=== PATIENT | female | born 1945 | race Caucasian/White ===

== ENCOUNTER 2017-05-03 12:40 | Emergency (ER) | payer MEDICARE ==
[2017-05-03] MEDS ORDERED: NS 0.9% 1000 ML* 1,000 ML IV ONE (13:52)
--- NOTE | 2017-05-03 14:22 | RAD ---
INDICATION: Memory loss. COMPARISON: CT brain October 11, 2007 TECHNIQUE: Noncontrast axial source images were acquired from the skull base to the vertex. FINDINGS: Ventricles/sulci: The ventricles and cisterns are normal in size and configuration for age. Brain parenchyma: There is no focal parenchymal finding, evidence of intracranial mass, or intracranial mass effect. Intracranial hemorrhage:None. Extra-axial spaces: There are no abnormal extra axial fluid collections or evidence of extra-axial mass. Calvarium: There is no calvarial fracture or other calvarial abnormality. Scalp: There is no evidence of scalp or extracalvarial soft tissue abnormality. Paranasal sinuses/mastoid: The paranasal sinuses and mastoid air cells are clear. Other: None. IMPRESSION: No acute intracranial findings
[2017-05-03 14:58] LABS: ABS Basophils 0.1 10^3/ul (0-0.2); ABS Eosinophils 0.1 10^3/ul (0-0.6); ABS Lymphocytes 1.6 10^3/ul (1.0-4.8); ABS Monocytes 0.6 10^3/ul (0-0.8); ABS Neutrophils 3.6 10^3/ul (1.5-7.7); ABS Nucleated RBC 0 10^3/ul; Eosinophil % 0.9 % (0-6); Hematocrit 35 % (35-47); Hemoglobin 11.5 g/dl (12.0-16.0); Lymphocyte % 27.5 % (25-47); Mean Corpuscular HGB Conc 33 g/dl (31-36); Mean Corpuscular Hemoglobin 32 pg (27-31); Mean Corpuscular Volume 94 fL (80-97); Mean Platelet Volume 9 um3 (7.4-10.4); Nucleated Red Blood Cells % 0; Platelet Count 264 10^3/ul (150-450); Red Blood Count 3.67 10^6/ul (4.0-5.4); Red Cell Distribution Width 13 % (10.5-15)
[2017-05-03 15:26] LABS: Urine Appearance Clear; Urine Blood Negative (Negative); Urine Color Yellow; Urine Ketones Negative (Negative); Urine Protein Negative (Negative); Urine Urobilinogen Negative (Negative)
--- NOTE | 2017-05-03 15:33 | RAD ---
HISTORY: Cough, altered mental status COMPARISONS: December 27, 2013 VIEWS: 1: frontal portable view of the chest at 3:10 PM FINDINGS: LINES AND TUBES: A left-sided pacemaker is noted. CARDIOMEDIASTINAL SILHOUETTE: The cardiomediastinal silhouette is normal for portable technique. PLEURA: The costophrenic angles are sharp. No pleural abnormalities are noted. LUNG PARENCHYMA: The lungs are clear. ABDOMEN: The upper abdomen is clear. There is no subphrenic gas. BONES AND SOFT TISSUES: The patient is status post median sternotomy. IMPRESSION: NO ACTIVE CARDIOPULMONARY DISEASE.
[2017-05-03 15:43] LABS: INR 1.01 (0.77-1.02)
--- NOTE | 2017-05-03 17:30 | ED ---
Donald Khan Angela, scribed for Wilfred Melchor MD on 05/03/17 at 1338 . Altered Mental Status - HPI Summary HPI Summary: This pt is a 72 y/o female, accompanied by her son, presenting to [facility] via EMS for memory loss for the past 3 weeks. Son reports that he noticed pt's memory loss about 1 week ago. Son took pt to [facility] for her cough on and was diagnosed with sinus infection, was given an antibiotics (10 day course BID). Her cough began 3 weeks ago. Son noticed the pt was unable to remember her PCP's name, had to look through her book, and had delayed thoughts. Son reports the pt has been dizzy, has slow speech, forgetful (trouble working the TV remote, forgetting to eat and drink, forgetting to flush). Pt has also had tripping for the last weeks while ambulating, catching her toes on floor. She denies visual changes, numbness, weakness or tingling. Son notes pt's speech has been slow intermittently. Pt additionally states she has persistent cough, diarrhea, urinary frequency. She denies ear ache, constipation, abd pain , calf pain. Pt had eye surgery to have cataracts removed in mid-March 2017. She is currently on metoprolol, lorazepam, and Keppra. Pt has not had a seizure in years. Her neurologist is Dr. Hackett. - History Of Current Complaint Chief Complaint: EDAltMentalStatus Stated Complaint: WEAKNESS/MEMORY LOSS Time Seen by Provider: 05/03/17 13:30 Hx Obtained From: Patient, Family/[employer] - Son Onset/Duration: Still Present, Gradually Timing: Lasting Weeks Severity Currently: Moderate Character: Confusion Aggravating Factor(s): Nothing Alleviating Factor(s): Nothing Associated Signs And Symptoms: Positive: Dizziness - Allergies/Home Medications Allergies/Adverse Reactions: Allergies Allergy/AdvReac Type Severity Reaction Status Date / Time Carbamazepine [From Tegretol] Allergy Unknown Unknown Verified 12/17/13 08:07 Reaction Details Methoxyflurane Allergy Unknown Unknown Verified 12/17/13 08:07 Reaction Details Sulfate Allergy Unknown Unknown Verified 12/17/13 08:07 Reaction Details Home Medications: Home Medications Atorvastatin* [Lipitor*] 10 mg PO DAILY 05/03/17 [History Confirmed 05/03/17] Lisinopril TAB* [Prinivil TAB*] 2.5 mg PO QAM 05/03/17 [History Confirmed ] Nitroglycerin TAB 0.4 MG* 0.4 mg SL Q5M PRN 05/03/17 [History Confirmed 05/03/17 ] Omeprazole CAP* [Prilosec CAP* 20 MG] 20 mg PO QAM 05/03/17 [History Confirmed 05/03/17] PMH/Surg Hx/FS Hx/Imm Hx Endocrine/Hematology History: Reports: Hx Anticoagulant Therapy - [place] Denies: Hx Diabetes, Hx Thyroid Disease Cardiovascular History: Reports: Hx Auto Implanted Cardiovert Defib, Hx Congestive Heart Failure - 2 CABG, Hx Coronary Artery Disease, Hx Hypercholesterolemia, Hx Hypertension - ON DAILY MEDS, Hx Pacemaker/ICD - 12/2011 , Hx Valvular Heart Disease, 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 Respiratory History: Reports: Hx Chronic Obstructive Pulmonary Disease (COPD), Hx Pneumonia - 2009, Other Respiratory Problems/Disorders - PNEUMONIA 2009 GI History: Reports: Hx Gastroesophageal Reflux Disease, Hx Ulcer - ON DAILY MEDS Denies: Other GI Disorders Musculoskeletal History: Denies: Hx Arthritis, Hx Osteoporosis, Other Musculoskeletal History Sensory History: Reports: Hx Cataracts - [facility], Hx Contacts or Glasses - READING GLASSES Denies: Hx Hearing Aid Opthamlomology History: Reports: Hx Cataracts - FITO, Hx Contacts or Glasses - READING GLASSES Neurological History: Reports: Hx Seizures - LAST ONE 3 YRS AGO, Other Neuro Impairments/Disorders - EPILEPSY Psychiatric History: Reports: Hx Anxiety - ON MEDS, Hx Depression - ON DAILY MEDS, Other Psychiatric Issues/Disorders - schizoaffective disorder - Cancer History Hx Chemotherapy: No Hx Radiation Therapy: No - Surgical History Surgery Procedure, Year, and Place: 1994 1999 CARDIAC BY-PASS 5 vessel bypass then 4 vessel bypass [facility] APPEN[facility]08/2012, [facility] CATARACTS, [facility]; PACEMAKER/DEFIBRILATOR Hx Anesthesia Reactions: No - Immunization History Date of Tetanus Vaccine: Unk Date of Influenza Vaccine: Unk Infectious Disease History: No Infectious Disease History: Denies: Traveled Outside the [place] in Last 30 Days - Family History Known Family History: Positive: Cardiac Disease - Mother: CHF. Mother and Father : NM, Hypertension - Mother, Diabetes - Mother and brother, Other - Sister: colon CA. - Social History Alcohol Use: None Substance Use Type: Reports: None Smoking Status (MU): Former Smoker Type: Cigarettes Amount Used/How Often: 3-4 PACKS A DAY Have You Smoked in the Last Year: No Review of Systems Negative: Fever, Chills Negative: Blurred Vision, Diplopia Negative: Ear Ache Positive: Cough Positive: Diarrhea. Negative: Abdominal Pain, Other - constipation Positive: frequency Neurological: Other - POS: memory loss, slow speech, delayed thoughts All Other Systems Reviewed And Are Negative: Yes Physical Exam - Summary Physical Exam Summary: General: well-appearing, no pain distress Skin: warm, color reflects adequate perfusion, dry Head: normal Eyes: EOMI, AGUSTÍN. Pupils are 3 mm bilaterally and minimally reactive. ENT: normal Neck: supple, nontender Respiratory: CTA, breath sounds present Cardiovascular: RRR Abdomen: soft, nontender Bowel: present Musculoskeletal: normal, strength/ROM intact Neurological: sensory/motor intact, A&O x3. Speech is slow, mildly slurred. Pt starts a thought and then drifts off. No focal neurological deficits otherwise. Psychological: affect/mood appropriate Triage Information Reviewed: Yes Vital Signs On Initial Exam: Initial Vitals Temp Pulse Resp BP Pulse Ox 97.7 F 65 16 107/56 96 05/03/17 13:03 05/03/17 13:03 05/03/17 13:03 05/03/17 13:03 05/03/17 13:03 Vital Signs Reviewed: Yes - Tyron Coma Scale Coma Scale Total: 14 Diagnostics - Vital Signs Vital Signs Temp Pulse Resp BP Pulse Ox 05/03/17 13:30 62 18 115/61 96 05/03/17 13:09 65 94 05/03/17 13:08 107/56 05/03/17 13:03 97.7 F 65 16 107/56 96 - Laboratory Lab Results: Lab Results 05/03/17 05/03/17 05/03/17 Range/Units 14:47 14:47 14:47 WBC (3.5-10.8) 10^3/ul RBC (4.0-5.4) 10^6/ul Hgb (12.0-16.0) g/dl Hct (35-47) % MCV (80-97) fL MCH (27-31) pg MCHC (31-36) g/dl RDW (10.5-15) % Plt Count (150-450) 10^3/ul MPV (7.4-10.4) um3 Neut % (Auto) (38-83) % Lymph % (Auto) (25-47) % [place] % (Auto) (1-9) % Eos % (Auto) (0-6) % Baso % (Auto) (0-2) % Absolute Neuts (auto) (1.5-7.7) 10^3/ul Absolute Lymphs (auto) (1.0-4.8) 10^3/ul Absolute Monos (auto) (0-0.8) 10^3/ul Absolute Eos (auto) (0-0.6) 10^3/ul Absolute Basos (auto) (0-0.2) 10^3/ul Absolute Nucleated RBC 10^3/ul Nucleated RBC % INR (Anticoag Therapy) 1.01 (0.77-1.02) APTT 22.8 L (26.0-36.3) seconds Sodium 135 (133-145) mmol/L Potassium 4.2 (3.5-5.0) mmol/L Chloride 103 (101-111) mmol/L Carbon Dioxide 25 (22-32) mmol/L Anion Gap 7 (2-11) mmol/L BUN 14 (6-24) mg/dL Creatinine 0.64 (0.51-0.95) mg/dL Est GFR ( Amer) 117.0 (>60) Est GFR (Non-Af Amer) 91.0 (>60) BUN/Creatinine Ratio 21.9 H (8-20) Glucose 87 (70-100) mg/dL Lactic Acid (0.5-2.0) mmol/L Calcium 8.6 (8.6-10.3) mg/dL Magnesium 2.1 (1.9-2.7) mg/dL Total Bilirubin 0.40 (0.2-1.0) mg/dL AST 16 (13-39) U/L ALT 7 (7-52) U/L Alkaline Phosphatase 95 (34-104) U/L Ammonia 43 (16-53) mol/L Total Creatine Kinase 142 (10-223) U/L CK-MB (CK-2) 2.2 (0.6-6.3) ng/mL Troponin I 0.01 (<0.04) ng/mL C-Reactive Protein 12.75 H (< 5.00) mg/L B-Natriuretic Peptide 697 H ( - 100) pg/mL Total Protein 5.9 L (6.4-8.9) g/dL Albumin 2.9 L (3.2-5.2) g/dL Globulin 3.0 (2-4) g/dL Albumin/Globulin Ratio 1.0 (1-3) TSH 0.77 (0.34-5.60) mcIU/mL Urine Color Urine Appearance Urine pH (5-9) Ur Specific [place] (1.010-1.030) Urine Protein (Negative) Urine Ketones (Negative) Urine Blood (Negative) Urine Nitrate (Negative) Urine Bilirubin (Negative) Urine Urobilinogen (Negative) Ur Leukocyte Esterase (Negative) Urine Glucose (Negative) Urine Opiates Screen (None Detect) Acetaminophen < 15 mcg/mL Ur Barbiturates Screen (None Detect) Ur Phencyclidine Scrn (None Detect) Ur Amphetamines Screen (None Detect) Phenobarbital 41.8 H (17-34) mcg/mL U Benzodiazepines Scrn (None Detect) Urine Cocaine Screen (None Detect) U Cannabinoids Screen (None Detect) Serum Alcohol < 10 (<10) mg/dL 05/03/17 05/03/17 05/03/17 Range/Units 14:47 14:47 15:15 WBC 6.0 (3.5-10.8) 10^3/ul RBC 3.67 L (4.0-5.4) 10^6/ul Hgb 11.5 L (12.0-16.0) g/dl Hct 35 (35-47) % MCV 94 (80-97) fL MCH 32 H (27-31) pg MCHC 33 (31-36) g/dl RDW 13 (10.5-15) % Plt Count 264 (150-450) 10^3/ul MPV 9 (7.4-10.4) um3 Neut % (Auto) 61.0 (38-83) % Lymph % (Auto) 27.5 (25-47) % [place] % (Auto) 9.3 H (1-9) % Eos % (Auto) 0.9 (0-6) % Baso % (Auto) 1.3 (0-2) % Absolute Neuts (auto) 3.6 (1.5-7.7) 10^3/ul Absolute Lymphs (auto) 1.6 (1.0-4.8) 10^3/ul Absolute Monos (auto) 0.6 (0-0.8) 10^3/ul Absolute Eos (auto) 0.1 (0-0.6) 10^3/ul Absolute Basos (auto) 0.1 (0-0.2) 10^3/ul Absolute Nucleated RBC 0 10^3/ul Nucleated RBC % 0 INR (Anticoag Therapy) (0.77-1.02) APTT (26.0-36.3) seconds Sodium (133-145) mmol/L Potassium (3.5-5.0) mmol/L Chloride (101-111) mmol/L Carbon Dioxide (22-32) mmol/L Anion Gap (2-11) mmol/L BUN (6-24) mg/dL Creatinine (0.51-0.95) mg/dL Est GFR ( Amer) (>60) Est GFR (Non-Af Amer) (>60) BUN/Creatinine Ratio (8-20) Glucose (70-100) mg/dL Lactic Acid 1.1 (0.5-2.0) mmol/L Calcium (8.6-10.3) mg/dL Magnesium (1.9-2.7) mg/dL Total Bilirubin (0.2-1.0) mg/dL AST (13-39) U/L ALT (7-52) U/L Alkaline Phosphatase (34-104) U/L Ammonia (16-53) mol/L Total Creatine Kinase (10-223) U/L CK-MB (CK-2) (0.6-6.3) ng/mL Troponin I (<0.04) ng/mL C-Reactive Protein (< 5.00) mg/L B-Natriuretic Peptide ( - 100) pg/mL Total Protein (6.4-8.9) g/dL Albumin (3.2-5.2) g/dL Globulin (2-4) g/dL Albumin/Globulin Ratio (1-3) TSH (0.34-5.60) mcIU/mL Urine Color Yellow Urine Appearance Clear Urine pH 5.0 (5-9) Ur Specific [place] 1.010 (1.010-1.030) Urine Protein Negative (Negative) Urine Ketones Negative (Negative) Urine Blood Negative (Negative) Urine Nitrate Negative (Negative) Urine Bilirubin Negative (Negative) Urine Urobilinogen Negative (Negative) Ur Leukocyte Esterase Negative (Negative) Urine Glucose Negative (Negative) Urine Opiates Screen (None Detect) Acetaminophen mcg/mL Ur Barbiturates Screen (None Detect) Ur Phencyclidine Scrn (None Detect) Ur Amphetamines Screen (None Detect) Phenobarbital (17-34) mcg/mL U Benzodiazepines Scrn (None Detect) Urine Cocaine Screen (None Detect) U Cannabinoids Screen (None Detect) Serum Alcohol (<10) mg/dL 05/03/17 Range/Units 15:35 WBC (3.5-10.8) 10^3/ul RBC (4.0-5.4) 10^6/ul Hgb (12.0-16.0) g/dl Hct (35-47) % MCV (80-97) fL MCH (27-31) pg MCHC (31-36) g/dl RDW (10.5-15) % Plt Count (150-450) 10^3/ul MPV (7.4-10.4) um3 Neut % (Auto) (38-83) % Lymph % (Auto) (25-47) % [place] % (Auto) (1-9) % Eos % (Auto) (0-6) % Baso % (Auto) (0-2) % Absolute Neuts (auto) (1.5-7.7) 10^3/ul Absolute Lymphs (auto) (1.0-4.8) 10^3/ul Absolute Monos (auto) (0-0.8) 10^3/ul Absolute Eos (auto) (0-0.6) 10^3/ul Absolute Basos (auto) (0-0.2) 10^3/ul Absolute Nucleated RBC 10^3/ul Nucleated RBC % INR (Anticoag Therapy) (0.77-1.02) APTT (26.0-36.3) seconds Sodium (133-145) mmol/L Potassium (3.5-5.0) mmol/L Chloride (101-111) mmol/L Carbon Dioxide (22-32) mmol/L Anion Gap (2-11) mmol/L BUN (6-24) mg/dL Creatinine (0.51-0.95) mg/dL Est GFR ( Amer) (>60) Est GFR (Non-Af Amer) (>60) BUN/Creatinine Ratio (8-20) Glucose (70-100) mg/dL Lactic Acid (0.5-2.0) mmol/L Calcium (8.6-10.3) mg/dL Magnesium (1.9-2.7) mg/dL Total Bilirubin (0.2-1.0) mg/dL AST (13-39) U/L ALT (7-52) U/L Alkaline Phosphatase (34-104) U/L Ammonia (16-53) mol/L Total Creatine Kinase (10-223) U/L CK-MB (CK-2) (0.6-6.3) ng/mL Troponin I (<0.04) ng/mL C-Reactive Protein (< 5.00) mg/L B-Natriuretic Peptide ( - 100) pg/mL Total Protein (6.4-8.9) g/dL Albumin (3.2-5.2) g/dL Globulin (2-4) g/dL Albumin/Globulin Ratio (1-3) TSH (0.34-5.60) mcIU/mL Urine Color Urine Appearance Urine pH (5-9) Ur Specific [place] (1.010-1.030) Urine Protein (Negative) Urine Ketones (Negative) Urine Blood (Negative) Urine Nitrate (Negative) Urine Bilirubin (Negative) Urine Urobilinogen (Negative) Ur Leukocyte Esterase (Negative) Urine Glucose (Negative) Urine Opiates Screen None detected (None Detect) Acetaminophen mcg/mL Ur Barbiturates Screen Presumptive positive H (None Detect) Ur Phencyclidine Scrn None detected (None Detect) Ur Amphetamines Screen None detected (None Detect) Phenobarbital (17-34) mcg/mL U Benzodiazepines Scrn None detected (None Detect) Urine Cocaine Screen None detected (None Detect) U Cannabinoids Screen None detected (None Detect) Serum Alcohol (<10) mg/dL Result Diagrams: 05/03/17 14:47 05/03/17 14:47 Lab Statement: Any lab studies that have been ordered have been reviewed, and results considered in the medical decision making process. - Radiology Chest XR Xray Interpretation: No Acute Changes - IMPRESSION: No active cardiopulmonary disease. Dr. Melchor has reviewed this radiology report. Radiology Interpretation Completed By: Radiologist - CT Brain CT CT Interpretation: No Acute Changes - IMPRESSION: No acute intracranial findings. Dr. Melchor has reviewed this radiology report. CT Interpretation Completed By: Radiologist - EKG 14:28 Cardiac Rate: NL Ectopy: PVCs EKG Interpretation: atrial paced complex rhythm at [address] elevation inferior leads. EKG Comparison: No Significant Change - no change compared to EKG done on . Altered Mental Statu Course/Dx - Course Course Of Treatment: Medications reviewed. Allergies noted. Brain CT is negative. Chest XR is negative. UA is positive for barbiturates and phenobarbital. I discussed pt's case with Dr. Cuevas, neurologist. HE RECOMMENDS DECREASING THE PHENOBARBITAL FROM 2 PILLS IN THE AM AND 3 IN THE PM TO 2 BID ( 32.4MG PILLS). F/U WITH NEUROLOGY TOMORROW. THIS WAS ALL DISCUSSED WITH THE PATIENT AND HER FAMILY. THEY FEEL SAFE TAKING THE PATIENT HOME; RETURN IF WORSE. - Diagnoses Discharge Diagnoses: Altered mental state, Phenobarbital toxicity - Provider Notifications Discussed Care Of Patient With: Vitaliy Cain Time Discussed With Above Provider: 16:28 Instructed by Provider To: Other - I discussed pt care with Dr. Cain, hospitalist. [16:46] I discussed pt's case with Dr. Cuevas, neurologist. Discharge - Discharge Plan Condition: Stable Disposition: HOME Patient Education Materials: Altered Mental Status (ED) Referrals: [facility] [Provider Group] Eli Cuevas MD [Medical Doctor] - Gallo Hackett MD [Medical Doctor] - Milton Hall MD [Primary Care Provider] - Additional Instructions: FOLLOW UP WITH YOUR PRIMARY CARE DOCTOR AND NEUROLOGY; DR HACKETT OR DR CUEVAS. YOUR PHENOBARBITAL LEVEL IS HIGH. DECREASE YOUR DOSE FROM 2 PILLS IN THE MORNING AND 3 PILLS AT NIGHT TO 2 PILLS BOTH MORNING AND NIGHT. RETURN TO THE EMERGENCY DEPARTMENT FOR ANY WORSENING OF YOUR CONDITION; INCREASED CONFUSION, DIFFICULTY BREATH, YOU FEEL ILL OR QUESTIONS OR CONCERNS. The documentation as recorded by the Donald cedillo Angela accurately reflects the service I personally performed and the decisions made by me, Wilfred Melchor MD.
[2017-05-03 17:35] VITALS: BP 110/87
== END 2017-05-03 18:00 | disposition home or self-care (01) ==
LOC: ED 12:40
DX: R41.82 Altered mental status, unspecified (principal); T42.3X5A Adverse effect of barbiturates, initial encounter; Z88.8 Allergy status to other drugs, medicaments and biological substances; Z87.891 Personal history of nicotine dependence
CPT/HCPCS: 36415; 70450; 71045; 80053; 80177; 80184; 80307; 80320; 80329; 81003; 82140; 82550; 82553; 83605; 83735; 83880; 84443; 84484; 85025; 85610; 85730; 86140; 93005; 96360; 99284; G0480

== ENCOUNTER 2018-04-09 18:09 | Observation (INO) | payer MEDICARE ==
[2018-04-09] MEDS ORDERED: NS 0.9% 1000 ML* 1,000 ML IV ONE ×2 (18:21→18:43)
--- NOTE | 2018-04-09 18:43 | ED ---
Neurological HPI - HPI Summary HPI Summary: Time seen by provider: [18:15]. The patient is a 73 y/o F presenting to [facility] with a chief complaint of confusion today. She states she has "loss her loss" and "minds her mind", and additionally states that the government infused her, as well as other phrases without meaning. She reports that something hit her face under the left orbit upon the maxila. She denies nausea, CP, and SOB. She called 911 from her [facility]; she told EMS she was diagnosed with a UTI, but results were negative. - History of Current Complaint Chief Complaint: EDAltMentalStatus Stated Complaint: CONFUSION Time Seen by Provider: 04/09/18 18:33 Hx Obtained From: Patient, EMS Onset/Duration: Sudden Onset, Started hours ago - today, Still Present Timing: Constant Onset Severity: Severe Current Severity: Severe Pain Intensity: 0 Pain Scale Used: 0-10 Numeric Character: Confusion Aggravating: Nothing Alleviating: Nothing Associated Signs and Symptoms: Negative: Nausea/Vomiting, Chest Pain, Shortness of Breath - Allergy/Home Medications Allergies/Adverse Reactions: Allergies Allergy/AdvReac Type Severity Reaction Status Date / Time carbamazepine Allergy Unknown Unknown Verified 04/09/18 21:12 Reaction Details methoxyflurane Allergy Unknown Unknown Verified 04/09/18 21:12 Reaction Details Sulfa (Sulfonamide Allergy Unknown Unknown Verified 04/10/18 10:06 Antibiotics) Reaction Details PMH/Surg Hx/FS Hx/Imm Hx Endocrine/Hematology History: Reports: Hx Anticoagulant Therapy - [place]il[place] Denies: Hx Diabetes, Hx Thyroid Disease Cardiovascular History: Reports: Hx Auto Implanted Cardiovert Defib, Hx Congestive Heart Failure - 2 CABG, Hx Coronary Artery Disease, Hx Hypercholesterolemia, Hx Hypertension - ON DAILY MEDS, Hx Pacemaker/ICD - 12/2011 , Hx Valvular Heart Disease, 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 Respiratory History: Reports: Hx Chronic Obstructive Pulmonary Disease (COPD), Hx Pneumonia - 2009, Other Respiratory Problems/Disorders - PNEUMONIA 2009 GI History: Reports: Hx Gastroesophageal Reflux Disease, Hx Ulcer - ON DAILY MEDS Denies: Other GI Disorders Musculoskeletal History: Denies: Hx Arthritis, Hx Osteoporosis, Other Musculoskeletal History Sensory History: Reports: Hx Cataracts - FITO, Hx Contacts or Glasses - READING GLASSES Denies: Hx Hearing Aid Opthamlomology History: Reports: Hx Cataracts - FITO, Hx Contacts or Glasses - READING GLASSES Neurological History: Reports: Hx Seizures - LAST ONE 3 YRS AGO, Other Neuro Impairments/Disorders - EPILEPSY Psychiatric History: Reports: Hx Anxiety - ON MEDS, Hx Depression - ON DAILY MEDS, Other Psychiatric Issues/Disorders - schizoaffective disorder - Cancer History Hx Chemotherapy: No Hx Radiation Therapy: No - Surgical History Surgery Procedure, Year, and Place: 1994 1999 CARDIAC BY-PASS 5 vessel bypass then 4 vessel bypass [facility]08/2012, [facility], [facility]; PACEMAKER/DEFIBRILATOR Hx Anesthesia Reactions: No - Immunization History Date of Tetanus Vaccine: Unk Date of Influenza Vaccine: Unk Infectious Disease History: No Infectious Disease History: Denies: Traveled Outside the [place] in Last 30 Days - Family History Known Family History: Positive: Cardiac Disease - Mother: CHF. Mother and Father : [place], Hypertension - Mother, Diabetes - Mother and brother, Other - Sister: colon CA. - Social History Alcohol Use: None Substance Use Type: Reports: None Smoking Status (MU): Former Smoker Type: Cigarettes Amount Used/How Often: 3-4 PACKS A DAY Have You Smoked in the Last Year: No Review of Systems Negative: Chest Pain Negative: Shortness Of Breath Negative: Nausea Neurological: Other - confusion All Other Systems Reviewed And Are Negative: Yes Physical Exam - Summary Physical Exam Summary: Appearance: Well-appearing, Well-nourished, lying in bed comfortably Skin: Warm, dry, no obvious rash Eyes: sclera anicteric, no conjunctival pallor ENT: mucous membranes moist, pharynx appears normal Neck: Supple, nontender Respiratory: Clear to auscultation, no signs of respiratory distress Cardiovascular: Normal S1, S2. No murmurs. Normal distal pulses in tibial and radial bilaterally. Abdomen: Soft, nontender, normal active bowel sounds present Musculoskeletal: Normal, Strength/ROM Intact, Motor function in all 4 extremities is normal and symmetric. There is no rigidity or tremor noted. Neurological: A&Ox3, awake and alert, mentation is normal, expressive aphasia, Level of consciousness nml. The patient is alert and oriented. Cranial nerves are grossly intact. Gaze is conjugate and without nystagmus. Peripheral vision is intact to confrontation. There are no gross sensory abnormalities to light touch. There is no truncal or fine motor ataxia. Gait is normal. GCS:15, NIH: 3. Psychiatric: affect is normal, does not appear anxious or depressed Triage Information Reviewed: Yes Vital Signs On Initial Exam: Initial Vitals Temp Pulse Resp BP Pulse Ox 97.3 F 64 16 100/58 97 04/09/18 18:13 04/09/18 18:13 04/09/18 18:13 04/09/18 18:13 04/09/18 18:13 Vital Signs Reviewed: Yes Diagnostics - Vital Signs Vital Signs Temp Pulse Resp BP Pulse Ox 04/09/18 18:13 97.3 F 64 16 100/58 97 - Laboratory Result Diagrams: 04/11/18 06:05 04/10/18 05:36 Lab Statement: Any lab studies that have been ordered have been reviewed, and results considered in the medical decision making process. - Radiology CXR Radiology Interpretation Completed By: Radiologist Summary of Radiographic Findings: No acute disease. ED physician has reviewed this report. - CT Brain CT CT Interpretation Completed By: Radiologist Summary of CT Findings: 1. Mild volume loss and small vessel ischemic changes. 2. No acute intracranial abnormality. No CT evidence of acute infarct. If clinically concerned further evaluation with MR is recommended. ED physician has reviewed this report. Head CTA CT Interpretation Completed By: Radiologist Summary of CT Findings: 1. Mild less than 50% stenosis of the right proximal ICA. 2. There is small caliber left vertebral artery which is visualized to the C2 level. ED physician has reviewed this report. - EKG 18:35 Cardiac Rate: NL - 63 BPM EKG Rhythm: Sinus Rhythm Summary of EKG Findings: No STEMI. NIH Scale - NIH Scale Level of Consciousness: Alert/Keenly Responsive Ask Patient the Month and His/Her Age: One Correct/Not Aphasic Ask Pt to Open/Close Eyes and Organ Pipe Finisher/Release Non-Paretic Hand: Both Correctly Best Gaze (Only Horizontal Eye Movement): Normal Visual Field Testing: No Visual Loss Facial Paresis-Pt to Smile & Close Eyes or Grimace Symmetry: Normal/Symmetrical Motor Function - Right Arm: No Drift-Holds 10 Seconds Motor Function - Left Arm: No Drift-Holds 10 Seconds Motor Function - Right Leg: No Drift-Holds 10 Seconds Motor Function - Left Leg: No Drift-Holds 10 Seconds Limb Ataxia-Must be out of Proportion to Weakness Present: Absent Sensory (Use Pinprick to Test Arms/Legs/Trunk/Face): Normal Best Language (Describe Picture, Name Items): Severe Aphasia Dysarthria (Read Several Words): Normal Extinction and Inattention: No Abnormality Total Score: 3 Course/Dx - Course Course Of Treatment: Time seen by provider: [18:15]. The patient is a 73 y/o F presenting to [facility] with a chief complaint of confusion today. She reports that something hit her face under the left orbit upon the maxila. She denies nausea, CP, and SOB. She repeats nonsense phrases. Upon physical exam, the patient was expressive aphasia, GCS: 15, NIH: 3. In the ED course, the patient was given Ns , Tylenol, Duoneb, Aspiring, Lipitor, Keppra. Prinivil, Ativan, and Toprol. Blood work shows lactic acid of 2.8. EKG is negative. CXR is negative. Brain CT reveals mild volume loss but otherwise normal. Head CTA reveals mild stenosis of right proximal ICA and small caliber left vertebral artery visualized to C2 level. Critical care time of 60 minutes. She is diagnosed with CVA. I consulted with Dr. Hinojosa at 19:15 who accepts the patient for admission. Patient agrees with this plan and understands the need for admission. - Diagnoses Provider Diagnoses: CVA (cerebral vascular accident) During the Visit The Following Alert/Code Occurred: Code Seay - called at 18:18 - Physician Notifications Discussed Care Of Patient With: Randi Hinojosa - hospitalist Time Discussed With Above Provider: 20:35 Instructed by Provider To: Other - I consulted with Dr. Hinojosa, who accepts the patient for admission. - Critical Care Time Critical Care Time: 30-74 min - 60 minutes Discharge - Sign-Out/Discharge Documenting (check all that apply): Patient Departure - Patient will be admitted to [facility] for further care. - Discharge Plan Condition: Stable Disposition: ADMITTED TO [facility] - Billing Disposition and Condition Condition: STABLE Disposition: Admitted to [facility] - Attestation Statements Document Initiated by Scribe: Yes Documenting Scribe: Yara Sanchez Provider For Whom Scribe is Documenting (Include Credential): Dr. Juan Miguel Alcala MD Scribe Attestation: Yara Khan scribed for Dr. Juan Miguel Alcala MD on 04/13/18 at 0157. Scribe Documentation Reviewed: Yes Provider Attestation: The documentation as recorded by the Yara cedillo accurately reflects the service I personally performed and the decisions made by me, Dr. Juan Miguel Alcala MD Status of Taz Document: Viewed
[2018-04-09 18:53] LABS: ABS Basophils 0.1 10^3/ul (0-0.2); ABS Eosinophils 0.1 10^3/ul (0-0.6); ABS Lymphocytes 1.4 10^3/ul (1.0-4.8); ABS Monocytes 0.6 10^3/ul (0-0.8); ABS Neutrophils 3.4 10^3/ul (1.5-7.7); ABS Nucleated RBC 0 10^3/ul; Hematocrit 38 % (35-47); Hemoglobin 12.6 g/dl (12.0-16.0); Lymphocyte % 25.2 %; Mean Corpuscular HGB Conc 33 g/dl (31-36); Mean Corpuscular Hemoglobin 32 pg (27-31); Mean Corpuscular Volume 96 fL (80-97); Mean Platelet Volume 8.2 fL (7.4-10.4); Nucleated Red Blood Cells % 0.1; Platelet Count 214 10^3/ul (150-450); Red Blood Count 3.97 10^6/ul (4.00-5.40); Red Cell Distribution Width 13 % (10.5-15); White Blood Count 5.4 10^3/ul (3.5-10.8)
[2018-04-09 19:10] LABS: Albumin 3.8 g/dL (3.2-5.2); Albumin/Globulin Ratio 1.3 (1-3); BUN/Creatinine Ratio 15.8 (8-20); Calcium 9.1 mg/dL (8.6-10.3); EGFR Non-African American 57.5 (>60); Globulin 2.9 g/dL (2-4); Total Bilirubin 0.2 mg/dL (0.2-1.0); Total Protein 6.7 g/dL (6.4-8.9)
[2018-04-09 19:40] LABS: Activated Partial Thrombo Time 26.9 seconds (26.0-36.3); INR 0.96 (0.77-1.02)
[2018-04-09 20:03] LABS: TSH (Thyroid Stimulating Horm) 3.12 mcIU/mL (0.34-5.60)
[2018-04-09] MEDS ORDERED: Albuterol/Ipratropium NEB.SOL* Albuterol 2.5 MG/Ipratropium 0.5 MG 3 ML INH PRN (20:55)
[2018-04-09] MEDS ORDERED: Acetaminophen TAB* 325 MG PO PRN (20:55)
[2018-04-09] MEDS ORDERED: Nitroglycerin TAB 0.4 MG* 0.4 MG TAB SL PRN (21:01)
[2018-04-09] MEDS ORDERED: Aspirin TAB* 325 MG PO ONE (21:39)
[2018-04-09] MEDS ORDERED: Clopidogrel TAB* 300 MG PO ONE (21:39)
[2018-04-09] MEDS ORDERED: Aspirin 81 mg CHEW TAB* 81 MG TAB.CHEW ONE (21:46)
[2018-04-09] MEDS: Aspirin 81 mg CHEW TAB* 81 MG TAB.CHEW PO ONE (21:51)
[2018-04-09] MEDS ORDERED: lamoTRIgine TAB(*) 25 MG PO ONE (21:57)
[2018-04-09] MEDS: NS 0.9% 1000 ML* 1,000 ML IV SCH (23:08)
[2018-04-09 23:10] LABS: Urine Appearance Clear; Urine Bilirubin Negative (Negative); Urine Blood Negative (Negative); Urine Color Yellow; Urine Glucose Negative (Negative); Urine Ketones Negative (Negative); Urine Nitrite Negative (Negative); Urine Protein Negative (Negative); Urine Specific Gravity > 1.060 (1.010-1.030); Urine Urobilinogen Negative (Negative)
[2018-04-10 06:07] LABS: HDL Cholesterol 62.2 mg/dL
[2018-04-10 06:15] LABS: ABS Basophils 0.1 10^3/ul (0-0.2); ABS Eosinophils 0.1 10^3/ul (0-0.6); ABS Monocytes 0.5 10^3/ul (0-0.8); ABS Neutrophils 2.5 10^3/ul (1.5-7.7); ABS Nucleated RBC 0 10^3/ul; Eosinophil % 2.6 %; Hematocrit 33 % (35-47); Hemoglobin 11.1 g/dl (12.0-16.0); Lymphocyte % 23.8 %; Mean Corpuscular HGB Conc 33 g/dl (31-36); Mean Corpuscular Hemoglobin 31 pg (27-31); Mean Corpuscular Volume 95 fL (80-97); Mean Platelet Volume 8.2 fL (7.4-10.4); Nucleated Red Blood Cells % 0.1; Platelet Count 177 10^3/ul (150-450); Red Blood Count 3.54 10^6/ul (4.00-5.40); Red Cell Distribution Width 13 % (10.5-15); White Blood Count 4.2 10^3/ul (3.5-10.8)
[2018-04-10] MEDS: NS 0.9% 1000 ML* 1,000 ML IV SCH (06:15)
[2018-04-10 06:18] LABS: Calcium 8.1 mg/dL (8.6-10.3); EGFR Non-African American 75.5 (>60); Potassium 3.6 mmol/L (3.5-5.0)
--- NOTE | 2018-04-10 06:24 | ADMNOTE ---
Subjective Date of Service: 04/09/18 Interval History: code status full this is admission h/p hpi this is a 73 yr old wf with hx of sig cad s/p aicd/ppm due to tachy-luisa syndorme chronic systolic hf with lvef 30 percent copd was brought in to er due to change of mental status/confusion/some aphasia expression as per son. she was visiting her friend at [facility] and was found to have expressive aphsia/dizziness at 330 pm ---> son was called at [address] head and cta head/neck neg with nih score of 3. er spoke with tele neuro at [facility] --- > pt got plavix 600 mg and asa 325 mg and [facility] suggested to continue this duo antiplat therapy for one week. 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 her phenobarb was titrated down to 32.4 bid while adding on lamictal 50 daily as per neuro( had phenobarb overdose). initial head ct and nect cta were neg ---> neuro consult was called and did not want pt to have heavy dose of asa/plavix until repeat head ct ---> neuro will see pt this am pt passed her bedside swallow test phx/pshx cad with total 4-5 cardiac stents 10 yrs ago followed by 3 cabg ( 5v then 4v then 3v ) last cabg was 4-5 yrs ago ischemic cardiomyopathy a fib tachy-luisa s/p ppm/ aicd hx of v tach cardio was Dr Romero last stress was within one yr chronic systolic hf with ef 30 percent on echo 05/2017 sz tonic clonic mixed with petit mal copd htn schezoaffective disorder gerd hyperlipidemia social hx no cig quit 12 yrs ago no etoh lives in a senior building fhx one paternal aunt has seizure Review of Systems - Measurements Intake and Output: Intake and Output Last 24 Hours 04/07/18 04/08/18 04/09/18 04/10/18 06:59 06:59 06:59 06:59 Intake Total 1000 Balance 1000 Weight 148 lb 9.6 oz Intake: IV Fluids 1000 - Review of Systems General Comments: pertient as per hpi Objective Active Medications: Acetaminophen (Tylenol Tab*) 650 mg PO Q4H PRN PRN Reason: FEVER/PAIN Albuterol/Ipratropium (Duoneb (Albuterol 2.5 Mg/Ipratropium 0.5 Mg)) 1 neb INH [id number] AWAKE PRN PRN Reason: sob/wheexing Aspirin (Aspirin Ec Tab*) 81 mg PO QAM [facility] Atorvastatin Calcium (Lipitor*) 10 mg PO DAILY [facility] Calcium/Vitamin D (Oscal D Tab 250/125*) 2 tab PO QAM [facility] Cholestyramine Resin (Questran*) 4 gm PO BID [facility] Sodium Chloride (Ns 0.9% 1000 Ml*) 1,000 mls @ 125 mls/hr IV PER RATE [facility] Last Admin: 04/09/18 23:08 Dose: 125 mls/hr Lamotrigine (Lamictal Xr (Nf)) 50 mg PO DAILY [facility] Levetiracetam (Keppra Tab*) 1,500 mg PO QAM [facility] Levetiracetam (Keppra Tab*) 1,500 mg PO QPM [facility] Lisinopril (Prinivil Tab*) 2.5 mg PO QAM [facility] Lorazepam (Ativan Tab(*)) 0.25 mg PO BID [facility] Metoprolol Succinate (Toprol Xl Tab*) 50 mg PO QAM [facility] Nitroglycerin (Nitroglycerin Tab 0.4 Mg*) 0.4 mg SL Q5M PRN PRN Reason: PAIN - CHEST Omeprazole (Prilosec Cap*) 40 mg PO QAM [facility] Paliperidone (Invega Er Tab*) 6 mg PO QAM [facility] Paroxetine HCl (Paxil Tab*) 20 mg PO BEDTIME [facility] Phenobarbital (Phenobarbital Tab(*)) 30 mg PO QAM [facility] Phenobarbital (Phenobarbital Tab(*)) 30 mg PO QPM [facility] Vital Signs - 8 hr 04/09/18 04/09/18 04/10/18 22:20 22:27 00:03 Temperature 97.9 F 97.2 F 97.7 F Pulse Rate 61 59 58 Respiratory 15 18 20 Rate Blood Pressure 112/67 105/59 117/61 (mmHg) O2 Sat by Pulse 97 99 98 Oximetry 04/10/18 04/10/18 00:55 03:24 Temperature 98.1 F Pulse Rate 61 Respiratory 16 Rate Blood Pressure 110/60 (mmHg) O2 Sat by Pulse 98 99 Oximetry Oxygen Devices in Use Now: None Appearance: nad Ears/Nose/Mouth/Throat: NL Teeth, Lips, Gums, Clear Oropharnyx, - - oral mucosa dry Neck: NL Appearance and Movements; NL JVP, Trachea Midline, No Thyroid Enlargement, Masses Respiratory: Symmetrical Chest Expansion and Respiratory Effort, Clear to Auscultation Cardiovascular: - - s1 s2 no murmur Abdominal: NL Sounds; No Tenderness; No Distention Extremities: No Edema, - - able to raise ue and le against gravity Skin: No Rash or Ulcers Neurological: - - awake and follows commands disoriented with decreased nasallabial fold on the left the rest of cranial n wnl, motor ue and le 5/5 sensory ue/le b/l 2/2 plantar reflex downwards Result Diagrams: 04/11/18 06:05 04/10/18 05:36 Assess/Plan/Problems-Billing Assessment: this is a 73 yr old wf with schezoaffective disorder presented with aphasia expressive worsening confusion since 330 pm while she was visiting her friend at [facility]. pt's son was called in reg this at 530 pm intial head/ neck ct/ cta neg she got hx of seizures ( grand mal and petit mal ) and has been on multiple sz meds. pt got asa/plavix despite nih score is 3. - Patient Problems (1) Altered mental status Status: Acute Code(s): R41.82 - ALTERED MENTAL STATUS, UNSPECIFIED SNOMED Code(s): 984780751 Comment: etiology unclear could be tia vs underlying sz will repeat head ct at 3 pm due to aicd hx pt will be seen by neuro this am will have tele with jake as per protocol (2) Seizure Status: Acute Code(s): R56.9 - UNSPECIFIED CONVULSIONS SNOMED Code(s): 27027037 Comment: - Discussed w/ patient and son and daughter that we will not likely be 100% sure of stroke vs seizure - Reasonable to attribute a breakthrough seizure to cephalexin and not increase phenobarb without first talking to Dr. Ling. - If any anticonvulsant to be increased, should be lamotrigine, which was 50 mg/ day until this point, scheduled to increase to 100/day in 3 days (3) Ischemic cardiomyopathy Status: Acute Priority: High Onset Date: 12/17/13 Code(s): I25.5 - ISCHEMIC CARDIOMYOPATHY SNOMED Code(s): 919239744 Comment: s/p aicd/ppm no cp c/o tele with jake as per protocol (4) Chronic systolic (congestive) heart failure Status: Acute Code(s): I50.22 - CHRONIC SYSTOLIC (CONGESTIVE) HEART FAILURE SNOMED Code(s): 881334532 Comment: stable moniter continue outpt meds (5) COPD (chronic obstructive pulmonary disease) Status: Acute Code(s): J44.9 - CHRONIC OBSTRUCTIVE PULMONARY DISEASE, UNSPECIFIED SNOMED Code(s): 58839522 Comment: stable continue outpt mgt (6) HTN (hypertension) Status: Acute Code(s): I10 - ESSENTIAL (PRIMARY) HYPERTENSION SNOMED Code(s) : 21111461 Comment: stable continue outpt meds (7) Hyperlipidemia Status: Acute Code(s): E78.5 - HYPERLIPIDEMIA, UNSPECIFIED SNOMED Code(s): 11510543 Comment: lft wnl continue outpt meds (8) Schizoaffective disorder Status: Acute Code(s): F25.9 - SCHIZOAFFECTIVE DISORDER, UNSPECIFIED SNOMED Code(s): 51873097 Comment: -stable, continue Invega
[2018-04-10] MEDS: Paliperidone ER TAB* 6 MG TAB.ER PO SCH (08:45)
[2018-04-10] MEDS: PHENobarbital TAB(*) 30 MG PO SCH (08:46)
[2018-04-10] MEDS: Metoprolol Succinate XL TAB* 50 MG PO SCH (08:46)
[2018-04-10] MEDS: Atorvastatin* 10 MG TAB PO SCH (08:47)
[2018-04-10] MEDS: levETIRAcetam TAB* 500 MG PO SCH (08:47)
[2018-04-10] MEDS: Aspirin EC TAB* 81 MG TAB.EC PO SCH (08:48)
[2018-04-10] MEDS: Calcium/Vitamin D TAB 250/125* TAB PO SCH (08:49)
[2018-04-10] MEDS: LORazepam TAB(*) 0.5 MG PO SCH ×2 (08:50→20:45)
[2018-04-10] MEDS: lamoTRIgine TAB(*) 25 MG PO SCH ×2 (08:50→20:44)
[2018-04-10] MEDS: Cholestyramine Resin* 4 GM POWDER PO SCH ×2 (08:51→21:42)
[2018-04-10] MEDS: Lisinopril TAB* 5 MG PO SCH (08:51)
[2018-04-10] MEDS ORDERED: Omeprazole CAP* 20 MG PO SCH ×2 (09:00)
[2018-04-10] MEDS ORDERED: LAMOTRIGINE 50 MG PO SCH (09:00)
[2018-04-10] MEDS ORDERED: Clopidogrel TAB* 300 MG PO SCH (09:00)
[2018-04-10] MEDS ORDERED: Aspirin EC TAB* 325 MG PO SCH (09:00)
[2018-04-10] MEDS ORDERED: PHENOBARBITAL 64.8 MG PO SCH (09:00)
--- NOTE | 2018-04-10 11:13 | CONSULT ---
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 The patient lives alone at a senior facility. Her son visits and organizes her medications. Her son was visiting yesterday around 3.30 pm when he noted her to be confused with difficulty speaking. She was brought to the ED. Teleneurology at [facility] was consulted and they recommended ASA 325 and Plavix 600 for one week. She has a history of epilepsy that was being managed by Dr. Delaney who was in the process of tapering her phenobarbital. The patient states the phenobarbital was being tapered at the request of her children who felt that the medications was producing side effects of somnolence. The last change was one month ago. The patient does not have an aura and does not know when she has a seizure. About 2 weeks ago the patient found bruising under the area of her left eye. She spoke with Dr. Delaney and it was assumed that she had a seizure. She was started on Lamictal and she is currently taking Lamictal 50 daily. The patient feels back to herself at this time. She has poor recollection of the event that occurred yesterday. Review of Systems: The patient's review of systems questionnaire was reviewed and there are no additional pertinent positives. Meds Multiple Vitamins W/ Minerals [Centrum Silver] 1 tab PO QAM 03/26/12 [History Confirmed 04/09/18] Paliperidone ER TAB* [Invega TAB*] 6 mg PO QAM 03/26/12 [History Confirmed 04/09] levETIRAcetam TAB* [Keppra*] 1,500 mg PO QAM 03/26/12 [History Confirmed ] levETIRAcetam TAB* [Keppra*] 1,500 mg PO QPM 03/26/12 [History Confirmed ] LORazepam TAB(*) [Ativan TAB(*)] 0.25 mg PO BID 08/29/12 [History Confirmed ] PARoxetine HCL TAB* [Paxil TAB*] 20 mg PO BEDTIME 08/29/12 [History Confirmed ] Aspirin EC TAB* [Ecotrin EC Low Dose 81 MG*] 81 mg PO QAM 12/27/13 [History Confirmed 04/09/18] Calcium Carbonate-Vitamin D [Caltrate 600+D] 2 tab PO QAM 12/27/13 [History Confirmed 04/09/18] Methylcellulose (Laxative) [Citrucel] 500 mg PO BID 12/27/13 [History Confirmed 04/09/18] Metoprolol Succinate XL TAB* [Toprol XL TAB*] 50 mg PO QAM 12/27/13 [History Confirmed 04/09/18] Phenobarbital 32.4 mg PO QAM 12/27/13 [History Confirmed 04/09/18] Phenobarbital 32.4 mg PO QPM 12/27/13 [History Confirmed 04/09/18] Atorvastatin* [Lipitor*] 10 mg PO DAILY 05/03/17 [History Confirmed 04/09/18] Lisinopril TAB* [Prinivil TAB*] 2.5 mg PO QAM 05/03/17 [History Confirmed ] Nitroglycerin TAB 0.4 MG* 0.4 mg SL Q5M PRN 05/03/17 [History Confirmed 04/09/18 ] Omeprazole CAP* [Prilosec CAP* 20 MG] 20 mg PO QAM 05/03/17 [History Confirmed 04/09/18] lamoTRIgine [Lamotrigine ER] 50 mg PO DAILY 04/09/18 [History Confirmed 04/09/18 ] Allergies carbamazepine Allergy (Unknown, Verified 04/09/18 21:12) Unknown Reaction Details methoxyflurane Allergy (Unknown, Verified 04/09/18 21:12) Unknown Reaction Details Sulfa (Sulfonamide Antibiotics) Allergy (Unknown, Verified 04/10/18 10:06) Unknown Reaction Details sulfates listed on previous record Vital Signs Temp 98.5 F 04/10/18 07:32 Pulse 65 04/10/18 08:12 Resp 20 04/10/18 08:50 BP 125/70 04/10/18 08:12 Pulse Ox 96 04/10/18 10:16 Intake & Output 04/09/18 04/10/18 04/10/18 18:59 06:59 18:59 Intake Total 1979 1422 Output Total 0 550 Balance 1979 872 Weight 150 lb 148 lb 9.6 oz Intake: IV Fluids 1979 950 IVPB 472 NS 472 Oral 0 Output: Urine 0 550 Exam: General: NAD, NCAT CVS/Resp: regular rate, breathing comfortably Mental Status: attentive/oriented/fluent CN: PERRLA, EOMI, V1=V2=V3, face symmetrical, hearing grossly intact, palate midline, SCM/trapezius strength intact bilaterally, tongue midline Motor: strength intact, normal tone/bulk, bilaterally in UE/LEs Sensory: grossly intact LT in arms, legs, and trunk Coord/ Gait: intact FFM/ FTN/RADHA in UE/LEs Reflexes: intact symmetrically in UE/LEs Laboratory: Laboratory Results WBC 4.2 10^3/ul (3.5-10.8) 04/10/18 05:36 RBC 3.54 10^6/ul (4.00-5.40) L 04/10/18 05:36 Hgb 11.1 g/dl (12.0-16.0) L 04/10/18 05:36 Hct 33 % (35-47) L 04/10/18 05:36 MCV 95 fL (80-97) 04/10/18 05:36 MCH 31 pg (27-31) 04/10/18 05:36 MCHC 33 g/dl (31-36) 04/10/18 05:36 RDW 13 % (10.5-15) 04/10/18 05:36 Plt Count 177 10^3/ul (150-450) 04/10/18 05:36 MPV 8.2 fL (7.4-10.4) 04/10/18 05:36 Neut % (Auto) 59.7 % 04/10/18 05:36 Lymph % (Auto) 23.8 % 04/10/18 05:36 Jerome % (Auto) 12.6 % 04/10/18 05:36 Eos % (Auto) 2.6 % 04/10/18 05:36 Baso % (Auto) 1.3 % 04/10/18 05:36 Absolute Neuts (auto) 2.5 10^3/ul (1.5-7.7) 04/10/18 05:36 Absolute Lymphs (auto) 1.0 10^3/ul (1.0-4.8) 04/10/18 05:36 Absolute Monos (auto) 0.5 10^3/ul (0-0.8) 04/10/18 05:36 Absolute Eos (auto) 0.1 10^3/ul (0-0.6) 04/10/18 05:36 Absolute Basos (auto) 0.1 10^3/ul (0-0.2) 04/10/18 05:36 Absolute Nucleated RBC 0 10^3/ul 04/10/18 05:36 Nucleated RBC % 0.1 04/10/18 05:36 INR (Anticoag Therapy) 0.96 (0.77-1.02) 04/09/18 19:25 APTT 26.9 seconds (26.0-36.3) 04/09/18 19:25 Sodium 139 mmol/L (135-145) 04/10/18 05:36 Potassium 3.6 mmol/L (3.5-5.0) 04/10/18 05:36 Chloride 107 mmol/L (101-111) 04/10/18 05:36 Carbon Dioxide 24 mmol/L (22-32) 04/10/18 05:36 Anion Gap 8 mmol/L (2-11) 04/10/18 05:36 BUN 12 mg/dL (6-24) 04/10/18 05:36 Creatinine 0.75 mg/dL (0.51-0.95) 04/10/18 05:36 Est GFR ( Amer) 91.4 (>60) 04/10/18 05:36 Est GFR (Non-Af Amer) 75.5 (>60) 04/10/18 05:36 BUN/Creatinine Ratio 16.0 (8-20) 04/10/18 05:36 Glucose 104 mg/dL (70-100) H 04/10/18 05:36 Lactic Acid 1.6 mmol/L (0.5-2.0) 04/09/18 23:18 Calcium 8.1 mg/dL (8.6-10.3) L 04/10/18 05:36 Total Bilirubin 0.20 mg/dL (0.2-1.0) 04/09/18 18:45 AST 20 U/L (13-39) 04/09/18 18:45 ALT 9 U/L (7-52) 04/09/18 18:45 Alkaline Phosphatase 104 U/L (34-104) 04/09/18 18:45 Troponin I 0.01 ng/mL (<0.04) 04/09/18 23:18 Total Protein 6.7 g/dL (6.4-8.9) 04/09/18 18:45 Albumin 3.8 g/dL (3.2-5.2) 04/09/18 18:45 Globulin 2.9 g/dL (2-4) 04/09/18 18:45 Albumin/Globulin Ratio 1.3 (1-3) 04/09/18 18:45 Triglycerides 56 mg/dL 04/10/18 05:36 Cholesterol 126 mg/dL 04/10/18 05:36 LDL Cholesterol 53 mg/dL 04/10/18 05:36 HDL Cholesterol 62.2 mg/dL 04/10/18 05:36 TSH 3.12 mcIU/mL (0.34-5.60) 04/09/18 18:45 Urine Color Yellow 04/09/18 23:00 Urine Appearance Clear 04/09/18 23:00 Urine pH 6.0 (5-9) 04/09/18 23:00 Ur Specific [place] > 1.060 (1.010-1.030) H 04/09/18 23:00 Urine Protein Negative (Negative) 04/09/18 23:00 Urine Ketones Negative (Negative) 04/09/18 23:00 Urine Blood Negative (Negative) 04/09/18 23:00 Urine Nitrate Negative (Negative) 04/09/18 23:00 Urine Bilirubin Negative (Negative) 04/09/18 23:00 Urine Urobilinogen Negative (Negative) 04/09/18 23:00 Ur Leukocyte Esterase Negative (Negative) 04/09/18 23:00 Urine Glucose Negative (Negative) 04/09/18 23:00 Phenobarbital 14.3 mcg/mL (17-34) L 04/09/18 18:45 Phenobarbital level 14.3 Imaging: All Neuroimaging reviewed personally by me as well as Neuroradiology CT head IMPRESSION: 1. Mild volume loss and small vessel ischemic changes. . 2. No acute intracranial abnormality. No CT evidence of acute infarct. If clinically concerned further evaluation with MR is recommended. CTA head IMPRESSION: No acute intracranial vascular abnormality detected. CTA neck IMPRESSION: 1. Mild less than 50% stenosis of the right proximal ICA. 2. There is small caliber left vertebral artery which is visualized to the C2 level. Assessment: This is a 73 yr old woman who presented with confusion and nonsensical speech that has resolved. Differential for the event includes partial seizures especially in lieu of phenobarbital taper and subtherapeutic phenobarbital levels as well as TIA/ Stroke. The patient cannot have an MRI due to a PPM Recommendations: Please repeat CT head this afternoon to investigate for a stroke Switch from ASA 81 daily to Plavix 75 daily Continue Keppra 1500 BID Continue Lamictal 50 daily. Patient is due for a dose increase at the end of this week. Continue Phenobarbital 32.4 BID. Provide one extra dose of phenobarbital 32.4 this evening due to low levels. Spoke with daughter Carmen over the phone who is under the impression that the patient had a stroke. Discussed in detail that the differential includes both stroke and seizure that since the patient cannot get an MRI that would confirm a stroke that we will repeat the CT this evening to investigate for a new stroke. Explained the risk of a recurrent seizure, especially since the patient lives alone and is unaware of her seizures. The patient's daughter is reluctant to increase the dose of phenobarbital. Case discussed with treatment team. As per protocol, I discussed available results of testing and plan of care with the patient or advocate, who agrees to the plan. Face time for evaluation, education, counseling was >50% of time spent on unit: for 35 minutes
[2018-04-10] MEDS ORDERED: Pantoprazole TAB (NF) 40 MG TAB PO SCH (14:34)
--- NOTE | 2018-04-10 15:12 | PN ---
Subjective Date of Service: 04/10/18 Interval History: Patient admitted yesterday w/ stroke type symptoms, aphasia. These have now resolved. More history obtained from son Cy. Patient has been slowly tapering off phenobarb and increasing Lamotrigine, and he is adamant that phenobarb not be increased. Dr. Ling in [place] is titrating anticonvulsants. Patient was on amoxicillin and then cephalexin for 5 days each starting 03/28 an 04/02 respectively. Son concerned this led to seizure if a seizure did occur. Son and daughter also feel that last night in ER, the tele-stroke neurologist and Dr. Tesfaye were 100% sure this was a stroke not a seizure, so they are having a hard time accepting that a seizure w/ Todds paralysis and aphasia was the cause of event. Family History: Unchanged from Admission Social History: Unchanged from Admission Past Medical History: Unchanged from Admission Objective Active Medications: Acetaminophen (Tylenol Tab*) 650 mg PO Q4H PRN PRN Reason: FEVER/PAIN Albuterol/Ipratropium (Duoneb (Albuterol 2.5 Mg/Ipratropium 0.5 Mg)) 1 neb INH [id number] AWAKE PRN PRN Reason: sob/wheexing Aspirin (Aspirin Ec Tab*) 81 mg PO QAM [facility] Last Admin: 04/10/18 08:48 Dose: 81 mg Atorvastatin Calcium (Lipitor*) 10 mg PO DAILY [facility] Last Admin: 04/10/18 08:47 Dose: 10 mg Calcium/Vitamin D (Oscal D Tab 250/125*) 2 tab PO QAM [facility] Last Admin: 04/10/18 08:49 Dose: 2 tab Cholestyramine Resin (Questran*) 4 gm PO BID [facility] Last Admin: 04/10/18 08:51 Dose: 4 gm Clopidogrel Bisulfate (Plavix Tab*) 75 mg PO DAILY [facility] Lamotrigine (Lamictal Tab(*)) 25 mg PO BID [facility] Last Admin: 04/10/18 08:50 Dose: 25 mg Levetiracetam (Keppra Tab*) 1,500 mg PO QAM [facility] Last Admin: 04/10/18 08:47 Dose: 1,500 mg Levetiracetam (Keppra Tab*) 1,500 mg PO QPM [facility] Lisinopril ([facility]ivil Tab*) [facility] Last Admin: 04/10/18 08:51 Dose: 2.5 mg Lorazepam (Ativan Tab(*)) 0.25 mg PO BID [facility] Last Admin: 04/10/18 08:50 Dose: 0.25 mg Metoprolol Succinate (Toprol Xl Tab*) [facility] Last Admin: 04/10/18 08:46 Dose: 50 mg Nitroglycerin (Nitroglycerin Tab 0.4 Mg*) 0.4 mg SL Q5M PRN PRN Reason: PAIN - CHEST Paliperidone (Invega Er Tab*) 6 mg PO [facility] Last Admin: 04/10/18 08:45 Dose: 6 mg Pantoprazole Sodium (Protonix Tab (Nf)) 40 mg PO QAM [facility] Paroxetine HCl (Paxil Tab*) 20 mg PO BEDTIME [facility] Phenobarbital (Phenobarbital Tab(*)) [facility] Last Admin: 04/10/18 08:46 Dose: 30 mg Phenobarbital (Phenobarbital Tab(*)) 30 mg PO QPM [facility] Vital Signs - 8 hr 04/10/18 04/10/18 04/10/18 07:32 07:37 08:12 Temperature 36.9 C Pulse Rate 61 73 65 Respiratory 16 Rate Blood Pressure 119/64 110/64 125/70 (mmHg) O2 Sat by Pulse 98 Oximetry 04/10/18 04/10/18 04/10/18 08:46 08:50 11:34 Temperature 36.9 C Pulse Rate 72 Respiratory 20 20 16 Rate Blood Pressure 104/62 (mmHg) O2 Sat by Pulse 99 Oximetry Oxygen Devices in Use Now: None Appearance: alert, no distress Eyes: No Scleral Icterus Ears/Nose/Mouth/Throat: Clear Oropharnyx Neck: Trachea Midline Respiratory: Symmetrical Chest Expansion and Respiratory Effort, Clear to Auscultation Cardiovascular: NL Sounds; No Murmurs; No JVD, RRR Abdominal: NL Sounds; No Tenderness; No Distention Neurological: Alert and Oriented x 3, NL Muscle Strength and Tone, - - no aphasia Lines/Tubes/Other Access: Clean, Dry and Intact Peripheral IV Result Diagrams: 04/10/18 05:36 04/10/18 05:36 Diagnostic Imaging: CTA head/neck: some atherosclerotic narrowing, no clear stroke CT brain: aging, no acute hemorrhage or infarct Assess/Plan/Problems-Billing Assessment: 73 yr old woman with schizoaffective disorder presented with aphasia expressive worsening confusion since 330 pm while she was visiting her friend at [facility]. - Patient Problems (1) Stroke determined by clinical assessment Current Visit: Yes Status: Acute Priority: High Code(s): I63.9 - CEREBRAL INFARCTION, UNSPECIFIED SNOMED Code(s): 097782909 Comment: -Dr. Clemens's consult appreciated -Repeat CT today may show small infarct, cannot have MRI due to pacemaker -Aspirin stopped, Plavix loaded in ER, will be continued tonight. (2) Seizure Current Visit: Yes Status: Acute Code(s): R56.9 - UNSPECIFIED CONVULSIONS SNOMED Code(s): 77049772 Comment: - Discussed w/ patient and son and daughter that we will not likely be 100% sure of stroke vs seizure - Reasonable to attribute a breakthrough seizure to cephalexin and not increase phenobarb without first talking to Dr. Ling. - If any anticonvulsant to be increased, should be lamotrigine, which was 50 mg/ day until this point, scheduled to increase to 100/day in 3 days (3) Schizoaffective disorder Current Visit: Yes Status: Acute Code(s): F25.9 - SCHIZOAFFECTIVE DISORDER, UNSPECIFIED SNOMED Code(s): 66293735 Comment: -stable, continue Invega (4) DVT prophylaxis Current Visit: Yes Status: Acute Priority: Low Code(s): [id number] - SNOMED Code(s): 028036302 Comment: -no heparin due to concern re stroke, will use SCDs
[2018-04-10] MEDS: Clopidogrel TAB* 75 MG PO SCH (16:10)
[2018-04-10] MEDS ORDERED: levETIRAcetam TAB* 500 MG PO SCH ×3 (18:00→20:00)
[2018-04-10] MEDS ORDERED: PHENOBARBITAL 97.2 MG PO SCH (18:00)
[2018-04-10] MEDS ORDERED: PHENobarbital TAB(*) 30 MG PO SCH ×2 (18:00→20:00)
--- NOTE | 2018-04-10 18:08 | PN ---
Progress Note - Progress Note Date of Service: 04/10/18 Note: Spoke with Dr. Clemens. Reviewed CT head repeated this afternoon. There is no clear evidence of stroke. I advised Dr. Clemens that son and daughter reluctant to increase phenobarb. Lamictal must wait 1 week between dose escalation due to risk of rash. We will continue to discuss diagnostic uncertainty with family.
[2018-04-10] MEDS ORDERED: PARoxetine HCL TAB* 20 MG PO SCH (21:00)
[2018-04-11 06:30] LABS: ABS Basophils 0 10^3/ul (0-0.2); ABS Eosinophils 0.1 10^3/ul (0-0.6); ABS Lymphocytes 1.2 10^3/ul (1.0-4.8); ABS Monocytes 0.6 10^3/ul (0-0.8); ABS Neutrophils 3.6 10^3/ul (1.5-7.7); ABS Nucleated RBC 0 10^3/ul; Eosinophil % 1.6 %; Hematocrit 32 % (35-47); Hemoglobin 10.8 g/dl (12.0-16.0); Lymphocyte % 21.3 %; Mean Corpuscular HGB Conc 33 g/dl (31-36); Mean Corpuscular Hemoglobin 32 pg (27-31); Mean Corpuscular Volume 96 fL (80-97); Mean Platelet Volume 8.2 fL (7.4-10.4); Nucleated Red Blood Cells % 0; Platelet Count 178 10^3/ul (150-450); Red Blood Count 3.39 10^6/ul (4.00-5.40); Red Cell Distribution Width 13 % (10.5-15); White Blood Count 5.5 10^3/ul (3.5-10.8)
[2018-04-11] MEDS: Clopidogrel TAB* 75 MG PO SCH (08:46)
[2018-04-11] MEDS: Aspirin EC TAB* 81 MG TAB.EC PO SCH (08:46)
[2018-04-11] MEDS: Atorvastatin* 10 MG TAB PO SCH (08:46)
[2018-04-11] MEDS: LORazepam TAB(*) 0.5 MG PO SCH (08:46)
[2018-04-11] MEDS: lamoTRIgine TAB(*) 25 MG PO SCH (08:47)
[2018-04-11] MEDS: Cholestyramine Resin* 4 GM POWDER PO SCH ×2 (08:47→09:42)
[2018-04-11] MEDS: PHENobarbital TAB(*) 30 MG PO SCH (08:47)
[2018-04-11] MEDS: Calcium/Vitamin D TAB 250/125* TAB PO SCH (08:47)
[2018-04-11] MEDS: levETIRAcetam TAB* 500 MG PO SCH (08:47)
[2018-04-11 08:48] VITALS: BP 121/66
[2018-04-11] MEDS: Metoprolol Succinate XL TAB* 50 MG PO SCH (08:48)
[2018-04-11] MEDS: Lisinopril TAB* 5 MG PO SCH (08:48)
[2018-04-11] MEDS: Paliperidone ER TAB* 6 MG TAB.ER PO SCH (08:57)
--- NOTE | 2018-04-11 11:50 | PN ---
Subjective Date of Service: 04/11/18 Length of Stay: 2 Days Neurology is following for the evaluation and management of transient speech disturbance Interval History: Daughter Carmen at the bedside who notes that the patient is back to herself. Speech problems have resolved. They would not like any changes made to the antiepileptic medications. They are agreeable to switching from ASA to Plavix. Review of Systems: The patient's review of systems questionnaire was reviewed and there are no additional pertinent positives. Family History: Unchanged from Admission Social History: Unchanged from Admission Past Medical History: Unchanged from Admission Objective Active Medications: Acetaminophen (Tylenol Tab*) 650 mg PO Q4H PRN PRN Reason: FEVER/PAIN Albuterol/Ipratropium (Duoneb (Albuterol 2.5 Mg/Ipratropium 0.5 Mg)) 1 neb INH [id number] AWAKE PRN PRN Reason: sob/wheexing Atorvastatin Calcium (Lipitor*) 10 mg PO DAILY [facility] Last Admin: 04/11/18 08:46 Dose: 10 mg Calcium/Vitamin D (Oscal D Tab 250/125*) 2 tab PO QAM [facility] Last Admin: 04/11/18 08:47 Dose: 2 tab Cholestyramine Resin (Questran*) 4 gm PO BID [facility] Last Admin: 04/11/18 09:42 Dose: 4 gm Clopidogrel Bisulfate (Plavix Tab*) 75 mg PO DAILY [facility] Last Admin: 04/11/18 08:46 Dose: 75 mg Lamotrigine (Lamictal Tab(*)) 25 mg PO BID [facility] Last Admin: 04/11/18 08:47 Dose: 25 mg Levetiracetam (Keppra Tab*) 1,500 mg PO QAM [facility] Last Admin: 04/11/18 08:47 Dose: 1,500 mg Levetiracetam (Keppra Tab*) 1,500 mg PO QPM@2000 [facility] Last Admin: 04/10/18 20:46 Dose: 1,500 mg Lisinopril (Prinivil Tab*) 2.5 mg PO QAM [facility] Last Admin: 04/11/18 08:48 Dose: 2.5 mg Lorazepam (Ativan Tab(*)) 0.25 mg PO BID [facility] Last Admin: 04/11/18 08:46 Dose: 0.25 mg Metoprolol Succinate (Toprol Xl Tab*) 50 mg PO [facility] Last Admin: 04/11/18 08:48 Dose: 50 mg Nitroglycerin (Nitroglycerin Tab 0.4 Mg*) 0.4 mg SL Q5M PRN PRN Reason: PAIN - CHEST Paliperidone (Invega Er Tab*) 6 mg PO [facility] Last Admin: 04/11/18 08:57 Dose: 6 mg Pantoprazole Sodium (Protonix Tab (Nf)) 40 mg PO [facility] Last Admin: 04/11/18 08:47 Dose: 40 mg Paroxetine HCl (Paxil Tab*) 20 mg PO BEDTIME [facility] Last Admin: 04/10/18 20:44 Dose: 20 mg Phenobarbital (Phenobarbital Tab(*)) 30 mg PO [facility] Last Admin: 04/11/18 08:47 Dose: 30 mg Phenobarbital (Phenobarbital Tab(*)) 30 mg PO QPM@1999 [facility] Last Admin: 04/10/18 20:44 Dose: 30 mg Vital Signs 04/10/18 04/10/18 04/10/18 12:13 15:31 19:20 Temperature 98.9 F 98.7 F Pulse Rate 73 70 Respiratory 20 20 20 Rate Blood Pressure 115/57 108/63 (mmHg) O2 Sat by Pulse 96 97 Oximetry 04/10/18 04/10/18 04/10/18 20:00 20:44 20:45 Temperature Pulse Rate Respiratory 20 20 Rate Blood Pressure (mmHg) O2 Sat by Pulse 97 Oximetry 04/10/18 04/10/18 04/11/18 23:15 23:16 00:30 Temperature 99.9 F Pulse Rate 75 Respiratory 18 18 20 Rate Blood Pressure 125/65 (mmHg) O2 Sat by Pulse 93 Oximetry 04/11/18 04/11/18 04/11/18 03:59 07:55 08:46 Temperature 98.8 F 97.9 F Pulse Rate 70 71 Respiratory 20 16 18 Rate Blood Pressure 114/50 121/66 (mmHg) O2 Sat by Pulse 95 95 Oximetry 04/11/18 08:47 Temperature Pulse Rate Respiratory 18 Rate Blood Pressure (mmHg) O2 Sat by Pulse Oximetry Intake and Output Last 24 Hours 04/09/18 04/10/18 04/11/18 04/12/18 06:59 06:59 06:59 06:59 Intake Total 1980 2822 600 Output Total 0 2100 950 Balance 1979 722 -350 Weight 148 lb 9.6 oz Intake: IV Fluids 1979 950 IVPB 472 NS 472 Oral 0 1400 600 Output: Urine 0 2100 950 Oxygen Devices in Use Now: None Neurology Exam: General: Awake, Alert, Oriented x3 HEENT: Normocephalic/atraumatic, sclera anicteric, mucous membranes moist Neck: Supple Chest: Clear to auscultation bilaterally Cardiovascular: Regular rate and rhythm without murmurs, rubs, gallops Abdomen: Soft, nontender/nondistended Extremities: No clubbing, cyanosis, or edema Neurological Findings: Awake, Alert, Oriented x3 Speech: fluent without dysrhythmia, repetition intact Cranial Nerve: PEERL, EOM intact, VFF, no nystagmus, face symmetric bilaterally , facial sensation intact, hearing intact to finger rub bilaterally, palate elevates symmetrically, tongue midline, SCM and Trapezius s/s. Motor: s/s throughout, proximal and distal extremities x4 tone/bulk normal Sensation: intact to LT/PP bilaterally upper and lower extremities Deep Tendon Reflex: 2+ symmetric in the upper/lower extremities Finger to nose, rapid alternating movements intact without tremor, no dysdiadochokinesia Result Diagrams: 04/11/18 06:05 04/10/18 05:36 Diagnostic Imaging: CT head 04/10/2018 3pm Ventricular structures are midline. No midline shift is noted. The extra-axial spaces are unremarkable. There is no evidence of intracranial mass or hemorrhage. No other high or low density lesions identified. Mastoid air cells and paranasal sinuses are unremarkable. When compared to previous exam of April 09, 2018 no significant change is noted. IMPRESSION: No intracranial mass or hemorrhage is noted. Assessment/Plan Assessment: 73 yr old woman who presented with transient speech disturbance. There is no evidence of a new or large stroke on repeat CT of the head. The patient cannot have an MRI due to PPM. Plan: The patient has been switched from ASA to Plavix for secondary stroke prevention Continue current AEDs. Patient is due for an increase in Lamictal dose at the end of this week Discussed the plan in detail with daughter Carmen including the risk of a recurrent seizure Patient to follow up with Dr. Ling
--- NOTE | 2018-04-11 14:11 | DS ---
CC: Dr. Hall; Dr. Maycol Orourke; Dr. Teena Ling in [place].* DISCHARGE SUMMARY: DATE OF ADMISSION: 04/09/18 DATE OF DISCHARGE: 04/11/18 HISTORY OF PRESENT ILLNESS/HOSPITAL COURSE: This 73-year-old woman presented with confusion and speech disturbance. She was visiting someone at [facility] about 3:30 p.m. on the day of admission. She had a spell, which very likely was a seizure. She called her son and said she did not feel well enough to take the bus home and asked if he could pick her up and drive her home to [facility]. He said if he had to come pick her up, he would bring her to the emergency room for evaluation. He did that and she was admitted. She is followed by Dr. Ling in [place] for seizure disorder. About five weeks ago, she had a more major seizure where she fell down and suffered facial trauma. Dr. Ling added Lamictal, which is under gradual escalating dosage. She takes her medicines regularly. Her son fills up pill containers every two weeks and she seems to be very vigorous about taking her medicines as prescribed. Teleneurology was consulted and recommend aspirin and Plavix for one week. Dr. Clemens has recommended we switch the patient from aspirin to Plavix, which we are doing. In the hospital, she had no further spells. Her daughter and [id number] were present. She seems to have a lot of social support and will be managed quite well at home. I note she had two CT scans here. She could not have an MRI due to her ICD. Urine culture on 04/09/18, was no growth, final report. She had a previous urinary tract infection that was treated with oral antibiotics obviously successfully. FINAL DIAGNOSES: 1. Probable seizure. 2. Cardiomyopathy with implantable cardioverter-defibrillator. 3. Schizoaffective disorder. DISCHARGE MEDICATIONS: 1. Cholestyramine 4 g b.i.d. 2. Clopidogrel 75 mg daily. 3. Multivitamin with minerals daily. 4. Paliperidone ER 6 mg daily. 5. Levetiracetam 1500 mg b.i.d. 6. Paroxetine 20 mg at bedtime. 7. Lorazepam 0.25 mg b.i.d. 8. Caltrate 600 plus D 2 tabs daily. 9. Phenobarbital 32.4 mg b.i.d. 10. Citrucel 500 mg b.i.d. 11. Metoprolol succinate 50 mg daily. 12. Nitroglycerin 0.4 mg every five minutes p.r.n. sublingual. 13. Omeprazole 20 mg daily. 14. Atorvastatin 10 mg daily. 15. Lisinopril 2.5 mg daily. 16. Lamotrigine 50 mg daily with escalating schedule per Dr. Ling. DISPOSITION ON DISCHARGE: Discharged home. CONDITION ON DISCHARGE: Stable. [id number]/[facility] #: [id number] MTDD
== END 2018-04-11 13:27 | disposition home or self-care (01) ==
LOC: ED 18:09 → MEDTELE 20:55
PROVIDERS: ADMIT Internal Medicine; ATTEND Internal Medicine
DX: I63.9 Cerebral infarction, unspecified (principal); R41.0 Disorientation, unspecified; I42.9 Cardiomyopathy, unspecified; Z95.810 Presence of automatic (implantable) cardiac defibrillator; F25.9 Schizoaffective disorder, unspecified
CPT/HCPCS: 36415; 70450; 70496; 70498; 71045; 80048; 80053; 80061; 80177; 80184; 81003; 83605; 84443; 84484; 85025; 85610; 85730; 93005; 96361; 96374; 99285; A9270-GY; G0378; Q9967

== ENCOUNTER 2018-05-25 08:48 | Emergency (ER) | payer MEDICARE ==
--- OUTSIDE RECORDS SUMMARY | 2018-05-25 09:21 | XMS REPORT | Continuity of Care Document ---
:1945 External Reference #:[id number] Author Name Selina Archuleta Care Team Providers Name Role Phone Milton Hall M.D. 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 Active Onset: 05/10/2013 Aortic valve disorder Annabelle Orourke M.D. 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 Tobacco Use Start: Unknown Former Cigarette End: Unknown Smoker Smoking Status Reviewed: 04/25/18 Former Cigarette Smoker ETOH Use Denies alcohol use Recreational Drug Use Denies Drug Use Tobacco Use Start: Unknown Patient is a former End: Unknown smoker Exercise Type/Frequency Exercises regularly 1/2 mile 3xwk Allergies, Adverse Reactions, Alerts Date Description Reaction Status Severity Comments 03/01/2013 Tegretol Active 03/01/2013 Sulfa Antibiotics Active 08/30/2013 Methoxsalen Active Medications Medication Date Status Form Strength Qnty SIG Indications Ordering Provider Lasix 05/18/ Active Tablets 20mg 36tab take 1 R06.02 Tyra Whitehead 2017 s tablet on , monday, N.P. monday and monday Atorvastatin 02/17/ Active Tablets 10mg 90tab 1 by mouth Annabelle Calcium 2013 s every day Kavon Orourke M.D. Lisinopril 01/20/ Active Tablets 2.5mg 90tab 1 by mouth Annabelle 2013 s every day Kavon Orourke M.D. Metoprolol 12/19/ Active Tablets ER 50mg 90tab 1 by mouth Annabelle Succinate ER 2013 24HR s every day Kavon Orourke M.D. Keppra 05/08/ Active Tablets 500mg 540ta 3 tabs by Teena 2012 clint Ling MD twice a day Paroxetine HCL 02/19/ Active Tablets 20mg 90tab 1 po qd Rosemary Whitehead 2011 aly Hackett M.D. Phenobarbital 02/07/ Active Tablets 32.4mg 225ta take 1 by Teena 2011 clint Ling MD every morning and 1.5 tablets by mouth at bedtime,co de c Centrum Silver / Active Tablets 1 po qd Unknown 0000 Invega / Active Tablets ER 6mg 1 po qd Unknown 0000 24HR Cholestyramine / Active Packet 4gm 90Pac 1 packet Unknown 0000 ks bid Omeprazole / Active Capsules 20mg 1 by mouth Unknown 0000 [address] every day Nitrostat / Active Tablets 0.4mg 25tab one sl Annabelle 0000 Sub s q5min up D. Brand, to 3 doses M.D. as needed Citrucel 00/00/ Active Tablets 500mg 2 tab po Unknown 0000 daily Caltrate 600+D3 0000/ Active 1 tabs Unknown Soft 0000 twice daily Lamotrigine /00/ Active Tablets 50mg take 1 Unknown 0000 Dispers tablet twice daily Clopidogrel 00/00/ Active Tablets 75mg 90tab take one Annabelle Bisulfate 0000 s tablet by Kavon Orourke, mouth M.D. every day Keppra / Hx Tablets 500mg/5ML 210ta 3 tabs qam Rosemary S. 0000 - bs and 3.5 Luiz, 05/08/ tabs qpm M.D. 2012 Lorazepam 00/ Hx Tablets 0.5mg 30tab 1/2 tablet Unknown 0000 - s bid 2017 Aspirin / Hx Chewtabs 81mg 1 po qd Unknown 0000 - 2018 Caltrate /00/ Hx Tablets 500mg 2 po qd Unknown 0000 - 2015 Gemfibrozil 00/ Hx Tablets 600mg 180ta 1 po bid Unknown 0000 - bs 2013 Lovastatin 00/ Hx Tablets 20mg 90tab 1 po qd Unknown 0000 - s 2013 Citrucel /00/ Hx Packet one packet Unknown 0000 - po daily 2015 Lansoprazole / Hx Capsules 15mg 90cap 1 po qd Unknown 0000 - DR s 2014 Metoprolol 00/ Hx Tablets 25mg 60tab 1/2 tablet Unknown Tartrate 0000 - s po bid 2013 Brilinta / Hx Tablets 90mg 180ta 1 tab by Annabelle 0000 - bs mouth Kavon Orourke, 02/12/ twice a M.D. 2014 day Proair HFA / Hx Aerosol 108(90Base Hall, 0000 - ) mcg/Act Milton, 01/16/ M.D. 2016 Medications Administered in Office Medication Date Status Form Strength Qnty SIG Indications Ordering Provider Depomedrol Administered Injection Jess 40MG Lizeth Parham M.D. Depomedrol Administered Injection Jess 40MG 017 Brittany Parham Immunizations Description No Information Available Vital Signs Date Vital Result Comment 04/25/2018 3:41pm Height 62 inches 5'2" Weight 148.00 lb with shoes Heart Rate 80 /min BP Systolic Sitting 110 mmHg lue reg cuff BP Diastolic Sitting 72 mmHg lue reg cuff BP Systolic Standing 108 mmHg lue reg cuff BP Diastolic Standing 70 mmHg lue reg cuff Respiratory Rate 12 /min BMI (Body Mass Index) 27.1 kg/m2 Ejection Fraction 20% echo.05/25/17 02/27/2018 9:18am Height 62 inches 5'2" Weight 148.00 lb Heart Rate 83 /min BP Systolic 120 mmHg BP Diastolic 76 mmHg Respiratory Rate 16 /min Body Temperature 97.6 F Pain Level 1 BMI (Body Mass Index) 27.1 kg/m2 11/10/2017 10:14am Height 62 inches 5'2" Weight 141.00 lb Heart Rate 60 /min irregular BP Systolic Sitting 100 mmHg lue reg cuff BP Diastolic Sitting 50 mmHg lue reg cuff BP Systolic Standing 100 mmHg BP Diastolic Standing 50 mmHg Respiratory Rate 16 /min BMI (Body Mass Index) 25.8 kg/m2 Ejection Fraction 25-30% 05/25/2017 echo 10/31/2017 10:11am Height 62 inches 5'2" Weight 143.00 lb Heart Rate 76 /min BP Systolic Sitting 100 mmHg BP Diastolic Sitting 72 mmHg BMI (Body Mass Index) 26.2 kg/m2 08/28/2017 3:26pm Height 62 inches 5'2" Weight 146.00 lb Heart Rate 68 /min BP Systolic 82 mmHg BP Diastolic 50 mmHg BMI (Body Mass Index) 26.7 kg/m2 06/28/2017 10:14am Height 62 inches 5'2" Weight 146.12 lb Heart Rate 74 /min BP Systolic Sitting 120 mmHg BP Diastolic Sitting 76 mmHg BMI (Body Mass Index) 26.7 kg/m2 06/05/2017 1:03pm Height 62 inches 5'2" Weight 146.19 lb Heart Rate 64 /min BP Systolic 118 mmHg BP Diastolic 82 mmHg BMI (Body Mass Index) 26.7 kg/m2 06/02/2017 12:04pm Height 62 inches 5'2" Weight 143.00 lb Heart Rate 56 /min BP Systolic Sitting 106 mmHg Lue reg cuff BP Diastolic Sitting 72 mmHg Lue reg cuff BP Systolic Standing 104 mmHg Lue BP Diastolic Standing 70 mmHg Lue Respiratory Rate 16 /min BMI (Body Mass Index) 26.2 kg/m2 Ejection Fraction <20% 05/25/17 05/18/2017 1:47pm Height 62 inches 5'2" Weight 156.50 lb No shoes Heart Rate 66 /min BP Systolic Sitting 132 mmHg Lue reg cuff BP Diastolic Sitting 80 mmHg Lue reg cuff BP Systolic Standing 136 mmHg Lue reg cuff BP Diastolic Standing 76 mmHg Lue reg cuff Respiratory Rate 36 /min O2 % BldC Oximetry 95 % Room air BMI (Body Mass Index) 28.6 kg/m2 Ejection Fraction 30-35% 02/28/2014-echo 05/16/2017 4:26pm Height 62 inches 5'2" Weight 150.38 lb Heart Rate 76 /min BP Systolic 124 mmHg BP Diastolic 82 mmHg Respiratory Rate 18 /min BMI (Body Mass Index) 27.5 kg/m2 02/17/2017 9:13am Height 62 inches 5'2" Weight 146.00 lb w/ shoes Heart Rate 60 /min reg BP Systolic Sitting 122 mmHg Rue, reg cuff BP Diastolic Sitting 80 mmHg Rue, reg cuff BP Systolic Standing 120 mmHg Rue BP Diastolic Standing 74 mmHg Rue Respiratory Rate 16 /min BMI (Body Mass Index) 26.7 kg/m2 Ejection Fraction 30-35% as of 2013 echo 01/16/2017 9:42am Height 62 inches 5'2" Weight 142.00 lb Heart Rate 86 /min BP Systolic 122 mmHg BP Diastolic 80 mmHg Body Temperature 96.0 F BMI (Body Mass Index) 26.0 kg/m2 01/02/2017 10:02am Height 62 inches 5'2" Weight 142.00 lb Heart Rate 70 /min BP Systolic 116 mmHg BP Diastolic 68 mmHg Respiratory Rate 16 /min Body Temperature 98.3 F Pain Level 3 BMI (Body Mass Index) 26.0 kg/m2 10/07/2016 3:41pm Height 62 inches 5'2" Weight 140.00 lb Heart Rate 71 /min BP Systolic Sitting 110 mmHg BP Diastolic Sitting 72 mmHg Respiratory Rate 14 /min BMI (Body Mass Index) 25.6 kg/m2 01/22/2016 1:20pm Height 62 inches 5'2" Weight 141.75 lb no shoes Heart Rate 68 /min BP Systolic Sitting 110 mmHg LA reg cuff BP Diastolic Sitting 64 mmHg LA reg cuff BP Systolic Standing 98 mmHg LA reg cuff BP Diastolic Standing 60 mmHg LA reg cuff Respiratory Rate 14 /min BMI (Body Mass Index) 25.9 kg/m2 Ejection Fraction 30-35% 02/28/2014 11/16/2015 10:00am Height 62 inches 5'2" Weight 147.00 lb Heart Rate 72 /min BP Systolic Sitting 112 mmHg BP Diastolic Sitting 70 mmHg Respiratory Rate 14 /min BMI (Body Mass Index) 26.9 kg/m2 05/05/2015 10:50am Height 62 inches 5'2" Weight 160.00 lb Heart Rate 84 /min BP Systolic Sitting 108 mmHg BP Diastolic Sitting 62 mmHg Respiratory Rate 20 /min BMI (Body Mass Index) 29.3 kg/m2 02/12/2015 11:28am Height 62 inches 5'2" Weight 160.00 lb without shoes Heart Rate 60 /min regular BP Systolic 132 mmHg left arm reg cuff BP Diastolic 68 mmHg left arm reg cuff BP Systolic Standing 130 mmHg left arm reg cuff BP Diastolic Standing 70 mmHg left arm reg cuff Respiratory Rate 18 /min BMI (Body Mass Index) 29.3 kg/m2 Ejection Fraction 30-35% 02/28/14 09/03/2014 11:47am Height 62 inches 5'2" Weight 157.00 lb Heart Rate 64 /min BP Systolic Sitting 128 mmHg BP Diastolic Sitting 76 mmHg Respiratory Rate 16 /min BMI (Body Mass Index) 28.7 kg/m2 07/02/2014 11:37am Height 62 inches 5'2" Weight 153.00 lb witout shoes Heart Rate 62 /min BP Systolic Sitting 112 mmHg L arm reg cuff BP Diastolic Sitting 74 mmHg L arm reg cuff BP Systolic Standing 108 mmHg BP Diastolic Standing 70 mmHg Respiratory Rate 20 /min BMI (Body Mass Index) 28.0 kg/m2 03/05/2014 11:24am Height 63.5 inches 5'3.50" Weight 146.00 lb with shoes Heart Rate 70 /min Ap BP Systolic Sitting 96 mmHg LA reg cuff BP Diastolic Sitting 70 mmHg LA reg cuff BP Systolic Standing 90 mmHg La reg cuff BP Diastolic Standing 70 mmHg La reg cuff Respiratory Rate 16 /min BMI (Body Mass Index) 25.5 kg/m2 01/10/2014 11:30am Height 63.5 inches 5'3.50" Weight 147.00 lb with shoes Heart Rate 76 /min BP Systolic Sitting 90 mmHg Ra reg cuff BP Diastolic Sitting 60 mmHg Ra reg cuff BP Systolic Standing 90 mmHg Ra reg cuff BP Diastolic Standing 68 mmHg Ra reg cuff Respiratory Rate 16 /min BMI (Body Mass Index) 25.6 kg/m2 12/27/2013 3:22pm Height 63.5 inches 5'3.50" Weight 150.00 lb Heart Rate 120 /min 120 BP Systolic Sitting 126 mmHg Ra reg cuff BP Diastolic Sitting 96 mmHg Ra reg cuff BP Systolic Standing 120 mmHg Ra BP Diastolic Standing 92 mmHg Ra Respiratory Rate 24 /min BMI (Body Mass Index) 26.2 kg/m2 12/04/2013 11:08am Height 63.5 inches 5'3.50" Weight 150.00 lb without shoes BP Systolic Sitting 122 mmHg LA reg cuff BP Diastolic Sitting 70 mmHg LA reg cuff BP Systolic Standing 112 mmHg LA reg cuff BP Diastolic Standing 68 mmHg LA reg cuff BMI (Body Mass Index) 26.2 kg/m2 11/13/2013 11:38am Height 62.75 inches 5'2.75" Weight 151.00 lb Heart Rate 56 /min BP Systolic Sitting 132 mmHg Ra reg cuff BP Diastolic Sitting 82 mmHg Ra reg cuff BP Systolic Standing 132 mmHg Ra BP Diastolic Standing 84 mmHg Ra Respiratory Rate 16 /min BMI (Body Mass Index) 27.0 kg/m2 08/30/2013 11:00am Height 62.75 inches 5'2.75" Weight 151.00 lb Heart Rate 56 /min BP Systolic Sitting 110 mmHg BP Diastolic Sitting 62 mmHg Respiratory Rate 16 /min BMI (Body Mass Index) 27.0 kg/m2 05/10/2013 12:31pm Height 62.75 inches 5'2.75" Weight 151.00 lb no shoes, increase 5 Lbs from 10/26/12 Heart Rate 56 /min BP Systolic Sitting 110 mmHg Lf arm, reg cuff BP Diastolic Sitting 76 mmHg Lf arm, reg cuff BP Systolic Standing 110 mmHg BP Diastolic Standing 74 mmHg Respiratory Rate 16 /min BMI (Body Mass Index) 27.0 kg/m2 03/01/2013 11:01am Heart Rate 51 /min BP Systolic Sitting 118 mmHg BP Diastolic Sitting 74 mmHg Respiratory Rate 18 /min 02/20/2012 11:04am Heart Rate 56 /min BP Systolic 118 mmHg BP Diastolic 76 mmHg Respiratory Rate 18 /min Results Test Date Facility Test Result H/L Range Note CBC Auto Diff 03/29/2018 [facility] White Blood 4.5 10^3/uL N 3.5-10.[address] [place] [address] [phone] Red Blood Count 3.71 10^6/uL Low 4.00-5.40 Hemoglobin 12.0 g/dL N 12.0-16.0 Hematocrit 36 % N 35-47 Mean Corpuscular Volume 96 fL N 80-97 Mean Corpuscular Hemoglobin 32 pg High 27-31 Mean Corpuscular HGB Conc 34 g/dL N 31-36 Red Cell Distribution Width 13 % N 10.5-15 Platelet Count 197 10^3/uL N 150-450 Mean Platelet Volume 9.0 fL N 7.4-10.4 Abs Neutrophils 2.9 10^3/uL N 1.5-7.7 Abs Lymphocytes 1.0 10^3/uL N 1.0-4.8 Abs Monocytes 0.5 10^3/uL N 0-0.8 Abs Eosinophils 0.1 10^3/uL N 0-0.6 Abs Basophils 0 10^3/uL N 0-0.2 Abs Nucleated RBC 0 10^3/uL Granulocyte % 64.3 % Lymphocyte % 21.8 % Monocyte % 11.2 % Eosinophil % 1.9 % Basophil % 0.8 % Nucleated Red Blood Cells % 0 Comp Metabolic Panel 03/29/2018 [facility] Sodium 136 mmol/L N 135-[address] [place] [address] [phone] Potassium 4.8 mmol/L N 3.5-5.0 Chloride 105 mmol/L N 101-111 Co2 Carbon Dioxide 25 mmol/L N 22-32 Anion Gap 6 mmol/L N 2-11 Glucose 105 mg/dL High 70-100 Blood Urea Nitrogen 17 mg/dL N 6-24 Creatinine 0.72 mg/dL N 0.51-0.95 BUN/Creatinine Ratio 23.6 High 8-20 Calcium 8.7 mg/dL N 8.6-10.3 Total Protein 5.9 g/dL Low 6.4-8.9 Albumin 3.5 g/dL N 3.2-5.2 Globulin 2.4 g/dL N 2-4 Albumin/Globulin Ratio 1.5 N 1-3 Total Bilirubin 0.20 mg/dL N 0.2-1.0 Alkaline Phosphatase 85 U/L N 34-104 Alt 7 U/L N 7-52 Ast 17 U/L N 13-39 Egfr Non- 79.2 >60 Egfr 95.8 >60 1 Lipid Profile 03/29/2018 [facility] Triglycerides 100 mg/dL 2 (Trig/Chol/HDL) [address] [place] [address] [phone] Cholesterol 145 mg/dL 3 HDL Cholesterol 67.6 mg/dL 4 LDL Cholesterol 57 mg/dL 5 Laboratory 03/29/2018 [facility] Hemoglobin A1c 5.7 % High 4.0 -5.6 6 test finding [address] (Glyco HGB) [place] [address] [phone] Laboratory 07/17/2017 [facility] Phenobarbital 19.7 N 17-34 7 , 8 test finding [address] g/[place] [address] [phone] Laboratory 05/25/2017 [facility] Phenobarbital 25.8 N 17-34 test finding [address] g/[place] [address] [phone] Basic 05/25/2017 [facility] Sodium 138 N 133-[address] mmol/[place] [address] [phone] Potassium 4.7 mmol/L N 3.5-5.0 Chloride 106 mmol/L N 101-111 Co2 Carbon Dioxide 25 mmol/L N 22-32 Anion Gap 7 mmol/L N 2-11 Glucose 107 mg/dL High 70-100 Blood Urea Nitrogen 16 mg/dL N 6-24 Creatinine 0.68 mg/dL N 0.51-0.95 BUN/Creatinine Ratio 23.5 High 8-20 Calcium 8.8 mg/dL N 8.6-10.3 Egfr Non- 84.8 >60 Egfr 109.1 >60 9 Laboratory 05/15/2017 [facility] Phenobarbital 30.7 N 17-34 10, 11 test finding [address] g/[place] [address] [phone] Laboratory 05/11/2017 [facility] Phenytoin < 2.5 Low 10-20 12 test finding [address] (Dilantin) g/[place] [address] [phone] Levetiracetam (Keppra) 47.3 g/mL Abnormal 13 Laboratory test 05/05/2017 [facility] Phenobarbital 36.6 g/mL High 17-34 finding [address] [place] [address] [phone] Arthritis Panel 01/02/2017 [facility] Uric Acid 5.3 mg/dL N 2.3-6.6 [address] [place] [address] [phone] Erythrocyte Sed Rate 23 mm/Hr N 0-40 Rheumatoid Factor <15 IU/mL N <15 14 Anti-Nuclear Antibody 0.1 U N 15 Cyclic Citrullinated Peptide <15.6 U N 16 Interpretation See Comment N 17 Laboratory test 12/08/2016 [facility] Phenobarbital 28.5 g/mL N 17-34 18 finding [address] [place] [address] [phone] Vitamin D Total 25(Oh) 31.6 ng/mL N 30-50 19 Levetiracetam (Keppra) 64.8 g/mL Abnormal 20 Lipid Profile 12/08/2016 [facility] Triglycerides 90 mg/dL N 21 (Trig/Chol/HDL) [address] [place] [address] [phone] Cholesterol 150 mg/dL N 22 HDL Cholesterol 73.4 mg/dL N 23 LDL Cholesterol 59 mg/dL N 24 Comp Metabolic Panel 12/08/2016 [facility] Sodium 137 mmol/L N 133-145 [address] [place] [address] [phone] Potassium 4.8 mmol/L N 3.5-5.0 Chloride 107 mmol/L N 101-111 Co2 Carbon Dioxide 24 mmol/L N 22-32 Anion Gap 6 mmol/L N 2-11 Glucose 97 mg/dL N 70-100 Blood Urea Nitrogen 14 mg/dL N 6-24 Creatinine 0.74 mg/dL N 0.51-0.95 BUN/Creatinine Ratio 18.9 N 8-20 Calcium 8.9 mg/dL N 8.6-10.3 Total Protein 6.4 g/dL N 6.4-8.9 Albumin 3.9 g/dL N 3.2-5.2 Globulin 2.5 g/dL N 2-4 Albumin/Globulin Ratio 1.6 N 1-3 Total Bilirubin 0.40 mg/dL N 0.2-1.0 Alkaline Phosphatase 91 U/L N 34-104 Alt 8 U/L N 7-52 Ast 18 U/L N 13-39 Egfr Non- 77.1 N >60 Egfr 99.2 N >60 25 CBC Auto Diff 12/08/2016 [facility] White Blood 4.2 10^3/uL N 3.5-10.[address] [place] [address] [phone] Red Blood Count 3.87 10^6/uL Low 4.0-5.4 Hemoglobin 12.1 g/dL N 12.0-16.0 Hematocrit 37 % N 35-47 Mean Corpuscular Volume 95 fL N 80-97 Mean Corpuscular Hemoglobin 31 pg N 27-31 Mean Corpuscular HGB Conc 33 g/dL N 31-36 Red Cell Distribution Width 13 % N 10.5-15 Platelet Count 188 10^3/uL N 150-450 Mean Platelet Volume 9 um3 N 7.4-10.4 Abs Neutrophils 1.9 10^3/uL N 1.5-7.7 Abs Lymphocytes 1.6 10^3/uL N 1.0-4.8 Abs Monocytes 0.4 10^3/uL N 0-0.8 Abs Eosinophils 0.1 10^3/uL N 0-0.6 Abs Basophils 0 10^3/uL N 0-0.2 Abs Nucleated RBC 0 10^3/uL N Granulocyte % 46.7 % N 38-83 Lymphocyte % 39.5 % N 25-47 Monocyte % 10.4 % High 1-9 Eosinophil % 2.3 % N 0-6 Basophil % 1.1 % N 0-2 Nucleated Red Blood Cells % 0.1 N Lipid Profile 09/04/2015 [facility] Triglycerides 209 mg/dL N 26 (Trig/Chol/HDL) [address] [place] [address] [phone] Cholesterol 154 mg/dL N 27 HDL Cholesterol 60.1 mg/dL N 28 LDL Cholesterol 52 mg/dL N 29 Laboratory test 09/04/2015 [facility] Phenobarbital 27.3 g/mL N 17-34 [address] [place] [address] [phone] Levetiracetam (Keppra) 41.8 g/mL N 31 Comp Metabolic Panel 09/04/2015 [facility] Sodium 137 mmol/L N 133-[address] [place] [address] [phone] Potassium 4.6 mmol/L N 3.5-5.0 Chloride 106 mmol/L N 101-111 Co2 Carbon Dioxide 25 mmol/L N 22-32 Anion Gap 6 mmol/L N 2-11 Glucose 93 mg/dL N 70-100 Blood Urea Nitrogen 8 mg/dL N 6-24 Creatinine 0.67 mg/dL N 0.51-0.95 BUN/Creatinine Ratio 11.9 N 8-20 Calcium 8.8 mg/dL N 8.6-10.3 Total Protein 6.3 g/dL Low 6.4-8.9 Albumin 3.7 g/dL N 3.2-5.2 Globulin 2.6 g/dL N 2-4 Albumin/Globulin Ratio 1.4 N 1-3 Total Bilirubin 0.20 mg/dL N 0.2-1.0 Alkaline Phosphatase 107 U/L High 34-104 Alt 12 U/L N 7-52 Ast 20 U/L N 13-39 Egfr Non- 86.8 N >60 Egfr 111.6 N >60 32 CBC Auto Diff 09/04/2015 [facility] White Blood 4.4 10^3/uL N 3.5-10.[address] [place] [address] [phone] Red Blood Count 3.92 10^6/uL Low 4.0-5.4 Hemoglobin 12.6 g/dL N 12.0-16.0 Hematocrit 38 % N 35-47 Mean Corpuscular Volume 97 fL N 80-97 Mean Corpuscular Hemoglobin 32 pg High 27-31 Mean Corpuscular HGB Conc 33 g/dL N 31-36 Red Cell Distribution Width 13 % N 10.5-15 Platelet Count 208 10^3/uL N 150-450 Mean Platelet Volume 9 um3 N 7.4-10.4 Abs Neutrophils 2.3 10^3/uL N 1.5-7.7 Abs Lymphocytes 1.4 10^3/uL N 1.0-4.8 Abs Monocytes 0.4 10^3/uL N 0-0.8 Abs Eosinophils 0.1 10^3/uL N 0-0.6 Abs Basophils 0 10^3/uL N 0-0.2 Abs Nucleated RBC 0.01 10^3/uL N Granulocyte % 53.8 % N 38-83 Lymphocyte % 32.9 % N 25-47 Monocyte % 10.0 % High 1-9 Eosinophil % 2.4 % N 0-6 Basophil % 0.9 % N 0-2 Nucleated Red Blood Cells % 0.1 N Laboratory 05/05/2015 [facility] TSH (Thyroid 2.06 N 0.34- 5.60 test finding [address] [place] [address] DRIVE Stim Horm) ?IU/[place] [address] [phone] Laboratory 04/30/2015 [facility] Levetiracetam 52.3 Abnormal 33 test finding [address] [place] [address] DRIVE (Keppra) g/[place] [address] [phone] Order 02/27/2014 Mental Health Practitioner In-House Interrogation <pending Defibrillator > Laboratory 12/17/2013 [facility] Inr 0.92 N 0.85-1.06 test finding [address] [place] [address] [phone] Activated Partial Thrombo Time 27.0 seconds N 24.0-36.1 Laboratory test 12/02/2013 [facility] Magnesium 1.9 mg/dL N 1.9-2.[address] [place] [address] [phone] Laboratory test 03/04/2013 [facility] Phenobarbital 20.3 15.0 -40.0 [address] [place] [address] g/[place] [address] [phone] Levetiracetam 45.2 g/mL 35 Comp Metabolic Panel 08/23/2012 [facility] Sodium 138 mmol/L 133-[address] [place] [address] [phone] Potassium 4.5 mmol/L 3.5-5.0 Chloride 105 mmol/L 101-111 Co2 Carbon Dioxide 26.0 mmol/L 22-32 Anion Gap 7.0 mmol/L 2-11 Glucose 115 mg/dL High 70-100 Blood Urea Nitrogen 6 mg/dL 6-24 Creatinine 0.70 mg/dL 0.50-1.40 BUN/Creatinine Ratio 8.6 8-20 Calcium 9.0 mg/dL 8.1-9.9 Total Protein 5.8 g/dL Low 6.2-8.1 Albumin 3.4 g/dL 3.2-5.2 Globulin 2.4 g/dL 2-4 Albumin/Globulin Ratio 1.4 1-3 Total Bilirubin 0.4 mg/dL 0.4-1.5 Alkaline Phosphatase 162 U/L High 30-110 Alt 9 U/L Low 14-54 Ast 18 U/L 12-42 Egfr Non- 83.2 >60 Egfr 107.0 >60 36 Lipid Profile 08/23/2012 [facility] Triglycerides 76 mg/dL 40 -200 (Trig/Chol/HDL) [address] [place] [address] [phone] Cholesterol 131 mg/dL Less than 200 HDL Cholesterol 65 mg/dL High 40-60 37 Cholesterol/HDL Ratio 2.0 Average 1-4.44 LDL Cholesterol 50.8 mg/dL Less Than 100 38 Laboratory 08/23/2012 [facility] Phenobarbital 19.5 15.0- 40.0 39 test finding [address] g/[place] [address] [phone] CBC No Diff 08/23/2012 [facility] White Blood 4.7 Low 4.8- 10.[address] Count 10^3/[place] [address] [phone] Red Blood Count 3.79 10^6/uL Low 4.0-5.4 Hemoglobin 11.9 g/dL Low 12.0-16.0 Hematocrit 36 % 35-47 Mean Corpuscular Volume 95 fL 80-97 Mean Corpuscular Hemoglobin 31 pg 27-31 Mean Corpuscular HGB Conc 33 g/dL 31-36 Red Cell Distribution Width 13 % 10.5-15 Platelet Count 248 10^3/uL 150-450 Mean Platelet Volume 10 um3 7.4-10.4 Laboratory test 08/23/2012 [facility] Levetiracetam 44.4 g/mL [address] [place] [address] [phone] 1 Because ethnic data is not always readily available, this report includes an eGFR for both -Americans and non- Americans. The National Kidney Disease Education Program (NKDEP) does not endorse the use of the MDRD equation for patients that are not between the ages of 18 and 70, are , have extremes of body size, muscle mass, or nutritional status, or are non- or non-. According to the National Kidney Foundation, irrespective of diagnosis, the stage of the disease is based on the level of kidney function: Stage Description GFR(mL/min/1.73 m(2)) 1 Kidney damage with normal or decreased GFR 90 2 Kidney damage with mild decrease in GFR 60-89 3 Moderate decrease in GFR 30-59 4 Severe decrease in GFR 15-29 5 Kidney failure <15 (or dialysis) 2 Desirable: <150 Borderline High: 150-199 High: 200-499 Very High: >500 3 Desirable: <200 Borderline High: 200-239 High: >239 4 Low: <40 Desirable: 40-60 High: >60 5 Desirable: <100 Near Optimal: 100-129 Borderline High: 130-159 High: 160-189 Very High: >189 6 Therapeutic target for the treatment of diabetes mellitus patients is <7% HBA1C, and in selective patients <6.0%. Please refer to [place] [employer] diabetic care guidelines for further information. 7 Copy Result to: ANNABELLE OROURKE ([id number]) 8 Copy Result to: ANNABELLE OROURKE ([id number]) 9 Because ethnic data is not always readily available, this report includes an eGFR for both -Americans and non- Americans. The National Kidney Disease Education Program (NKDEP) does not endorse the use of the MDRD equation for patients that are not between the ages of 18 and 70, are , have extremes of body size, muscle mass, or nutritional status, or are non- or non-. According to the National Kidney Foundation, irrespective of diagnosis, the stage of the disease is based on the level of kidney function: Stage Description GFR(mL/min/1.73 m(2)) 1 Kidney damage with normal or decreased GFR 90 2 Kidney damage with mild decrease in GFR 60-89 3 Moderate decrease in GFR 30-59 4 Severe decrease in GFR 15-29 5 Kidney failure <15 (or dialysis) 10 FASTING 11 FASTING 12 FASTING 13 REFERENCE VALUE 12.0 - 46.0 ADDITIONAL INFORMATION This test was developed and its performance characteristics determined by [facility] in a manner consistent with CLIA requirements. This test has not been cleared or approved by the U.S. Food and Drug Administration. Test Performed by: [facility] [employer] [facility] [address] [place] [address] 14 Test Performed by: [facility] - [facility] [address] [place] [address] 15 REFERENCE VALUE <=1.0 (Negative) 16 REFERENCE VALUE <20.0 (Negative) 17 Tests for antibodies to dsDNA and ALYSSA antigens are not performed automatically unless the SOBIA result is > or= 3.0 U. Studies performed at [facility] indicate that positive SOBIA results <3.0 U are rarely accompanied by positive second order tests. Test Performed by: [facility] - [facility] [address] [place] [address] 18 [id number] Copy Result to: ROSEMARY HACKETT ([id number]) 19 [id number] Copy Result to: ROSEMARY HACKETT ([id number]) 20 REFERENCE VALUE 12.0 - 46.0 ADDITIONAL INFORMATION This test was developed and its performance characteristics determined by [facility] in a manner consistent with CLIA requirements. This test has not been cleared or approved by the U.S. Food and Drug Administration. Test Performed by: [facility] - [address] [address] 21 Desirable <150 Borderline high 150-199 High 200-499 Very High >500 22 Desirable <200 Borderline high 200-239 High >239 23 Low <40 Desirable: 40-60 High: >60 24 Desirable: <100 mg/dL Near Optimal: 100-129 mg/dL Borderline High: 130-159 mg/dL High: 160-189 mg/dL Very High: >189 mg/dL 25 Because ethnic data is not always readily available, this report includes an eGFR for both -Americans and non- Americans. The National Kidney Disease Education Program (NKDEP) does not endorse the use of the MDRD equation for patients that are not between the ages of 18 and 70, are , have extremes of body size, muscle mass, or nutritional status, or are non- or non-. According to the National Kidney Foundation, irrespective of diagnosis, the stage of the disease is based on the level of kidney function: Stage Description GFR(mL/min/1.73 m(2)) 1 Kidney damage with normal or decreased GFR 90 2 Kidney damage with mild decrease in GFR 60-89 3 Moderate decrease in GFR 30-59 4 Severe decrease in GFR 15-29 5 Kidney failure <15 (or dialysis) 26 Desirable <150 Borderline high 150-199 High 200-499 Very High >500 27 Desirable <200 Borderline high 200-239 High >239 28 Low <40 Desirable: 40-60 High: >60 29 Desirable: <100 mg/dL Near Optimal: 100-129 mg/dL Borderline High: 130-159 mg/dL High: 160-189 mg/dL Very High: >189 mg/dL 30 [facility] [id number] FASTING Copy Result to: ROSEMARY HACKETT ([id number]) 31 REFERENCE VALUE 12.0 - 46.0 Test Performed by: [facility] - [address] [address] Chief Cloth Finishing Range Operator: Wilfred Victoria II, M.D., Ph.D. 32 Because ethnic data is not always readily available, this report includes an eGFR for both -Americans and non- Americans. The National Kidney Disease Education Program (NKDEP) does not endorse the use of the MDRD equation for patients that are not between the ages of 18 and 70, are , have extremes of body size, muscle mass, or nutritional status, or are non- or non-. According to the National Kidney Foundation, irrespective of diagnosis, the stage of the disease is based on the level of kidney function: Stage Description GFR(mL/min/1.73 m(2)) 1 Kidney damage with normal or decreased GFR 90 2 Kidney damage with mild decrease in GFR 60-89 3 Moderate decrease in GFR 30-59 4 Severe decrease in GFR 15-29 5 Kidney failure <15 (or dialysis) 33 REFERENCE VALUE 12.0 - 46.0 Test Performed by: [place] [address] Chief Cloth Finishing Range Operator: Wilfred Victoria II, M.D., Ph.D. 34 The detection limit for Phenobarbitol is 0.5 mcg/ml . Values less than 0.5 mcg/ml cannot be accurately measured. 35 -- REFERENCE VALUE -- 12.0 - 46.0 Test Performed by: [place] [address] Chief Cloth Finishing Range Operator: Case Pereira III, M.D. 36 Because ethnic data is not always readily available, this report includes an eGFR for both -Americans and non- Americans. The National Kidney Disease Education Program (NKDEP) does not endorse the use of the MDRD equation for patients that are not between the ages of 18 and 70, are , have extremes of body size, muscle mass, or nutritional status, or are non- or non-. According to the National Kidney Foundation, irrespective of diagnosis, the stage of the disease is based on the level of kidney function: Stage Description GFR(mL/min/1.73 m(2)) 1 Kidney damage with normal or decreased GFR 90 2 Kidney damage with mild decrease in GFR 60-89 3 Moderate decrease in GFR 30-59 4 Severe decrease in GFR 15-29 5 Kidney failure <15 (or dialysis) 37 HDL Interpretation: Undesirable: High Risk: Less than 40 MG/DL Desirable: Low Risk: Greater than 60 MG/DL 38 LDL Interpretation: Low Risk Optimal Level: LDL Less than 100 MG/DL Near or Above Optimal: LDL 100-129 MG/DL Borderline High Risk: LDL 130-159 MG/DL High Risk: LDL 160-189 MG/DL Very High Risk: LDL Greater than 189 MG/DL 39 The detection limit for PHENOBARBITAL is 0.5 mcg/ml . Values less than 0.5 mcg/ml cannot be accurately measured. 40 -- REFERENCE VALUE -- 12.0 - 46.0 Test Performed by: [place] [address] Chief Cloth Finishing Range Operator: Case Pereira III, M.D. Procedures Date Code Description Status 04/25/2018 74903 EKG Tracing & Interpretation Completed 03/30/2018 40599 Implantable Cardio System Loop Recorder Sys Remota Data Completed Acquistio 03/30/2018 32536 Implantable Cardio System Loop Recorder Sys Remota Data Completed Acquistio 03/30/2018 55695 Interrogation Device Eval Remote Up To 30 Days Completed Analysis,Rev,RP 03/30/2018 09720 Interrogation Device Eval Remote Up To 30 Days Completed Analysis,Rev,RP 02/27/2018 76513 Interrogation Implant Cardiovasc Monitor System Incl Completed Analysis Int 02/27/2018 03008 Interrogation Implant Cardiovasc Monitor System Incl Completed Analysis Int 02/27/2018 23047 Icd Eval With Inerative Adjustmt Dual Lead System Completed 02/27/2018 60322 Icd Eval With Inerative Adjustmt Dual Lead System Completed 08/23/2017 12559 Icd Eval With Inerative Adjustmt Dual Lead System Completed 08/23/2017 20930 Icd Eval With Inerative Adjustmt Dual Lead System Completed 08/23/2017 39442 Interrogation Implant Cardiovasc Monitor System Incl Completed Analysis Int 08/23/2017 22110 Interrogation Implant Cardiovasc Monitor System Incl Completed Analysis Int 06/22/2017 43186 EEG Monitoring Computer Completed 05/26/2017 44421 EKG Tracing & Interpretation Completed 05/25/2017 09622 ECHO Transthorasic Realtime 2D W Doppler & Color Flow Hosp Completed 05/18/2017 68150 EKG Tracing & Interpretation Completed 05/12/2017 62923 Icd Eval With Inerative Adjustmt Dual Lead System Completed 05/12/2017 21456 Icd Eval With Inerative Adjustmt Dual Lead System Completed 05/12/2017 38854 Interrogation Implant Cardiovasc Monitor System Incl Completed Analysis Int 05/12/2017 32572 Interrogation Implant Cardiovasc Monitor System Incl Completed Analysis Int 02/17/2017 28559 EKG Tracing & Interpretation Completed 01/02/2017 37722 Inject/Drain Joint/Bursa Small W/O US Completed 01/02/2017 34781 Inject Tendon Sheath Or Ligament Aponeurosis Eg Plantar Completed Fascia 12/23/2016 12083 Interrogation Implant Cardiovasc Monitor System Incl Completed Analysis Int 12/23/2016 78637 Icd Eval With Inerative Adjustmt Dual Lead System Completed 08/25/2016 16331 Interrogation Implant Cardiovasc Monitor System Incl Completed Analysis Int 08/25/2016 35975 Icd Eval With Inerative Adjustmt Dual Lead System Completed 04/29/2016 91977 Interrogation Implant Cardiovasc Monitor System Incl Completed Analysis Int 04/29/2016 19831 Icd Eval With Inerative Adjustmt Dual Lead System Completed 01/22/2016 83289 EKG Tracing & Interpretation Completed 01/06/2016 07356 Interrogation Implant Cardiovasc Monitor System Incl Completed Analysis Int 01/06/2016 25579 Icd Eval With Inerative Adjustmt Dual Lead System Completed 10/02/2015 73774 Icd Eval With Inerative Adjustmt Dual Lead System Completed 10/02/2015 81025 Interrogation Implant Cardiovasc Monitor System Incl Completed Analysis Int 07/07/2015 97540 Icd Eval With Inerative Adjustmt Dual Lead System Completed 04/09/2015 25753 Interrogation Implant Cardiovasc Monitor System Incl Completed Analysis Int 04/09/2015 93642 Icd Check Single,Dual Or Multiple In Person W/DR Incl Completed Heart Rhyth 01/08/2015 87341 Icd Check Single,Dual Or Multiple In Person W/DR Incl Completed Heart Rhyth 07/02/2014 06248 Interrogation Implant Cardiovasc Monitor System Incl Completed Analysis Int 07/02/2014 95959 Icd Eval With Inerative Adjustmt Dual Lead System Completed 02/28/2014 86796 ECHO Transthoracic, Real-Time 2D With Doppler And Color Completed Flow 02/27/2014 20652 Icd Eval With Inerative Adjustmt Dual Lead System Completed 02/27/2014 33730 Icd Check Single,Dual Or Multiple In Person W/DR Incl Completed Heart Rhyth 02/27/2014 57752 Interrogation Implant Cardiovasc Monitor System Incl Completed Analysis Int 01/10/2014 61360 EKG Tracing & Interpretation Completed 12/27/2013 22475 Icd Check Single,Dual Or Multiple In Person W/DR Incl Completed Heart Rhyth 12/27/2013 36026 EKG Tracing & Interpretation Completed 12/18/2013 76097 Icd Check Single,Dual Or Multiple In Person W/DR Incl Completed Heart Rhyth 12/17/2013 39994 Ep Eval Icd AT Implant Completed 12/17/2013 39731 Insert/Replace Icd W/Generator Completed 12/04/2013 59815 EKG Tracing & Interpretation Completed 12/03/2013 86636 Wearable Defibrillator System Completed 12/02/2013 20083 Holter Monitoring 24 HR New Completed 11/13/2013 88130 EKG Tracing & Interpretation Completed 11/02/2013 92276 EKG, Interpretation Only Completed 11/01/2013 62554 EKG, Interpretation Only Completed 10/30/2013 18634 EKG, Interpretation Only Completed 10/29/2013 59848 EKG, Interpretation Only Completed 10/28/2013 80611 Percutaneous Transluminal Coronary Angioplasty Single Completed Coronary 10/28/2013 18795 Revascularization Acute Total/Subtotal Occlusion Completed 10/28/2013 53495 EKG, Interpretation Only Completed 10/28/2013 85023 ECHO Transthorasic Realtime 2D W Doppler & Color Flow Hosp Completed 10/28/2013 95096 Cardiac Cath,LT Hrtmincl Intraprocedural Ink LT Ventricul Completed Mammary 11/07/2012 33369 ECHO Transthoracic, Real-Time 2D With Doppler And Color Completed Flow 10/26/2012 80516 EKG Tracing & Interpretation Completed 04/24/2012 72782 EEG Monitoring By Electrodes Completed 04/24/2012 74679 Polysomnography Sleep Staging 4+ Parameters Completed Encounters Type Date Location Provider Dx Diagnosis Office Visit 02/27/2018 Orthopedic Scotty Townsend, S63.262S Dislocation of MCP 9:00a Services Of Antonio LINDQUIST joint of right middle finger, sequela Office Visit 11/10/2017 [facility] Annabelle Jacobson I42.9 Cardiomyopathy, 10:30a Of Arturo Orourke M.D. unspecified Z95.810 Presence of automatic (implantable) cardiac defibrillator I25.810 Atherosclerosis of CABG w/o angina pectoris Office Visit 10/31/2017 [facility] Teena Ling, G40.209 Local-rel 10:00a Clinic MD chowdhury epi w cmplx prt seiz,not ntrct,w/o stat epi I42.9 Cardiomyopathy, unspecified Z79.899 Other fpc (current) drug therapy Office Visit 08/28/2017 [facility] Teena Ling, G40.209 Local-rel 3:30p Clinic MD chowdhury epi w cmplx prt seiz,not ntrct,w/o stat epi I42.9 Cardiomyopathy, unspecified Z79.899 Other fpc (current) drug therapy Office Visit 06/28/2017 [facility] Teena Ling, G40.209 Local-rel 10:00a Clinic MD chowdhury epi w cmplx prt seiz,not ntrct,w/o stat epi I42.9 Cardiomyopathy, unspecified Office 06/05/2017 [facility] Teena G40.209 Local-rel symptc Visit 1:00p Clinic MD Anuradha epi w cmplx prt seiz,not ntrct,w/o stat epi Office 06/02/2017 [facility] Bia Jacobson I25.810 Atherosclerosis of Visit 12:00p Arturo Orourke M.D. CABG w/o angina pectoris I42.9 Cardiomyopathy, unspecified R06.02 Shortness of breath I50.22 Chronic systolic (congestive) heart failure Office Visit 05/18/2017 2:00p [facility] Tyra Whitehead R06.02 Shortness of Of Arturo Cedillo, N.P. breath I50.22 Chronic systolic (congestive) heart failure I25.810 Atherosclerosis of CABG w/o angina pectoris Office Visit 05/16/2017 4:00p [place] [facility] Rosemary Whitehead G40.209 Local- rel Services Of Arturo Hackett M.D. symptc epi w cmplx prt seiz,not ntrct,w/o stat epi I42.9 Cardiomyopathy, unspecified T42.3x1D Poisoning by barbiturates, accidental (unintentional), subs Office Visit 02/17/2017 [place] I25.810 Atherosclerosis of 9:45a Cardiology Miranda Orourke M.D. CABG w/o angina Mental Health Practitioner pectoris I42.9 Cardiomyopathy, unspecified Z95.810 Presence of automatic (implantable) cardiac defibrillator Office Visit 01/16/2017 9:45a Orthopedic Jess Parham M65.351 Trigger Services Of M.D. finger, right C.M.A. little finger M19.041 Primary osteoarthritis, right hand Office Visit 01/02/2017 10:00a Orthopedic Jess Parham M65.351 Trigger Services Of M.D. finger, right C.M.A. little finger M19.041 Primary osteoarthritis, right hand Office 10/07/2016 [facility] Rosemary Whitehead G40.209 Local-rel symptc Visit 3:15p Hansel Hackett M.D. epi w cmplx prt seiz,not ntrct,w/o stat epi Office 01/22/2016 [facility] Annabelle Jacobson Z95.810 Presence of Visit 1:45p Arturo Orourke M.D. automatic (implantable) cardiac defibrillator I25.9 Chronic ischemic heart disease, unspecified I42.9 Cardiomyopathy, unspecified I25.810 Atherosclerosis of CABG w/o angina pectoris Office Visit 11/16/2015 [facility] Rosemary Whitehead G40.209 Local-rel 9:30a Hansel Hackett M.D. symptc epi w cmplx prt seiz,not ntrct,w/o stat epi Office Visit 05/05/2015 [facility] Rosemary Whitehead G40.209 Local-rel 10:30a Hansel Hackett M.D. symptc epi w cmplx prt seiz,not ntrct,w/o stat epi R53.83 Other fatigue Office Visit 02/12/2015 Quan Jacobson I25.810 Atherosclerosis of 11:30a Cardiology Miranda Orourke M.D. 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 Atherosclerosis [facility] Autologous Vein Bypass Graft 414.9 Ischemic Heart Disease Chronic Unspec 427.9 Cardiac Dysrhythmia Unspec 425.4 Cardiomyopathy Other Prim 427.1 Paroxysmal Ventricular Tachycardia Office Visit 01/10/2014 11:30a [facility] Annabelle Jacobson 427.9 Cardiac Of Arturo Orourke M.D. Dysrhythmia Unspec 427.1 Paroxysmal Ventricular Tachycardia 414.02 Coronary Atherosclerosis Autologous Vein Bypass Graft 425.4 Cardiomyopathy Other Prim Office Visit 12/28/2013 7:35a [facility] Vitaliy 427.9 Cardiac Assoc,sravani Cain M.D. Dysrhythmia Hospitalists Unspec 414.9 Ischemic Heart Disease Chronic Unspec 780.39 Convulsions Other Office Visit 12/28/2013 12:04p [facility] Ho Weiss 427.1 Paroxysmal Of Arturo Knight M.D., Ventricular FACC, FASNC Tachycardia Office Visit 12/27/2013 7:34a [facility] Vitaliy 427.9 Cardiac Assoc,sravani Cain M.D. Dysrhythmia Hospitalists Unspec 414.9 Ischemic Heart Disease Chronic Unspec 780.39 Convulsions Other Office Visit 12/27/2013 12:00p [facility] Ho Weiss 427.1 Paroxysmal Of Arturo Knight M.D., Ventricular FACC, FASNC Tachycardia V45.02 Cardiac Defibrillator Automatic Implantable Postsurgical Office Visit 12/27/2013 3:15p [facility] Annabelle Jacobson 427.1 Paroxysmal Of Arturo Orourke M.D. Ventricular Tachycardia 425.4 Cardiomyopathy Other Prim 414.01 Coronary Atherosclerosis [place] 414.02 Coronary Atherosclerosis Autologous Vein Bypass Graft 428.0 Congestive Heart Failure Unspecified Office Visit 12/18/2013 Rena Whitehead 425.4 Cardiomyopathy 10:05a Cardiology Brittany Ochoa Other Prim 427.1 Paroxysmal Ventricular Tachycardia 414.8 Ischemic Heart Disease Chronic Other Spec Forms V45.02 Cardiac Defibrillator Automatic Implantable Postsurgical Office Visit 12/04/2013 10:45a [facility] Annabelle Jacobson 427.1 Paroxysmal Of Arturo Orourke M.D. Ventricular Tachycardia 414.8 Ischemic Heart Disease Chronic Other Spec Forms 425.4 Cardiomyopathy Other Prim 414.01 Coronary Atherosclerosis [place] Office Visit 12/02/2013 12:00p [facility] Taya Upton, 427.1 Paroxysmal Of Arturo Soto Ventricular Tachycardia 427.89 Cardiac Dysrhythmia Other 414.01 Coronary Atherosclerosis [place] 414.8 Ischemic Heart Disease Chronic Other Spec Forms 794.31 Electrocardiogram (ECG) (EKG) Abnormal Office Visit 11/13/2013 [place] Annabelle Jacobson 414.01 Coronary 10:30a Cardiology Miranda Orourke M.D. Atherosclerosis Mental Health Practitioner [place] 414.02 Coronary Atherosclerosis Autologous Vein Bypass Graft 425.4 Cardiomyopathy Other Prim Office Visit 11/02/2013 3:06p [facility] Shreyas Coffman, 410.40 Myocardial Infarc Of Arturo Soto, FACC, Acute Other Infer FSCAI Wall Episode CR Unspec 414.8 Ischemic Heart Disease Chronic Other Spec Forms 414.9 Ischemic Heart Disease Chronic Unspec Office Visit 11/01/2013 3:05p [facility] Shreyas Coffman, 410.40 Myocardial Infarc Of Arturo Soto, FACC, Acute Other Infer FSCAI Wall Episode CR Unspec 414.8 Ischemic Heart Disease Chronic Other Spec Forms Office Visit 10/31/2013 1:19p [facility] Shreyas Coffman, 410.40 Myocardial Infarc Of Arturo Soto, FACC, Acute Other Infer FSCAI Wall Episode CR Unspec 414.9 Ischemic Heart Disease Chronic Unspec Office Visit 10/30/2013 1:15p [facility] Shreyas Coffman, 410.40 Myocardial Infarc Of Arturo Soto, FACC, Acute Other Infer FSCAI Wall Episode CR Unspec 414.9 Ischemic Heart Disease Chronic Unspec 424.1 Aortic Valve Disorder Office Visit 10/29/2013 10:30a Rena Whitehead 410.40 Myocardial Cardiology Brittany Ochoa Infarc Acute Other Infer Wall Episode CR Unspec 794.31 Electrocardiogram (ECG) (EKG) Abnormal 786.50 Pain Chest Unspec 414.01 Coronary Atherosclerosis [place] Office Visit 10/28/2013 8:44a [facility] Shreyas Stefek, 410.40 Myocardial Infarc Of Arturo Soto, FACC, Acute Other Infer FSCAI Wall Episode CR Unspec 412 Myocardial Infarction Old Office Visit 08/30/2013 Rena Whitehead 345.40 Local-Related 11:00a Layla Hackett M.D. Epilepsy W/O Mention Services Of [facility] Of Intractable Epilepsy Office Visit 05/10/2013 [place] Annabelle Jacobson 414.02 Coronary 12:30p Cardiology Miranda Orourke M.D. Atherosclerosis [facility] Autologous Vein Bypass Graft 414.9 Ischemic Heart Disease Chronic Unspec 424.1 Aortic Valve Disorder Office Visit 03/01/2013 Rena Whitehead 345.40 Local-Related 11:00a Layla Hackett M.D. Epilepsy W/O Services Of [facility] Mention Of Intractable Epilepsy Office Visit 10/26/2012 [place] 414.9 Ischemic Heart 2:30p Cardiology Of Brittany Orourke Disease Chronic [facility] Unspec 414.02 Coronary Atherosclerosis Autologous Vein Bypass Graft 401.9 Hypertension Unspec 424.1 Aortic Valve Disorder Office Visit 08/24/2012 Rena Whitehead 345.40 Local-Related 10:45a Layla Hackett M.D. 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 Hospitalists Office Visit 06/22/2009 [facility] Gerardo Bird, 780.39 Convulsions Other 1:00a sravani Veras M.D. Hospitalists Office Visit 06/21/2009 [facility] Gerardo Bird, 780.39 Convulsions Other 1:15a sravani Veras M.D. Hospitalists [facility] COPD Airway 2:30a sravani Veras M.D. Obstruction Hospitalists Chronic Not Class Elsewhere 486 Pneumonia Organism Unspec 530.81 Esophageal Reflux Office Visit 04/24/2009 2:45a [facility] 486 Pneumonia Assoc,sravani Thorne M.D. Organism Unspec Hospitalists 995.91 Sepsis 791.9 Urine Examination Other Nonspecific Findings 496 COPD Airway Obstruction Chronic Not Class Elsewhere 276.7 Hyperpotassemia Office Visit 04/23/2009 2:30a [facility] 486 Pneumonia Assoc,sravani Thorne M.D. Organism Unspec Hospitalists 799.02 Hypoxemia Office Visit 04/22/2009 2:30a [facility] 486 Pneumonia Assocsravani M.D. Organism Unspec Hospitalists 799.02 Hypoxemia Office Visit 04/21/2009 2:15a [facility] Ramu Pierre, 486 Pneumonia Assocsravani M.D. Organism Unspec Hospitalists 799.02 Hypoxemia Office Visit 04/20/2009 3:15a [facility] Gabby, 486 Pneumonia Assocsravani M.D. Organism Unspec Hospitalists 799.02 Hypoxemia 276.8 Hypopotassemia 780.39 Convulsions Other Plan of Treatment Future Appointment(s):05/31/2018 6:25 am - Pacemaker Schedule at [facility]04/30/2018 8:05 am - Pacemaker Schedule at [facility]04/25/2018 - Annabelle Orourke M.D.I42.9 Cardiomyopathy, unspecifiedFollow up:6 [id number] Presence of automatic (implantable) cardiac qfubgserfioevD92.810 Atherosclerosis of coronary artery bypass graft(s) without aR06.02 Shortness of breath
[2018-05-25] MEDS ORDERED: Metoprolol Succinate XL TAB* 50 MG PO SCH (10:00)
[2018-05-25] MEDS ORDERED: Pantoprazole TAB * 40 MG TAB PO SCH (10:00)
[2018-05-25] MEDS ORDERED: Clopidogrel TAB* 75 MG PO SCH (10:00)
[2018-05-25] MEDS ORDERED: PHENobarbital TAB(*) 30 MG PO SCH (10:00)
[2018-05-25] MEDS ORDERED: Paliperidone ER TAB* 6 MG TAB.ER PO SCH ×2 (10:00)
[2018-05-25] MEDS ORDERED: LORazepam TAB(*) 0.5 MG PO SCH (10:00)
[2018-05-25] MEDS ORDERED: Cholestyramine Resin* 4 GM POWDER PO SCH (10:00)
[2018-05-25] MEDS ORDERED: levETIRAcetam TAB* 500 MG PO SCH (10:00)
[2018-05-25] MEDS ORDERED: Atorvastatin* 10 MG TAB PO SCH (10:00)
[2018-05-25] MEDS ORDERED: lamoTRIgine TAB(*) 25 MG PO SCH (10:00)
[2018-05-25] MEDS ORDERED: Lisinopril TAB* 5 MG PO SCH (10:00)
--- NOTE | 2018-05-25 10:14 | ED ---
HPI Chest Pain - HPI Summary HPI Summary: A 73 y/o female brought in by her marketing project lead reports three episode of intermittent mid-sternal chest pain since 05/24/18. The patient reports that she had one episode of chest pain on 05/24/08 and two episodes of chest pain on 05/25/18 after getting bloodwork done. She says that she feels pain free now and rates her pain as a 0/10 in severity. Her pain does not radiate anywhere. She says that her pain lasts for a few seconds when it occurs. She reports that some people think she has SOB but she thinks that this is just due to her COPD. She denies any pain or swelling in her legs, fever, chills, erythema (eyes), sore throat, cough, abdominal pain, vomiting, nausea, dysuria, hematuria, myalgia, edema, rash and dizziness. Her marketing project lead reports that the patient seemed confused on 05/23/18 for some time. The patient reports that she has stents, bypass done by Dr. Orourke, pacemaker and a defibrillator. She is unsure when her last stress test was done. The patient denies being on Aspirin, but takes Plavix. She says that she usually takes Plavix at 08:00 but has not taken it today. - History of Current Complaint Chief Complaint: EDChestPainROMI Time Seen by Provider: 05/25/18 09:14 Hx Obtained From: Patient, Family/Knee Bolter Onset/Duration: Started Days Ago, Resolved Timing: Intermittent, Lasting Seconds Initial Severity: Moderate Current Severity: None Pain Intensity: 0 Pain Scale Used: 0-10 Numeric Chest Pain Location: Mid Sternal Chest Pain Radiates: No Character: Other: - short-lasting pain Aggravating Factor(s): Nothing Alleviating Factor(s): Nothing Associated Signs and Symptoms: Positive: Shortness of Breath. Negative: Dizziness, Swelling, Fever, Chills, Nausea, Cough, Back Pain, Abdominal Pain, Calf Pain/Swelling, Vomiting, Edema - Additional Pertinent History Primary Care Physician: [id number] - Allergy/Home Medications Allergies/Adverse Reactions: Allergies Allergy/AdvReac Type Severity Reaction Status Date / Time carbamazepine Allergy Unknown Unknown Verified 04/09/18 21:12 Reaction Details methoxyflurane Allergy Unknown Unknown Verified 04/09/18 21:12 Reaction Details Sulfa (Sulfonamide Allergy Unknown Unknown Verified 04/10/18 10:06 Antibiotics) Reaction Details Home Medications: Home Medications Mat/D3/Mag11/Zinc/Short Filler Bunch Machine Operator/Joel/Bor [Caltrate 600+D Plus] 2 tab PO QAM 05/25/18 [ History Confirmed 05/25/18] Methylcellulose [Citrucel] 500 mg PO BID 05/25/18 [History Confirmed 05/25/18] Multivitamins/Minerals TAB* [Theragran/minerals TAB*] 1 tab PO QAM 05/25/18 [ History Confirmed 05/25/18] PHENobarbital [Phenobarbital] 32.4 mg PO BID 05/25/18 [History Confirmed ] Paliperidone [Invega] 1 tab PO DAILY 05/25/18 [History Confirmed 05/25/18] PMH/Surg Hx/FS Hx/Imm Hx Endocrine/Hematology History: Reports: Hx Anticoagulant Therapy - [place] Denies: Hx Diabetes, Hx Thyroid Disease Cardiovascular History: Reports: Hx Auto Implanted Cardiovert Defib, Hx Congestive Heart Failure - 2 CABG, Hx Coronary Artery Disease, Hx Hypercholesterolemia, Hx Hypertension - ON DAILY MEDS, Hx Pacemaker/ICD - 12/2011 , Hx Valvular Heart Disease, 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 Respiratory History: Reports: Hx Chronic Obstructive Pulmonary Disease (COPD), Hx Pneumonia - 2009, Other Respiratory Problems/Disorders - PNEUMONIA 2009 GI History: Reports: Hx Gastroesophageal Reflux Disease, Hx Ulcer - ON DAILY MEDS Denies: Other GI Disorders Musculoskeletal History: Denies: Hx Arthritis, Hx Osteoporosis, Other Musculoskeletal History Sensory History: Reports: Hx Cataracts - [facility], Hx Contacts or Glasses - READING GLASSES Denies: Hx Hearing Aid Opthamlomology History: Reports: Hx Cataracts - [facility], Hx Contacts or Glasses - READING GLASSES Neurological History: Reports: Hx Seizures - LAST ONE 3 YRS AGO, Other Neuro Impairments/Disorders - EPILEPSY Psychiatric History: Reports: Hx Anxiety - ON MEDS, Hx Depression - ON DAILY MEDS, Other Psychiatric Issues/Disorders - schizoaffective disorder - Cancer History Hx Chemotherapy: No Hx Radiation Therapy: No - Surgical History Surgery Procedure, Year, and Place: 1994 1999 CARDIAC BY-PASS 5 vessel bypass then 4 vessel bypass [facility]/2012, [facility], [facility]; PACEMAKER/DEFIBRILATOR Hx Anesthesia Reactions: No - Immunization History Date of Tetanus Vaccine: Unk Date of Influenza Vaccine: Unk Infectious Disease History: No Infectious Disease History: Denies: Traveled Outside the [place] in Last 30 Days - Family History Known Family History: Positive: Cardiac Disease - Mother: CHF. Mother and Father : [place], Hypertension - Mother, Diabetes - Mother and brother, Other - Sister: colon CA. - Social History Alcohol Use: None Substance Use Type: Reports: None Smoking Status (MU): Former Smoker Type: Cigarettes Amount Used/How Often: 3-4 PACKS A DAY Have You Smoked in the Last Year: No Review of Systems Negative: Fever, Chills Negative: Erythema Negative: Sore Throat Positive: Chest Pain Positive: Shortness Of Breath. Negative: Cough Negative: Abdominal Pain, Vomiting, Nausea Negative: dysuria, hematuria Musculoskeletal: Negative - calf pain or swelling Negative: Myalgia, Edema Negative: Rash Neurological: Negative - dizziness All Other Systems Reviewed And Are Negative: Yes Physical Exam - Summary Physical Exam Summary: Constitutional: Well-developed, Well-nourished, Alert. (-) Distressed Skin: Warm, Dry HENT: Normocephalic; Atraumatic Eyes: Conjunctiva normal Neck: Musculoskeletal ROM normal neck. (-) JVD, (-) Stridor, (-) Tracheal deviation Cardio: Rhythm regular, rate normal, Heart sounds normal; Intact distal pulses; The pedal pulses are 2+ and symmetric. Radial pulses are 2+ and symmetric. (-) Murmur Pulmonary/Chest wall: Effort normal. (-) Respiratory distress, (-) Wheezes, (-) Rales Abd: Soft, (-) epigastric tenderness, (-) Distension, (-) Guarding, (-) Rebound Musculoskeletal: (-) Edema Lymph: (-) Cervical adenopathy Neuro: Alert, Oriented x3 Psych: Mood and affect Normal Triage Information Reviewed: Yes Vital Signs On Initial Exam: Initial Vitals Temp Pulse Resp BP Pulse Ox 96.6 F 65 18 135/75 98 05/25/18 08:50 05/25/18 08:50 05/25/18 08:50 05/25/18 08:50 05/25/18 08:50 Vital Signs Reviewed: Yes Diagnostics - Vital Signs Vital Signs Temp Pulse Resp BP Pulse Ox 05/25/18 08:50 96.6 F 65 18 135/75 98 - Laboratory Result Diagrams: 05/25/18 12:20 05/25/18 12:20 Lab Statement: Any lab studies that have been ordered have been reviewed, and results considered in the medical decision making process. - Radiology CXR Radiology Interpretation Completed By: Radiologist Summary of Radiographic Findings: CARDIOMEGALY WITH INTERSTITIAL EDEMA CONSISTENT WITH VASCULAR CONGESTION WITH. SMALL PLEURAL EFFUSIONS. ED physician has reviewed this imaging report. - EKG 08:55 Cardiac Rate: Other Rate - Atrial paced complexes at 72 bpm Summary of EKG Findings: Atrial paced complexes at 72 bpm, no STEMI. 12:00 Cardiac Rate: Other Rate - Paced at 58 bpm Summary of EKG Findings: Paced at 58 bpm, no STEMI. Chest Pain Course/Dx - Course Course Of Treatment: A 73 y/o female brought in by her marketing project lead reports three episode of intermittent mid-sternal chest pain since 05/24/18. The physical exam was unremarkable. EKG at 08:55 showed Atrial paced complexes at 72 bpm, no STEMI. In the ED course the patient was given 324 mg Aspirin PO, Furosemide 20mg PO, and Paliperadone PO. EKG at 12:00 showed paced at 58 bpm, no STEMI. CXR impression: CARDIOMEGALY WITH INTERSTITIAL EDEMA CONSISTENT WITH VASCULAR CONGESTION WITH. SMALL PLEURAL EFFUSIONS. Case discussed with Osiris Jalloh who saw the patient in the ED. The patient will be discharged. Return precautions were given. The patient is agreeable with this plan. - Diagnoses Provider Diagnoses: Chest pain - Provider Notifications Discussed Care Of Patient With: Osiris Jalloh Time Discussed With Above Provider: 14:20 Instructed by Provider To: Will See In ED Discharge - Sign-Out/Discharge Documenting (check all that apply): Patient Departure - DC Patient Received Moderate/Deep Sedation with Procedure: No - Discharge Plan Condition: Stable Disposition: HOME Patient Education Materials: Chest Pain (ED) Referrals: Milton Hall MD [Primary Care Provider] - (2-3 days) Additional Instructions: Return to the ED if you experience any new or worsening symptoms. - Billing Disposition and Condition Condition: STABLE Disposition: Home - Attestation Statements Document Initiated by Scribe: Yes Documenting Scribe: Shreyas Baldwin Provider For Whom Scribe is Documenting (Include Credential): Jaylon Rodriguez MD Scribe Attestation: I, Shreyas Baldwin, scribed for Jaylon Rodriguez MD on 05/28/18 at 0740. Scribe Documentation Reviewed: Yes Provider Attestation: The documentation as recorded by the scribe, Shreyas Baldwin accurately reflects the service I personally performed and the decisions made by me, Jaylon Rodriguez MD Status of Scribe Document: Viewed
[2018-05-25] MEDS ORDERED: Furosemide TAB* 20 MG PO ONE (10:37)
[2018-05-25] MEDS ORDERED: Aspirin 81 mg CHEW TAB* 81 MG TAB.CHEW PO ONE (10:38)
[2018-05-25 12:28] LABS: ABS Basophils 0 10^3/ul (0-0.2); ABS Eosinophils 0.1 10^3/ul (0-0.6); ABS Lymphocytes 1.4 10^3/ul (1.0-4.8); ABS Monocytes 0.5 10^3/ul (0-0.8); ABS Neutrophils 3.2 10^3/ul (1.5-7.7); ABS Nucleated RBC 0 10^3/ul; Hematocrit 35 % (35-47); Hemoglobin 11.6 g/dl (12.0-16.0); Lymphocyte % 26.3 %; Mean Corpuscular HGB Conc 33 g/dl (31-36); Mean Corpuscular Hemoglobin 31 pg (27-31); Mean Corpuscular Volume 94 fL (80-97); Mean Platelet Volume 8.2 fL (7.4-10.4); Nucleated Red Blood Cells % 0.1; Platelet Count 207 10^3/ul (150-450); Red Blood Count 3.73 10^6/ul (4.00-5.40); Red Cell Distribution Width 13 % (10.5-15); White Blood Count 5.2 10^3/ul (3.5-10.8)
[2018-05-25 12:48] LABS: Albumin 3.8 g/dL (3.2-5.2); Albumin/Globulin Ratio 1.4 (1-3); Calcium 8.7 mg/dL (8.6-10.3); EGFR African American 86.1 (>60); EGFR Non-African American 71.1 (>60); Globulin 2.7 g/dL (2-4); Potassium 4.9 mmol/L (3.5-5.0); Total Bilirubin 0.3 mg/dL (0.2-1.0); Total Protein 6.5 g/dL (6.4-8.9)
--- NOTE | 2018-05-25 14:41 | CONSULT ---
Subjective Date of Service: 05/25/18 Interval History: This is a 73 year old female with extensive cardiac history, including CT, CAD, severe ischemic cardiomyopathy with EF<20% and AICD, COPD, schizoaffective disorder, CHF, seizures, stroke and HTN. She is a patient of Dr. Orourke whom she saw 2 weeks ago when he placed her on furosemide 20mg MWF. Patient states she had a fleeting episode of chest pain last night and again this morning while she was having blood draw. She states the pain lasted 2-3 seconds and resolved spontaneously both times. She does not endorse any further anginal equivalents, denies associated dyspnea, no diaphoresis, no nausea, no dizziness , no syncope. Patient states she has panic attacks and thinks she was worried about her blood work. She is unsure when her last ECHO and stress test were and says she is "forgetful" sometimes. She also states she came to the ER on her own because she was alone at home and afraid. Her EKG is negative for any changes, her first troponin is negative at 0.00. She is chest pain free. I reached out to Dr. Knight to discuss; he recommends drawing second troponin, if negative, ER should discharge to home with outpatient follow up. Past Medical History: Unchanged from Admission - as above Review of Systems - Measurements Intake and Output: Intake and Output Last 24 Hours 05/23/18 05/24/18 05/25/18 05/26/18 06:59 06:59 06:59 06:59 Weight 148 lb - Review of Systems Constitutional Symptoms: Negative: Weight Gain, Weight Loss, Weakness, Fatigue, Fever, Night Sweats, Unexplained Falls, Other Dermatology: Negative: Normal, Rash, Skin Lesions, Cancer, Skin Lumps, Other HEENT: Negative: Normal, Change in Hearing, Vertigo, Dental Problems, Tinnitus, Sinus Problem, Other Eyes: Negative: Normal, Change in Vision, Double Vision, Eye Pain, Glaucoma, Cataract, Contacts or Glasses, Other Thyroid: Negative: Normal, Goiter, Thyroid Nodule, Cold Intolerance, Heat Intolerance , Sweatiness, Tremor, Frequent Defecation, Constipation, Palpitations, Primary Hypothyroidism, Primary Hyperthyroidism, Weight Loss, Weight Gain, Change in Skin/Hair, Change in Menstruation, Radiation Exposure, Other Pulmonary: Positive: COPD Negative: Normal, Cough, Sputum, Hemoptysis, Wheezing, Respiratory Distress, Shortness of Breath, Asthma, Exercise Intolerance, Home Oxygen, Other Cardiology: Positive: Chest Pain Negative: Normal, Shortness of Breath, Palpitations, Swelling of Ankles, Peripheral Vascular Dis, Edema, Faintness, Syncope, Claudication, Proximal NocturnalDyspnea, Orthopnoea, Other Gastroenterology: Negative: Normal, Abdominal Pain, Nausea, Vomiting, Anorexia, Indigestion, Difficulty Swallowing, Heartburn, Constipation, Diarrhea, Blood in Stools, Change in Bowel Habits, Haematemesis, Melena, Other Genital - Urinary: Negative: Normal, Dysuria, Hematuria, Polyuria, Nocturia, Other Genitourinay - Female: Negative: Menses Normal, Vaginal Discharge, Menopause, Dysmenorrhea, Other Musculoskeletal: Negative: Joint Pain, Joint Stiffness, Arthritis, Osteoporosis, Low Back Pain , Sciatica, Joint Deformities, Kyphoscoliosis, Other Endocrinology: Negative: Normal, Thyroid Problems, Adrenal Problems, Gonadal Problems, Family Hx Endocrine Disorders, Obesity, Diabetes Mellitus, Hyperglycemia, Hx Hypoglycemia, Diabetic Foot Ulcers, Calluses, Hirsutism, Menstral Abnormalities , Polydipsia, Polyuria, Gonadal Problems, Gynecomastia, Pituitary disease, Other Neurology: Positive: Change in Memory, Hx of Stroke\\TIA, Hx of Seizures Negative: Normal, Headache, Migraines, Change in Vision, Diplopia, Dizziness , Change in Balancing, Change in Coordination, Change in Speech, Change in Sphincter Function, Change in Walking, Numbness\\Paresthesiae, Unexplained Weakness, Other Psychiatry: Positive: Anxiety Negative: Normal, Depression, Depressed Mood, Adhedonia, Sexual Dysfunction, Weight Change, Guilt Feelings, Tearfulness, Unusual Fatigue, Unusual Anxiety, Suicidal Ideation, Hypomania, Eating Disorders, Other Allergic/Immunologic: Negative: Hx Anaphylaxis, Hx Angioedema, Hx Environmental, Hx Seasonal, Athsma, Hx HIV, Immunocompromise, Swollen Glands LymphNodes, Other Objective Active Medications: Atorvastatin Calcium (Lipitor*) 10 mg PO DAILY [facility] Last Admin: 05/25/18 11:08 Dose: 10 mg Cholestyramine Resin (Questran*) 4 gm PO BID [facility] Last Admin: 05/25/18 14:30 Dose: 4 gm Clopidogrel Bisulfate (Plavix Tab*) 75 mg PO DAILY [facility] Last Admin: 05/25/18 11:07 Dose: 75 mg Lamotrigine (Lamictal Tab(*)) 50 mg PO BID [facility] Last Admin: 05/25/18 11:07 Dose: 50 mg Levetiracetam (Keppra Tab*) 1,[address] [facility] Last Admin: 05/25/18 11:07 Dose: 1,000 mg Lisinop[facility] ([facility]inivil [facility]*) [facility] Admin: 05/25/18 11:09 Dose: 2.5 mg Lorazepam (Ativan Tab(*)) 0.25 mg PO BID [facility] Last Admin: 05/25/18 11:29 Dose: Not Given Metoprolol Succinate (Toprol Xl Tab*) [address] [facility] Last Admin: 05/25/18 11:10 Dose: 50 mg Paliperidone (Invega Er Tab*) [address] [facility] Last Admin: 05/25/18 11:09 Dose: 6 mg Pantoprazole Sodium (Protonix Tab*) [address] [facility] Last Admin: 05/25/18 11:08 Dose: 40 mg Paroxetine HCl (Paxil Tab*) 20 mg PO BEDTIME [facility] Phenobarbital (Phenobarbital Tab(*)) [address] [facility] Last Admin: 05/25/18 11:09 Dose: 30 mg Vital Signs - 8 hr 05/25/18 05/25/18 05/25/18 08:50 09:22 09:52 Temperature 96.6 F Pulse Rate 65 69 65 Respiratory 18 25 33 Rate Blood Pressure 135/75 134/94 128/86 (mmHg) O2 Sat by Pulse 98 94 96 Oximetry 05/25/18 05/25/18 05/25/18 10:00 10:22 10:52 Temperature Pulse Rate 63 64 66 Respiratory 25 21 21 Rate Blood Pressure 125/76 137/84 (mmHg) O2 Sat by Pulse 97 97 97 Oximetry 05/25/18 05/25/18 05/25/18 11:00 11:22 11:52 Temperature Pulse Rate 63 70 69 Respiratory 25 18 21 Rate Blood Pressure 131/87 128/86 (mmHg) O2 Sat by Pulse 96 98 97 Oximetry 05/25/18 05/25/18 12:00 12:22 Temperature Pulse Rate 63 61 Respiratory 29 20 Rate Blood Pressure 132/82 (mmHg) O2 Sat by Pulse 97 97 Oximetry Oxygen Devices in Use Now: None Appearance: alert, well nourished, NAD Eyes: No Scleral Icterus, PERRLA Ears/Nose/Mouth/Throat: NL Teeth, Lips, Gums, Mucous Membranes Moist Neck: NL Appearance and Movements; NL JVP, Trachea Midline, No Thyroid Enlargement, Masses Respiratory: Symmetrical Chest Expansion and Respiratory Effort, Clear to Auscultation Cardiovascular: NL Sounds; No Murmurs; No JVD, RRR - paced, No Edema Abdominal: NL Sounds; No Tenderness; No Distention Extremities: No Edema, No Clubbing, Cyanosis Skin: No Rash or Ulcers Neurological: Alert and Oriented x 3, NL Gait Nutrition: Taking PO's Result Diagrams: 05/25/18 12:20 05/25/18 12:20 Diagnostic Imaging: Patient Name: TERESITA NICHOLE Medical Record#: [id number] Ordering Physician: Jaylon Rodriguez MD Acct.#: [id number] : 1945 Age: 73 Sex: F Location: EMERGENCY DEPARTMENT Exam Date: 05/25/18 115 ADM Status: REG ER Order Information: CHEST AP PORTABLE Accession Number: [id number] CPT: 82406 Indication: Chest pain. Single frontal view of the chest performed at 1230 hours was reviewed. Comparison is made with previous exam dated April 09, 2018. Cardiomegaly is noted. Interstitial edema consistent with vascular congestion is noted. Pacemaker leads are in place. Patient is status post tracer thoracotomy. There may be some blunting of the costophrenic angle bilaterally. IMPRESSION: CARDIOMEGALY WITH INTERSTITIAL EDEMA CONSISTENT WITH VASCULAR CONGESTION WITH SMALL PLEURAL EFFUSIONS. <Electronically signed by Piper Giordano MD in [place]> 05/25/18 1240 Dictated By: Piper Giordano MD Dictated Date/Time: 05/25/18 1240 Transcribed Date/Time: 05/25/18 1239 Copy to: Assessment/Plan - Billing Assessment: 1. Atypical Chest Pain, with Hx of CAD, Ischemic CM, EF<20%, COPD, HTN, Chronic HF, AICD/PM - No EKG changes, no SOB, does not appear to be in acute on chronic failure, weight stable - Reviewed cardiac cath report from 2013 - two stents deployed with recommendation for maximizing medical therapy - Troponins negative at 0.00 x2 - Patient follows closely with Dr. Orourke and is on appropriate medical therapy with recent initiation of lasix - Symptoms resolved - D/W cardiology, discharge to home 2. Seizure Disorder - Stable, no seizures noted, continue home meds 3. COPD - Not in exacerbation 4. Schizoaffective DO - Mood stable, continue home meds and ativan for anxiety VTE PPX: - NA Diet: - Heart healthy low sodium Code Status: - Full code Admission Status and Rationale: - Recommend discharge to home and follow up with Dr. Orourke and the PCP. Coordinated with Dr. Coppola and Dr. Rodriguez.
[2018-05-25 15:48] VITALS: BP 129/75
[2018-05-25] MEDS ORDERED: PARoxetine HCL TAB* 20 MG PO SCH (21:00)
== END 2018-05-25 15:48 | disposition home or self-care (01) ==
LOC: ED 08:48
DX: R07.2 Precordial pain (principal); R06.02 Shortness of breath; I25.10 Atherosclerotic heart disease of native coronary artery without angina pectoris; I11.0 Hypertensive heart disease with heart failure; Z79.01 Long term (current) use of anticoagulants; Z95.1 Presence of aortocoronary bypass graft; Z95.810 Presence of automatic (implantable) cardiac defibrillator; J44.9 Chronic obstructive pulmonary disease, unspecified; G40.909 Epilepsy, unspecified, not intractable, without status epilepticus; F20.9 Schizophrenia, unspecified; F41.9 Anxiety disorder, unspecified; F32.9 Major depressive disorder, single episode, unspecified; Z88.2 Allergy status to sulfonamides; Z88.8 Allergy status to other drugs, medicaments and biological substances; Z87.891 Personal history of nicotine dependence
CPT/HCPCS: 36415; 71045; 80053; 83605; 84484; 85025; 93005; 99284; A9270-GY

== ENCOUNTER 2018-10-29 15:26 | Inpatient (IN) | payer MEDICARE ==
--- NOTE | 2018-10-29 15:46 | ED ---
HPI Chest Pain - HPI Summary HPI Summary: This pt is a 73 y/o female presenting to [facility] referred by her curing oven attendant's office for chest pain with elevated troponin today. Pt reports she has been having intermittent left sided chest pain for the past few days. Today she had blood work as an outpatient and resulted in troponin of 0.07. Her curing oven attendant, Dr. Orourke, is on vacation and his DIRECTOR OF SUSTAINABILITY PROGRAMS called the pt to come to the ED. Today she notes she had left sided chest pain that lasted "for a second" but then resolved on its own. Additionally she reports she is SOB, although she states " I get this when I get nervous." Pt notes she had dizziness "the other day" while walking in the heat, denies any dizziness today. Denies headache, nausea, vomiting, diarrhea. PMHx includes cardiac bypass x2, afib, pacemaker, high cholesterol, COPD. - History of Current Complaint Hx Obtained From: Patient Onset/Duration: Still Present Timing: Lasting Seconds Initial Severity: Moderate Current Severity: None Pain Intensity: 0 Pain Scale Used: 0-10 Numeric Chest Pain Location: Left Anterior Chest Pain Radiates: No Character: Tightness Aggravating Factor(s): Nothing Alleviating Factor(s): Nothing Associated Signs and Symptoms: Positive: Chest Pain, Shortness of Breath. Negative: Headaches, Fever, Chills, Nausea, Vomiting - Additional Pertinent History Primary Care Physician: [id number] - Allergy/Home Medications Allergies/Adverse Reactions: Allergies Allergy/AdvReac Type Severity Reaction Status Date / Time carbamazepine Allergy Unknown Unknown Verified 10/29/18 17:29 Reaction Details methoxyflurane Allergy Unknown Unknown Verified 10/29/18 17:29 Reaction Details Sulfa (Sulfonamide Allergy Unknown Unknown Verified 10/29/18 17:29 Antibiotics) Reaction Details Home Medications: Home Medications Atorvastatin* [Lipitor*] 10 mg PO BEDTIME 10/29/18 [History Confirmed 10/29/18] Cholestyramine Resin* [Questran*] 4 gm PO BID 10/29/18 [History Confirmed ] Methylcellulose [Citrucel] 500 mg PO BID 10/29/18 [History Confirmed 10/29/18] PARoxetine HCL TAB* [Paxil TAB*] 20 mg PO BEDTIME 10/29/18 [History Confirmed ] raNITIdine HCl [Ranitidine HCl] 150 mg PO BID 10/29/18 [History Confirmed ] PMH/Surg Hx/FS Hx/Imm Hx Endocrine/Hematology History: Reports: Hx Anticoagulant Therapy - Brilanta Denies: Hx Diabetes, Hx Thyroid Disease Cardiovascular History: Reports: Hx Auto Implanted Cardiovert Defib, Hx Congestive Heart Failure - 2 CABG, Hx Coronary Artery Disease, Hx Hypercholesterolemia, Hx Hypertension - ON DAILY MEDS, Hx Pacemaker/ICD - 12/2011 , Hx Valvular Heart Disease, 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 Denies: Hx Peripheral Vascular Disease Respiratory History: Reports: Hx Chronic Obstructive Pulmonary Disease (COPD), Hx Pneumonia - 2009, Other Respiratory Problems/Disorders - PNEUMONIA 2009 GI History: Reports: Hx Gastroesophageal Reflux Disease, Hx Ulcer - ON DAILY MEDS Denies: Other GI Disorders Musculoskeletal History: Denies: Hx Arthritis, Hx Osteoporosis, Other Musculoskeletal History Sensory History: Reports: Hx Cataracts - FITO, Hx Contacts or Glasses - READING GLASSES Denies: Hx Glaucoma, Hx Hearing Aid Opthamlomology History: Reports: Hx Cataracts - FITO, Hx Contacts or Glasses - READING GLASSES Denies: Hx Glaucoma Neurological History: Reports: Hx Seizures - LAST ONE 3 YRS AGO, Hx Transient Ischemic Attacks (TIA), Other Neuro Impairments/Disorders - EPILEPSY Denies: Hx Headaches Psychiatric History: Reports: Hx Anxiety - ON MEDS, Hx Depression - ON DAILY MEDS, Other Psychiatric Issues/Disorders - schizoaffective disorder - Cancer History Hx Chemotherapy: No Hx Radiation Therapy: No - Surgical History Surgery Procedure, Year, and Place: 1994 1999 CARDIAC BY-PASS 5 vessel [facility] then [facility]; PACEMAKER/DEFIBRILATOR Hx Anesthesia Reactions: No - Immunization History Date of Tetanus Vaccine: Unk Date of Influenza Vaccine: Unk - Family History Known Family History: Positive: Cardiac Disease - Mother: CHF. Mother and Father : [place], Hypertension - Mother, Diabetes - Mother and brother, Other - Sister: colon [place]. - Social History Alcohol Use: None Substance Use Type: Reports: None Smoking Status (MU): Former Smoker Type: Cigarettes Amount Used/How Often: 3-4 PACKS A DAY Have You Smoked in the Last Year: No Review of Systems Negative: Fever Positive: Chest Pain Positive: Shortness Of Breath Negative: Vomiting, Diarrhea, Nausea Neurological: Other - NEGATIVE: dizziness Negative: Headache All Other Systems Reviewed And Are Negative: Yes Physical Exam - Summary Physical Exam Summary: VITAL SIGNS: Reviewed. GENERAL: Patient is a well-developed and nourished female who is lying comfortable in the stretcher. Patient is not in any acute respiratory distress. HEAD AND FACE: No signs of trauma. No ecchymosis, hematomas or skull depressions. No sinus tenderness. EYES: PERRLA, EOMI x 2, No injected conjunctiva, no nystagmus. EARS: Hearing grossly intact. Ear canals and tympanic membranes are within normal limits. MOUTH: Oropharynx within normal limits. NECK: Supple, trachea is midline, no adenopathy, no JVD, no carotid bruit, no c- spine tenderness, neck with full ROM. CHEST: Symmetric, no tenderness at palpation LUNGS: Clear to auscultation bilaterally. No wheezing or crackles. CVS: Regular rate and rhythm, S1 and S2 present, no murmurs or gallops appreciated. ABDOMEN: Soft, non-tender. No signs of distention. No rebound, no guarding, and no masses palpated. Bowel sounds are normal. EXTREMITIES: FROM in all major joints, no edema, no cyanosis or clubbing. NEURO: Alert and oriented x 3. No acute neurological deficits. Speech is normal and follows commands. SKIN: Dry and warm Triage Information Reviewed: Yes Vital Signs On Initial Exam: Initial Vitals Temp Pulse Resp BP Pulse Ox 98.1 F 64 18 114/68 97 10/29/18 15:30 10/29/18 15:30 10/29/18 15:30 10/29/18 15:30 10/29/18 15:30 Vital Signs Reviewed: Yes Diagnostics - Laboratory Result Diagrams: 10/29/18 15:53 10/29/18 15:53 Lab Statement: Any lab studies that have been ordered have been reviewed, and results considered in the medical decision making process. - Radiology Chest XR Radiology Interpretation Completed By: Radiologist Summary of Radiographic Findings: IMPRESSION: #. Pulmonary vascular congestion and mild interstitial edema with associated small pleural effusions. #. COPD. Dr. Langston has reviewed this report. - EKG 15:32 Cardiac Rate: NL - at 70 bpm Summary of EKG Findings: Atrial-paced rhythm at [address] elevations. ST depression in lead V5. Inverted T wave in lead V6. Chest Pain Course/Dx - Course Assessment/Plan: This pt is a 73 y/o female [facility] referred by her curing oven attendant's office for chest pain with elevated troponin today. Pt reports she has been having intermittent left sided chest pain for the past few days. Today she had blood work as an outpatient and resulted in troponin of 0.07. Her curing oven attendant, Dr. Orourke, is on vacation and his DIRECTOR OF SUSTAINABILITY PROGRAMS called the pt to come to the ED. Today she notes she had left sided chest pain that lasted "for a second" but then resolved on its own. Additionally she reports she is SOB, although she states "I get this when I get nervous." Pt notes she had dizziness "the other day" while walking in the heat, denies any dizziness today. Denies headache, nausea, vomiting, diarrhea. PMHx includes cardiac bypass x2, afib, pacemaker, high cholesterol, COPD. Blood work without any significant abnormality except for creatinine 0.6, glucose is 109, troponin 0.08, CRP is 11.70. The chest x- ray impression: Bipolar vascular congestion and mild interstitial edema acid with a small pleural effusion. COPD. EKG shows a normal sinus rhythm without any ST elevations. The patient reports that she took an aspirin this morning. The patient reports no chest pain at present. I discussed my physical exam and findings with Dr. Gonzalez from the hospital services who accepted the patient for admission. Patient is hemodynamically stable alert oriented 3. - Diagnoses Provider Diagnoses: Chest pain, Elevated troponin - Provider Notifications Discussed Care Of Patient With: Christiana Duncan - hospitalist Time Discussed With Above Provider: 17:58 Instructed by Provider To: Admit As Inpatient Discharge - Sign-Out/Discharge Documenting (check all that apply): Patient Departure - Admit to [facility] Patient Received Moderate/Deep Sedation with Procedure: No - Discharge Plan Condition: Stable Disposition: ADMITTED TO [facility] - Billing Disposition and Condition Condition: STABLE Disposition: Admitted to [facility] - Attestation Statements Document Initiated by Scribe: Yes Documenting Scribe: Deyanira Montoya Provider For Whom Scribe is Documenting (Include Credential): Christo Langston MD Scribe Attestation: I, Deyanira Bennett and Alireza Montoya, scribed for Christo Langston MD on 10/29/18 at 2036. Scribe Documentation Reviewed: Yes Provider Attestation: The documentation as recorded by the scribe, Deyanira Bennett and Alireza Montoya accurately reflects the service I personally performed and the decisions made by me, Christo Langston MD Status of Scribe Document: Viewed
[2018-10-29 15:59] LABS: ABS Basophils 0.1 10^3/ul (0-0.2); ABS Eosinophils 0.1 10^3/ul (0-0.6); ABS Lymphocytes 1.1 10^3/ul (1.0-4.8); ABS Monocytes 0.7 10^3/ul (0-0.8); ABS Neutrophils 5.1 10^3/ul (1.5-7.7); Eosinophil % 1.2 %; Hematocrit 39 % (35-47); Hemoglobin 12.7 g/dL (12.0-16.0); Lymphocyte % 15.1 %; Mean Corpuscular HGB Conc 33 g/dL (31-36); Mean Corpuscular Hemoglobin 30 pg (27-31); Mean Corpuscular Volume 93 fL (80-97); Mean Platelet Volume 7.8 fL (7.4-10.4); Platelet Count 221 10^3/uL (150-450); Red Blood Count 4.19 10^6 /uL (3.70-4.87); Red Cell Distribution Width 13 % (10-15)
[2018-10-29 16:18] LABS: ALT 9 U/L (7-52); AST 17 U/L (13-39); Albumin 3.9 g/dL (3.2-5.2); Albumin/Globulin Ratio 1.3 (1-3); Alkaline Phosphatase 83 U/L (34-104); Anion Gap 8 mmol/L (2-11); BUN/Creatinine Ratio 14.6 (8-20); Blood Urea Nitrogen 14 mg/dL (6-24); CO2 Carbon Dioxide 25 mmol/L (22-32); Calcium 8.9 mg/dL (8.6-10.3); Chloride 104 mmol/L (101-111); Creatine Kinase 53 U/L (10-223); EGFR African American 68.7 (>60); EGFR Non-African American 56.8 (>60); Globulin 2.9 g/dL (2-4); Glucose 109 mg/dL (70-100); Potassium 4.1 mmol/L (3.5-5.0); Sodium 137 mmol/L (135-145); Total Protein 6.8 g/dL (6.4-8.9)
[2018-10-29 16:23] LABS: CKMB ng/mL 1.5 ng/mL (0.6-6.3)
[2018-10-29 16:29] LABS: Troponin I 0.08 ng/mL (<0.04)
[2018-10-29 16:57] LABS: Activated Partial Thrombo Time 30.3 seconds (26.0-38.0); INR 0.99 (0.82-1.09)
[2018-10-29] MEDS ORDERED: Nitroglycerin TAB 0.4 MG* 0.4 MG TAB SL PRN (18:18)
--- NOTE | 2018-10-29 21:19 | HP ---
CC: Dr. Milton Hall; Dr. Orourke; Dr. Ochoa * HISTORY AND PHYSICAL: DATE OF ADMISSION: 10/29/18 PRIMARY CARE PROVIDER: Dr. Milton Hall. PRIMARY CUSTOMS ENTRY WRITER: Dr. Orourke and Dr. Ochoa CHIEF COMPLAINT: Sent from Dr. Orourke's office because of elevated cardiac enzyme. HISTORY OF PRESENT ILLNESS: This is a 73-year-old female with a history of coronary artery disease with PR with stents, with multiple CABG, cardiomyopathy with ejection fraction of 20%, AICD, who presented to the emergency room after being sent from Dr. Orourke's office. The patient was sent from Dr. Orourke's office after having routine blood work, which showed elevated troponin of 0.07. The patient reports that she did not have any chest pain all throughout the day, however, reports that when she was in the emergency room, she felt substernal pressure that lasted for few seconds when she arrived to the emergency room. This was not associated with any shortness of breath, no palpitations, no diaphoresis, no nausea, no vomiting. The patient reports that for the past several days, she has been having bad dreams. She reports that 3 days ago, she was walking uphill when she noted that she was lightheaded and dizzy. At that time, she did not have any chest pain. About a week ago, she had a bad dream after which she had sharp substernal pain, which lasted the entire night, she held the pillow to her chest tube relieved the pain. There was no associated shortness of breath, no nausea, and no vomiting. In the emergency room, the patient was seen and evaluated. EKG was done. Troponin was found to be 0.08. EKG shows a paced rhythm. PAST MEDICAL HISTORY: Includes: 1. Coronary artery disease with PR, stents. 2. Cardiomyopathy with ejection fraction 20%. 3. AICD. 4. COPD. 5. Schizoaffective disorder. 6. CHF. 7. Seizure disorder. 8. Stroke. 9. Hypertension. PAST SURGICAL HISTORY: Includes CABG, appendix. HOME MEDICATIONS: Include: 1. Caltrate 600 plus D 2 tabs in the morning. 2. Ranitidine 150 mg b.i.d. 3. Methylcellulose 500 mg b.i.d. 4. Plavix 75 mg daily. 5. Lipitor 10 mg daily. 6. Paroxetine 20 mg at bedtime. 7. Nitroglycerin 0.4 mg sublingual every 5 hours as needed. 8. Multivitamins. 9. Metoprolol succinate 50 mg in the morning. 10. Lisinopril 2.5 mg in the morning. 11. Invega 1 tablet daily. 12. Phenobarbital 32.4 mg b.i.d. 13. Keppra 1500 mg b.i.d. 14. Lamotrigine 100 mg b.i.d. ALLERGIES: Include CARBAMAZEPINE, METHOXYFLURANE, and SULFA. FAMILY HISTORY: Her parents had heart issues. SOCIAL HISTORY: She lives independently in a [place] [facility] [place], former smoker, no alcohol use. Healthcare proxy is her son, Cy Potter. She is a full-code. REVIEW OF SYSTEMS: There is no fever, no chills, no changes in her vision or hearing, no sore throat. She does have occasional chest pain, no palpations. There is no shortness of breath, however, she does have COPD, not on home oxygen. There is no nausea, no vomiting, no abdominal pain, no urinary symptoms. She does have bad dreams. There is no depression, however, she does have schizoaffective disorder. PHYSICAL EXAMINATION GENERAL: This is an elderly female, lying in bed, in no acute distress. VITAL SIGNS: Blood pressure of 125/67, heart rate of 76, oxygenation of 97% on room air, respiratory status breathing at rate of 16, temperature of 98.1 Fahrenheit. HEENT: Pupils are equal, round, and reactive to light. Atraumatic, normocephalic. LUNGS: There is no tachypnea, no use of accessory muscles. There are minimal basilar crackles on the left lung. HEART: There is no chest wall tenderness. There is regular rate and rhythm, 2/ 6 systolic murmur best heard at the apex, sternal scar noted. ABDOMEN: Bowel sounds are normoactive in all 4 quadrants, abdomen is soft, nontender, nondistended. EXTREMITIES: No lower extremity edema, no calf tenderness, scars from her prior CABG noted at the extremities where she had vein stripping. NEUROLOGIC: Alert and oriented x3 with no focal neurological deficits. DIAGNOSTIC STUDIES/LAB DATA: EKG: Atrial paced rhythm. Chest x-ray was done, which shows pulmonary vascular congestion and mild interstitial edema with associated small pleural effusion and chronic obstructive pulmonary disease. Significant labs: Troponin is 0.08, CK-MB is 1.5, hemoglobin of 12.7, hematocrit of 39, INR of 0.99. Sodium of 137, potassium of 4.1, chloride of 104 , bicarb is 25, BUN of 14, creatinine of 0.96. IMPRESSION AND PLAN: 1. Chest pain: Elevated troponin with 1 episode of chest pain: Currently, the patient is chest pain free. The patient is a high risk for cardiac disease given the fact that she has multiple coronary artery bypass graft in the past along with myocardial infarction and the ejection fraction of 20%. This case was discussed with Dr. Ochoa, soaking tank worker. At this point, we will continue the patient's home medications, continue Plavix. Our idea was to start aspirin; however, the patient is refusing aspirin as her soaking tank worker told her not to take aspirin again. Continue aspirin, Lipitor, check nuclear stress test as well as an echocardiogram. 2. Chronic obstructive pulmonary disease: Stable, continue home regimen. 3. History of cardiomyopathy. Ejection fraction with automatic implantable cardioverter-defibrillator. 4. History of seizure disorder, continue home seizure medication. 5. History of stroke: Continue Plavix as well as statin. 6. The patient's healthcare proxy is her son, Dami Potter, the patient is a full code. 7. For DVT prophylaxis, sequential compression device. 8. We will check a third troponin as well as additional management and plan as per the hospitalist course. 9 The patient will be placed n.p.o. after midnight for the stress test. [id number]/[facility] #: [id number] ROLF
[2018-10-29] MEDS: PARoxetine HCL TAB* 20 MG PO SCH (21:26)
[2018-10-29] MEDS: PHENobarbital TAB(*) 30 MG PO SCH (21:26)
[2018-10-29] MEDS: levETIRAcetam TAB* 500 MG PO SCH (21:26)
[2018-10-29] MEDS: Famotidine TAB* 20 MG PO SCH (21:26)
[2018-10-29 21:39] LABS: Troponin I 0.08 ng/mL (<0.04)
[2018-10-29] MEDS: LAMOTRIGINE 50 MG PO SCH (22:01)
[2018-10-30 06:32] LABS: BUN/Creatinine Ratio 17.6 (8-20); Calcium 8.6 mg/dL (8.6-10.3); EGFR African American 73.1 (>60); EGFR Non-African American 60.4 (>60); Potassium 4.3 mmol/L (3.5-5.0)
[2018-10-30] MEDS ORDERED: Lisinopril TAB* 5 MG PO SCH (09:00)
[2018-10-30] MEDS ORDERED: Furosemide IV* 10 MG/ML VIAL (40 MG) IV ONE (10:31)
[2018-10-30 10:40] LABS: Troponin I 0.07 ng/mL (<0.04)
[2018-10-30] MEDS: PHENobarbital TAB(*) 30 MG PO SCH ×2 (11:30→21:19)
[2018-10-30] MEDS: Clopidogrel TAB* 75 MG PO SCH (11:31)
[2018-10-30] MEDS: levETIRAcetam TAB* 500 MG PO SCH ×2 (11:31→21:19)
[2018-10-30] MEDS: Atorvastatin* 10 MG TAB PO SCH (11:31)
[2018-10-30] MEDS: Metoprolol Succinate XL TAB* 50 MG PO SCH (11:31)
[2018-10-30] MEDS: Famotidine TAB* 20 MG PO SCH ×2 (11:31→21:20)
[2018-10-30] MEDS: Paliperidone ER TAB* 6 MG TAB.ER PO SCH (11:48)
[2018-10-30] MEDS: LAMOTRIGINE 50 MG PO SCH ×2 (11:48→21:19)
[2018-10-30] MEDS ORDERED: Lorazepam PYXIS KEY ONE (11:59)
[2018-10-30] MEDS ORDERED: LORazepam INJ* 2 MG/ML 1 ML VIAL ONE (11:59)
[2018-10-30] MEDS ORDERED: Regadenoson* 0.4 MG/5 ML SYRINGE ONE (12:02)
--- NOTE | 2018-10-30 12:43 | ECHO ---
*[facility]* [place] [address] Fax #: [phone] Transthoracic Echocardiogram Patient: Temitope Potter : 1945 Study Date: 10/30/2018 Age: 73 Gender: F HR: 85 bpm Height: 63 in /160 cm BSA: 1.68 m^2 Weight: 143.7 lb /65.3 kg BMI: 25.5 kg/m^2 *Hl7 Interface Developer: * Jodi Moctezuma [facility] *Referring Physician: * Christiana Duncan *Reading Physician: * Taya Upton MD Indications: Chest Pain, unspecified. History: Coronary artery disease. Congestive heart failure. Cerebrovascular accident. Chronic obstructive pulmonary disease. PMH: Myocardial infarction. Cardiomyopathy. Risk factors: Hypertension. Labs, prior tests, procedures, and surgery: Catheterization. There was a stenosis which was treated with a stent. ICD system implantation. Conclusions Summary: 1. Left ventricle: The cavity size is moderately dilated. Wall thickness is normal. Systolic function is severely reduced by visual assessment. The estimated ejection fraction is 15-20%. Lateral wall contracts best. Doppler parameters are consistent with restrictive physiology, indicative of decreased left ventricular diastolic compliance and/or increased left atrial pressure. 2. Right ventricle: Systolic function is moderately to severely reduced. 3. Mitral valve: There is moderate regurgitation, directed posteriorly and toward the free wall. The regurgitant PISA radius is 0.5 cm. The effective regurgitant orifice (PISA) is 0.13 cm^2. 4. Aortic valve: The valve is functionally bicuspid, raphe between right coronary cusp and LCC calcified and fused and akinetic, LCC shows good excursion. The findings are consistent with moderate stenosis based on 2D visual estimate and calculations. There is mild regurgitation. The peak systolic velocity is 2.3 m/sec. The mean systolic gradient is 10.0 mm Hg. The valve area by the velocity-time integral method is 1.09 cm^2. The valve area by the peak velocity method is 0.87 cm^2. 5. Tricuspid valve: There is moderate-severe regurgitation directed toward the septum. 6. Pulmonary arteries: Systolic pressure is severely increased. The peak pressure during systole by Doppler is 68.0 mm Hg. 7. Compared with prior echocardiogram of 05/25/17, ejection fraction previously 20%, right ventricle function is further reduced, bicuspid appearance of the aortic valve newly described, not significantly changed based on mean gradient, peak velocity. Mitral regurgitation is stable, tricuspid regurgitation previously moderate, pulmonary artery pressure has increased from 43 mmHg. Study data: Transthoracic echocardiogram. Procedure: Transthoracic echocardiography was performed. Image quality was fair. Complete 2D, spectral Doppler, and color flow Doppler. Location: Bedside. Patient status: Inpatient. Patient room number: 441-2. Rhythm: Paced rhythm. Findings Left ventricle: The cavity size is moderately dilated. Wall thickness is normal. Systolic function is severely reduced by visual assessment. The estimated ejection fraction is 15-20%. Regional wall motion abnormalities: Akinesis of the basal-midinferior myocardium. Akinesis of the apicalanterior and inferior myocardium. Hypokinesis of the basalanteroseptal, anterior, anterolateral, inferolateral, and inferoseptal myocardium. Hypokinesis of the midanteroseptal, anterolateral, and inferolateral myocardium. Hypokinesis of the apicallateral myocardium. Doppler parameters are consistent with restrictive physiology, indicative of decreased left ventricular diastolic compliance and/or increased left atrial pressure. Right ventricle: The cavity size is normal. Pacer wire noted in the right ventricle. Systolic function is moderately to severely reduced. Systolic pressure is severely increased. Ventricular septum: There is abnormal interventricular septal wall motion consistent with an RV pacemaker. Left atrium: The atrium is severely dilated. Right atrium: The atrium is mildly dilated. Pacer wire noted in right atrium. Mitral valve: The annulus is mildly calcified. The leaflets are mildly thickened. There is no evidence of stenosis. There is moderate regurgitation, directed posteriorly and toward the free wall. Aortic valve: The valve is functionally bicuspid, raphe between right coronary cusp and LCC calcified and fused and akinetic, LCC shows good excursion. The leaflets are moderately calcified. The findings are consistent with moderate stenosis. There is mild regurgitation. Tricuspid valve: The leaflets are normal thickness. There is no evidence of stenosis. There is moderate-severe regurgitation directed toward the septum. Pulmonic valve: The leaflets are normal thickness. There is no evidence of stenosis. There is trace to mild regurgitation. Aorta: Ascending aorta: The ascending aorta is upper normal in size. Aortic arch: The aortic arch is appears normal. The aortic root is not dilated. Pericardium: There is no significant pericardial effusion. There is a left pleural effusion. Pulmonary arteries: The main pulmonary artery is normal-sized. Systolic pressure is severely increased. Systemic veins: Inferior vena cava: The vessel is dilated. The respirophasic diameter changes are blunted (< 50%). Measurements Left ventricle Value Ref Aortic valve continued Value Ref ISABELL, LAX (H) 6.1 cm 3.8 - 5.2 Peak v, S 2.3 m/sec ----- ESD, LAX (H) 5.7 cm 2.2 - 3.5 VTI, S 40.3 cm ----- FS, LAX (L) 7 % Mean grad, S 10.0 mm Hg ----- PW, ED, LAX 0.8 cm 0.6 - 0.9 Peak grad, S 21.2 mm Hg ----- FS (L) 7 % LVOT/AV, VTI ratio 0.35 ----- PW, ED 0.8 cm 0.6 - 0.9 LEIDA, VTI 1.09 cm^2 ----- E', lat harinder, TDI (L) 5.8 cm/sec >=10.0 LEIDA, Vmax 0.87 cm^2 - ---- E/e', lat harinder, 20 TDI Mitral valve Value Ref E', med harinder, TDI (L) 3.9 cm/sec >=7.0 Peak E 1.17 m/sec - ---- E/e', med harinder, 30 Peak A 0 m/sec ---- - TDI Decel time 53 ms ----- E', avg, TDI 4.9 cm/sec Peak grad, D 5.5 mm Hg ---- - E/e', avg, TDI (H) 24 <=14 MR alias velocity 0.37 m/sec - ---- MR PISA radius 0.5 cm ----- LVOT Value Ref Max MR v 4.5 m/sec ----- Diam, S 2.00 cm Regurg VTI 162.0 cm ----- Area 3.1 cm^2 ERO, PISA 0.13 cm^2 ----- Peak acosta, S 0.64 m/sec MR vol, PISA 21 ml ----- VTI, S 14.0 cm MR fraction, PISA 32 % ----- Mean grad, S 1 mm Hg SV 44 ml Pulmonic valve Value Ref SV/bsa 26 ml/m^2 Peak v, S 0.78 m/sec ----- Peak grad, S 2.0 mm Hg ----- Ventricular septum Value Ref IVS, ED 0.7 cm 0.6 - 0.9 Tricuspid valve Value Ref TR peak v (H) 3.7 m/sec <=2.8 Right ventricle Value Ref Peak RV-RA grad, S 55 mm Hg ----- ISABELL, LAX 3.3 cm ISABELL minor ax, A4C 3.4 cm 1.9 - 3.5 Aortic root Value Ref mid Root diam 3.1 cm <3.9 Pressure, S 70 mm Hg Ascending aorta Value Ref Left atrium Value Ref AAo AP diam, S 3.7 cm ----- AP dim, ES 3.70 cm 2.70 - 3.80 Aortic arch Value Ref ML dim, A4C 4.3 cm Arch diam 2.6 cm ----- SI dim, A4C 5.8 cm Vol/bsa, ES, 1-p 36 ml/m^2 11 - 40 Decending aorta Value Ref A4C Miguel peak acosta 0.4 m/sec ----- Vol/bsa, ES, A/L (H) 55 ml/m^2 16 - 34 Pulmonary artery Value Ref Right atrium Value Ref Pressure, S 68.0 mm Hg ----- SI dim, ES (H) 5.4 cm 3.4 - 5.3 ML dim, ES, A4C 3.9 cm 2.6 - 4.4 Inferior vena cava Value Ref SI dim, ES, A4C (H) 5.4 cm 3.4 - 5.3 Diam 2.3 cm ----- Estimated RAP 15 mm Hg Aortic valve Value Ref Harinder diam, ED 1.9 cm Harinder diam/bsa, ED 1.1 cm/m^2 Legend: (L) and (H) camryn values outside specified reference range. Prepared and electronically signed by Taya Upton MD 10/30/2018 12:42
[2018-10-30] MEDS: Cholestyramine Resin* 4 GM POWDER PO SCH ×2 (13:51→21:20)
--- NOTE | 2018-10-30 14:50 | CONSULT ---
Subjective Date of Service: 10/30/18 - CC: SOB Interval History: 3=4 months SOB, no increase in weight, no change in diet or meds. Denies CP, dizziness. Was scheduled to see PET FEEDER and labs prior to OV showed mild increase in troponins and she was therefore advised to come to [facility] ED. Past Medical History: Unchanged from Admission - included CABG, severe ischemic CM, ICD, , cholesterol and schezophrenia. Medications Active Medications: Atorvastatin Calcium (Lipitor*) 10 mg PO DAILY [facility] Last Admin: 10/30/18 11:31 Dose: 10 mg Cholestyramine Resin (Questran*) 4 gm PO Q12H [facility] Last Admin: 10/30/18 13:51 Dose: 4 gm Clopidogrel Bisulfate (Plavix Tab*) 75 mg PO DAILY [facility] Last Admin: 10/30/18 11:31 Dose: 75 mg Famotidine (Pepcid Tab*) 20 mg PO BID [facility] Last Admin: 10/30/18 11:31 Dose: 20 mg Lamotrigine (Lamictal Xr (Nf)) 100 mg PO BID [facility] Last Admin: 10/30/18 11:48 Dose: 100 mg Levetiracetam (Keppra Tab*) 1,500 mg PO BID [facility] Last Admin: 10/30/18 11:31 Dose: 1,500 mg Lisinopril (Prinivil Tab*) 2.5 mg PO DAILY [facility] Metoprolol Succinate (Toprol Xl Tab*) 50 mg PO QAM [facility] Last Admin: 10/30/18 11:31 Dose: 50 mg Paliperidone (Invega Er Tab*) 6 mg PO DAILY [facility] Last Admin: 10/30/18 11:48 Dose: 6 mg Paroxetine HCl (Paxil Tab*) 20 mg PO BEDTIME [facility] Last Admin: 10/29/18 21:26 Dose: 20 mg Phenobarbital (Phenobarbital Tab(*)) 30 mg PO BID [facility] Last Admin: 10/30/18 11:30 Dose: Not Given Home Medications: levETIRAcetam TAB* [Keppra TAB*] 1,500 mg PO BID 03/26/12 [History Confirmed ] Metoprolol Succinate XL TAB* [Toprol XL TAB*] 50 mg PO QAM 12/27/13 [History Confirmed 10/29/18] Lisinopril TAB* [Prinivil TAB 5 MG*] 25 mg PO QAM 05/03/17 [History Confirmed ] Nitroglycerin TAB 0.4 MG* 0.4 mg SL Q5M PRN 05/03/17 [History Confirmed 10/29/18 ] lamoTRIgine [Lamotrigine ER] 100 mg PO BID 04/09/18 [History Confirmed 10/29/18] Clopidogrel TAB* [Plavix TAB*] 75 mg PO DAILY #30 tab 04/11/18 [Rx Confirmed ] Mat/D3/Mag11/Zinc/[employer] Bi Developer/Joel/Bor [Caltrate 600+D Plus] 2 tab PO QAM 05/25/18 [ History Confirmed 10/29/18] Methylcellulose [Citrucel] 500 mg PO BID 05/25/18 [History Confirmed 10/29/18] Multivitamins/Minerals TAB* [Theragran/minerals TAB*] 1 tab PO QAM 05/25/18 [ History Confirmed 10/29/18] PHENobarbital [Phenobarbital] 16.2 mg PO BEDTIME 05/25/18 [History Confirmed ] Paliperidone [Invega] 1 tab PO DAILY 05/25/18 [History Confirmed 10/29/18] Atorvastatin* [Lipitor*] 10 mg PO BEDTIME 10/29/18 [History Confirmed 10/29/18] Cholestyramine Resin* [Questran*] 4 gm PO BID 10/29/18 [History Confirmed ] Methylcellulose [Citrucel] 500 mg PO BID 10/29/18 [History Confirmed 10/29/18] PARoxetine HCL TAB* [Paxil TAB*] 20 mg PO BEDTIME 10/29/18 [History Confirmed ] raNITIdine HCl [Ranitidine HCl] 150 mg PO BID 10/29/18 [History Confirmed ] Review of Systems - Measurements Intake and Output: Intake and Output Last 24 Hours 10/28/18 10/29/18 10/30/18 10/31/18 04:59 04:59 04:59 04:59 Intake Total 50 Balance 50 Weight 146 lb 14.4 oz Intake: Oral 50 - Review of Systems General Comments: No recent fevers/chills/coughing, no increase in chronic orthopnea, eats meal on wheels, no changes in diet, no OTC meds, no NSAIDs no recent joint injections. No chest pain. Review of Systems Statement: All other review of systems negative, unless stated above. Objective Vital Signs: Temp Pulse Resp BP Pulse Ox 98.2 F 85 20 127/77 96 10/30/18 07:15 10/30/18 07:15 10/30/18 07:15 10/30/18 07:15 10/30/18 07:15 Oxygen Devices in Use Now: None Appearance: SHort, overweight elderly female lying in bed 50 degrees, daughter present. Eyes: PERRLA Ears/Nose/Mouth/Throat: Mucous Membranes Moist Neck: Trachea Midline, No Thyroid Enlargement, Masses - increased JVP and distended. Respiratory: - - diminished BS bases. Cardiovascular: RRR - ICD pocket unremarkable, well healed. Abdominal: NL Sounds; No Tenderness; No Distention - Obese Extremities: - - thick, no significant swelling. Skin: - - no cyanosis. Sternotomy scar well healed. Laboratory Results: 10/29/18 15:53 10/30/18 05:50 INR (Anticoag Therapy) 0.99 (0.82-1.09) 10/29/18 16:41 APTT 30.3 seconds (26.0-38.0) 10/29/18 16:41 Total Bilirubin 0.30 mg/dL (0.2-1.0) 10/29/18 15:53 AST 17 U/L (13-39) 10/29/18 15:53 ALT 9 U/L (7-52) 10/29/18 15:53 Alkaline Phosphatase 83 U/L (34-104) 10/29/18 15:53 CK-MB (CK-2) 1.5 ng/mL (0.6-6.3) 10/29/18 15:53 Total Protein 6.8 g/dL (6.4-8.9) 10/29/18 15:53 Albumin 3.9 g/dL (3.2-5.2) 10/29/18 15:53 Globulin 2.9 g/dL (2-4) 10/29/18 15:53 Albumin/Globulin Ratio 1.3 (1-3) 10/29/18 15:53 10/29/18 10/29/18 10/30/18 15:53 21:08 05:50 Troponin I 0.08 H* 0.08 H* 0.07 H* EKG Data: Monitor: Long run MM VT ICD interogation 10/29/18: A paces approx 70%, V paces < 1%, rare PAF, VT. Assessment/Plan 73 yo with severe ischemic CM, EF 20%, months of SOB in CHF on exam and ECHO shows severe elevation in PA pressure. Moderate , significant MR and TR. CHF: Add diuretics, lasix 20 mg MWF and aldactone 25 mg T,, Sat Sun May need low salt diet from [employer]. If able increase ACEI, but can wait and see response to diuretics. 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 CAD: Will review old films with current stress results and comment. Troponin bump is very mild, could represent Type 2/demand ischemia from decompensated CHF. VT: Has ICD No evidence that high burden of V pacing or dysrhythmias has contributed to decompensated CHF. Continue metoprolol. If lots of PVC's, VT, could consider a stronger antiarrhythmic agent. Full dication/consult will be completed by SCOTT Crabtree.
--- NOTE | 2018-10-30 14:58 | CONS ---
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 Maycol Orourke. ATTENDING PROVIDER: Taya Upton MD * (DICTATED BY JUANA SALAZAR NP) REASON FOR CONSULT: Chest pain, troponinemia, shortness of breath, near syncope. HISTORY OF PRESENT ILLNESS: This is a pleasant 73-year-old female patient who follows Dr. Maycol Orourke of our practice due to a notable history of coronary artery disease with prior bypass and subsequent stenting to oneida circumflex and obtuse marginal with PTCA to saphenous vein graft to right coronary artery in 2013, VT with prior VT ablation in 2013 with pacemaker defibrillator in situ , ischemic cardiomyopathy with severe LV dysfunction, LVEF approximately 20% to 25% in 2018 with possible low flow, low gradient aortic stenosis. The patient states that she has been noticing progressive dyspnea on exertion since July of 2018, now occurring with activities that she formerly used to tolerate such as walking up a hill to the bus stop that she typically does twice a week. She states she has also started to notice shortness of breath lying in a supine position, positional lightheadedness with near-syncope occurring on Monday after walking up a hill to the bus stop. She denies syncope. She denies palpitations or sensation of heart racing. She denies device output. She states that she has also been noticing substernal chest pain described as a tightness, but is diffuse, nonradiating associated with shortness of breath. She is compliant with medications. Denies medication changes since she was last seen in June of [address] Maycol Orourke in our practice. The patient states historically speaking when she had prior MIs, she would develop substernal chest pressure and shortness of breath. She states that current symptoms are slightly different and states her main complaint is progressive shortness of breath now occurring with activities that she used to be able to tolerate. I had reviewed weights. It appears that in June of 2018 when she was admitted here with similar symptomatology her weight was 148 pounds. She denies weight gain. Reports bilateral lower extremity edema, although it is not appreciated on exam. Last echocardiogram, according to our medical records, was 05/25/17. At that time, LVEF was less than 20% global hypokinesis of the left ventricle with minor regional variant. The posterolateral basal segments were less hypokinetic relative to the other segments. Severe left atrial dilatation, moderate right atrial dilatation, moderate mitral insufficiency, moderate tricuspid regurgitation, trace to mild pulmonic regurgitation, moderate aortic stenosis, dimensionless index is 0.37. Last ischemic evaluation was via left heart catheterization on 10/29/13. At that time, the patient underwent successful drug-eluting stent placement to oneida circumflex and obtuse marginal with PTCA to saphenous vein to right coronary artery, and a WILHELM graft demonstrated both vessels were still attached to the chest wall. The radial graft to the PDA was patent. The saphenous vein graft to obtuse marginal branch was patent. Saphenous vein graft to the diag of the LAD was patent. Saphenous vein graft to relatively small LAD was patent. PAST MEDICAL HISTORY: 1. Coronary artery disease. 2. Ischemic cardiomyopathy. 3. Ventricular tachycardia. 4. Moderate aortic stenosis. 5. Moderate mitral regurgitation. 6. Moderate tricuspid regurgitation. 7. Pulmonary hypertension. 8. Seizure disorder. 9. Hypertension. 10. COPD. 11. Hyperlipidemia. 12. Schizophrenia. PAST SURGICAL HISTORY: Includes: 1. CABG. 2. Pacemaker defibrillator in 2013. 3. VT ablation. 4. Prior stent placement to oneida circumflex and obtuse marginal. HOME MEDICATIONS: Per admission med rec. ALLERGIES: Listed includes: 1. TEGRETOL. 2. SULFA. 3. METHOXYFLURANE. FAMILY HISTORY: Noncontributory. SOCIAL HISTORY: The patient is a . Lives at home alone, although her son dispenses her medication. She ambulates independently. Former tobacco user. Quit 14 years ago. Denies alcohol or drug abuse. Denies frequent falls at home. REVIEW OF SYSTEMS: All systems have been reviewed and are otherwise negative, except as mentioned above in the HPI. PHYSICAL EXAMINATION: The patient is lying in bed upon entering the room. Offers no complaints. Appears in no apparent distress. The daughter at bedside. HEENT: Head is atraumatic, normocephalic. Oral mucosa is moist. Tongue is midline. Neck: Supple. Trachea midline. Positive JVD. No carotid bruits. Cardiac: Normal S1 and S2. Regular rate and rhythm. Grade 3/6 early systolic aortic murmur auscultated at the right sternal border. There is a grade 3/5 diastolic mitral murmur auscultated near the left axilla. No gallop or rub. Lungs: Auscultated posteriorly, slight decreased breath sounds in left lower base. Otherwise, no other adventitious breath sounds auscultated. Respirations nonlabored. /GI: Abdomen is soft, nontender, nondistended. Normoactive bowel sounds x4. No hepatomegaly to palpation. Extremities: The patient has 1+ bilateral dorsalis pedis pulse palpated bilaterally and symmetrically. Strong bilateral radial pulse and ulnar pulse palpated bilaterally symmetrically. Skin: Intact. No evidence of jaundice. Ecchymosis is noted on bilateral upper extremities. No skin lesions or rashes. DIAGNOSTIC STUDIES/LAB DATA: Blood work obtained on 10/30/18: White count 7, hemoglobin 12.7, hematocrit 39, platelets 221. INR 0.99. Sodium 137, potassium 4.3, chloride 104, carbon dioxide 26, BUN 16, creatinine 0.91, glucose 107. Troponin peaked at 0.08, 10/29/18. BN peptide 10/29/18 was greater than 1300. ECG from 10/29/18 reviewed. Sinus rhythm, appears to be A-paced, rate 70 with nonspecific lateral T-wave inversion. No ST elevation or depression appreciated. Echocardiogram obtained today 10/30/18 per preliminary report by Dr. Upton, who I personally spoke with: LVEF severely reduced, less than 20%; moderate aortic stenosis with positive bicuspid aortic valve; moderate tricuspid regurgitation; mild aortic insufficiency. Please await final dictated report. Telemetry reviewed. The patient had a 20-beat count monomorphic sustained VT at 190 beats per minute at midnight last night. She states that she was awake. Denies symptoms. I personally spoke to our device clinic. She had a device check yesterday in our practice on 10/29/18. AFib therapy threshold is set at 24-beat count at a rate of greater than 171 beats per minute. Her AT/AF was re- enabled. AF burden less than 0.1%. ASSESSMENT AND PLAN: 1. Complaints of progressive dyspnea on exertion with now orthopnea and diffuse complaints of chest pain with episode of near-syncope on Monday. Her thoracic impedance level started to increase on her recent device check in our office on 10/29/18. She has positive JVD on exam. Small left-sided pleural effusion with elevated BN peptide. Thus, at this current time, recommend gentle IV diuresis. I spoke to Dr. Upton, who gave me a preliminary report on the patient's echocardiogram. The patient has a bicuspid aortic valve with moderate aortic stenosis. At this current time, we are not concerned with low flow, low gradient aortic stenosis. Thus, we will proceed with Lexiscan nuclear stress test given patient's extensive cardiac history including prior bypasses, subsequent percutaneous coronary intervention. There are no ischemic ECG changes appreciated. Troponin peaked to 0.08. We will risk stratify with Lexiscan nuclear stress test. Continue gentle IV diuresis and reevaluate. Please continue clopidogrel and beta- clarke therapy. We will follow closely. Recommend strict intake/output and daily weights with daily BNPs while being diuresed. 2. Moderate aortic stenosis with bicuspid aortic valve. We will initiate gentle diuresis. The patient will need close outpatient followup care to ensure aortic valve does not progress, appears stable based on prior echo in 2018. 3. Ischemic cardiomyopathy with severe left ventricular dysfunction. LVEF less than 20%. The patient appears decompensated on physical examination. We will initiate gentle diuresis. Continue Toprol 50 mg a day. She has pacemaker defibrillator in situ. She did have 20-beat count of monomorphic ventricular tachycardia at 190 beats per minute last night while awake. She is asymptomatic. Recommend keeping K greater than 4, mag greater than 2. Ventricular tachycardia is likely secondary to severe left ventricular dysfunction. We will follow closely. 4. History of hypertension. Blood pressure is currently normotensive on current therapy. 5. Disposition, pending course. The patient is full code. I personally spoke to Dr. Taya Upton, who agrees with the above assessment and plan. Thank you for this kind consultation. If any future questions or concerns, please do not hesitate to contact our practice. Thank you for this kind consultation. Any future questions or concerns, please do not hesitate to contact our practice. JUANA SALAZAR NP [id number]/[facility] #: [id number] ROLF
--- NOTE | 2018-10-30 15:41 | PN ---
Subjective Date of Service: 10/30/18 Interval History: Seen post el scan today. complains of shortness of breath. Result reviewed and discussed with cardiology. no chest pain at this time but she had shortness of breath during her nuclear stress test. S/p Lasix 40 mg IV today by cardiology Past Medical History: Unchanged from Admission Objective Active Medications: Atorvastatin Calcium (Lipitor*) 10 mg PO DAILY [facility] Last Admin: 10/30/18 11:31 Dose: 10 mg Cholestyramine Resin (Questran*) 4 gm PO Q12H [facility] Last Admin: 10/30/18 13:51 Dose: 4 gm Clopidogrel Bisulfate (Plavix Tab*) 75 mg PO DAILY [facility] Last Admin: 10/30/18 11:31 Dose: 75 mg Famotidine (Pepcid Tab*) 20 mg PO BID [facility] Last Admin: 10/30/18 11:31 Dose: 20 mg Lamotrigine (Lamictal Xr (Nf)) 100 mg PO BID [facility] Last Admin: 10/30/18 11:48 Dose: 100 mg Levetiracetam (Keppra Tab*) 1,500 mg PO BID [facility] Last Admin: 10/30/18 11:31 Dose: 1,500 mg Lisinopril (Prinivil Tab*) 2.5 mg PO DAILY [facility] Metoprolol Succinate (Toprol Xl Tab*) 50 mg PO QAM [facility] Last Admin: 10/30/18 11:31 Dose: 50 mg Paliperidone (Invega Er Tab*) 6 mg PO DAILY [facility] Last Admin: 10/30/18 11:48 Dose: 6 mg Paroxetine HCl (Paxil Tab*) 20 mg PO BEDTIME [facility] Last Admin: 10/29/18 21:26 Dose: 20 mg Phenobarbital (Phenobarbital Tab(*)) 30 mg PO BID [facility] Last Admin: 10/30/18 11:30 Dose: Not Given Vital Signs - 8 hr 10/30/18 15:15 Temperature 97.6 F Pulse Rate 65 Respiratory 18 Rate Blood Pressure 123/63 (mmHg) O2 Sat by Pulse 98 Oximetry Oxygen Devices in Use Now: None Appearance: awake, no acute distress Eyes: No Scleral Icterus Ears/Nose/Mouth/Throat: Mucous Membranes Moist Neck: Trachea Midline, - - +JVD Respiratory: Symmetrical Chest Expansion and Respiratory Effort, - - rale, +JVD Abdominal: NL Sounds; No Tenderness; No Distention Neurological: Alert and Oriented x 3 Result Diagrams: 10/29/18 15:53 10/30/18 05:50 Assess/Plan/Problems-Billing Assessment: - Patient Problems (1) Ischemic cardiomyopathy Current Visit: No Status: Acute Priority: High Onset Date: 12/17/13 Code (s): I25.5 - ISCHEMIC CARDIOMYOPATHY SNOMED Code(s): 300599772 Comment: - s/p aicd/ppm - Appreciate cardio input. - now on KENJI and lopressor. - Close monitor of BP, weight and output. Will probable need to add intermittently aldactone, and titrate KENJI or switch to entresto (2) HTN (hypertension) Current Visit: No Status: Acute Code(s): I10 - ESSENTIAL (PRIMARY) HYPERTENSION SNOMED Code(s): 44066702 Comment: - Lisinopril 2.5 mg daily, lopressor 50 daily - Appreciate cardiology input. now will monitor BP, weight, output and titrate further her medications to maximize heart failure medicine (3) Hyperlipidemia Current Visit: No Status: Acute Code(s): E78.5 - HYPERLIPIDEMIA, UNSPECIFIED SNOMED Code(s): 61791804 (4) Seizure Current Visit: No Status: Acute Code(s): R56.9 - UNSPECIFIED CONVULSIONS SNOMED Code(s): 52560006 Comment: - Continue phenobarb, keppra and lamictal (5) DVT prophylaxis Current Visit: No Status: Acute Priority: Low Code(s): WFI5698 - SNOMED Code(s): 439404393 Comment: - will use heparin SQ tid
[2018-10-30] MEDS: PARoxetine HCL TAB* 20 MG PO SCH (21:19)
[2018-10-30] MEDS: Heparin VIAL(*) 5000 UNITS/ML VIAL (FIVE THOUSAND) SUBCUT SCH (21:20)
[2018-10-31] MEDS: Heparin VIAL(*) 5000 UNITS/ML VIAL (FIVE THOUSAND) SUBCUT SCH ×3 (05:30→20:14)
[2018-10-31 06:55] LABS: ABS Eosinophils 0.1 10^3/ul (0-0.6); ABS Lymphocytes 1.2 10^3/ul (1.0-4.8); ABS Monocytes 0.7 10^3/ul (0-0.8); ABS Neutrophils 3.8 10^3/ul (1.5-7.7); Hematocrit 36 % (35-47); Hemoglobin 12.4 g/dL (12.0-16.0); Lymphocyte % 20.2 %; Mean Corpuscular HGB Conc 35 g/dL (31-36); Mean Corpuscular Hemoglobin 32 pg (27-31); Mean Corpuscular Volume 92 fL (80-97); Mean Platelet Volume 8.2 fL (7.4-10.4); Platelet Count 209 10^3/uL (150-450); Red Blood Count 3.93 10^6 /uL (3.70-4.87); Red Cell Distribution Width 13 % (10-15); White Blood Count 5.8 10^3/uL (3.5-10.8)
[2018-10-31 07:22] LABS: BUN/Creatinine Ratio 21.8 (8-20); Calcium 8.6 mg/dL (8.6-10.3); EGFR Non-African American 63.6 (>60); Magnesium 1.9 mg/dL (1.9-2.7); Phosphorus 3.6 mg/dL (2.5-5.0); Potassium 4.1 mmol/L (3.5-5.0)
[2018-10-31] MEDS: LAMOTRIGINE 50 MG PO SCH ×2 (09:33→20:12)
[2018-10-31] MEDS: Clopidogrel TAB* 75 MG PO SCH (09:34)
[2018-10-31] MEDS: Atorvastatin* 10 MG TAB PO SCH (09:34)
[2018-10-31] MEDS: levETIRAcetam TAB* 500 MG PO SCH ×2 (09:34→20:12)
[2018-10-31] MEDS: Famotidine TAB* 20 MG PO SCH ×2 (09:34→20:14)
[2018-10-31] MEDS: Lisinopril TAB* 5 MG PO SCH (09:34)
[2018-10-31] MEDS: Metoprolol Succinate XL TAB* 50 MG PO SCH (09:34)
[2018-10-31] MEDS: PHENobarbital TAB(*) 30 MG PO SCH (09:35)
[2018-10-31] MEDS: Paliperidone ER TAB* 6 MG TAB.ER PO SCH (10:00)
--- NOTE | 2018-10-31 10:58 | PN ---
Subjective Date of Service: 10/31/18 - sob, abnormal stress test, troponin elevation Interval History: Pt was diuresed yesterday with Lasix bolus and responded well. Pt reports feeling much better as of last evening and reports less SOB. She had an uneventful night with no recurrent CP. Plan for today is to have pt ambulate in halls throughout the day and assess response. She was instructed to inform accompanying nurse if becomes SOB or lightheaded. Medications Active Medications: Atorvastatin Calcium (Lipitor*) 10 mg PO DAILY [facility] Last Admin: 10/31/18 09:34 Dose: 10 mg Cholestyramine Resin (Questran*) 4 gm PO Q12H [facility] Last Admin: 10/30/18 21:20 Dose: 4 gm Clopidogrel Bisulfate (Plavix Tab*) 75 mg PO DAILY [facility] Last Admin: 10/31/18 09:34 Dose: 75 mg Famotidine (Pepcid Tab*) 20 mg PO BID [facility] Last Admin: 10/31/18 09:34 Dose: 20 mg Heparin Sodium (Porcine) (Heparin Vial(*)) 5,000 units SUBCUT Q8HR [facility] Last Admin: 10/31/18 05:30 Dose: 5,000 units Lamotrigine (Lamictal Xr (Nf)) 100 mg PO BID [facility] Last Admin: 10/31/18 09:33 Dose: 100 mg Levetiracetam (Keppra Tab*) 1,500 mg PO BID [facility] Last Admin: 10/31/18 09:34 Dose: 1,500 mg Lisinopril (Prinivil Tab*) 2.5 mg PO DAILY [facility] Last Admin: 10/31/18 09:34 Dose: 2.5 mg Metoprolol Succinate (Toprol Xl Tab*) 50 mg PO QAM [facility] Last Admin: 10/31/18 09:34 Dose: 50 mg Paliperidone (Invega Er Tab*) 6 mg PO DAILY [facility] Last Admin: 10/31/18 10:00 Dose: 6 mg Paroxetine HCl (Paxil Tab*) 20 mg PO BEDTIME [facility] Last Admin: 10/30/18 21:19 Dose: 20 mg Phenobarbital (Phenobarbital Tab(*)) 30 mg PO BID [facility] Last Admin: 10/31/18 09:35 Dose: Not Given Objective Vital Signs: Temp Pulse Resp BP Pulse Ox 97.4 F 63 14 101/65 94 10/31/18 03:37 10/31/18 03:37 10/31/18 03:37 10/31/18 03:37 10/31/18 03:37 Oxygen Devices in Use Now: None Appearance: SHort, overweight elderly female lying in bed 50 degrees, daughter present. Eyes: PERRLA Ears/Nose/Mouth/Throat: Mucous Membranes Moist Neck: Trachea Midline, No Thyroid Enlargement, Masses - increased JVP and distended. Respiratory: - - course crackles at bilateral bases Cardiovascular: RRR - ICD pocket unremarkable, well healed. III/ Systolic murmur heard best at right sternal border. III/ diastolic murmur heard best in left axilla. Abdominal: NL Sounds; No Tenderness; No Distention - Obese Extremities: - - thick, no significant swelling. Skin: - - no cyanosis. Sternotomy scar well healed. Lines/Tubes/Other Access: Clean, Dry and Intact Peripheral IV Laboratory Results: 10/31/18 05:45 10/31/18 05:45 INR (Anticoag Therapy) 0.99 (0.82-1.09) 10/29/18 16:41 APTT 30.3 seconds (26.0-38.0) 10/29/18 16:41 Total Bilirubin 0.30 mg/dL (0.2-1.0) 10/29/18 15:53 AST 17 U/L (13-39) 10/29/18 15:53 ALT 9 U/L (7-52) 10/29/18 15:53 Alkaline Phosphatase 83 U/L (34-104) 10/29/18 15:53 CK-MB (CK-2) 1.5 ng/mL (0.6-6.3) 10/29/18 15:53 Total Protein 6.8 g/dL (6.4-8.9) 10/29/18 15:53 Albumin 3.9 g/dL (3.2-5.2) 10/29/18 15:53 Globulin 2.9 g/dL (2-4) 10/29/18 15:53 Albumin/Globulin Ratio 1.3 (1-3) 10/29/18 15:53 10/29/18 10/29/18 10/30/18 15:53 21:08 05:50 Troponin I 0.08 H* 0.08 H* 0.07 H* Laboratory Results - last 24 hr 10/31/18 10/31/18 05:45 05:45 WBC 5.8 RBC 3.93 Hgb 12.4 Hct 36 MCV 92 MCH 32 H MCHC 35 RDW 13 Plt Count 209 MPV 8.2 Neut % (Auto) 65.5 Lymph % (Auto) 20.2 Sauk % (Auto) 11.6 Eos % (Auto) 2.0 Baso % (Auto) 0.7 Absolute Neuts (auto) 3.8 Absolute Lymphs (auto) 1.2 Absolute Monos (auto) 0.7 Absolute Eos (auto) 0.1 Absolute Basos (auto) 0.0 Absolute Nucleated RBC 0.0 Nucleated RBC % 0.0 Sodium 136 Potassium 4.1 Chloride 102 Carbon Dioxide 25 Anion Gap 9 BUN 19 Creatinine 0.87 Est GFR ( Amer) 77.0 Est GFR (Non-Af Amer) 63.6 BUN/Creatinine Ratio 21.8 H Glucose 103 H Calcium 8.6 Phosphorus 3.6 Magnesium 1.9 Diagnostic Imaging: Patient Name: TERESITA NICHOLE Medical Record#: [id number] Ordering Physician: Christiana Duncan MD Acct.#: [id number] : 1945 Age: 73 Sex: F Location: [address] [place] [address] MEDICAL/TELEMETRY Exam Date: 10/30/181826 ADM Status: ADM Hernán Order Information: NUCLEAR CARDIAC STRESS TEST Accession Number: [id number] CPT: 76724 Indication: Elevated troponin. Myocardial perfusion scan was performed during 1 day protocol. Rest myocardial perfusion was performed after intravenous injection of 10.5 mCi of technetium 99 and tetrofosmin. Pharmacological stress was applied and 25.3 mCi of technetium 99 and tetrofosmin was injected. Breathing motion limits evaluation. There is ventriculomegaly noted. Fixed defect is noted in the lateral wall. Fixed defect is noted in the septal wall. There may be some photopenia which partially reverses on the rest images and the anterior wall. Ejection fraction at stress is 13%. Evaluation of wall motion demonstrates global hypokinesis. IMPRESSION: Large areas of fixed defect involving the septum and inferolateral wall. There may be a small area of reversible change involving the anterior wall. Ventriculomegaly is noted. Decreased ejection fraction of 13%. Global hypokinesis is noted. The study is limited due to motion artifact. ASSESSMENT: High risk Based on imaging criteria from ACC/AHA 2002 Guideline Update for the Management of Patients With Chronic Stable Angina Table 23. Noninvasive Risk Stratification. Reference. HIGH-RISK (GREATER THAN 3% ANNUAL MORTALITY RATE) - Severe resting left ventricular dysfunction (LVEF < 35%) - Severe exercise left ventricular dysfunction (exercise LVEF < 35%) - Stress-induced large perfusion defect (particularly if anterior) - Stress-induced multiple perfusion defects of moderate size - Large, fixed perfusion defect with LV dilation or increased lung uptake ( thallium-201) - Stress-induced moderate perfusion defect with LV dilation or increased lung uptake (thallium-201) INTERMEDIATE-RISK (1%-3% ANNUAL MORTALITY RATE) - Mild/moderate resting left ventricular dysfunction (LVEF = 35% to 49%) - Stress-induced moderate perfusion defect without LV dilation or increased lung intake (thallium-201) LOW-RISK (LESS THAN 1% ANNUAL MORTALITY RATE) - Normal or small myocardial perfusion defect at rest or with stress This report is only to be considered final once signed by the Provider(s) as displayed in the "<Electronically Signed by >" field (s). Absence of a signature indicates the report is in a draft status and still needs to be finalized. In the event this document was created by someone other than the signing Provider, the individual initiating the document will be listed in the "Entered by:" or "Dictated by:" canchola. 1 of 2 *[facility]* [place] [address] Fax #: [phone] Transthoracic Echocardiogram Patient: Teresita Nichole : 1945 Study Date: 10/30/2018 Age: 73 Gender: F HR: 85 bpm Height: 63 in /160 cm BSA: 1.68 m^2 Weight: 143.7 lb /65.3 kg BMI: 25.5 kg/m^2 *[employer]r: * Jodi Moctezuma [facility] *Referring Physician: * Christiana Duncan *Reading Physician: Taya Tinoco MD Indications: Chest Pain, unspecified. History: Coronary artery disease. Congestive heart failure. Cerebrovascular accident. Chronic obstructive pulmonary disease. PMH: Myocardial infarction. Cardiomyopathy. Risk factors: Hypertension. Labs, prior tests, procedures, and surgery: Catheterization. There was a stenosis which was treated with a stent. ICD system implantation. Conclusions Summary: 1. Left ventricle: The cavity size is moderately dilated. Wall thickness is normal. Systolic function is severely reduced by visual assessment. The estimated ejection fraction is 15-20%. Lateral wall contracts best. Doppler parameters are consistent with restrictive physiology, indicative of decreased left ventricular diastolic compliance and/or increased left atrial This report is only to be considered final once signed by the Provider(s) as displayed in the "<Electronically Signed by >" field (s). Absence of a signature indicates the report is in a draft status and still needs to be finalized. In the event this document was created by someone other than the signing Provider, the individual initiating the document will be listed in the "Entered by:" or "Dictated by:" canchola. EKG Data: Monitor: Long run MM VT ICD interogation 10/29/18: A paces approx 70%, V paces < 1%, rare PAF, VT. Assessment/Plan 1. Complaints of CP, SOB, Troponin elevation. Risk stratified EF 13%, fixed large territory defect involving septum and inferio-lateral wall with ?small reversibility involving anterior wall. Recommend continuing medical therapy. Continue Lipitor 10mg qd, Plavix 75mg qd, and Toprolol 50mg qd. LDL goal <70. Symptomatology nearly resolved after completing diuersis. Consistent w decompensated ischemic cardiomyopathy. Pt will need close OP f/u with Dr. Orourke. 2. Hx of ischemic cardiomyopathy with severe LV dysfunction: LVEF via Echo 2018 15-20%. Pt has ICD in situ. On Toprolol 50mg qd. On Lisinopril 2.5mg qd. On Lasix 20mg 3x per week (M,W,F). Pt will be kept on home Lasix dosage and will be started on Aldactone 12.5mg 4x per week (T,R,S,S) on the alternating days. Recommend observing another day, if pt hemodynamically tolerates aldactone , likely will send home tomorrow AM. Recommend keeping salt intake less than 2, 000mg daily and fluid intake less than 1500mL per day. Will arrange close f/u care with Dr. Orourke 3. Moderate with bicuspid aortic value: Not concerned about low flow, low gradient . DI consistent with moderate . F/u OP. 4. Hx CAD with prior bypass and PCI: On cath in 2013, saphenous graft to relatively small LAD patent. Symptomatology consistent with decompensated HF given symptom resolution with IV Lasix. Will advance CHF medication regimen continue Plavix, Lipitor, and Toprolol therapy. Troponin peaked at 0.08 on . Can f/u OP. 5. Disposition. Course pending. Full code. Will follow and see how pt hemodynamically responds to medication changes. Likely discharge tomorrow. Discussed plan with Dr. Upton. Attending: Taya Upton
[2018-10-31] MEDS: Cholestyramine Resin* 4 GM POWDER PO SCH ×2 (11:29→20:12)
[2018-10-31] MEDS ORDERED: Furosemide TAB* 20 MG PO SCH (11:30)
--- NOTE | 2018-10-31 13:48 | PN ---
Subjective Date of Service: 10/31/18 Interval History: Patient seen few times today earlier this morning and this afternoon after ambulations. She got shortness of breath and dizziness followed by numbness and tingling sensation over her head and feet. She was assessed by me at bedside. she was reassured that her feeling is from her dyspnea and hyperventilation and parasthesia from hyperventilations. She was asked to rest, will place her on neuro check. I don't think it was seizure. Past Medical History: Unchanged from Admission Objective Active Medications: Atorvastatin Calcium (Lipitor*) 10 mg PO DAILY [facility] Last Admin: 10/31/18 09:34 Dose: 10 mg Cholestyramine Resin (Questran*) 4 gm PO Q12H [facility] Last Admin: 10/31/18 11:29 Dose: 4 gm Clopidogrel Bisulfate (Plavix Tab*) 75 mg PO DAILY [facility] Last Admin: 10/31/18 09:34 Dose: 75 mg Famotidine (Pepcid Tab*) 20 mg PO BID [facility] Last Admin: 10/31/18 09:34 Dose: 20 mg Furosemide (Lasix Tab*) 20 mg PO MoWeFr@0900 [facility] Last Admin: 10/31/18 11:29 Dose: 20 mg Heparin Sodium (Porcine) (Heparin Vial(*)) 5,000 units SUBCUT Q8HR [facility] Last Admin: 10/31/18 05:30 Dose: 5,000 units Lamotrigine (Lamictal Xr (Nf)) 100 mg PO BID [facility] Last Admin: 10/31/18 09:33 Dose: 100 mg Levetiracetam (Keppra Tab*) 1,500 mg PO BID [facility] Last Admin: 10/31/18 09:34 Dose: 1,500 mg Lisinopril (Prinivil Tab*) 2.5 mg PO DAILY [facility] Last Admin: 10/31/18 09:34 Dose: 2.5 mg Metoprolol Succinate (Toprol Xl Tab*) 50 mg PO QAM [facility] Last Admin: 10/31/18 09:34 Dose: 50 mg Paliperidone (Invega Er Tab*) 6 mg PO DAILY [facility] Last Admin: 10/31/18 10:00 Dose: 6 mg Paroxetine HCl (Paxil Tab*) 20 mg PO BEDTIME [facility] Last Admin: 10/30/18 21:19 Dose: 20 mg Phenobarbital (Phenobarbital Tab(*)) 15 mg PO BEDTIME [facility] Spironolactone (Aldactone Tab*) 12.5 mg PO SuTuThSa@0900 [facility] Vital Signs - 8 hr 10/31/18 10/31/18 07:33 12:22 Temperature 98.1 F Pulse Rate 64 61 Respiratory 16 Rate Blood Pressure 114/74 103/56 (mmHg) O2 Sat by Pulse 97 96 Oximetry Oxygen Devices in Use Now: None Appearance: awake, alert. no distress Eyes: - Ears/Nose/Mouth/Throat: NL Teeth, Lips, Gums Neck: NL Appearance and Movements; NL JVP, Trachea Midline Respiratory: Symmetrical Chest Expansion and Respiratory Effort, Clear to Auscultation Cardiovascular: RRR, No Edema Abdominal: NL Sounds; No Tenderness; No Distention Neurological: Alert and Oriented x 3, NL Sensation, NL Gait Result Diagrams: 10/31/18 05:45 10/31/18 05:45 Assess/Plan/Problems-Billing Assessment: - Patient Problems (1) Ischemic cardiomyopathy Current Visit: No Status: Acute Priority: High Onset Date: 12/17/13 Code (s): I25.5 - ISCHEMIC CARDIOMYOPATHY SNOMED Code(s): 021439148 Comment: - s/p aicd/ppm - Appreciate cardio input. - now on KENJI lisinopril 2.5 mg daily; and lopressor 50 mg daily - Close monitor of BP, weight and output. - Cardiology resumed her home lasix 20 mg // and aldactone 12.5 mg //Mon/ Mon. will follow up with cardiology closely (2) HTN (hypertension) Current Visit: No Status: Acute Code(s): I10 - ESSENTIAL (PRIMARY) HYPERTENSION SNOMED Code(s): 29001393 Comment: - Lisinopril 2.5 mg daily, lopressor XL 50 daily - Appreciate cardiology input. Now will monitor BP, (3) Hyperlipidemia Current Visit: No Status: Acute Code(s): E78.5 - HYPERLIPIDEMIA, UNSPECIFIED SNOMED Code(s): 69230005 (4) Seizure Current Visit: No Status: Acute Code(s): R56.9 - UNSPECIFIED CONVULSIONS SNOMED Code(s): 68423554 Comment: - Continue phenobarb, keppra and lamictal - dose of phenobarb decreased to 1/2 tab (32.4 mg half tab) daily as per her neurology recommendaitons. (In house formulary is 30 mg half tab) (5) DVT prophylaxis Current Visit: No Status: Acute Priority: Low Code(s): KBS5535 - SNOMED Code(s): 970433683 Comment: - will use heparin SQ tid
[2018-10-31] MEDS: PARoxetine HCL TAB* 20 MG PO SCH (20:12)
[2018-10-31] MEDS ORDERED: PHENobarbital TAB(*) 30 MG PO SCH (21:00)
[2018-11-01] MEDS: Heparin VIAL(*) 5000 UNITS/ML VIAL (FIVE THOUSAND) SUBCUT SCH ×2 (05:21→16:04)
[2018-11-01 07:03] LABS: Calcium 8.6 mg/dL (8.6-10.3); EGFR Non-African American 74.4 (>60)
[2018-11-01] MEDS ORDERED: Spironolactone TAB* 25 MG PO SCH (09:00)
--- NOTE | 2018-11-01 09:45 | PN ---
<RadhaCuca - Last Filed: 11/01/18 10:19> Subjective Date of Service: 11/01/18 - CP, abnormal stress test Interval History: Pt was continued on home Lasix dosage yesterday and instructed to ambulate halls. She had return of SOB and dizziness with first walk in the morning but tolerated subsequent walks without return of symptoms. Nurse reports she had an uneventful night. Pt denies CP, SOB, lightheadedness overnight. Medications Active Medications: Atorvastatin Calcium (Lipitor*) 10 mg PO DAILY [facility] Last Admin: 10/31/18 09:34 Dose: 10 mg Cholestyramine Resin (Questran*) 4 gm PO Q12H [facility] Last Admin: 10/31/18 20:12 Dose: 4 gm Clopidogrel Bisulfate (Plavix Tab*) 75 mg PO DAILY [facility] Last Admin: 10/31/18 09:34 Dose: 75 mg Famotidine (Pepcid Tab*) 20 mg PO BID [facility] Last Admin: 10/31/18 20:14 Dose: 20 mg Furosemide (Lasix Tab*) 20 mg PO MoWeFr@0900 [facility] Last Admin: 10/31/18 11:29 Dose: 20 mg Heparin Sodium (Porcine) (Heparin Vial(*)) 5,000 units SUBCUT Q8HR [facility] Last Admin: 11/01/18 05:21 Dose: 5,000 units Lamotrigine (Lamictal Xr (Nf)) 100 mg PO BID [facility] Last Admin: 10/31/18 20:12 Dose: 100 mg Levetiracetam (Keppra Tab*) 1,500 mg PO BID [facility] Last Admin: 10/31/18 20:12 Dose: 1,500 mg Lisinopril (Prinivil Tab*) 2.5 mg PO DAILY [facility] Last Admin: 10/31/18 09:34 Dose: 2.5 mg Metoprolol Succinate (Toprol Xl Tab*) 50 mg PO QAM [facility] Last Admin: 10/31/18 09:34 Dose: 50 mg Paliperidone (Invega Er Tab*) 6 mg PO DAILY [facility] Last Admin: 10/31/18 10:00 Dose: 6 mg Paroxetine HCl (Paxil Tab*) 20 mg PO BEDTIME [facility] Last Admin: 10/31/18 20:12 Dose: 20 mg Phenobarbital (Phenobarbital Tab(*)) 15 mg PO BEDTIME [facility] Last Admin: 10/31/18 20:13 Dose: 15 mg Spironolactone (Aldactone Tab*) 12.5 mg PO SuTuThSa@0900 [facility] Objective Vital Signs: Temp Pulse Resp BP Pulse Ox 97.3 F 62 16 116/66 93 11/01/18 07:22 11/01/18 07:22 11/01/18 07:53 11/01/18 07:22 11/01/18 07:22 Oxygen Devices in Use Now: None Appearance: SHort, overweight elderly female lying in bed 50 degrees, daughter present. Eyes: PERRLA Ears/Nose/Mouth/Throat: Mucous Membranes Moist Neck: Trachea Midline, No Thyroid Enlargement, Masses - increased JVP and distended. Respiratory: - - Bilateral canchola clear to auscultation. Diminshed breath sounds at bases Cardiovascular: RRR - ICD pocket unremarkable, well healed. III/ Systolic murmur heard best at right sternal border. III/ diastolic murmur heard best in left axilla. Abdominal: NL Sounds; No Tenderness; No Distention - Obese Extremities: - - thick, no significant swelling or pitting edema. Skin: - - no cyanosis. Sternotomy scar well healed. Neurological: Alert and Oriented x 3 Lines/Tubes/Other Access: Clean, Dry and Intact Peripheral IV Laboratory Results: 10/31/18 05:45 11/01/18 05:43 INR (Anticoag Therapy) 0.99 (0.82-1.09) 10/29/18 16:41 APTT 30.3 seconds (26.0-38.0) 10/29/18 16:41 Total Bilirubin 0.30 mg/dL (0.2-1.0) 10/29/18 15:53 AST 17 U/L (13-39) 10/29/18 15:53 ALT 9 U/L (7-52) 10/29/18 15:53 Alkaline Phosphatase 83 U/L (34-104) 10/29/18 15:53 CK-MB (CK-2) 1.5 ng/mL (0.6-6.3) 10/29/18 15:53 Total Protein 6.8 g/dL (6.4-8.9) 10/29/18 15:53 Albumin 3.9 g/dL (3.2-5.2) 10/29/18 15:53 Globulin 2.9 g/dL (2-4) 10/29/18 15:53 Albumin/Globulin Ratio 1.3 (1-3) 10/29/18 15:53 10/29/18 10/29/18 10/30/18 15:53 21:08 05:50 Troponin I 0.08 H* 0.08 H* 0.07 H* Laboratory Results - last 24 hr 11/01/18 05:43 Sodium 138 Potassium 4.0 Chloride 107 Carbon Dioxide 23 Anion Gap 8 BUN 19 Creatinine 0.76 Est GFR ( Amer) 90.0 Est GFR (Non-Af Amer) 74.4 BUN/Creatinine Ratio 25.0 H Glucose 102 H Calcium 8.6 Magnesium 2.0 Diagnostic Imaging: Patient Name: TERESITA NICHOLE Medical Record#: [id number] Ordering Physician: Christiana Duncan MD Acct.#: [id number] : 1945 Age: 73 Sex: F Location: [address] [place] [address]/TELEMETRY Exam Date: 10/30/181826 ADM Status: ADM Hernán Order Information: NUCLEAR CARDIAC STRESS TEST Accession Number: [id number] CPT: 29915 Indication: Elevated troponin. Myocardial perfusion scan was performed during 1 day protocol. Rest myocardial perfusion was performed after intravenous injection of 10.5 mCi of technetium 99 and tetrofosmin. Pharmacological stress was applied and 25.3 mCi of technetium 99 and tetrofosmin was injected. Breathing motion limits evaluation. There is ventriculomegaly noted. Fixed defect is noted in the lateral wall. Fixed defect is noted in the septal wall. There may be some photopenia which partially reverses on the rest images and the anterior wall. Ejection fraction at stress is 13%. Evaluation of wall motion demonstrates global hypokinesis. IMPRESSION: Large areas of fixed defect involving the septum and inferolateral wall. There may be a small area of reversible change involving the anterior wall. Ventriculomegaly is noted. Decreased ejection fraction of 13%. Global hypokinesis is noted. The study is limited due to motion artifact. ASSESSMENT: High risk Based on imaging criteria from ACC/AHA 2002 Guideline Update for the Management of Patients With Chronic Stable Angina Table 23. Noninvasive Risk Stratification. Reference. HIGH-RISK (GREATER THAN 3% ANNUAL MORTALITY RATE) - Severe resting left ventricular dysfunction (LVEF < 35%) - Severe exercise left ventricular dysfunction (exercise LVEF < 35%) - Stress-induced large perfusion defect (particularly if anterior) - Stress-induced multiple perfusion defects of moderate size - Large, fixed perfusion defect with LV dilation or increased lung uptake ( thallium-201) - Stress-induced moderate perfusion defect with LV dilation or increased lung uptake (thallium-201) INTERMEDIATE-RISK (1%-3% ANNUAL MORTALITY RATE) - Mild/moderate resting left ventricular dysfunction (LVEF = 35% to 49%) - Stress-induced moderate perfusion defect without LV dilation or increased lung intake (thallium-201) LOW-RISK (LESS THAN 1% ANNUAL MORTALITY RATE) - Normal or small myocardial perfusion defect at rest or with stress This report is only to be considered final once signed by the Provider(s) as displayed in the "<Electronically Signed by >" field (s). Absence of a signature indicates the report is in a draft status and still needs to be finalized. In the event this document was created by someone other than the signing Provider, the individual initiating the document will be listed in the "Entered by:" or "Dictated by:" canchola. 1 of 2 *[facility]* [place] [address] Fax #: [phone] Transthoracic Echocardiogram Patient: Teresita Nichole : 1945 Study Date: 10/30/2018 Age: 73 Gender: F HR: 85 bpm Height: 63 in /160 cm BSA: 1.68 m^2 Weight: 143.7 lb /65.3 kg BMI: 25.5 kg/m^2 *Gunner'S Mate M: * Jodi Moctezuma [facility] *Referring Physician: * Christiana Duncan *Reading Physician: * Taya Upton MD Indications: Chest Pain, unspecified. History: Coronary artery disease. Congestive heart failure. Cerebrovascular accident. Chronic obstructive pulmonary disease. PMH: Myocardial infarction. Cardiomyopathy. Risk factors: Hypertension. Labs, prior tests, procedures, and surgery: Catheterization. There was a stenosis which was treated with a stent. ICD system implantation. Conclusions Summary: 1. Left ventricle: The cavity size is moderately dilated. Wall thickness is normal. Systolic function is severely reduced by visual assessment. The estimated ejection fraction is 15-20%. Lateral wall contracts best. Doppler parameters are consistent with restrictive physiology, indicative of decreased left ventricular diastolic compliance and/or increased left atrial This report is only to be considered final once signed by the Provider(s) as displayed in the "<Electronically Signed by >" field (s). Absence of a signature indicates the report is in a draft status and still needs to be finalized. In the event this document was created by someone other than the signing Provider, the individual initiating the document will be listed in the "Entered by:" or "Dictated by:" canchola. EKG Data: Monitor: Long run MM VT on 10/30/2018 non since. She has had VPCs with couplets and triplets. ICD interogation 10/29/18: A paces approx 70%, V paces < 1%, rare PAF, VT. Assessment/Plan 1. Complaints of CP, SOB, Troponin elevation. Risk stratified EF 13%, fixed large territory defect involving septum and inferio-lateral wall with ?small reversibility involving anterior wall. Recommend continuing medical therapy. Continue Lipitor 10mg qd, Plavix 75mg qd, and Toprol 50mg qd. LDL goal <70. Pt reports near resolution of fluid overload symptoms. Consistent w decompensated ischemic cardiomyopathy. Pt has OP appt with Dr. Orourke for next week. 2. Hx of ischemic cardiomyopathy with severe LV dysfunction: LVEF via Echo 2018 15-20%. Pt has ICD in situ. On Odfiez20ls qd. On Lisinopril 2.5mg qd. On Lasix 20mg 3x per week (M,W,F). Pt will be kept on home Lasix dosage and will be started on Aldactone 12.5mg 4x per week (T,R,S,S) on the alternating days. First Aldactone dosage given this AM and manual BP will be taken 1 hour post administration. Pt instructed to ambulate halls throughout day to assess response. Recommend keeping salt intake less than 1500mg daily and fluid intake less than 1500mL per day. Recommended pt consider using single point cane to ambulate in community for balance assistance. Will have close f/u care with Dr. Orourke 3. Moderate with bicuspid aortic value: Not concerned about low flow, low gradient . DI consistent with moderate . F/u OP. 4. Hx CAD with prior bypass and PCI: On cath in 2013, saphenous graft to relatively small LAD patent. Symptomatology consistent with decompensated HF given symptom resolution with IV Lasix. Will advance CHF medication regimen continue Plavix, Lipitor, and Toprolol therapy. Troponin peaked at 0.08 on . Can f/u OP. 5. Disposition. Course pending. Full code. Will follow and see how pt hemodynamically responds to medication changes. Likely discharge todayif she tolerates the addition of aldactone. will d/w Dr. Ochoa Attending: Anh Ochoa <Anh Ochoa - Last Filed: 11/01/18 14:10> Subjective Interval History: 2:08 pm: pt seen and examined. clinical condition and medical care plan d/w ADULT SCHOOL COUNSELOR Cuca Garcia and I agree with the outlined paln. Consideration might be given to consider AVR ? in this high risk pt TAVR approach..this can be discussed as o.p. Medications Active Medications: Atorvastatin Calcium (Lipitor*) 10 mg PO DAILY [facility] Last Admin: 11/01/18 09:47 Dose: 10 mg Cholestyramine Resin (Questran*) 4 gm PO Q12H [facility] Last Admin: 11/01/18 11:11 Dose: 4 gm Clopidogrel Bisulfate (Plavix Tab*) 75 mg PO DAILY [facility] Last Admin: 11/01/18 09:47 Dose: 75 mg Famotidine (Pepcid Tab*) 20 mg PO BID [facility] Last Admin: 11/01/18 09:47 Dose: 20 mg Furosemide (Lasix Tab*) 20 mg PO MoWeFr@0900 [facility] Last Admin: 10/31/18 11:29 Dose: 20 mg Heparin Sodium (Porcine) (Heparin Vial(*)) 5,000 units SUBCUT Q8HR [facility] Last Admin: 11/01/18 05:21 Dose: 5,000 units Lamotrigine (Lamictal Xr (Nf)) 100 mg PO BID [facility] Last Admin: 11/01/18 09:47 Dose: 100 mg Levetiracetam (Keppra Tab*) 1,500 mg PO BID [facility] Last Admin: 11/01/18 09:46 Dose: 1,500 mg Lisinopril (Prinivil Tab*) 2.5 mg PO DAILY [facility] Last Admin: 11/01/18 09:47 Dose: 2.5 mg Metoprolol Succinate (Toprol Xl Tab*) 50 mg PO QAM [facility] Last Admin: 11/01/18 09:46 Dose: 50 mg Paliperidone (Invega Er Tab*) 6 mg PO DAILY [facility] Last Admin: 11/01/18 09:47 Dose: 6 mg Paroxetine HCl (Paxil Tab*) 20 mg PO BEDTIME [facility] Last Admin: 10/31/18 20:12 Dose: 20 mg Phenobarbital (Phenobarbital Tab(*)) 15 mg PO BEDTIME [facility] Last Admin: 10/31/18 20:13 Dose: 15 mg Spironolactone (Aldactone Tab*) 12.5 mg PO CammieuThSa@0900 [facility] Last Admin: 11/01/18 09:46 Dose: 12.5 mg Objective Vital Signs: Temp Pulse Resp BP Pulse Ox 97.3 F 62 18 112/65 98 11/01/18 11:20 11/01/18 13:55 11/01/18 11:20 11/01/18 13:55 11/01/18 11:20 Laboratory Results: 10/31/18 05:45 11/01/18 05:43 INR (Anticoag Therapy) 0.99 (0.82-1.09) 10/29/18 16:41 APTT 30.3 seconds (26.0-38.0) 10/29/18 16:41 Total Bilirubin 0.30 mg/dL (0.2-1.0) 10/29/18 15:53 AST 17 U/L (13-39) 10/29/18 15:53 ALT 9 U/L (7-52) 10/29/18 15:53 Alkaline Phosphatase 83 U/L (34-104) 10/29/18 15:53 CK-MB (CK-2) 1.5 ng/mL (0.6-6.3) 10/29/18 15:53 Total Protein 6.8 g/dL (6.4-8.9) 10/29/18 15:53 Albumin 3.9 g/dL (3.2-5.2) 10/29/18 15:53 Globulin 2.9 g/dL (2-4) 10/29/18 15:53 Albumin/Globulin Ratio 1.3 (1-3) 10/29/18 15:53 10/29/18 10/29/18 10/30/18 15:53 21:08 05:50 Troponin I 0.08 H* 0.08 H* 0.07 H*
[2018-11-01] MEDS: Metoprolol Succinate XL TAB* 50 MG PO SCH (09:46)
[2018-11-01] MEDS: levETIRAcetam TAB* 500 MG PO SCH (09:46)
[2018-11-01] MEDS: Clopidogrel TAB* 75 MG PO SCH (09:47)
[2018-11-01] MEDS: Atorvastatin* 10 MG TAB PO SCH (09:47)
[2018-11-01] MEDS: Paliperidone ER TAB* 6 MG TAB.ER PO SCH (09:47)
[2018-11-01] MEDS: Famotidine TAB* 20 MG PO SCH (09:47)
[2018-11-01] MEDS: LAMOTRIGINE 50 MG PO SCH (09:47)
[2018-11-01] MEDS: Lisinopril TAB* 5 MG PO SCH (09:47)
[2018-11-01] MEDS: Cholestyramine Resin* 4 GM POWDER PO SCH (11:11)
[2018-11-01 13:56] VITALS: BP 112/65
--- NOTE | 2018-11-01 21:12 | DS ---
CC: Dr. Milton Hall; Dr. Maycol Orourke.* DISCHARGE SUMMARY: DATE OF ADMISSION: 10/29/18 DATE OF DISCHARGE: 11/01/18 PRIMARY CARE DOCTOR: Dr. Milton Hall. CARDIOLOGY: Dr. Maycol Orourke. HOSPITAL COURSE: The patient presented to [facility] on 10/29/18 after she was sent from Dr. Orourke's office for abnormal blood work included elevated cardiac enzyme. She has a known of history of coronary artery disease , status post PTCA and CABG, cardiomyopathy which is ischemic and ejection fraction is 20%. AICD. She was referred to the ED for elevated troponin of 0.07 done as an outpatient by her airborne operations superintendent. Initially, she had no chest pain on arrival; however, while in the emergency room, she started having some chest pressure substernal but no palpitation, diaphoresis. Therefore, she was admitted to the medical service and Cardiology consultation was obtained and she was seen by Dr. Upton covering for Dr. Orourke. She was placed on telemetry. An echocardiogram was obtained. Nuclear stress test was obtained. Her lab work included troponin x3, which revealed troponin of 0.08, and then 0.08, followed by 0.007. She went for nuclear perfusion Lexiscan on 10/30/18. She had a large area of fixed defect involving the septum and inferolateral wall , very small area of reversible change in VA involving anterior wall with estimated ejection fraction of 15% and global hypokinesis classified as high risk. An echocardiogram reveals a documented EF of 15%-20%, severely reduced right ventricle pressure, moderate mitral regurg, and the aortic valve is bicuspid with moderate stenosis with the valve area of 1.09 cm square with a peak velocity of 0.87 cm square. Case discussed and reviewed with the cardiology service and at the present time, they elected to pursue optimization of medical therapy. Therefore, she was maintained on her home dose of Lasix 20 mg Monday, Monday, Monday after IV Lasix 40 on day #1, and she was supplemented with spironolactone, a newly added regimen, at 12.5 mg Monday, , Monday, Monday. She did have interrogation of her pacemaker during the hospital stay and her result was discussed verbally with Cuca from Cardiology, who verbalized that she did have episode of about 20 beat count of monomorphic sustained V-tach at 190 beats per minute and that was done as an outpatient in the office on 10/29/18, not during this admission, which was below the threshold of 24 beats set on her device. Therefore, she continued her metoprolol at 50 mg daily; continued lisinopril 2.5 daily; added Aldactone 12.5 Monday, , Monday, Monday; and resumed her home medication Lasix 20 mg Monday, Monday, Monday; and she tolerated those regimen well. She remained without any significant arrhythmia on tele and therefore, she was deemed stable for discharge from cardiac point of view with outpatient followup with Dr. Maycol Orourke next week. PHYSICAL EXAM ON DISCHARGE: Vital Sign: Temperature 97.3, pulse 62, respiratory rate 18, satting 98%, blood pressure 112/65. General: Awake, alert , oriented, pleasant, in no distress. Head and Neck: Normocephalic, atraumatic. Mild pallor, anicteric sclerae, moist mucous membrane. Lungs: Fine bibasilar crackles. Cardiovascular: S1, S2, positive systolic murmur. Abdomen : Positive bowel sounds, soft, nontender, nondistended. Extremities: +1 edema. INPATIENT DIAGNOSTIC STUDIES: She had a nuclear stress test which revealed large fixed area defect involving the septum and inferolateral wall with very small reversible changes in the anterior wall. Ejection fraction calculated at 13% with global hypokinesis. Chest x-ray: Pulmonary vascular congestion with mild interstitial edema. 2-D echo: Ejection fraction 20%, left atrial dilation, right ventricular systolic function decreased. LABORATORY DATA: CBC: Fairly unremarkable. Chemistry: Pertinent for troponin 0.08, 0.08, and 0.07. EKG, multiple, reveals a paced rhythm, rate of 70. DISCHARGE MEDICATIONS: She was released home on the followin. Lipitor 10 mg daily. 2. Vitamin D with calcium. 3. Cholestyramine 4 g b.i.d. 4. Lamotrigine 100 b.i.d. 5. Keppra 1500 mg b.i.d. 6. Citrucel 500 b.i.d. 7. Toprol-XL 50 daily. 8. Multivitamin daily. 9. Nitroglycerin p.r.n. 10. Invega 6 mg daily. 11. Paxil 20 mg daily. 12. Phenobarbital 16.2 daily. 13. Ranitidine 150 b.i.d. 14. Plavix 75 mg daily. 15. Lasix 20 mg Monday, Monday, Monday. 16. Lisinopril 2.5 daily. 17. Spironolactone 12.5 Monday, , Monday, Monday. DISCHARGE CONDITION: Stable. DISCHARGE DISPOSITION: Home. [id number]/[facility] #: [id number] [facility]
== END 2018-11-01 15:55 | disposition home or self-care (01) | DRG 303 ==
LOC: ED 15:26 → MEDTELE 19:58 → OBSVTOIN 10-31 11:00
PROVIDERS: ADMIT Internal Medicine; ATTEND Internal Medicine
DX: I25.5 Ischemic cardiomyopathy (principal); I47.2 Ventricular tachycardia; I11.0 Hypertensive heart disease with heart failure; I50.9 Heart failure, unspecified; E78.5 Hyperlipidemia, unspecified; G40.909 Epilepsy, unspecified, not intractable, without status epilepticus; I08.3 Combined rheumatic disorders of mitral, aortic and tricuspid valves; I25.10 Atherosclerotic heart disease of native coronary artery without angina pectoris; I27.20 Pulmonary hypertension, unspecified; J44.9 Chronic obstructive pulmonary disease, unspecified; F20.9 Schizophrenia, unspecified; Z95.1 Presence of aortocoronary bypass graft; Z95.5 Presence of coronary angioplasty implant and graft; Z95.810 Presence of automatic (implantable) cardiac defibrillator; Z88.2 Allergy status to sulfonamides; Z88.8 Allergy status to other drugs, medicaments and biological substances; Z87.891 Personal history of nicotine dependence; Z86.73 Personal history of transient ischemic attack (TIA), and cerebral infarction without residual deficits; Z79.02 Long term (current) use of antithrombotics/antiplatelets; Z79.899 Other long term (current) drug therapy; Z82.49 Family history of ischemic heart disease and other diseases of the circulatory system
CPT/HCPCS: 36415; 71045; 78452; 80048; 80053; 82550; 82553; 83605; 83735; 84100; 84484; 85025; 85610; 85730; 86140; 93005; 93017; 93306; 99284; A9270-GY; A9502; G0378; J1644; J1940; J2060; J2785

== ENCOUNTER 2019-02-16 12:26 | Emergency (ER) | payer MEDICARE ==
--- NOTE | 2019-02-16 12:50 | ED ---
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 Patient has a PMHx of seizures, but she reports they usually happen in her sleep. Patient was walking uphill from [facility] to the bus stop. She felt winded, which was unusual. Patient then lost consciousness. She might have had a seizure, but she is unsure. Patient was found on the ground by a bystander. The next thing the patient remembers is being helped by EMS. Patient urinated herself while she was being helped into the ambulance by EMS. In the ED room, patient feels much better. She does not feel winded anymore. Patient has a PMHx of a heart murmur. Three weeks ago, patients Keppra dosage was reduced by 33%. Patient denies recent coughing, diarrhea, or other illness. The patient rates the pain 0/10 in severity. Symptoms aggravated by nothing. Symptoms alleviated by nothing. 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, Resolved Timing: Sudden Onset Onset Severity: Mild Current Severity: Mild Pain Intensity: 0 Pain Scale Used: 0-10 Numeric Character: Other: - Winded Syncope Context: Unwitnessed Aggravating: Nothing Alleviating: Nothing Associated Signs and Symptoms: Positive: Memory Loss, Loss of Consciousness, Incontinent Bladder/Bowel Related Hx: Seizure - Additional Pertinent History Primary Care Physician: [id number] - Allergy/Home Medications Allergies/Adverse Reactions: Allergies Allergy/AdvReac Type Severity Reaction Status Date / Time carbamazepine Allergy Unknown Unknown Verified 10/29/18 17:29 Reaction Details methoxyflurane Allergy Unknown Unknown Verified 10/29/18 17:29 Reaction Details Sulfa (Sulfonamide Allergy Unknown Unknown Verified 10/29/18 17:29 Antibiotics) Reaction Details PMH/Surg Hx/FS Hx/Imm Hx Endocrine/Hematology History: Reports: Hx Anticoagulant Therapy - Brilanta Denies: Hx Diabetes, Hx Thyroid Disease Cardiovascular History: Reports: Hx Angina - tightness, Hx Auto Implanted Cardiovert Defib, Hx Congestive Heart Failure - 2 CABG, Hx Coronary Artery Disease, Hx Hypercholesterolemia, Hx Hypertension - ON DAILY MEDS, Hx Myocardial Infarction, Hx Pacemaker/ICD - 12/2011, Hx Valvular Heart Disease, 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 Denies: Hx Peripheral Vascular Disease Respiratory History: Reports: Hx Chronic Obstructive Pulmonary Disease (COPD), Hx Pneumonia - 2009, Other Respiratory Problems/Disorders - PNEUMONIA 2009 GI History: Reports: Hx Gastroesophageal Reflux Disease, Hx Ulcer - ON DAILY MEDS Denies: Other GI Disorders Musculoskeletal History: Denies: Hx Arthritis, Hx Osteoporosis, Other Musculoskeletal History Sensory History: Reports: Hx Cataracts - FITO, Hx Contacts or Glasses - READING GLASSES Denies: Hx Glaucoma, Hx Hearing Aid Opthamlomology History: Reports: Hx Cataracts - FITO, Hx Contacts or Glasses - READING GLASSES Denies: Hx Glaucoma Neurological History: Reports: Hx Seizures - LAST ONE 3 YRS AGO, Hx Transient Ischemic Attacks (TIA), Other Neuro Impairments/Disorders - EPILEPSY Denies: Hx Headaches Psychiatric History: Reports: Hx Anxiety - ON MEDS, Hx Depression - ON DAILY MEDS, Other Psychiatric Issues/Disorders - schizoaffective disorder - Cancer History Hx Chemotherapy: No Hx Radiation Therapy: No - Surgical History Surgery Procedure, Year, and Place: 1994 1999 CARDIAC BY-PASS 5 vessel bypass then 4 vessel bypass [facility] APPENDE[facility]OMY08/2012, [facility]ACT[facility], [facility]; PACEMAKER/DEFIBRILATOR Hx Anesthesia Reactions: No - Immunization History Date of Tetanus Vaccine: Unk Date of Influenza Vaccine: Unk Infectious Disease History: No Infectious Disease History: Denies: Traveled Outside the [place] in Last 30 Days - Family History Known Family History: Positive: Cardiac Disease - Mother: CHF. Mother and Father : [place], Hypertension - Mother, Diabetes - Mother and brother, Other - Sister: colon CA. - Social History Alcohol Use: None Hx Substance Use: No Substance Use Type: Reports: None Hx Tobacco Use: Yes Smoking Status (MU): Former Smoker Type: Cigarettes Amount Used/How Often: 3-4 PACKS A DAY Have You Smoked in the Last Year: No Review of Systems Respiratory: Other - Winded Negative: Cough Negative: Diarrhea Neurological: Other - LOC All Other Systems Reviewed And Are Negative: Yes Physical Exam - Summary Physical Exam Summary: Appearance: The patient is well-nourished in no acute distress and in no acute pain. Skin: The skin is warm and dry, and skin color reflects adequate perfusion. HEENT: The head is normocephalic and atraumatic. The pupils are equal and reactive. The conjunctivae are clear and without drainage. Nares are patent and without drainage. Mouth reveals moist mucous membranes, and the throat is without erythema and exudate. The external ears are intact. The ear canals are patent and without drainage. The tympanic membranes are intact. Neck: The neck is supple with full range of motion and non-tender. There are no carotid bruits. There is no neck vein distension. Respiratory: Chest is non-tender. Lungs are clear to auscultation and breath sounds are symmetrical and equal. Cardiovascular: Systolic ejection murmur. Abdomen: The abdomen is soft and non-tender. There are normal bowel sounds heard in all four quadrants and there is no organomegaly palpated. Musculoskeletal: There is no back tenderness noted. Extremities are non-tender with full range of motion. There is good capillary refill. There is no peripheral edema or calf tenderness elicited. Neurological: Patient is alert and oriented to person, place and time. The patient has symmetrical motor strength in all four extremities. Cranial nerves are grossly intact. Deep tendon reflexes are symmetrical and equal in all four extremities. Psychiatric: The patient has an appropriate affect and does not exhibit any anxiety or depression. Triage Information Reviewed: Yes Vital Signs On Initial Exam: Initial Vitals Temp Pulse Resp BP Pulse Ox 97.0 F 62 18 121/74 94 02/16/19 12:41 02/16/19 12:41 02/16/19 12:41 02/16/19 12:41 02/16/19 12:41 Vital Signs Reviewed: Yes Procedures - Sedation Patient Received Moderate/Deep Sedation with Procedure: No Diagnostics - Vital Signs Vital Signs Temp Pulse Resp BP Pulse Ox 02/16/19 12:41 97.0 F 62 18 121/74 94 - Laboratory Result Diagrams: 02/16/19 13:18 02/16/19 13:18 Lab Statement: Any lab studies that have been ordered have been reviewed, and results considered in the medical decision making process. - EKG 1303 Cardiac Rate: NL - 60 BPM EKG Comparison: No Significant Change - Unchanged from previous EKG taken Summary of EKG Findings: Atrial paced rhythm at 60 BPM, unchanged from previous EKG taken 10/29/18. Dr. Govea has reviewed and interpreted this EKG. Re-Evaluation - Re-Evaluation First Eval Re-Evaluation Time: 05:15 Comment: Discussed results and Dr. Martell's recommendations with patient. Patient will go back to her original dosage of Keppra (3x in the morning and 3x at night) until 02/18/19, when she will call for an appointment with Dr. Ling. Course/Dx - Course Course Of Treatment: Ms. Potter presented concerned that she had had another seizure at the bus stop based on the way she felt. She was nontoxic in appearance with stable vitals and not postictal. She related that she does normally respond very quickly after the seizures. She was kept on a monitor and labs were obtained which revealed a slight elevation of her lactic acid consistent with having had a seizure. I spoke with Dr. Martell who is on-call for her neurologist Dr. Ling. The patient's Keppra had just been decreased from 1500 twice a day to 1000 in the a.m. and 1500 at night a couple weeks ago. Dr. Martell recommended going back to 1500 twice a day until she can contact Dr. Ling on Monday. - Diagnoses Provider Diagnoses: Breakthrough seizure - Physician Notifications Discussed Care Of Patient With: Maria Guadalupe Martell Time Discussed With Above Provider: 17:12 Instructed by Provider To: Other - Discussed patient case with Dr. Martell, neurologist on-call for Dr. Ling, the patient's neurologist, who recommended that the patient go back to the original dosage of Keppra (3x in the morning and 3x in the night) for tomorrow and the day after. The patient will call for a neurology appoint on 01/18/19. Discharge ED - Sign-Out/Discharge Documenting (check all that apply): Patient Departure - Discharge - Discharge Plan Condition: Stable Disposition: HOME Patient Education Materials: Recurrent Seizures in Adults (ED) Referrals: Milton Hall MD [Primary Care Provider] - 3 Days Teena Ling MD [Medical Doctor] - 2 Days Additional Instructions: Please follow-up with your primary care physician in 2-3 days. RETURN TO THE ER FOR WORSENING OR CHANGING SYMPTOMS. - Billing Disposition and Condition Condition: STABLE Disposition: Home - Attestation Statements Document Initiated by Scribe: Yes Documenting Scribe: Eric Lilly Provider For Whom Scribe is Documenting (Include Credential): Juan Miguel Govea MD Scribe Attestation: I, Eric Lilly, scribed for Juan Miguel Govea MD on 02/16/19 at 1841. Scribe Documentation Reviewed: Yes Provider Attestation: The documentation as recorded by the scribe, Eric Lilly accurately reflects the service I personally performed and the decisions made by me, Juan Miguel Govea MD Status of Scribe Document: Viewed
[2019-02-16 13:31] LABS: ABS Eosinophils 0.1 10^3/ul (0-0.6); ABS Lymphocytes 0.5 10^3/ul (1.0-4.8); ABS Monocytes 0.4 10^3/ul (0-0.8); ABS Neutrophils 3.7 10^3/ul (1.5-7.7); Eosinophil % 1.1 %; Hematocrit 34 % (35-47); Hemoglobin 11.5 g/dL (12.0-16.0); Lymphocyte % 11.2 %; Mean Corpuscular HGB Conc 34 g/dL (31-36); Mean Corpuscular Hemoglobin 32 pg (27-31); Mean Corpuscular Volume 95 fL (80-97); Mean Platelet Volume 7.5 fL (7.4-10.4); Platelet Count 195 10^3/uL (150-450); Red Blood Count 3.61 10^6 /uL (3.70-4.87); Red Cell Distribution Width 13 % (10-15); White Blood Count 4.7 10^3/uL (3.5-10.8)
[2019-02-16 13:35] LABS: INR 1.05 (0.82-1.09)
[2019-02-16 13:44] LABS: ALT 9 U/L (7-52); AST 23 U/L (13-39); Albumin 3.7 g/dL (3.2-5.2); Albumin/Globulin Ratio 1.5 (1-3); Alkaline Phosphatase 68 U/L (34-104); Anion Gap 7 mmol/L (2-11); BUN/Creatinine Ratio 17.3 (8-20); Blood Urea Nitrogen 14 mg/dL (6-24); CO2 Carbon Dioxide 26 mmol/L (22-32); Calcium 8.8 mg/dL (8.6-10.3); Chloride 96 mmol/L (101-111); EGFR African American 83.4 (>60); EGFR Non-African American 68.9 (>60); Globulin 2.4 g/dL (2-4); Glucose 122 mg/dL (70-100); Magnesium 1.8 mg/dL (1.9-2.7); Potassium 4.7 mmol/L (3.5-5.0); Sodium 129 mmol/L (135-145); Total Protein 6.1 g/dL (6.4-8.9)
[2019-02-16 13:46] LABS: Troponin I 0.02 ng/mL (<0.04)
[2019-02-16 13:56] LABS: Alcohol < 10 mg/dL (<10)
[2019-02-16 14:11] LABS: TSH (Thyroid Stimulating Horm) 2.18 mcIU/mL (0.34-5.60)
[2019-02-16 15:57] LABS: Urine Appearance Clear; Urine Bilirubin Negative (Negative); Urine Blood Negative (Negative); Urine Color Straw; Urine Glucose Negative (Negative); Urine Ketones Negative (Negative); Urine Nitrite Negative (Negative); Urine Protein Negative (Negative); Urine Specific Gravity 1.005 (1.010-1.030); Urine Urobilinogen Negative (Negative)
[2019-02-16 17:50] VITALS: BP 147/70
== END 2019-02-16 17:50 | disposition home or self-care (01) ==
LOC: ED 12:26
DX: G40.909 Epilepsy, unspecified, not intractable, without status epilepticus (principal); I44.7 Left bundle-branch block, unspecified; I10 Essential (primary) hypertension; J44.9 Chronic obstructive pulmonary disease, unspecified; K21.9 Gastro-esophageal reflux disease without esophagitis; F41.9 Anxiety disorder, unspecified; F32.9 Major depressive disorder, single episode, unspecified; Z95.810 Presence of automatic (implantable) cardiac defibrillator; Z79.01 Long term (current) use of anticoagulants; Z95.1 Presence of aortocoronary bypass graft; Z88.2 Allergy status to sulfonamides; Z88.8 Allergy status to other drugs, medicaments and biological substances; Z87.891 Personal history of nicotine dependence
CPT/HCPCS: 36415; 80053; 80320; 81003; 83605; 83735; 84443; 84484; 85025; 85610; 93005; 99283; G0480

== ENCOUNTER 2019-02-18 11:03 | Inpatient (IN) | payer MEDICARE ==
--- NOTE | 2019-02-18 11:21 | ED ---
Syncope/Near Syncope - HPI Summary HPI Summary: Patient is a 74 y/o F w/ Hx of seizures who presents to [facility] via EMS for a near -syncopal episode. Patient states that she had been ambulating outdoors when she suddenly felt near syncopal. She states that she had fallen, twisting her left ankle, striking her nose against the ground and sustaining an abrasion. Patient does not believe that she had actually experienced a syncopal episode or LOC. She also denies seizure and claims that "I had caught myself from going into a seizure". Patient had been evaluated 02/16/19 for reported LOC and possible seizure. The patient's neurologist, Dr. Martell, had been contacted at the time. It was noted that the patient's Keppra had been decreased from 1500 mg BID to 1000 in AM and 1500 in PM a couple of weeks ago. Patient's Keppra was therefore reverted to 1500 mg BID and she was discharged to home. Home medications and allergies are reviewed. - History Of Current Complaint Chief Complaint: EDSeizure Time Seen by Provider: 02/18/19 11:11 Hx Obtained From: Patient Onset/Duration: Still Present - left ankle pain, Resolved - feeling faint Timing: Intermittent Episode Lasting Activity At Onset: Exertion Associated Head Trauma: Yes Associated Signs And Symptoms: Other - near-syncopal, fall, left ankle pain, abrasion to nose - Allergies/Home Medications Allergies/Adverse Reactions: Allergies Allergy/AdvReac Type Severity Reaction Status Date / Time carbamazepine Allergy Unknown Unknown Verified 02/18/19 11:12 Reaction Details methoxyflurane Allergy Unknown Unknown Verified 02/18/19 11:12 Reaction Details Sulfa (Sulfonamide Allergy Unknown Unknown Verified 02/18/19 11:12 Antibiotics) Reaction Details Home Medications: Home Medications Albuterol HFA INHALER* [Ventolin HFA Inhaler*] 2 puff INH Q4H PRN 02/18/19 [ History Confirmed 02/18/19] Furosemide TAB* [Lasix TAB*] 20 mg PO MOWEFR 02/18/19 [History Confirmed ] Spironolactone TAB* [Aldactone TAB 25 MG*] 12.5 mg PO SUTUTHSA 02/18/19 [ History Confirmed 02/18/19] PMH/Surg Hx/FS Hx/Imm Hx Endocrine/Hematology History: Reports: Hx Anticoagulant Therapy - Brilanta Denies: Hx Diabetes, Hx Thyroid Disease Cardiovascular History: Reports: Hx Angina - tightness, Hx Auto Implanted Cardiovert Defib, Hx Congestive Heart Failure - 2 CABG, Hx Coronary Artery Disease, Hx Hypercholesterolemia, Hx Hypertension - ON DAILY MEDS, Hx Myocardial Infarction, Hx Pacemaker/ICD - 12/2011, Hx Valvular Heart Disease, 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 Denies: Hx Peripheral Vascular Disease Respiratory History: Reports: Hx Chronic Obstructive Pulmonary Disease (COPD), Hx Pneumonia - 2009, Other Respiratory Problems/Disorders - PNEUMONIA 2009 GI History: Reports: Hx Gastroesophageal Reflux Disease, Hx Ulcer - ON DAILY MEDS Denies: Other GI Disorders Musculoskeletal History: Denies: Hx Arthritis, Hx Osteoporosis, Other Musculoskeletal History Sensory History: Reports: Hx Cataracts - FITO, Hx Contacts or Glasses - READING GLASSES Denies: Hx Glaucoma, Hx Hearing Aid Opthamlomology History: Reports: Hx Cataracts - FITO, Hx Contacts or Glasses - READING GLASSES Denies: Hx Glaucoma Neurological History: Reports: Hx Seizures - LAST ONE 3 YRS AGO, Hx Transient Ischemic Attacks (TIA), Other Neuro Impairments/Disorders - EPILEPSY Denies: Hx Headaches Psychiatric History: Reports: Hx Anxiety - ON MEDS, Hx Depression - ON DAILY MEDS, Other Psychiatric Issues/Disorders - schizoaffective disorder - Cancer History Hx Chemotherapy: No Hx Radiation Therapy: No - Surgical History Surgery Procedure, Year, and Place: 1994 1999 CARDIAC BY-PASS 5 vessel bypass then 4 vessel bypass [facility] APP[facility]08/2012, [facility], [facility]; PACEMAKER/DEFIBRILATOR Hx Anesthesia Reactions: No - Immunization History Date of Tetanus Vaccine: Unk Date of Influenza Vaccine: Unk Infectious Disease History: No Infectious Disease History: Denies: Traveled Outside the [place] in Last 30 Days - Family History Known Family History: Positive: Cardiac Disease - Mother: CHF. Mother and Father : [place], Hypertension - Mother, Diabetes - Mother and brother, Other - Sister: colon CA. - Social History Alcohol Use: None Hx Substance Use: No Substance Use Type: Reports: None Hx Tobacco Use: Yes Smoking Status (MU): Former Smoker Type: Cigarettes Amount Used/How Often: 3-4 PACKS A DAY Have You Smoked in the Last Year: No Review of Systems Musculoskeletal: Other - left ankle pain, fall Skin: Other - abrasion to nose Positive: Syncope - NEAR All Other Systems Reviewed And Are Negative: Yes Physical Exam - Summary Physical Exam Summary: Appearance: The patient is well-nourished in no acute distress and in no acute pain. Skin: The skin is warm and dry, and skin color reflects adequate perfusion. HEENT: The head is normocephalic. There is a superficial abrasion to the nose but otherwise patient's head is atraumatic. The pupils are equal and reactive. The conjunctivae are clear and without drainage. Nares are patent and without drainage. Mouth reveals moist mucous membranes, and the throat is without erythema and exudate. The external ears are intact. The ear canals are patent and without drainage. The tympanic membranes are intact. Neck: The neck is supple with full range of motion and non-tender. There are no carotid bruits. There is no neck vein distension. Respiratory: Chest is non-tender. Lungs are clear to auscultation and breath sounds are symmetrical and equal. Cardiovascular: Heart is regular rate and rhythm. There is no murmur or rub auscultated. There is no peripheral edema and pulses are symmetrical and equal. Abdomen: The abdomen is soft and non-tender. There are normal bowel sounds heard in all four quadrants and there is no organomegaly palpated. Musculoskeletal: There is no back tenderness noted. There is mild tenderness to the left ankle but otherwise no tenderness of extremities is noted. Extremities with full range of motion. There is good capillary refill. There is no peripheral edema or calf tenderness elicited. Neurological: Patient is alert and oriented to person, place and time. The patient has symmetrical motor strength in all four extremities. Cranial nerves are grossly intact. Deep tendon reflexes are symmetrical and equal in all four extremities. Psychiatric: The patient has an appropriate affect and does not exhibit any anxiety or depression. Triage Information Reviewed: Yes Vital Signs On Initial Exam: Initial Vitals Temp Pulse Resp BP Pulse Ox 97.1 F 87 18 121/83 98 02/18/19 11:05 02/18/19 11:05 02/18/19 11:05 02/18/19 11:05 02/18/19 11:05 Vital Signs Reviewed: Yes Procedures - Sedation Patient Received Moderate/Deep Sedation with Procedure: No Diagnostics - Vital Signs Vital Signs Temp Pulse Resp BP Pulse Ox 02/18/19 11:05 97.1 F 87 18 121/83 98 - Laboratory Result Diagrams: 02/18/19 12:32 02/18/19 12:32 Lab Statement: Any lab studies that have been ordered have been reviewed, and results considered in the medical decision making process. - EKG 1141 Cardiac Rate: Other Rate - atrial-paced rhythm with rate of 60 BPM EKG Comparison: No Significant Change - unchanged from 02/16/19 EKG Summary of EKG Findings: EKG showed atrial-paced rhythm with rate of 60 BPM, no significant change compared to 02/16/19 EKG. This EKG was reviewed and interpreted by Dr. Govea. Course/Dx Course Of Treatment: Ms. Potter had what sounds again near syncopal episode today. She did fall to the ground hurting her left ankle and scratching her nose. She was seen here for presumed seizure on Monday and now it's concerning that she may have actually had a syncopal episode on Monday also. I spoke with the hospitalist Dr. Thorne about admission and monitoring. - Diagnoses Provider Diagnoses: Syncope - Physician Notifications Discussed Care of Patient With: Saira Thorne Time Discussed With Above Provider: 13:40 Instructed by Provider To: Other - 1340 - Patient's case was discussed with Dr. Thorne, Dr. Thorne requests neurology consult. 1411 - Patient's case was discussed with Dr. Cuevas, neurology to evaluate. 1454 - HEAD OF STOCK Valentin Hayes has evaluated the patient, patient will be admitted to [facility] [place]. - Critical Care Time Critical Care Time: 30-74 min Discharge ED - Sign-Out/Discharge Documenting (check all that apply): Patient Departure - admit - Discharge Plan Condition: Stable Disposition: ADMITTED TO [facility] Referrals: Milton Hall MD [Primary Care Provider] - - Billing Disposition and Condition Condition: STABLE Disposition: Admitted to [facility] - Attestation Statements Document Initiated by Scribe: Yes Documenting Scribe: CYRUS MTZ Provider For Whom Taz is Documenting (Include Credential): ИВАН GOVEA MD Scribe Attestation: CYRUS Khan, scribed for ИВАН GOVEA MD on 02/18/19 at 1950. Scribe Documentation Reviewed: Yes Provider Attestation: The documentation as recorded by the edisonibCYRUS steve accurately reflects the service I personally performed and the decisions made by me, ИВАН GOVEA MD Status of Scribe Document: Viewed
[2019-02-18 12:48] LABS: ABS Basophils 0.1 10^3/ul (0-0.2); ABS Eosinophils 0.1 10^3/ul (0-0.6); ABS Monocytes 0.6 10^3/ul (0-0.8); ABS Neutrophils 4.5 10^3/ul (1.5-7.7); Eosinophil % 1.5 %; Hematocrit 36 % (35-47); Hemoglobin 12.2 g/dL (12.0-16.0); Lymphocyte % 15.8 %; Mean Corpuscular HGB Conc 34 g/dL (31-36); Mean Corpuscular Hemoglobin 32 pg (27-31); Mean Corpuscular Volume 95 fL (80-97); Mean Platelet Volume 7.6 fL (7.4-10.4); Nucleated Red Blood Cells % 0.1; Platelet Count 227 10^3/uL (150-450); Red Cell Distribution Width 13 % (10-15); White Blood Count 6.3 10^3/uL (3.5-10.8)
[2019-02-18 13:02] LABS: Troponin I 0.03 ng/mL (<0.04)
[2019-02-18 13:27] LABS: Albumin/Globulin Ratio 1.5 (1-3); BUN/Creatinine Ratio 21.5 (8-20); Calcium 9.4 mg/dL (8.6-10.3); EGFR African American 71.1 (>60); EGFR Non-African American 58.8 (>60); Globulin 2.6 g/dL (2-4); Magnesium 1.9 mg/dL (1.9-2.7); Total Bilirubin 0.4 mg/dL (0.2-1.0); Total Protein 6.6 g/dL (6.4-8.9)
[2019-02-18 13:29] LABS: Potassium 5.2 mmol/L (3.5-5.0)
[2019-02-18 13:34] LABS: TSH (Thyroid Stimulating Horm) 1.64 mcIU/mL (0.34-5.60)
[2019-02-18 14:01] LABS: Urine Appearance Clear; Urine Bilirubin Negative (Negative); Urine Blood Negative (Negative); Urine Color Straw; Urine Glucose Negative (Negative); Urine Ketones Negative (Negative); Urine Nitrite Negative (Negative); Urine Protein Negative (Negative); Urine Specific Gravity 1.008 (1.010-1.030); Urine Urobilinogen Negative (Negative)
[2019-02-18] MEDS ORDERED: Ondansetron INJ* 2 MG/ML VIAL IV PRN (15:25)
[2019-02-18] MEDS ORDERED: Nitroglycerin TAB 0.4 MG* 0.4 MG TAB SL PRN (15:26)
[2019-02-18] MEDS ORDERED: Albuterol HFA INHALER* 8 gm MDI INH PRN (15:26)
[2019-02-18] MEDS ORDERED: Furosemide TAB* 20 MG PO SCH (16:00)
[2019-02-18] MEDS: Enoxaparin(*) 40 MG/0.4 ML SYR SUBCUT SCH (18:07)
--- NOTE | 2019-02-18 19:04 | CONS ---
CC: Dr. Hall; Dr. Orourke; Dr. Ling * CONSULTATION REPORT: DATE OF CONSULT: 02/18/19 PRIMARY CARE PROVIDER: Dr. Hall. PRIMARY ROOF CEMENT AND PAINT MAKER: Dr. Orourke. PRIMARY NEUROLOGIST: Dr. Ling. REQUESTING PHYSICIANS: Dr. Landon and Dr. Govea. ATTENDING PHYSICIAN WHILE IN THE HOSPITAL: Dr. Akhil Cuevas (report dictated by Celso Hayes NP) REASON FOR MEDICAL CONSULTATION: Possible seizure, loss of consciousness. HISTORY OF PRESENT ILLNESS: Ms. Potter is a 74-year-old female patient who presented to the ER on 02/16/19 and today 02/18/19. She carries a significant history of coronary artery disease; DC; cardiomyopathy, EF 20%; COPD; history of V- tach; history of seizures; history of CHF; and hypertension. She came initially to the ER on Monday. She was at [facility] visiting her sister. She was walking up from the [place]. She sat down on a bench because she became short of breath. She went to stand up again and then she knew unfortunately she blacked out she says. When she came to, the ambulance crew was there, she seemed dazed. Of note, recently her phenobarbital was weaned off approximately a month ago. In addition to this, according to the patient, her Keppra level was high and her Keppra was cut down from 1500 mg twice a day to 1000 mg and 1500 mg. She has done that for about a week. She says that she had not missed any medications and she recently was being treated for a UTI as well. She says that she did not bite her tongue. She says she came to. She wet herself after the event, but she clearly says that during the event when she came to she did not have incontinence. There was concern that she possibly had a seizure on 02/16/19. Her Keppra was increased and she was instructed to call Dr. Ling. It was noted her lactic acid level was 2.3. She was discharged home and was instructed to follow up with Dr. Ling. She had no more events over the weekend, and she is really unsure when her last seizure was. She says that she has had a seizure disorder since she was 22 years of age. She came in again today on 02/18/19. She was [facility], was going to the [facility], she became lightheaded and she felt a head youssef. She did not feel like the room was spinning. Her hairdresser saw her that she had fallen down and was concerned and came into her aid and called 911 because of the fact she felt lightheaded and she had fallen, but the patient says that she did not faint. After the episode on Monday, she did say that she felt dazed afterwards as well. Because of the repeat episodes, we were asked to evaluate in consult. She denied any tongue biting with today's episode and again did not have loss of consciousness. Again, she does report that her seizures are generally grand mal in nature. PAST MEDICAL HISTORY: Significant for: 1. CAD. 2. DC. 3. Cardiomyopathy, last known EF of 20%. 4. COPD. 5. Schizoaffective disorder. 6. History of V-tach. 7. CHF. 8. Seizures. 9. Hypertension. PAST SURGICAL HISTORY: She has had: 1. CABG. 2. Appendectomy. 3. Cardiac catheterization. 4. AICD/pacemaker placement. HOME MEDICATIONS: Include: 1. Spironolactone 12.5 mg p.o. Monday, Monday, , Monday. 2. Caltrate 1 tablet p.o. b.i.d. 3. Paxil 20 mg daily. 4. Toprol-XL 50 mg daily. 5. Plavix 75 mg daily. 6. Lamotrigine 100 mg p.o. b.i.d. 7. Lasix 20 mg Monday, Monday, Monday. 8. Lipitor 10 mg daily. 9. Lisinopril 2.5 mg daily. 10. Keppra 1500 mg p.o. b.i.d., again recently increased. 11. Multivitamin 1 tablet daily. 12. Invega 1 tablet daily. 13. Nitroglycerin 0.4 mg sublingual q.5 minutes x3 p.r.n. chest pain. 14. Questran 4 g p.o. b.i.d. 15. Ranitidine 150 mg p.o. twice a day. 16. Albuterol 2 puffs inhaled every 4 hours as needed. ALLERGIES TO MEDICATIONS: Include TEGRETOL, SULFA ANTIBIOTICS, METHOXYFLURANE. FAMILY HISTORY: She says both her parents had heart disease. SOCIAL HISTORY: She is a former smoker. She does not drink alcohol. She lives alone. Surrogate decision maker is her son. REVIEW OF SYSTEMS: There is no documented fever. She denied any significant weight change. There was no double vision. There is no ear discharge. She denied having any rhinorrhea. There is no sore throat. No thyroid enlargement. She denied having any chest pain. There was no orthopnea. There was no nocturnal dyspnea. There was no abdominal pain. There was no nausea, no vomiting. No dysuria, no frequency. There was a questionable loss of consciousness, possible seizure on 02/18/19. Review of 14 systems was completed , all others negative. PHYSICAL EXAM: Vital Signs: Blood pressure 117/75, pulse 60, respirations were 18, O2 saturation 95%, temperature 97.1. General: At this time, Ms. Potter is a 74-year-old female patient. She is sitting in the ED stretcher. She does not appear to be in any acute distress. HEENT: Head: Atraumatic, normocephalic. Eyes: EOMs intact. Sclerae anicteric and not pale. Throat: Oral mucosa appears to be moist. No oropharyngeal erythema. Neck was supple. Heart sounds S1, S2. Regular rate and rhythm. Lungs: Clear to auscultation bilaterally. No wheezes, rales, or rhonchi. Abdomen: Soft, flat, nontender. Bowel sounds were present. Extremities: Pulses were 2+ throughout. She is moving all 4 extremities with 5/5 strength. Neurologically, she is awake, she is alert, she is oriented x3. Her speech was clear. No paraphasic error was noted. No dysarthria. Cranial Nerves: Cranial nerve I not tested. Cranial nerves II and III, she had PERRLA. Visual canchola intact by confrontation. Cranial nerves III, IV, , EOMs are intact. No ptosis. Cranial nerve V, sensation intact. Cranial nerve VII, face symmetric without weakness. Cranial nerve VIII, hearing grossly intact. Cranial nerve IX and X, voice normal. Palate elevates symmetrically. Cranial nerve XI, 5/5 strength to the trapezius noted. Cranial nerve XII, tongue is midline. No atrophy. No fasciculations. Motor: Again, she has 5/5 strength distally and proximally. There was no rigidity. Tone was good. Coordination: Rapid alternating movements are intact. [id number] intact bilaterally. No tremors were noted. Reflexes 1 + in the patella, 1+ at the brachioradialis, 1+ at the biceps. Babinski's was absent. Sensation was intact to light touch in all 4 extremities. No focal deficits were noted. Her skin was intact. DIAGNOSTIC STUDIES/LAB DATA: WBC 6.3, RBC of 3.80, hemoglobin 12.2, hematocrit 36, platelet count 327. INR of 1.05. Sodium 134, potassium 5.2, chloride of 100, bicarb 27, BUN 20, creatinine of 0.93, glucose 101, lactic 0.8, calcium 9.4 , mag 1.9. Total bili 0.4, AST 21, ALT 9, alk phos 71. Troponin 0.03. TSH normal. Urine was obtained and was negative. Toxicology negative for alcohol. Old medical records were reviewed. ASSESSMENT AND PLAN: Ms. Potter is a 74-year-old female patient coming into the ED today after an episode on Monday where she had complete loss of consciousness, was dazed afterwards, was brought to the ER, felt to possibly be a seizure, Keppra was increased, again today comes in with an episode of feeling lightheaded where she almost passed out. Because of these findings, we were asked to evaluate in consult. My recommendations at this point are: 1. Loss of consciousness. Etiology is unclear. It certainly could have represented a seizure on Monday, but I agree with increasing the Keppra, checking levels. I have a call out to the patient's neurologist Dr. Ling to discuss the case with her. My plan would be to check levels fasting in the morning, if she has any more episodes that have a low threshold for an EEG. Certainly the episode on Monday could have been cardiac, also could have been again seizure related. I would continue her current medications as prescribed. Again, if another episode happens, we will certainly get an EEG, but the etiology of this episode could have been cardiac related. She has a history of ventricular tachycardia. She was on an antibiotic recently for a urinary tract infection, she does not know what this was. It would be important to know as certain antibiotics can certainly change the QT interval. I would interrogate her pacemaker, possibly consult Cardiology and recommend telemetry monitoring for now and we will continue to follow. 2. Coronary artery disease. I will defer the management to the primary team and Cardiology. 3. Cardiomyopathy with a history of EF of 20%. Again, defer management to Cardiology. 4. Chronic obstructive pulmonary disease. This appeared to be stable. I will defer the management to primary team. 5. Hypertension. Continue meds as prescribed. Thank you for allowing me to participate in the care of this patient. TIME SPENT: Time spent on the consult was 60 minutes, greater than half the time was spent [id number] with the patient obtaining my history and physical, other half time was spent implementing the plan. I discussed the case with Dr. Cuevas. CELSO HAYES, SENIOR PRODUCER [id number]/CPS #: [id number] ROLF
--- NOTE | 2019-02-18 20:51 | HP ---
CC: Dr. Milton Hall; Dr. Maycol Orourke * ADMISSION HISTORY AND PHYSICAL: DATE OF ADMISSION: 02/18/19 PRIMARY CARE PROVIDER: Dr. Milton Hall. OUTPATIENT HAT FORMER AND CONSULTING HAT FORMER: Dr. Maycol Orourke. MY ATTENDING WHILE IN THE HOSPITAL: Dr. Saira Landon.* (DICTATED BY NAKUL RACHEL) CHIEF COMPLAINT: Syncope x2. HISTORY OF PRESENT ILLNESS: Ms. Potter is a 74-year-old female with past medical history significant for heart failure with reduced ejection fraction, EF 20% due to coronary artery disease; COPD; schizoaffective disorder; remote history of seizures, who presents to the emergency department for the second time in 3 days, she has had syncope or presyncope with exertion. The patient has been feeling generally in her normal state of health. She has not noted any weight loss or weight gain. No recent illnesses. No recent changes in her medications except for a recent urinary tract infection for which she was treated with antibiotic, which was Macrobid, and ended approximately 1 month ago. The patient had noticed no swelling in her legs, no increased weight. The patient before her first episode had her Keppra decreased from her chronic dose of 500mg at night. Last Monday, which was 02/16/19, she was visiting a friend at [facility] and walked briskly up a steep hill to get to the bus stop. At the bus stop, she felt severely short of breath, but this was more than she normally exerts herself and she does not normally get this short of breath with exertion. She did feel lightheaded. She sat down for a second, but then the bus came and she had to stand up before she felt recovered. As she stood up and started walking to the bus, she passed out and woke up when the ambulance got there. She felt somewhat dazed and sleepy afterwards, but this lasted a short period of time, though she states that her postictal periods happen for only a short period of time. The patient came into the emergency department and had an elevated lactic acid. She was diagnosed with a seizure. Her Keppra was increased back to its previous level and she was discharged home. The patient again today was visiting her friend at [facility] and walked up the same hill, had a similar episode, but this time she just felt faint and was able to lower herself to the ground, but did twist her ankle while she was being lowered to the ground. With neither of these episodes, did she have palpitations or chest pain. The patient has not had episodes like this before. The patient denies fevers, chills, dysuria, urinary frequency, nausea, vomiting, abdominal pain. No diaphoresis with these episodes. The patient was brought into the emergency department and was found to have a negative troponin and nonischemic EKG. Her heart rhythm was regular. She had slightly elevated potassium, but no other significant laboratory abnormalities and benign urine. Due to concern for syncope in a patient with a history of seizure disorder and severe cardiomyopathy, we were asked to evaluate the patient for admission to the hospital. PAST MEDICAL HISTORY: Coronary artery disease, status post multiple MIs; heart failure with reduced ejection fraction, EF most recently 20%; COPD; schizoaffective disorder; seizure disorder; hypertension; stroke. PAST SURGICAL HISTORY: ICD implantation, cardiac stents, CABG, appendectomy. MEDICATIONS: 1. Keppra 1500 mg p.o. b.i.d. 2. Metoprolol succinate 50 mg p.o. daily. 3. Nitroglycerin 0.4 mg sublingually q.5 minutes as needed for chest pain. 4. Lamotrigine 100 mg p.o. b.i.d. 5. Clopidogrel 75 mg p.o. daily. 6. Invega 1 tab p.o. daily. 7. Theragran 1 tab p.o. q.a.m. 8. Caltrate D 1 tab p.o. b.i.d. 9. Ranitidine 150 mg p.o. b.i.d. 10. Cholestyramine 4 g p.o. b.i.d. 11. Paroxetine 20 mg p.o. daily. 12. Atorvastatin 10 mg p.o. daily. 13. Lisinopril 2.5 mg p.o. daily. 14. Ventolin 2 puffs inhalation q.4 hours as needed. 15. Furosemide 20 mg p.o. Monday, Monday, Monday. 16. Spironolactone 12.5 mg Monday, Monday, , Monday. ALLERGIES: CARBAMAZEPINE, METHOXYFLURANE, and SULFA. SOCIAL HISTORY: The patient is a long-time smoker. She is unable to quantify her pack years, but most of her adult life she smoked 3 to 4 packs a day. The patient denies alcohol or illicit drug use. 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 The patient lives in senior housing in [place]. The patient has 3 children. The patient's surrogate decision maker will be primarily her son, Cy Potter. His number is [phone]. REVIEW OF SYSTEMS: A 10-point review of systems was reviewed and is negative except as above in the HPI. PHYSICAL EXAMINATION GENERAL: The patient is a 74-year-old female, who appears stated age and is sitting in the bed, in no acute distress. VITAL SIGNS: At the time of evaluation, temperature 97.1, pulse rate 60, respiratory rate 15, oxygen saturation 95% on room air, blood pressure 117/75. HEENT: Head: Normocephalic, atraumatic. Sclerae anicteric. No conjunctival injection. Nasal mucosa moist. Oral mucosa moist. No pharyngeal erythema, discharge, or exudate. NECK: Supple, nontender. No lymphadenopathy. No carotid bruits auscultated. JVD to the corner of the jaw. RESPIRATORY: Clear to auscultation bilaterally. No wheezes, rales, or rhonchi. Good air exchange bilaterally. CARDIAC: Regular rate and rhythm. Grade 3/6 systolic ejection murmur heard best at the right upper sternal border. S1 and S2 are present. No bilateral lower extremity edema noted. No bilateral calf tenderness. ABDOMEN: Soft, nontender, nondistended. Bowel sounds present and normoactive in all 4 quadrants. No hepatosplenomegaly. No abdominal bruits auscultated. No hepatojugular reflux. GENITOURINARY: No suprapubic or CVA tenderness. NEURO: Cranial nerves II through XII intact. No focal deficits. Alert and oriented x3. PSYCHIATRIC: Somewhat odd, otherwise pleasant and cooperative. SKIN: Clean, dry, and intact. No rash. DIAGNOSTIC STUDIES/LAB DATA: White blood cell count 6.3, hemoglobin 12.2. Sodium 134, potassium 5.2, chloride 100, carbon dioxide 27, anion gap 7, BUN 20 , creatinine 0.93, glucose 102, lactic acid 0.8, calcium 9.4, magnesium 1.9. Bilirubin 0.4, AST 21, ALT 9, alkaline phosphatase 71. Creatine kinase 85. Troponin I 0.03. Protein 6.6, albumin 4.0, globulin 2.6. TSH 1.64. Urine unremarkable. Studies: EKG shows paced rhythm, rate of 60, QTc of 449, [address] depression in aVL, borderline ST depression in I, left ventricular hypertrophy, normal axis, right bundle branch block, intraventricular conduction delay. Compared to previous exam, there are no significant changes except for slight worsening of ST depression in aVL. ASSESSMENT AND PLAN: Impression: Ms. Potter is a 74-year-old female with past medical history significant for severe cardiomyopathy with an ejection fraction of 20% with heart failure with reduced ejection fraction, coronary artery disease, chronic obstructive pulmonary disease, and history of seizures, who presents to the emergency department after 2 episodes of loss of consciousness in the past 3 days. The patient will be admitted to the hospital for further evaluation of these episodes including cardiac evaluation and evaluation for seizure. 1. Loss of consciousness, likely syncope. The patient's episodes occurred while she was exerting herself in the setting of severe cardiomyopathy, moderate aortic stenosis, and there was no tongue biting, loss of bowel or bladder control, no other involuntary movements noted. The patient did have an elevated lactic acid and a possible postictal period with her previous episode 2 days ago, though they are not pathognomonic for seizure. Based on the clinical presentation, these are more likely related to the patient's cardiac history; however, the patient has been seen in consultation by Dr. Akhil Cuevas and Valentin Hayes NP, of Neurology, who recommended checking levels on her antiepileptics, both random and trough levels will be checked and to obtain an EEG for recurrent episodes. The patient had a stress test 3 months ago. This was read as high risk with small area of reversible ischemia. The patient will be seen in consultation by Dr. Maycol Orourke for medication optimization and consideration of further testing or advanced therapy. It has been discussed with the patient previously to go on Entresto outpatient; however, the patient has not. The patient is currently hyperkalemic. The patient is on Invega and it is possible that this could represent episodes of torsades, though this is not likely. The patient's potassium is also only 5.2, likely not predisposing her too strongly to cardiac arrhythmias, although the patient' s spironolactone and lisinopril at this time will be held to help decrease this level. The patient is not anemic. The patient does not appear dehydrated. The patient is not orthostatic. The patient's troponin is normal, though this will be trended. The patient will not have a repeat echocardiogram or stress test. The patient will be monitored on telemetry and her ICD will be interrogated. A chest x- ray will be obtained to assess for her fluid status, though she does not appear fluid overloaded, she appears euvolemic at this time. 2. Coronary artery disease. Continue the patient's aspirin, Plavix, and statin as well as her Questran. The patient's troponin is negative at this time and she has no chest pain and had no chest pains with these episodes. 3. History of nonsustained ventricular tachycardia. This was noted on her last hospitalization. If this was the cause of the patient's episode, then further setting adjustments may be needed for her ICD/pacemaker as well as consideration for revascularization, EP study, or further advanced therapy for her ventricular tachycardia should be considered. 4. Seizure disorder. Check levels as above. Continue on Lamictal and Keppra at current doses. 5. History of stroke. Continue above antiplatelet therapy as well as statin. 6. Hypertension. The patient is currently normotensive. Hold spironolactone and lisinopril as above. Continue metoprolol, Lasix. 7. Chronic obstructive pulmonary disease. Continue the patient's inhalers as needed. The patient is not currently in exacerbation. 8. Schizoaffective disorder. Continue the patient's Invega and Lamictal. 9. FEN: The patient will have a heart-healthy diet without caffeine. No fluids are indicated at this time. 10. Disposition: The patient is admitted to observation to the hospital. TIME SPENT: Approximately 60 minutes was spent on the admission of this patient , 30 of which was spent [id number] with the patient obtaining history and physical and discussing treatment plan. This plan was discussed with my attending, Dr. Saira Landon; she is in agreement. NAKUL RACHEL [id number]/[facility] #: [id number] ORLF
[2019-02-18] MEDS ORDERED: levETIRAcetam TAB* 500 MG PO SCH (21:00)
[2019-02-18] MEDS ORDERED: LAMOTRIGINE 50 MG PO SCH (21:00)
[2019-02-18] MEDS: levETIRAcetam TAB* 500 MG PO SCH (21:36)
[2019-02-18] MEDS: Cholestyramine Resin* 4 GM POWDER PO SCH (21:37)
[2019-02-18] MEDS: Famotidine TAB* 20 MG PO SCH (21:37)
[2019-02-18] MEDS: LAMOTRIGINE 50 MG PO SCH (21:41)
[2019-02-18] MEDS: Acetaminophen TAB* 325 MG PO PRN (23:10)
[2019-02-19 05:37] LABS: ABS Eosinophils 0.2 10^3/ul (0-0.6); ABS Lymphocytes 1.1 10^3/ul (1.0-4.8); ABS Monocytes 0.7 10^3/ul (0-0.8); ABS Neutrophils 3.1 10^3/ul (1.5-7.7); Eosinophil % 3.4 %; Hematocrit 34 % (35-47); Hemoglobin 11.5 g/dL (12.0-16.0); Lymphocyte % 21.2 %; Mean Corpuscular HGB Conc 34 g/dL (31-36); Mean Corpuscular Hemoglobin 32 pg (27-31); Mean Corpuscular Volume 94 fL (80-97); Mean Platelet Volume 7.7 fL (7.4-10.4); Nucleated Red Blood Cells % 0.1; Platelet Count 198 10^3/uL (150-450); Red Blood Count 3.56 10^6 /uL (3.70-4.87); Red Cell Distribution Width 13 % (10-15)
[2019-02-19 05:54] LABS: BUN/Creatinine Ratio 20.8 (8-20); Calcium 8.7 mg/dL (8.6-10.3); EGFR African American 68.6 (>60); EGFR Non-African American 56.7 (>60); Magnesium 1.8 mg/dL (1.9-2.7); Potassium 4.4 mmol/L (3.5-5.0)
--- NOTE | 2019-02-19 07:51 | PN ---
Subjective Date of Service: 02/19/19 Length of Stay: 1 Days Interval History: No issues overnight. She did fracture her left ankle and it is wrapped. No current pain in the left ankle. She denies any seizure like activity or lightheadedness. She feels ok but is concerned how she is going to get around with her ankle issue. Denies any chest pain, shortness of breath. No episodes of incontinence or tongue biting overnight. Telemetry: Paced. No tele events. Ankle x-ray: Fracture of the left distal fibula Chest x-ray: Pulmonary vascular congestion Objective Active Medications: Acetaminophen (Tylenol Tab*) 650 mg PO Q6H PRN PRN Reason: MILD PAIN or TEMP > 100.4 Last Admin: 02/18/19 23:10 Dose: 650 mg Albuterol (Ventolin Hfa Inhaler*) 2 puff INH Q4H PRN PRN Reason: SOB/WHEEZING Atorvastatin Calcium (Lipitor*) 10 mg PO DAILY [facility] Cholestyramine Resin (Questran*) 4 gm PO BID [facility] Last Admin: 02/18/19 21:37 Dose: 4 gm Clopidogrel Bisulfate (Plavix Tab*) 75 mg PO DAILY [facility] Enoxaparin Sodium (Lovenox(*)) 40 mg SUBCUT Q24H [facility] Last Admin: 02/18/19 18:07 Dose: 40 mg Famotidine (Pepcid Tab*) 20 mg PO BID [facility] Last Admin: 02/18/19 21:37 Dose: 20 mg Furosemide (Lasix Tab*) 20 mg PO MOWEFR [facility] Last Admin: 02/18/19 18:06 Dose: Not Given Lamotrigine (Lamictal Xr (Nf)) 100 mg PO DAILY [facility] Lamotrigine (Lamictal Xr (Nf)) 150 mg PO BEDTIME [facility] Last Admin: 02/18/19 21:41 Dose: 150 mg Levetiracetam (Keppra Tab*) 1,000 mg PO DAILY [facility] Levetiracetam (Keppra Tab*) 1,500 mg PO BEDTIME [facility] Last Admin: 02/18/19 21:36 Dose: 1,500 mg Metoprolol Succinate (Toprol Xl Tab*) 50 mg PO QAM [facility] Multivitamins/Minerals (Theragran/Minerals Tab*) 1 tab PO QAM [facility] Nitroglycerin (Nitroglycerin Tab 0.4 Mg*) 0.4 mg SL Q5M PRN PRN Reason: PAIN - CHEST Ondansetron HCl (Zofran Inj*) 4 mg IV Q6H PRN PRN Reason: NAUSEA Paliperidone (Invega Er Tab*) 6 mg PO DAILY [facility] Paroxetine HCl (Paxil Tab*) 20 mg PO DAILY [facility] Vital Signs 02/18/19 02/18/19 02/18/19 11:05 11:13 11:14 Temperature 97.1 F Pulse Rate 87 66 64 Respiratory 18 Rate Blood Pressure 121/83 123/78 (mmHg) O2 Sat by Pulse 98 95 96 Oximetry 02/18/19 02/18/19 02/18/19 11:43 11:55 11:56 Temperature Pulse Rate 60 58 60 Respiratory 21 21 17 Rate Blood Pressure 118/72 113/69 120/64 (mmHg) O2 Sat by Pulse 96 96 96 Oximetry 02/18/19 02/18/19 02/18/19 11:57 11:59 12:00 Temperature Pulse Rate 60 60 66 Respiratory 22 21 Rate Blood Pressure 111/68 111/68 (mmHg) O2 Sat by Pulse 97 97 Oximetry 02/18/19 02/18/19 02/18/19 12:43 13:00 13:13 Temperature Pulse Rate 60 60 Respiratory 23 21 15 Rate Blood Pressure 132/74 131/85 (mmHg) O2 Sat by Pulse 98 98 Oximetry 02/18/19 02/18/19 02/18/19 13:43 14:00 14:13 Temperature Pulse Rate 61 60 59 Respiratory 28 19 15 Rate Blood Pressure 122/81 121/72 (mmHg) O2 Sat by Pulse 97 95 95 Oximetry 02/18/19 02/18/19 02/18/19 14:43 15:00 15:13 Temperature Pulse Rate Respiratory 28 22 17 Rate Blood Pressure 117/75 128/75 (mmHg) O2 Sat by Pulse Oximetry 02/18/19 02/18/19 02/18/19 15:43 16:00 16:13 Temperature Pulse Rate 60 60 61 Respiratory 26 20 20 Rate Blood Pressure 114/70 126/73 (mmHg) O2 Sat by Pulse 95 95 97 Oximetry 02/18/19 02/18/19 02/18/19 16:44 17:00 17:14 Temperature Pulse Rate 60 60 Respiratory 21 13 Rate Blood Pressure 93/57 115/63 (mmHg) O2 Sat by Pulse 96 96 Oximetry 02/18/19 02/18/19 02/18/19 17:20 17:42 19:00 Temperature 97.3 F 97.3 F Pulse Rate 60 59 Respiratory 14 20 18 Rate Blood Pressure 113/74 96/42 (mmHg) O2 Sat by Pulse 98 96 Oximetry 02/18/19 02/18/19 02/18/19 19:15 20:00 23:15 Temperature 97.4 F 97.9 F Pulse Rate 63 59 Respiratory 18 20 20 Rate Blood Pressure 98/47 101/49 (mmHg) O2 Sat by Pulse 97 96 Oximetry 02/19/19 02/19/19 02/19/19 03:15 04:00 04:01 Temperature 97.4 F 98.0 F Pulse Rate 59 62 59 Respiratory 21 21 Rate Blood Pressure 98/50 108/54 107/58 (mmHg) O2 Sat by Pulse 94 96 96 Oximetry 02/19/19 04:03 Temperature Pulse Rate 61 Respiratory Rate Blood Pressure 107/55 (mmHg) O2 Sat by Pulse 96 Oximetry Intake and Output Last 24 Hours 02/17/19 02/18/19 02/19/19 02/20/19 06:59 06:59 06:59 06:59 Intake Total 650 Output Total 0 Balance 650 Weight 143 lb 9.6 oz Intake: Oral 650 Output: Urine 0 Other: Estimated Void Medium # Voids 1 Oxygen Devices in Use Now: None Neurology Exam: General: Well nourished, well developed, and in no acute distress HEENT: Normocephalic/atraumatic, sclera anicteric, mucous membranes moist Neck: Supple Chest: Clear to auscultation bilaterally Cardiovascular: Regular rate and rhythm without murmurs, rubs, gallops Abdomen: Soft, non-tender/non-distended Extremities: No clubbing, cyanosis, or edema. Left ankle is wrapped to the knee Neurological Findings: Awake, alert, and oriented to person, place, and time. Speech: fluent without dysarthria, repetition intact Cranial Nerve: PERRL, EOM intact, VFF, 2-3 beats of lateral gaze nystagmus bilaterally, face symmetric bilaterally, facial sensation intact, hearing intact to finger rub bilaterally, palate elevates symmetrically Motor: Well preserved strength, 5/5 throughout without drift. Unable to test distal left leg due to ankle fracture Sensation: Intact to LT/PP/Vibration in the feet and hands Deep Tendon Reflex: 1+ and symmetric at the BC, BR, TC. 1+ at the patella. absent right ankle. Downgoing right babinski Finger to nose, rapid alternating movements intact without tremor. No resting tremor Gait: On bedrest Result Diagrams: 02/19/19 05:12 02/19/19 05:12 Assessment/Plan 74 year old with a history of seizure, followed by Dr. Ling at the [facility], with recent loss of consciousness after an adjustment in her Keppra from 1500mg po bid to 1500mg in pm and 1000mg in am by Dr. Ling due to a high Keppra level. At that time, she came to the ER and her Keppra was increased back to 1500mg po bid. Yesterday, she had an episode with no loss of consciousness but did have lightheadedness, fell, unclear if this was a seizure but the semiology is unusual. She fractured her ankle after a fall yesterday. She has a long cardiac history of cardiomyopathy, EF 20%, AICD. She reports that generally, her seizures have been well controlled. Plan: 1. Valentin Hayes spoke with Dr. Ling yesterday who recommended that we decrease her Keppra back down to 1500mg/1000mg. She recommended increasing her Lamictal XR from 100mg po bid to 100mg in am and 150mg in pm for 1 week and then increasing to 150mg po bid. Levels are pending but she will need another level in several weeks after her Lamictal Adjustment. Dr. Ling reports that her last Lamictal level was in the 4 range (low normal.) No seizure activity overnight and my suspicion that her event yesterday was a seizure is low. Her event several days prior is less clear as she did lose bladder control at one point. 2. Cardiology has been consulted. Interrogation of her Defib. Continue Tele. Management per cardiology 3. Ankle Fracture: Ortho to see Will continue to follow.
[2019-02-19] MEDS: Cholestyramine Resin* 4 GM POWDER PO SCH ×2 (08:59→20:26)
[2019-02-19] MEDS: Famotidine TAB* 20 MG PO SCH ×2 (09:00→20:26)
[2019-02-19] MEDS ORDERED: LAMOTRIGINE 200 MG PO SCH (09:00)
[2019-02-19] MEDS: Metoprolol Succinate XL TAB* 50 MG PO SCH (09:00)
[2019-02-19] MEDS: Atorvastatin* 10 MG TAB PO SCH (09:00)
[2019-02-19] MEDS: LAMOTRIGINE 50 MG PO SCH ×2 (09:01→20:27)
[2019-02-19] MEDS: levETIRAcetam TAB* 500 MG PO SCH ×2 (09:01→20:26)
[2019-02-19] MEDS: Clopidogrel TAB* 75 MG PO SCH (09:01)
[2019-02-19] MEDS: Paliperidone ER TAB* 6 MG TAB.ER PO SCH (09:01)
[2019-02-19] MEDS: PARoxetine HCL TAB* 20 MG PO SCH (09:01)
[2019-02-19] MEDS: Multivitamins/Minerals TAB PO SCH (09:01)
--- NOTE | 2019-02-19 15:14 | PN ---
Subjective Date of Service: 02/19/19 Interval History: Ms. Potter presented with syncope x2. She reports prodrome each time. She has had no syncopal events, no dizziness, lightheadedness since admission. She also has not ambulated, as she has instructions for NW[facility] status to [facility] due to fracture, casting. She c/o L ankle pain rated at 4/10. She has no other complaints today. Objective Active Medications: Acetaminophen (Tylenol Tab*) 650 mg PO Q6H PRN PRN Reason: MILD PAIN or TEMP > 100.4 Last Admin: 02/18/19 23:10 Dose: 650 mg Albuterol (Ventolin Hfa Inhaler*) 2 puff INH Q4H PRN PRN Reason: SOB/WHEEZING Atorvastatin Calcium (Lipitor*) 10 mg PO DAILY [facility] Last Admin: 02/19/19 09:00 Dose: 10 mg Cholestyramine Resin (Questran*) 4 gm PO BID [facility] Last Admin: 02/19/19 08:59 Dose: Not Given Clopidogrel Bisulfate (Plavix Tab*) 75 mg PO DAILY [facility] Last Admin: 02/19/19 09:01 Dose: 75 mg Enoxaparin Sodium (Lovenox(*)) 40 mg SUBCUT Q24H [facility] Last Admin: 02/18/19 18:07 Dose: 40 mg Famotidine (Pepcid Tab*) 20 mg PO BID [facility] Last Admin: 02/19/19 09:00 Dose: 20 mg Furosemide (Lasix Tab*) 20 mg PO MOWEFR [facility] Last Admin: 02/18/19 18:06 Dose: Not Given Lamotrigine (Lamictal Xr (Nf)) 100 mg PO DAILY [facility] Last Admin: 02/19/19 09:01 Dose: 100 mg Lamotrigine (Lamictal Xr (Nf)) 150 mg PO BEDTIME [facility] Last Admin: 02/18/19 21:41 Dose: 150 mg Levetiracetam (Keppra Tab*) 1,000 mg PO DAILY [facility] Last Admin: 02/19/19 09:01 Dose: 1,000 mg Levetiracetam (Keppra Tab*) 1,500 mg PO BEDTIME [facility] Last Admin: 02/18/19 21:36 Dose: 1,500 mg Metoprolol Succinate (Toprol Xl Tab*) 50 mg PO QAM [facility] Last Admin: 02/19/19 09:00 Dose: 50 mg Multivitamins/Minerals (Theragran/Minerals Tab*) 1 tab PO QAM [facility] Last Admin: 02/19/19 09:01 Dose: 1 tab Nitroglycerin (Nitroglycerin Tab 0.4 Mg*) 0.4 mg SL Q5M PRN PRN Reason: PAIN - CHEST Ondansetron HCl (Zofran Inj*) 4 mg IV Q6H PRN PRN Reason: NAUSEA Paliperidone (Invega Er Tab*) 6 mg PO DAILY [facility] Last Admin: 02/19/19 09:01 Dose: 6 mg Paroxetine HCl (Paxil Tab*) 20 mg PO DAILY [facility] Last Admin: 02/19/19 09:01 Dose: 20 mg Vital Signs: Temp Pulse Resp BP Pulse Ox 98.0 F 65 16 105/66 96 02/19/19 15:40 02/19/19 15:40 02/19/19 15:40 02/19/19 15:40 02/19/19 15:40 Oxygen Devices in Use Now: None Appearance: Ms. Potter is an older white female who is sitting up in bed. She appears to be in no acute distress. Eyes: No Scleral Icterus, PERRLA Ears/Nose/Mouth/Throat: NL Teeth, Lips, Gums, Clear Oropharnyx, Mucous Membranes Moist, - - Mildly HOOPA Neck: NL Appearance and Movements; NL JVP, Trachea Midline Respiratory: Symmetrical Chest Expansion and Respiratory Effort, - - L basilar rales; otherwise clear to auscultation Cardiovascular: RRR, No Edema, - - Systolic murmur Abdominal: NL Sounds; No Tenderness; No Distention, No Hepatosplenomegaly Extremities: No Edema, No Clubbing, Cyanosis, - - L ankle with cast in place Neurological: Alert and Oriented x 3 Result Diagrams: 02/19/19 05:12 02/19/19 05:12 Assess/Plan/Problems-Billing Assessment: Ms. Potter is a 74 yof with PMHx CAD s/p CABG, stentin, HFrEF 20%, COPD, HTN, seizure d/o, stroke who presents to the ER with c/o syncope x2, L ankle pain. - Patient Problems (1) Syncope Comment: -syncope x2 -neuro consulted; unsure if this was seizure activity; changes made to margarita lamictal as described below -no orthopedic hypotension -cardiology consulted, pending -ICD interrogation shows no arrhythmia correlating with time of incident -pt has , although this is moderate on echo from 12/2018 -continue seizure precautions (2) Left fibular fracture Comment: -L distal fibular fx -ortho consulted; thank you for recommendations -short cast in place to LLE ankle -NWB LLE -will defer PT/OT for now until stable -will likely need LATANYA placement, as she lives alone (3) HTN (hypertension) Comment: -low-normal; no hypotension -continue home furosemide, metoprolol -holding lisinopril, spironolactone in setting of hyperkalemia (4) Nonsustained paroxysmal supraventricular tachycardia Comment: -h/o nonsustaned VT with PPM/AICD in place -interrogation shows 3 episodes of NS VT between 2-7 seconds each -these do not correlate with most recent episode of syncope -continue tele, monitor (5) Seizure disorder Comment: -neurology following; thank you for recommendations -no need for EEG at this time, per neuro -keppra to 1500 a.m., 1000 p.m. -lamictal to 100 a.m., 150 p.m. x1 week, then to 150 bid -repeat levels in 3-4 weeks -continue lamictal, keppra (6) Hyperkalemia Comment: -resolved (7) COPD (chronic obstructive pulmonary disease) Comment: -not in exacerbation -continue home inhalers (8) CAD (coronary artery disease) Comment: -continue statin, asa, plavix (9) H/O: CVA (cerebrovascular accident) Comment: -continue clopidogrel, asa (10) Schizoaffective disorder Comment: -stable, continue Invega (11) DVT prophylaxis Comment: -lovenox (12) Full code status Status and Disposition: Inpatient. Discharge when stable.
--- NOTE | 2019-02-19 15:49 | CONS ---
CONSULTATION REPORT: DATE OF CONSULT: 02/19/19 ATTENDING ORTHOPEDIC PROVIDER: Dr. Reed Reid. CHIEF COMPLAINT: Left ankle fracture. HISTORY OF PRESENT ILLNESS: The patient is a 74-year-old female with past medical history significant for heart failure, coronary artery disease, COPD, schizoaffective disorder, who presented to the emergency room with left ankle pain after syncope versus presyncopal episode. The patient notes that she was walking when she experienced a presyncopal episode, lost her balance and caught herself before hitting the ground. She had immediate left ankle pain. She does not think that she fully lost consciousness or hit her head. She denies any chest pain, shortness of breath, or dizziness at this time. Pain is localized to the lateral ankle, it is sharp and severe with any motion. She has a splint in place and she is comfortable at rest, aggravated by movement. She has no decreased sensation of the left lower extremity. PAST MEDICAL HISTORY: Coronary artery disease, status post multiple MIs; heart failure with reduced ejection fraction; COPD; schizoaffective disorder; seizure disorder; hypertension; and stroke. PAST SURGICAL HISTORY: ICD implantation, cardiac stents, CABG, and appendectomy. HOME MEDICATIONS: 1. Keppra 1500 mg p.o. b.i.d. 2. Metoprolol succinate 50 mg p.o. daily. 3. Nitroglycerin 0.4 mg sublingually q.5 minutes as needed for chest pain. 4. Lamotrigine 100 mg p.o. b.i.d. 5. Clopidogrel 75 mg p.o. daily. 6. Invega 1 tab p.o. daily. 7. Theragran 1 tab p.o. q.a.m. 8. Caltrate D 1 tab p.o. b.i.d. 9. Ranitidine 150 mg p.o. b.i.d. 10. Cholestyramine 4 g p.o. b.i.d. 11. Paroxetine 20 mg p.o. daily. 12. Atorvastatin 10 mg p.o. daily. 13. Lisinopril 2.5 mg p.o. daily. 14. Ventolin 2 puffs inhaled q.4 hours as needed. 15. Furosemide 20 mg p.o. Monday, Monday, Monday. 16. Spironolactone 12.5 mg Monday, Monday, , Monday. ALLERGIES: CARBAMAZEPINE, METHOXYFLURANE and SULFA. SOCIAL HISTORY: The patient lives in senior housing in [place]. The patient is a current everyday smoker. She denies alcohol or illicit drug use. REVIEW OF SYSTEMS: General: Denies fever or chills. HEENT: Denies any headache or head trauma. Cardiac: Denies chest pain. Has had episodes of shortness of breath. Does not feel short of breath currently. Abdomen: No abdominal pain, nausea, vomiting, or diarrhea. Musculoskeletal: Positive for left ankle pain. No other extremity pain. Neuro: Denies any decreased sensation in extremities. PHYSICAL EXAM: General: Well-appearing, in no acute distress. HEENT: Normocephalic, atraumatic. Respiratory: Normal rate and effort of breathing. Abdomen: Nondistended. Musculoskeletal: Moving bilateral upper extremities and right lower extremity well without any obvious bony deformity. Left lower extremity is in a short leg splint. Splint was removed. Skin envelope is intact. She is tender to palpation over the lateral malleolus. She is otherwise nontender throughout the extremity. Skin envelope is intact. Sensation is intact to light touch throughout the extremities. Able to wiggle MTPs. Capillary refill less than 2 seconds distally and DP pulses 2+. No tenderness of the knee or of the hip. Able to flex and extend the knee and the hip without pain. DIAGNOSTIC STUDIES: Left ankle x-ray, fracture of the distal fibula. ASSESSMENT: Left ankle fracture. PLAN: Short leg cast was placed, this was tolerated well by the patient. She was neurovascularly intact distally after cast placement and confirms comfort. She will be nonweightbearing on the left lower extremity and keep cast clean, dry and intact until follow up. She will follow up in our office with Dr. Reid in 2 weeks. NAKUL WARE [id number]/[facility] #: [id number] MTDAkua
[2019-02-19] MEDS: Enoxaparin(*) 40 MG/0.4 ML SYR SUBCUT SCH (16:06)
[2019-02-19] MEDS: Acetaminophen TAB* 325 MG PO PRN ×2 (16:13→22:28)
--- NOTE | 2019-02-19 19:16 | CONS ---
CC: Dr. Hall; Dr. Cuevas * CARDIOLOGY CONSULTATION: DATE OF CONSULT: 02/19/19 INDICATION FOR CONSULTATION: Syncope and history of coronary artery disease. HISTORY OF PRESENT ILLNESS: The patient is a 74-year-old woman with an extensive cardiac history, history of severe ischemic cardiomyopathy, ejection fraction of 20% and moderate aortic stenosis, history of ICD and paroxysmal atrial fibrillation; history of seizure disorder; schizoaffective disorder; COPD , who came to the emergency room because of syncope. The patient states that she had been doing well. She says last Monday, she went to visit a friend at [facility] and walked a steep hill to get the bus. She says she was very short of breath. She did feel lightheaded. The patient states that she got up to get into the bus and passed out and remembers nothing until the arrival of the ambulance. The patient's ICD was interrogated today. It demonstrated no arrhythmias either atrial or ventricular in the last month. The patient states that she had a repeat episode of syncope when she walked up a hill after visiting her friend at [facility]. Both of these episodes occurred with exertion. PAST MEDICAL HISTORY: Significant for: 1. Coronary artery disease. 2. Coronary artery bypass surgery. 3. Ischemic cardiomyopathy. 4. Ejection fraction of 20%. 5. Moderate aortic stenosis. 6. Schizoaffective disorder. 7. Seizure disorder. 8. Hypertension. 9. Stroke. PAST SURGICAL HISTORY: 1. ICD implantation. 2. Coronary bypass surgery. 3. Appendectomy. OUTPATIENT MEDICATIONS: 1. Keppra 1500 mg b.i.d. 2. Metoprolol succinate 50 mg a day. 3. Lamictal 100 mg b.i.d. 4. Plavix 75 mg a day. 5. Invega 1 mg a day. 6. Ranitidine 150 mg b.i.d. 7. Paroxetine 20 mg a day. 8. Cholestyramine 4 g b.i.d. 9. Atorvastatin 10 mg a day. 10. Lisinopril 2.5 mg a day. 11. Ventolin inhaler. 12. Lasix 20 mg Monday, Monday, Monday. 13. Spironolactone 12.5 mg 4 days a week. ALLERGIES: To CARBAMAZEPINE, SULFA medications. SOCIAL HISTORY: She is a previous smoker, but quit many years ago. She denies tobacco. She is retired. She lives in [place] in a long term. REVIEW OF SYSTEMS: Negative for fevers and chills. Negative for changes in bowel or bladder habits. Negative for change in weight. PHYSICAL EXAM: Vital Signs: Height is 5 feet 2 inches, weight 143 pounds, temperature 98, blood pressure 105/66, respiratory rate is 16, heart rate is 65 , oxygen saturation 96% on room air. Sclerae anicteric. Oropharynx is pink without erythema. Carotids are 2+ without bruits. JVD is normal. Thyroid is normal. Cardiac Exam: S1, S2 with a 2/6 systolic ejection murmur, heard best at the right upper sternal border. PMI is normal. Lungs have diminished breath sounds. There is no rhonchi or rales. Abdomen is soft, nontender, nondistended with normoactive bowel sounds. Extremities show 1+ edema. She has 2+ pulses throughout. The patient is awake, alert and oriented. She moves all 4 extremities equally. DIAGNOSTIC STUDIES/LAB DATA: CBC within normal limits. Chemistries within normal limits. BUN 20, creatinine 0.93, AST and ALT are negative. Troponins are negative x3. TSH 1.6. IMPRESSION: This is a 74-year-old female with a history of ischemic cardiomyopathy, ICD, seizure disorder who had 2 syncopal episodes, both of which has occurred with exertion. The patient does have a history of moderate aortic stenosis, but with her low ejection fraction, her degree of aortic stenosis could be underestimated. Interrogation of her [employer] ICD today demonstrates no significant arrhythmias. There is normal function of her ICD. At this point, I am not exactly sure what is the cause of syncope. It could have been seizures brought on by exertion; however, it could have been low blood pressure brought on by exertion and aortic stenosis. At this point, I do not think any changes in her medications are necessary. I do not think any other testing is necessary. The patient did sustain a leg fracture with her recent fall, thus walking her on the treadmill and following her blood pressures and her heart rhythm is not possible. I am not convinced that the patient needs to youssef off to aortic valve replacement. I will see the patient in follow up as an outpatient and make further recommendations at that time. [id number]/[facility] #: [id number] [facility]
[2019-02-20 06:25] LABS: ABS Eosinophils 0.2 10^3/ul (0-0.6); ABS Lymphocytes 0.7 10^3/ul (1.0-4.8); ABS Monocytes 0.7 10^3/ul (0-0.8); ABS Neutrophils 3.6 10^3/ul (1.5-7.7); Eosinophil % 2.9 %; Hematocrit 41 % (35-47); Hemoglobin 13.5 g/dL (12.0-16.0); Mean Corpuscular HGB Conc 33 g/dL (31-36); Mean Corpuscular Hemoglobin 31 pg (27-31); Mean Corpuscular Volume 96 fL (80-97); Nucleated Red Blood Cells % 0.2; Red Blood Count 4.31 10^6 /uL (3.70-4.87); Red Cell Distribution Width 14 % (10-15); White Blood Count 5.2 10^3/uL (3.5-10.8)
[2019-02-20 06:35] LABS: CO2 Carbon Dioxide 22 mmol/L (22-32); Calcium 8.7 mg/dL (8.6-10.3); Chloride 103 mmol/L (101-111); Magnesium 1.9 mg/dL (1.9-2.7); Sodium 133 mmol/L (135-145)
[2019-02-20 06:41] LABS: BUN/Creatinine Ratio 22.5 (8-20); Blood Urea Nitrogen 18 mg/dL (6-24); EGFR African American 84.6 (>60); EGFR Non-African American 69.9 (>60); Glucose 109 mg/dL (70-100)
[2019-02-20 06:42] LABS: Anion Gap 8 mmol/L (2-11)
[2019-02-20 07:15] LABS: Platelet Count 237 10^3/uL (150-450)
[2019-02-20] MEDS: Acetaminophen TAB* 325 MG PO PRN ×2 (07:22→17:24)
[2019-02-20] MEDS: PARoxetine HCL TAB* 20 MG PO SCH (08:12)
[2019-02-20] MEDS: Atorvastatin* 10 MG TAB PO SCH (08:12)
[2019-02-20] MEDS: levETIRAcetam TAB* 500 MG PO SCH ×2 (08:12→20:39)
[2019-02-20] MEDS: LAMOTRIGINE 50 MG PO SCH ×2 (08:12→20:39)
[2019-02-20] MEDS: Clopidogrel TAB* 75 MG PO SCH (08:12)
[2019-02-20] MEDS: Famotidine TAB* 20 MG PO SCH ×2 (08:12→20:37)
[2019-02-20] MEDS: Multivitamins/Minerals TAB PO SCH (08:12)
[2019-02-20] MEDS: Paliperidone ER TAB* 6 MG TAB.ER PO SCH (08:13)
[2019-02-20] MEDS: Cholestyramine Resin* 4 GM POWDER PO SCH ×2 (08:18→20:40)
[2019-02-20] MEDS: Metoprolol Succinate XL TAB* 50 MG PO SCH (08:18)
--- NOTE | 2019-02-20 09:51 | PN ---
<Cuca Garcia - Last Filed: 02/20/19 10:02> Subjective Date of Service: 02/20/19 - bicuspid AV with , syncope Interval History: No events last night. Patient denies dizziness, palpitations, sensation of heart racing, chest pain. Shes sitting in chair and offers no complaints at this time. Medications Active Medications: Acetaminophen (Tylenol Tab*) 650 mg PO Q6H PRN PRN Reason: MILD PAIN or TEMP > 100.4 Last Admin: 02/20/19 07:22 Dose: 650 mg Albuterol (Ventolin Hfa Inhaler*) 2 puff INH Q4H PRN PRN Reason: SOB/WHEEZING Atorvastatin Calcium (Lipitor*) 10 mg PO DAILY [facility] Last Admin: 02/20/19 08:12 Dose: 10 mg Cholestyramine Resin (Questran*) 4 gm PO BID [facility] Last Admin: 02/20/19 08:18 Dose: Not Given Clopidogrel Bisulfate (Plavix Tab*) 75 mg PO DAILY [facility] Last Admin: 02/20/19 08:12 Dose: 75 mg Enoxaparin Sodium (Lovenox(*)) 40 mg SUBCUT Q24H [facility] Last Admin: 02/19/19 16:06 Dose: 40 mg Famotidine (Pepcid Tab*) 20 mg PO BID [facility] Last Admin: 02/20/19 08:12 Dose: 20 mg Lamotrigine (Lamictal Xr (Nf)) 100 mg PO DAILY [facility] Last Admin: 02/20/19 08:12 Dose: 100 mg Lamotrigine (Lamictal Xr (Nf)) 150 mg PO BEDTIME [facility] Last Admin: 02/19/19 20:27 Dose: 150 mg Levetiracetam (Keppra Tab*) 1,000 mg PO DAILY [facility] Last Admin: 02/20/19 08:12 Dose: 1,000 mg Levetiracetam (Keppra Tab*) 1,500 mg PO BEDTIME [facility] Last Admin: 02/19/19 20:26 Dose: 1,500 mg Metoprolol Succinate (Toprol Xl Tab*) 50 mg PO QAM [facility] Last Admin: 02/20/19 08:18 Dose: Not Given Multivitamins/Minerals (Theragran/Minerals Tab*) 1 tab PO QAM [facility] Last Admin: 02/20/19 08:12 Dose: 1 tab Nitroglycerin (Nitroglycerin Tab 0.4 Mg*) 0.4 mg SL Q5M PRN PRN Reason: PAIN - CHEST Ondansetron HCl (Zofran Inj*) 4 mg IV Q6H PRN PRN Reason: NAUSEA Paliperidone (Invega Er Tab*) 6 mg PO DAILY [facility] Last Admin: 02/20/19 08:13 Dose: 6 mg Paroxetine HCl (Paxil Tab*) 20 mg PO DAILY [facility] Last Admin: 02/20/19 08:12 Dose: 20 mg Objective Vital Signs: Temp Pulse Resp BP Pulse Ox 98.5 F 63 22 104/53 98 02/20/19 07:15 02/20/19 07:15 02/20/19 07:15 02/20/19 07:15 02/20/19 07:15 Oxygen Devices in Use Now: None Appearance: sitting in chair, no apparent distress. A+Ox3. cooperative with exam. Eyes: No Scleral Icterus, PERRLA Ears/Nose/Mouth/Throat: NL Teeth, Lips, Gums, Mucous Membranes Moist Neck: NL Appearance and Movements; NL JVP, Trachea Midline Respiratory: - - inspiratory crackles noted in left lower base. otherwise clear throughout. non labored respirations. Cardiovascular: - - Normal S1, S2, RRR, 3/6 early systolic AV murmur. no gallop or rub. Extremities: No Edema Neurological: Alert and Oriented x 3 Lines/Tubes/Other Access: Clean, Dry and Intact Peripheral IV Laboratory Results: 02/20/19 05:32 02/20/19 07:40 Total Bilirubin 0.40 mg/dL (0.2-1.0) 02/18/19 12:32 AST 21 U/L (13-39) 02/18/19 12:32 ALT 9 U/L (7-52) 02/18/19 12:32 Alkaline Phosphatase 71 U/L (34-104) 02/18/19 12:32 Total Protein 6.6 g/dL (6.4-8.9) 02/18/19 12:32 Albumin 4.0 g/dL (3.2-5.2) 02/18/19 12:32 Globulin 2.6 g/dL (2-4) 02/18/19 12:32 Albumin/Globulin Ratio 1.5 (1-3) 02/18/19 12:32 TSH 1.64 mcIU/mL (0.34-5.60) 02/18/19 12:32 02/18/19 02/18/19 02/18/19 12:32 16:02 18:33 Troponin I 0.03 0.03 0.03 02/18/19 21:32 Troponin I 0.02 Laboratory Results - last 24 hr 02/20/19 02/20/19 02/20/19 05:32 05:32 07:40 WBC 5.2 RBC 4.31 Hgb 13.5 Hct 41 MCV 96 MCH 31 MCHC 33 RDW 14 Plt Count 237 MPV Not Reportable Neut % (Auto) 69.8 Lymph % (Auto) 13.0 Wilson % (Auto) 13.8 Eos % (Auto) 2.9 Baso % (Auto) 0.5 Absolute Neuts (auto) 3.6 Absolute Lymphs (auto) 0.7 L Absolute Monos (auto) 0.7 Absolute Eos (auto) 0.2 Absolute Basos (auto) 0.0 Absolute Nucleated RBC 0.0 Nucleated RBC % 0.2 Sodium 133 L Potassium TNP 4.5 Chloride 103 Carbon Dioxide 22 Anion Gap 8 BUN 18 Creatinine 0.80 Est GFR ( Amer) 84.6 Est GFR (Non-Af Amer) 69.9 BUN/Creatinine Ratio 22.5 H Glucose 109 H Calcium 8.7 Magnesium 1.9 Laboratory Results - last 24 hr 02/20/19 02/20/19 02/20/19 05:32 05:32 07:40 WBC 5.2 RBC 4.31 Hgb 13.5 Hct 41 MCV 96 MCH 31 MCHC 33 RDW 14 Plt Count 237 MPV Not Reportable Neut % (Auto) 69.8 Lymph % (Auto) 13.0 Wilson % (Auto) 13.8 Eos % (Auto) 2.9 Baso % (Auto) 0.5 Absolute Neuts (auto) 3.6 Absolute Lymphs (auto) 0.7 L Absolute Monos (auto) 0.7 Absolute Eos (auto) 0.2 Absolute Basos (auto) 0.0 Absolute Nucleated RBC 0.0 Nucleated RBC % 0.2 Sodium 133 L Potassium TNP 4.5 Chloride 103 Carbon Dioxide 22 Anion Gap 8 BUN 18 Creatinine 0.80 Est GFR ( Amer) 84.6 Est GFR (Non-Af Amer) 69.9 BUN/Creatinine Ratio 22.5 H Glucose 109 H Calcium 8.7 Magnesium 1.9 EKG Data: 02/19/2019; AP rate 60. minimal lateral ST depression comparable to prior ECG. Telemetry; AP rate 60-70 Device check from 02/19/2019; AP 84.9%, REVERSING MILL ROLLER .8%. no AF. no VT since 12/31/2018 device check. ? optivol elevation from 01/12/2019-01/15/2019. Assessment/Plan #1 Syncope; Patient report episode occurred with more than typical activity while walking briskly up a hill. this occurred in October under similar circumstances. At that time echo was updated she has known bicuspid AV peak gradient was 21, mean 10, I did not see DI mentioned in report. She had an updated lexiscan ST at that time per MPI report large fixed defect involving septum and inferolateral wall, possible small area of reversible change in anterior region. EF 13%. She reports not consuming enough fluids prior to event and she has been hypotensive. At this time given hypotension and possible low flow low gardient will discontinue lasix and bblocker. She will need close follow up with Dr. Orourke for re assessment of PA pressure and . Neuro consult appreciated it was felt that event was not related to seizure activity. Not clear of ? volume contraction provoked . Device interrogated. no VT . #2 h/o CAD. Denies chest pain. On ASA and statin therapy. bblocker on hold due to hypotension. troponin negative x3 #3 h/o with bicuspid AV; last echo 10/2018. will need to have close follow up with Dr. Orourke to re assess severity and gradients. Avoid volume contraction and afterload reduction agents. Nitrate therapy should be avoided as well. will d/c lasix, and prn NTG given concern for low flow low gradient . #4 s/p left ankle fracture. differ to primary team #5 disposition pending course. will follow closely. If BP improves would recommend restarting bblocker given h/o NSVT in the past. Riley speak with Dr. Upton. <Taya Upton - Last Filed: 02/20/19 15:35> Medications Active Medications: Acetaminophen (Tylenol Tab*) 650 mg PO Q6H PRN PRN Reason: MILD PAIN or TEMP > 100.4 Last Admin: 02/20/19 07:22 Dose: 650 mg Albuterol (Ventolin Hfa Inhaler*) 2 puff INH Q4H PRN PRN Reason: SOB/WHEEZING Atorvastatin Calcium (Lipitor*) 10 mg PO DAILY [facility] Last Admin: 02/20/19 08:12 Dose: 10 mg Cholestyramine Resin (Questran*) 4 gm PO BID [facility] Last Admin: 02/20/19 08:18 Dose: Not Given Clopidogrel Bisulfate (Plavix Tab*) 75 mg PO DAILY [facility] Last Admin: 02/20/19 08:12 Dose: 75 mg Enoxaparin Sodium (Lovenox(*)) 40 mg SUBCUT Q24H [facility] Last Admin: 02/19/19 16:06 Dose: 40 mg Famotidine (Pepcid Tab*) 20 mg PO BID [facility] Last Admin: 02/20/19 08:12 Dose: 20 mg Lamotrigine (Lamictal Xr (Nf)) 100 mg PO DAILY [facility] Last Admin: 02/20/19 08:12 Dose: 100 mg Lamotrigine (Lamictal Xr (Nf)) 150 mg PO BEDTIME [facility] Last Admin: 02/19/19 20:27 Dose: 150 mg Levetiracetam (Keppra Tab*) 1,000 mg PO DAILY [facility] Last Admin: 02/20/19 08:12 Dose: 1,000 mg Levetiracetam (Keppra Tab*) 1,500 mg PO BEDTIME [facility] Last Admin: 02/19/19 20:26 Dose: 1,500 mg Multivitamins/Minerals (Theragran/Minerals Tab*) 1 tab PO QAM [facility] Last Admin: 02/20/19 08:12 Dose: 1 tab Ondansetron HCl (Zofran Inj*) 4 mg IV Q6H PRN PRN Reason: NAUSEA Paliperidone (Invega Er Tab*) 6 mg PO DAILY [facility] Last Admin: 02/20/19 08:13 Dose: 6 mg Paroxetine HCl (Paxil Tab*) 20 mg PO DAILY [facility] Last Admin: 02/20/19 08:12 Dose: 20 mg Objective Vital Signs: Temp Pulse Resp BP Pulse Ox 98.8 F 67 22 95/51 99 02/20/19 11:15 02/20/19 11:15 02/20/19 11:15 02/20/19 11:15 02/20/19 11:15 Laboratory Results: 02/20/19 05:32 02/20/19 07:40 Total Bilirubin 0.40 mg/dL (0.2-1.0) 02/18/19 12:32 AST 21 U/L (13-39) 02/18/19 12:32 ALT 9 U/L (7-52) 02/18/19 12:32 Alkaline Phosphatase 71 U/L (34-104) 02/18/19 12:32 Total Protein 6.6 g/dL (6.4-8.9) 02/18/19 12:32 Albumin 4.0 g/dL (3.2-5.2) 02/18/19 12:32 Globulin 2.6 g/dL (2-4) 02/18/19 12:32 Albumin/Globulin Ratio 1.5 (1-3) 02/18/19 12:32 TSH 1.64 mcIU/mL (0.34-5.60) 02/18/19 12:32 02/18/19 02/18/19 02/18/19 12:32 16:02 18:33 Troponin I 0.03 0.03 0.03 02/18/19 21:32 Troponin I 0.02 Assessment/Plan I saw and examined the patient personally. The patient has some dizziness turning head and OS. The patient admits she was doing more than usual prior to the event (walked up hill quickly to bus, rested, then stood up to get to bus stop and LOC). Exam: Clear lungs 2/6 late peaking murmur with easily audible S2- not c/w critical A/p As above, recurrent LOC. Neuro does not think related to seizures and VT/VT ruled out. and low CO likely culprits. Non urgent DSE for and TANI are options, discussed with Dr Orourke, he will coordinate outpatient scheduling. Recommend increasing activity on 4S to the level she will do at home to observe on monitor/see how she does.
[2019-02-20 12:21] LABS: Lamotrigine 6.2 mcg/mL (2.5 - 15.0)
[2019-02-20] MEDS: Enoxaparin(*) 40 MG/0.4 ML SYR SUBCUT SCH (16:10)
[2019-02-20 16:33] LABS: Lamotrigine 5.2 mcg/mL (2.5 - 15.0)
[2019-02-20 16:41] LABS: Levetiracetam 81.7 mcg/mL
--- NOTE | 2019-02-20 16:59 | PN ---
Subjective Date of Service: 02/20/19 Interval History: Ms. Potter states she has some dizziness with reading, but at no other times, including sitting, [id number], or ambulation, although she notes that she has not ambulated recently. She denies SOB, PND, but does c/o SWENSON at times, which has been ongoing. She has no other complaints today. Objective Active Medications: Acetaminophen (Tylenol Tab*) 650 mg PO Q6H PRN PRN Reason: MILD PAIN or TEMP > 100.4 Last Admin: 02/20/19 07:22 Dose: 650 mg Albuterol (Ventolin Hfa Inhaler*) 2 puff INH Q4H PRN PRN Reason: SOB/WHEEZING Atorvastatin Calcium (Lipitor*) 10 mg PO DAILY [facility] Last Admin: 02/20/19 08:12 Dose: 10 mg Cholestyramine Resin (Questran*) 4 gm PO BID [facility] Last Admin: 02/20/19 08:18 Dose: Not Given Clopidogrel Bisulfate (Plavix Tab*) 75 mg PO DAILY [facility] Last Admin: 02/20/19 08:12 Dose: 75 mg Enoxaparin Sodium (Lovenox(*)) 40 mg SUBCUT Q24H [facility] Last Admin: 02/20/19 16:10 Dose: 40 mg Famotidine (Pepcid Tab*) 20 mg PO BID [facility] Last Admin: 02/20/19 08:12 Dose: 20 mg Lamotrigine (Lamictal Xr (Nf)) 100 mg PO DAILY [facility] Last Admin: 02/20/19 08:12 Dose: 100 mg Lamotrigine (Lamictal Xr (Nf)) 150 mg PO BEDTIME [facility] Last Admin: 02/19/19 20:27 Dose: 150 mg Levetiracetam (Keppra Tab*) 1,000 mg PO DAILY [facility] Last Admin: 02/20/19 08:12 Dose: 1,000 mg Levetiracetam (Keppra Tab*) 1,500 mg PO BEDTIME [facility] Last Admin: 02/19/19 20:26 Dose: 1,500 mg Multivitamins/Minerals (Theragran/Minerals Tab*) 1 tab PO QAM [facility] Last Admin: 02/20/19 08:12 Dose: 1 tab Ondansetron HCl (Zofran Inj*) 4 mg IV Q6H PRN PRN Reason: NAUSEA Paliperidone (Invega Er Tab*) 6 mg PO DAILY [facility] Last Admin: 02/20/19 08:13 Dose: 6 mg Paroxetine HCl (Paxil Tab*) 20 mg PO DAILY [facility] Last Admin: 02/20/19 08:12 Dose: 20 mg Vital Signs: Temp Pulse Resp BP Pulse Ox 97.2 F 70 18 119/65 100 02/20/19 15:15 02/20/19 15:15 02/20/19 15:15 02/20/19 15:15 02/20/19 15:15 Oxygen Devices in Use Now: None Appearance: Ms. Potter is an older white female who is sitting up in bed. She appears to be in no acute distress. She is pleasant, cooperative, occasionally forgetful. Eyes: No Scleral Icterus, PERRLA Ears/Nose/Mouth/Throat: NL Teeth, Lips, Gums, Clear Oropharnyx, Mucous Membranes Moist, - - mild TANANA Neck: NL Appearance and Movements; NL JVP, Trachea Midline Respiratory: Symmetrical Chest Expansion and Respiratory Effort, - - bibasilar rales Cardiovascular: NL Sounds; No Murmurs; No JVD, No Edema, - - systolic murmur Abdominal: NL Sounds; No Tenderness; No Distention, No Hepatosplenomegaly Extremities: No Edema, No Clubbing, Cyanosis Neurological: Alert and Oriented x 3 Result Diagrams: 02/20/19 05:32 02/20/19 07:40 Assess/Plan/Problems-Billing Assessment: Ms. Potter is a 74 yof with PMHx CAD s/p CABG, stentin, HFrEF 20%, COPD, HTN, seizure d/o, stroke who presents to the ER with c/o syncope x2, L ankle pain. - Patient Problems (1) Syncope Comment: -syncope x2 -neuro consulted; unsure if this was seizure activity, but low suspicion; changes made to keppra, lamictal as described below -no orthostatic hypotension -cardiology consulted; suspect and low CO -ICD interrogation shows no arrhythmia correlating with time of incident -pt has , although this is moderate on echo from 12/2018 -card recommends outpatient DSE for , TANI -continue seizure precautions (2) Left fibular fracture Comment: -L distal fibular fx -ortho consulted; thank you for recommendations -short cast in place to LLE ankle -NWB LLE -PT/OT ordered -will likely need LATANYA placement, as she lives alone and will be NWB (3) HTN (hypertension) Comment: -low-normal; no hypotension -continue home furosemide -metoprolol held today; will restart at half dose in a.m. with continued hold parameters -holding lisinopril, spironolactone in setting up hypotension (4) Nonsustained paroxysmal supraventricular tachycardia Comment: -h/o nonsustaned VT with PPM/AICD in place -interrogation shows 3 episodes of NS VT between 2-7 seconds each -these do not correlate with most recent episode of syncope -continue tele, monitor (5) Seizure disorder Comment: -neurology following; thank you for recommendations -no need for EEG at this time, per neuro -keppra to 1500 a.m., 1000 p.m. -lamictal to 100 a.m., 150 p.m. x1 week, then to 150 bid -repeat levels in 3-4 weeks -continue alessio tomlinppra (6) COPD (chronic obstructive pulmonary disease) Comment: -not in exacerbation -continue home inhalers (7) CAD (coronary artery disease) Comment: -continue statin, asa, plavix (8) H/O: CVA (cerebrovascular accident) Comment: -continue clopidogrel, asa (9) Schizoaffective disorder Comment: -stable, continue Invega (10) DVT prophylaxis Comment: -gee (11) Full code status Status and Disposition: Inpatient. Discharge when stable.
[2019-02-21] MEDS: Acetaminophen TAB* 325 MG PO PRN ×2 (04:36→10:58)
[2019-02-21] MEDS: levETIRAcetam TAB* 500 MG PO SCH (08:37)
[2019-02-21] MEDS: Cholestyramine Resin* 4 GM POWDER PO SCH (08:37)
[2019-02-21] MEDS: Famotidine TAB* 20 MG PO SCH (08:38)
[2019-02-21] MEDS: PARoxetine HCL TAB* 20 MG PO SCH (08:38)
[2019-02-21] MEDS: Multivitamins/Minerals TAB PO SCH (08:39)
[2019-02-21] MEDS: Clopidogrel TAB* 75 MG PO SCH (08:39)
[2019-02-21] MEDS: Atorvastatin* 10 MG TAB PO SCH (08:39)
[2019-02-21] MEDS: Paliperidone ER TAB* 6 MG TAB.ER PO SCH (08:40)
[2019-02-21] MEDS: LAMOTRIGINE 50 MG PO SCH (08:41)
[2019-02-21] MEDS ORDERED: Metoprolol Succinate XL TAB* 25 MG PO SCH (09:00)
--- NOTE | 2019-02-21 10:21 | PN ---
<MoisésmichelleCuca - Last Filed: 02/21/19 10:16> Subjective Date of Service: 02/21/19 - moderate , PHTN, syncope, SHF Interval History: No events last night. Patient denies dizziness, palpitations, sensation of heart racing, chest pain. Shes sitting in chair and offers no complaints at this time. Medications Active Medications: Acetaminophen (Tylenol Tab*) 650 mg PO Q6H PRN PRN Reason: MILD PAIN or TEMP > 100.4 Last Admin: 02/21/19 04:36 Dose: 650 mg Albuterol (Ventolin Hfa Inhaler*) 2 puff INH Q4H PRN PRN Reason: SOB/WHEEZING Atorvastatin Calcium (Lipitor*) 10 mg PO DAILY [facility] Last Admin: 02/21/19 08:39 Dose: 10 mg Cholestyramine Resin (Questran*) 4 gm PO BID [facility] Last Admin: 02/21/19 08:37 Dose: Not Given Clopidogrel Bisulfate (Plavix Tab*) 75 mg PO DAILY [facility] Last Admin: 02/21/19 08:39 Dose: 75 mg Enoxaparin Sodium (Lovenox(*)) 40 mg SUBCUT Q24H [facility] Last Admin: 02/20/19 16:10 Dose: 40 mg Famotidine (Pepcid Tab*) 20 mg PO BID [facility] Last Admin: 02/21/19 08:38 Dose: 20 mg Lamotrigine (Lamictal Xr (Nf)) 100 mg PO DAILY [facility] Last Admin: 02/21/19 08:41 Dose: 100 mg Lamotrigine (Lamictal Xr (Nf)) 150 mg PO BEDTIME [facility] Last Admin: 02/20/19 20:39 Dose: 150 mg Levetiracetam (Keppra Tab*) 1,000 mg PO DAILY [facility] Last Admin: 02/21/19 08:37 Dose: 1,000 mg Levetiracetam (Keppra Tab*) 1,500 mg PO BEDTIME [facility] Last Admin: 02/20/19 20:39 Dose: 1,500 mg Metoprolol Succinate (Toprol Xl Tab*) 25 mg PO DAILY [facility] Last Admin: 02/21/19 08:39 Dose: 25 mg Multivitamins/Minerals (Theragran/Minerals Tab*) 1 tab PO QAM [facility] Last Admin: 02/21/19 08:39 Dose: 1 tab Ondansetron HCl (Zofran Inj*) 4 mg IV Q6H PRN PRN Reason: NAUSEA Paliperidone (Invega Er Tab*) 6 mg PO DAILY [facility] Last Admin: 02/21/19 08:40 Dose: 6 mg Paroxetine HCl (Paxil Tab*) 20 mg PO DAILY [facility] Last Admin: 02/21/19 08:38 Dose: 20 mg Objective Vital Signs: Temp Pulse Resp BP Pulse Ox 97.5 F 72 18 112/69 95 02/21/19 07:13 02/21/19 07:13 02/21/19 07:13 02/21/19 07:13 02/21/19 07:13 Oxygen Devices in Use Now: None Appearance: sitting in chair, no apparent distress. A+Ox3. cooperative with exam. Eyes: No Scleral Icterus, PERRLA Ears/Nose/Mouth/Throat: NL Teeth, Lips, Gums, Mucous Membranes Moist Neck: NL Appearance and Movements; NL JVP, Trachea Midline Respiratory: - - inspiratory crackles noted in left lower base. otherwise clear throughout. non labored respirations. Cardiovascular: - - Normal S1, S2, RRR, 3/6 early systolic AV murmur. no gallop or rub. Extremities: No Edema Neurological: Alert and Oriented x 3 Lines/Tubes/Other Access: Clean, Dry and Intact Peripheral IV Laboratory Results: 02/20/19 05:32 02/20/19 07:40 Total Bilirubin 0.40 mg/dL (0.2-1.0) 02/18/19 12:32 AST 21 U/L (13-39) 02/18/19 12:32 ALT 9 U/L (7-52) 02/18/19 12:32 Alkaline Phosphatase 71 U/L (34-104) 02/18/19 12:32 Total Protein 6.6 g/dL (6.4-8.9) 02/18/19 12:32 Albumin 4.0 g/dL (3.2-5.2) 02/18/19 12:32 Globulin 2.6 g/dL (2-4) 02/18/19 12:32 Albumin/Globulin Ratio 1.5 (1-3) 02/18/19 12:32 TSH 1.64 mcIU/mL (0.34-5.60) 02/18/19 12:32 02/18/19 02/18/19 02/18/19 12:32 16:02 18:33 Troponin I 0.03 0.03 0.03 02/18/19 21:32 Troponin I 0.02 Laboratory Results - last 24 hr 02/18/19 02/19/19 12:32 05:12 Lamotrigine 6.2 5.2 Levetiracetam 100.0 H 81.7 H EKG Data: 02/19/2019; AP rate 60. minimal lateral ST depression comparable to prior ECG. Telemetry; AP rate 60-70 Device check from 02/19/2019; AP 84.9%, ANIMAL HANDLER .8%. no AF. no VT since 12/31/2018 device check. ? optivol elevation from 01/12/2019-01/15/2019. Assessment/Plan #1 Recurrent Syncope in the setting of more than typical activity (walked up hill quickly to bus, rested, then stood up to get to bus stop and LOC). h/o bicuspid AV with moderate . ( ? low flow, low gradient). She was hypotensive and compensated thus loop diuretic was stopped. She is tolerating lower dose bblocker and SBP has improved to now 110-105. Continue lower dose bblocker. Close outpatient cardiac follow up arranged. to be addressed outpatient. Denies chest pain. Trop negative. No VT noted on device check #2 SHF; LVEF 15-20%; has device insitu. tolerating lower dose of bblocker. Loop diuretic stopped due to hypotension. Can re address re initiating loop diuretic outpatient. She is compensated on exam. Not on ACEI/ARB due to avoidance of afterload reduction due to above #1. #3 s/p left ankle fracture; differ to ortho and primary team #4 Disposition pending course. will speak with Dr. Gama about signing off case. Attending: Roberto Gama <Roberto Gama - Last Filed: 02/21/19 15:40> Objective Vital Signs: Temp Pulse Resp BP Pulse Ox 98.2 F 74 17 100/52 95 02/21/19 11:42 02/21/19 11:42 02/21/19 11:42 02/21/19 12:08 02/21/19 11:42 Laboratory Results: 02/20/19 05:32 02/20/19 07:40 Total Bilirubin 0.40 mg/dL (0.2-1.0) 02/18/19 12:32 AST 21 U/L (13-39) 02/18/19 12:32 ALT 9 U/L (7-52) 02/18/19 12:32 Alkaline Phosphatase 71 U/L (34-104) 02/18/19 12:32 Total Protein 6.6 g/dL (6.4-8.9) 02/18/19 12:32 Albumin 4.0 g/dL (3.2-5.2) 02/18/19 12:32 Globulin 2.6 g/dL (2-4) 02/18/19 12:32 Albumin/Globulin Ratio 1.5 (1-3) 02/18/19 12:32 TSH 1.64 mcIU/mL (0.34-5.60) 02/18/19 12:32 02/18/19 02/18/19 02/18/19 12:32 16:02 18:33 Troponin I 0.03 0.03 0.03 02/18/19 21:32 Troponin I 0.02 Assessment/Plan Points of Discussion: Reviewed with Ms. Garcia. Agree with plan. reconsult as needed.
[2019-02-21 12:24] VITALS: BP 100/52
--- NOTE | 2019-02-21 13:00 | DS ---
DATE OF ADMISSION: 02/18/2019. DATE OF DISCHARGE: 02/21/2019. ATTENDING PHYSICIAN WHILE IN THE HOSPITAL: Dr. Saira Landon * (dictated by NAKUL Sparrow). HISTORY OF PRESENT ILLNESS/HOSPITAL COURSE: Temitope Potter is a 74-year-old white female with a past medical history significant for heart failure with reduced ejection fraction, coronary artery disease, COPD, schizoaffective disorder who presented to the hospital on 02/18/2019 due to syncope. Please see the admission history and physical written by NAKUL Madden for further details. Ultimately, the patient's syncope was likely due to a combination of hypovolemia, aortic stenosis, and severe heart failure. She was seen in consultation by the neurology service who did not believe that this was a seizure; however, her medications were adjusted per her outpatient neurologist and these changes are reflected in her discharge medications. Her ICD was interrogated and did not demonstrate any arrhythmia as cause of her syncope. Her home medications of diuretics and her Lisinopril were discontinued to prevent further hypovolemia, as well as decrease of her Metoprolol. Additionally, the patient was found to have a left ankle fracture which she likely sustained during her fall. She was seen by the orthopedic team and a left lower extremity cast was placed and she tolerated this well. She was evaluated by physical therapy who recommended subacute rehab at discharge. On the day of discharge, the patient is feeling well. She denies leg pain, lightheadedness or dizziness, chest pain, neck pain, jaw pain, and difficulty breathing. PHYSICAL EXAMINATION ON THE DAY OF DISCHARGE: General: Thin, elderly, white female sitting in the hospital chair, appearing comfortable, in no acute distress. Eyes: PERRLA. Sclerae anicteric. ENT: Mucous membranes moist. Lungs: Clear to auscultation throughout. Cardio: Regular rate and rhythm with grade 2 systolic murmur. Abdomen: Soft, nontender, nondistended. Extremities: Left lower extremity cast from knee down. Sensation to light touch is intact in bilateral toes. Able to flex and extend all toes. No clubbing, cyanosis, or edema to visible extremities. Neuro: Patient is alert and oriented times three. No focal deficits. Able to move all extremities. DISCHARGE PLAN: The patient will be going to [facility] to participate in daily physical therapy. The patient needs to follow-up with her technical support associate, Dr. Orourke, and she already has an appointment scheduled for 03/08/2019 at 10:00 a.m. Additionally, she needs to follow-up with Dr. Reid in two weeks. In the meantime, she needs to keep her cast dry, clean, and intact. She needs to be nonweightbearing of her left lower extremity. She should return to the nearest emergency room if she experiences any loss of consciousness, chest pain, difficulty breathing, severe leg pain or cyanosis or change in sensation to the left leg. Additionally, she is encouraged to maintain p.o. intake to avoid future syncopal episodes. ACTIVITY: Nonweightbearing to the left leg. DIET: Heart healthy diet. DISCHARGE MEDICATIONS: Continued home medications: 1. Albuterol two puffs inhaled q.4 hours prn shortness of breath or wheezing. 2. Lipitor 10 mg p.o. daily. 3. Plavix 75 mg p.o. daily. 4. Multivitamin one tab p.o. daily. 5. Invega 6 mg p.o. daily. 6. Paxil 20 mg p.o. daily. 7. Ranitidine 150 mg p.o. b.i.d. 8. Calcium plus vitamin D tablet one tab p.o. b.i.d. 9. Nitroglycerin 0.4 mg sublingual q.5 minutes prn angina. New discharge medications: 1. Metoprolol Succinate 25 mg p.o. daily. 2. Lamotrigine 100 mg p.o. q.a.m., 150 mg p.o. q.p.m. (to be increased to 150 mg p.o. b.i.d. starting on 02/26/2019). 3. Levetiracetam 1,000 mg p.o. q.a.m., 1,500 mg p.o. q.p.m. Discontinued home medications: 1. Lisinopril 2.5 mg p.o. daily. 2. Metoprolol Succinate 50 mg p.o. daily. 3. Lasix 20 mg p.o. Monday, Monday, Monday. 4. Spironolactone 12.5 mg p.o. Monday, Monday, , Monday. CONDITION ON DISCHARGE: Stable. DISPOSITION: [facility] for subacute rehab. TIME SPENT: Approximately 40 minutes were spent on this discharge, approximately half this time was spent at the bedside evaluating the patient and discussing the plan of care. NAKUL SPARROW [id number]/CPS #: [id number] ROLF
== END 2019-02-21 14:00 | DRG 641 ==
LOC: ED 11:03 → MEDTELE 15:25 → OBSVTOIN 02-19 12:00
PROVIDERS: ADMIT Internal Medicine; ATTEND Internal Medicine
PROC: 2W3MX1Z Immobilization of Left Lower Extremity using Splint (ICD-10-PCS; principal; 2019-02-19)
PROC: 4B02XTZ Measurement of Cardiac Defibrillator, External Approach (ICD-10-PCS; 2019-02-19)
DX: E86.1 Hypovolemia (principal); I50.22 Chronic systolic (congestive) heart failure; I11.0 Hypertensive heart disease with heart failure; I35.0 Nonrheumatic aortic (valve) stenosis; I25.5 Ischemic cardiomyopathy; S00.31XA Abrasion of nose, initial encounter; I25.10 Atherosclerotic heart disease of native coronary artery without angina pectoris; E78.00 Pure hypercholesterolemia, unspecified; J44.9 Chronic obstructive pulmonary disease, unspecified; K21.9 Gastro-esophageal reflux disease without esophagitis; K27.9 Peptic ulcer, site unspecified, unspecified as acute or chronic, without hemorrhage or perforation; G40.909 Epilepsy, unspecified, not intractable, without status epilepticus; F32.9 Major depressive disorder, single episode, unspecified; F25.9 Schizoaffective disorder, unspecified; S82.492A Other fracture of shaft of left fibula, initial encounter for closed fracture; E87.5 Hyperkalemia; F41.9 Anxiety disorder, unspecified; W19.XXXA Unspecified fall, initial encounter; I48.0 Paroxysmal atrial fibrillation; I95.9 Hypotension, unspecified; I27.20 Pulmonary hypertension, unspecified; Z86.73 Personal history of transient ischemic attack (TIA), and cerebral infarction without residual deficits; I25.2 Old myocardial infarction; Y92.009 Unspecified place in unspecified non-institutional (private) residence as the place of occurrence of the external cause; Z88.8 Allergy status to other drugs, medicaments and biological substances; Z88.2 Allergy status to sulfonamides; Z95.810 Presence of automatic (implantable) cardiac defibrillator; Z87.891 Personal history of nicotine dependence; Z95.1 Presence of aortocoronary bypass graft; Z95.5 Presence of coronary angioplasty implant and graft; Z79.02 Long term (current) use of antithrombotics/antiplatelets; Z79.899 Other long term (current) drug therapy
CPT/HCPCS: 36415; 71045; 80048; 80053; 80175; 80177; 81003; 82550; 83605; 83735; 84443; 84484; 85025; 93005; 96372; 99284; A9270-GY; G0378; G8978-GP-CK; G8979-GP-CI; J1650

== ENCOUNTER 2019-04-03 19:45 | Emergency (ER) | payer MEDICARE ==
--- OUTSIDE RECORDS SUMMARY | 2019-04-03 19:55 | XMS REPORT | Continuity of Care Document ---
:1945 External Reference #:[id number] Author Name Maycol Orourke M.D. (transmitted by agent of provider Erica Jackson) Address [address] [place] [id number] Care Team Providers Name Role Phone Milton Hall M.D. - Family Medicine Care Team Information Card Placer [phone] Maycol Orourke MD - Cardiovascular Care Team Information Card Placer [phone] Disease Problems Active Problems Provider Date Arteriosclerosis of autologous vein coronary Maycol Orourke M.D. Onset: artery bypass graft Chronic ischemic heart disease Maycol Orourke M.D. Onset: 05/10/2013 Aortic valve disorder Maycol Orourke M.D. Onset: 05/10/2013 Complex partial epileptic seizure Chioma Diamond NP Onset: 09/09/2014 Arteriosclerosis of coronary artery bypass Maycol Orourke M.D. Onset: graft Cardiomyopathy, unspecified Teena Ling MD Onset: 06/28/2017 Taking medication Teena Ling MD Onset: 08/28/2017 Late effect of dislocation Scotty Townsend MD Onset: 02/27/2018 Social History Type Date Description Comments Sex Unknown Tobacco Use Start: Unknown End: Former Cigarette Smoker Unknown Smoking Status Reviewed: 04/02/19 Former Cigarette Smoker ETOH Use Denies alcohol use Recreational Drug Use Denies Drug Use Tobacco Use Start: Unknown End: Patient is a former Unknown smoker Exercise Type/Frequency Does not exercise outside of PT Allergies, Adverse Reactions, Alerts Active Allergies Reaction Severity Comments Date Tegretol 03/01/2013 Sulfa Antibiotics 03/01/2013 Methoxsalen 08/30/2013 Medications Active Medications SIG Qnty Indications Ordering Date Provider Levetiracetam 1 by mouth twice a Unknown 04/01/2019 1000mg day Tablets HM Famotidine one by mouth daily Unknown 04/01/2019 20mg Tablets Lasix One tablet by 36tabs R06.02 Tyra Cedillo, 05/18/2017 20mg Tablets mouth daily N.P. Atorvastatin Calcium 1 by mouth every 90tabs Maycol Jacobson 02/17/2014 day Brittany Orourke 10mg Tablets Paroxetine HCL 1 po qd 90tabs Gallo Whitehead 02/20/2012 20mg Brittany Dee Tablets Nitrostat one sl q5min up to 25tabs Maycol Jacobson 0.4mg Tablets 3 doses as needed Brittany Orourke Sub Caltrate 600+D3 Soft 1 tab once daily Unknown Clopidogrel Bisulfate take one tablet by 90tabs Maycol Jacobson mouth every day Brittany Orourke 75mg Tablets Acetaminophen Extra 2 tabs by mouth Unknown Strength every 6 hours as 500mg Tablets needed for pain or fever Albuterol Sulfate HFA 2 puffs every 4 Unknown hrs as needed 108(90Base) mcg/Act Aerosol Lamotrigine take 1 by mouth Unknown 150mg evening Tablets Levetiracetam 1 tablet by mouth Unknown 500mg at bedtime Tablets Metoprolol Succinate 1 by mouth every Unknown ER day morning ( Med 25mg Tablets ER 24HR change 50 mg to 25 mg discharged [facility] 02/21/19) Daily Multivitamin 1 po daily Unknown Paliperidone ER 1 tablet po Unknown 6mg morning Tablets ER 24HR History Medications Spironolactone 1/2 tablet by 48tabs Maycol Jacobson 11/08/2018 - 25mg Tablets mouth monday, Brittany Orourke 04/01/2019, monday, monday ( Not given [facility] as of 03/01/19) Medications Administered in Office Medication SIG Qnty Indications Ordering Provider Date Depomedrol 40MG Jess Parham M.D. 01/02/2017 Injection Depomedrol 40MG Jess Parham M.D. 01/02/2017 Injection Immunizations Description No Information Available Vital Signs Date Vital Result Comment 04/02/2019 1:26pm Height 62 inches 5'2" Heart Rate 72 /min R. radial, irregular BP Systolic Sitting 120 mmHg Ra, reg cuff BP Diastolic Sitting 90 mmHg Ra, reg cuff 04/01/2019 1:46pm Height 62 inches 5'2" Weight 145.00 lb Heart Rate 74 /min BP Systolic 110 mmHg BP Diastolic 72 mmHg Respiratory Rate 12 /min Pain Level 2 BMI (Body Mass Index) 26.5 kg/m2 Results Test Acquired Date Facility Test Result H/L Range Note Laboratory test 02/18/2019 [facility] Troponin-I 0.03 ng/mL < 0.04 [address] (TnI) [place] [address] [phone] Basic Metabolic 10/29/2018 [facility] Sodium 139 mmol/L Normal 135-[address] [place] [address] [phone] Potassium 4.2 mmol/L Normal 3.5-5.0 Chloride 103 mmol/L Normal 101-111 Co2 Carbon Dioxide 28 mmol/L Normal 22-32 Anion Gap 8 mmol/L Normal 2-11 Glucose 101 mg/dL High 70-100 Blood Urea Nitrogen 11 mg/dL Normal 6-24 Creatinine 0.96 mg/dL High 0.51-0.95 BUN/Creatinine Ratio 11.5 Normal 8-20 Calcium 9.1 mg/dL Normal 8.6-10.3 Egfr Non- 56.8 >60 Egfr 68.7 >60 2 Laboratory test 10/29/2018 [facility] B-Type > 1300 High <= [address] Natriuretic pg/[place] [address] Peptide BNP [phone] Troponin-I (TnI) 0.07 ng/mL Critical high <0.04 3 1 Troponin-I testing on Plasma Separator Tubes (PST) has a known false positive rate of 0.20-0.40%. All positive troponins reflex immediately to secondary confirmatory testing. Using the SapientI 800 Access Immunoassay systems, the 99th percentile upper reference limit was demonstrated to be < 0.03 ng/mL. 2 Because ethnic data is not always readily [...] 15-29 5 Kidney failure <15 (or dialysis) 3 Result TnIDx:0.07 Called to GERALD AGARWAL at: 15:03:24 by:[id number] Read back by:GERALD AGARWAL Troponin-I testing on Plasma Separator Tubes (PST) has a known false positive rate of 0.20-0.40%. All positive troponins reflex immediately to secondary confirmatory testing. Using the [employer] DxI 800 Access Immunoassay systems, the 99th percentile upper reference limit was demonstrated to be < 0.03 ng/mL. Procedures Date Code Description Status 03/04/2019 37793 Short Leg Cast Completed 03/01/2019 58337 Interrogation Implant Cardiovasc Monitor System Incl Completed Analysis Int 03/01/2019 12598 Interrogation Implant Cardiovasc Monitor System Incl Completed Analysis Int 03/01/2019 72538 Icd Eval With Inerative Adjustmt Dual Lead System Completed 03/01/2019 12069 Icd Eval With Inerative Adjustmt Dual Lead System Completed 02/19/2019 04497 Short Leg Cast Completed 02/04/2019 23090 Destruction Of Benign Lesions Any Method 1-14 lesions Completed 01/21/2019 99714 Icd Check Remote Up To 90 Days Single,Dual,Multiple Lead Completed 01/21/2019 58488 Icd Check Remote Up To 90 Days Single,Dual,Multiple Lead Completed 01/21/2019 38766 Icd Eval Sing,Dual,Multi Lead Remote Recpt Transm Tech Rev Completed Tech S 01/21/2019 50063 Icd Eval Sing,Dual,Multi Lead Remote Recpt Transm Tech Rev Completed Tech S 01/21/2019 21802 Interrogation Device Eval Remote Up To 30 Days Completed Analysis,Rev,RP 01/21/2019 26730 Interrogation Device Eval Remote Up To 30 Days Completed Analysis,Rev,RP 11/09/2018 99740 EKG Tracing & Interpretation Completed 10/30/2018 11143 ECHO Transthorasic Realtime 2D W Doppler & Color Flow Hosp Completed 10/30/2018 36359 Treadmill Interp/Report Only Completed 10/30/2018 60012 Stress Test Supervsn W/Out I/R Completed 10/29/2018 11028 Interrogation Implant Cardiovasc Monitor System Incl Completed Analysis Int 10/29/2018 07741 Interrogation Implant Cardiovasc Monitor System Incl Completed Analysis Int 10/29/2018 71550 Icd Eval With Inerative Adjustmt Dual Lead System Completed 10/29/2018 39800 Icd Eval With Inerative Adjustmt Dual Lead System Completed Medical Devices Description No Information Available Encounters Type Date Location Provider Dx Diagnosis Office Visit 04/02/2019 [facility] Maycol Jacobson I47.2 Ventricular 1:15p Of [employer] AT [facility] Orourke M.D. tachycardia I50.22 Chronic systolic (congestive) heart failure Z95.810 Presence of automatic (implantable) cardiac defibrillator I25.5 Ischemic cardiomyopathy Office Visit 03/21/2019 9:00a [facility] Rosangela Murray, R41.82 Altered mental GARNETT MECHANIC status, unspecified I50.22 Chronic systolic (congestive) heart failure Office Visit 03/20/2019 9:00a [facility] Arminda Haro, R41.82 Altered mental D.O. status, unspecified I50.22 Chronic systolic (congestive) heart failure S82.65xD Nondisp fx of lateral malleolus of l fibula, 7thD I47.2 Ventricular tachycardia I25.10 Athscl heart disease of [place] coronary artery w/o ang pctrs Office Visit 03/15/2019 10:00a [facility] Rosangela Murray, I50.9 Heart failure, GARNETT MECHANIC unspecified R60.0 Localized edema Office Visit 03/04/2019 [facility] Galarza S82.65xD Nondisp fx of 1:45p [facility]oped[facility] at [facility] Jeanette lateral malleviolus [facility] of l fibula, 7thD Office Visit 03/01/2019 [facility] Maycol Jaocbson Z95.810 Presence of 12:15p Of Arturo Orourke M.D. automatic (implantable) cardiac defibrillator I47.2 Ventricular tachycardia I25.10 Athscl heart disease of [place] coronary artery w/o ang pctrs I25.5 Ischemic cardiomyopathy I50.9 Heart failure, unspecified Office Visit 02/22/2019 9:00a [facility] Arminda Tahir, S82.492A Oth fracture of D.O. shaft of left fibula, init for clos fx R55 Syncope and collapse I25.10 Athscl heart disease of [place] coronary artery w/o ang pctrs I50.20 Unspecified systolic (congestive) heart failure I11.0 Hypertensive heart disease with heart failure G40.909 Epilepsy, unsp, not intractable, without status epilepticus I80.9 Phlebitis and thrombophlebitis of unspecified site Office Visit 02/21/2019 11:55a [facility] Angelica R55 Syncope and Assoc,NAKUL Aragon-C collapse Hospitalists S82.892A Oth fracture of left lower leg, init for clos fx I50.9 Heart failure, unspecified Office Visit 02/20/2019 9:52a [facility] Taya Upton, R55 Syncope and Of Arturo Soto collapse I35.0 Nonrheumatic aortic (valve) stenosis Office Visit 02/20/2019 [facility] Maxine S82.492A Oth fracture 11:54a Assoc,NAKUL Zamora of shaft of Hospitalists left fibula, init for clos fx I25.10 Athscl heart disease of [place] coronary artery w/o ang pctrs I10 Essential (primary) hypertension I47.9 Paroxysmal tachycardia, unspecified G40.909 Epilepsy, unsp, not intractable, without status epilepticus Office Visit 02/19/2019 1:32p [facility] Maycol Jacobson R55 Syncope and Of Arturo Orourke M.D. collapse I35.0 Nonrheumatic aortic (valve) stenosis I25.5 Ischemic cardiomyopathy Z95.810 Presence of automatic (implantable) cardiac defibrillator Office Visit 02/19/2019 12:57p [facility] Chelsi S82.892A Oth fracture at NAKUL Mehta of left lower leg, init for clos fx Office Visit 02/19/2019 11:54a [facility] Maxine S82.492A Oth fracture Assoc,sravani Anand, of shaft of Hospitalists [place] left fibula, init for clos fx I47.9 Paroxysmal tachycardia, unspecified I10 Essential (primary) hypertension G40.909 Epilepsy, unsp, not intractable, without status epilepticus Office Visit 02/18/2019 11:54a [facility] Wilfred R55 Syncope and Assoc,sravani Jha [place] collapse Hospitalists Office Visit 02/04/2019 3:20p [facility] Dermatology Wong Yentzer, L21.8 Other seborrheic MD dermatitis L20.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 cardiomyopathy [facility] I35.0 Nonrheumatic aortic (valve) stenosis I25.10 Athscl heart disease of [place] coronary artery w/o ang pctrs I50.9 Heart failure, unspecified Office Visit 11/01/2018 4:24p [facility] Cuca I25.5 Ischemic Cardiology SCOTT Garcia cardiomyopathy I35.0 Nonrheumatic aortic (valve) stenosis I25.10 Athscl heart disease of [place] coronary artery w/o ang pctrs Office Visit 11/01/2018 [facility] Genaro I25.5 Ischemic 1:55p sravani Veras M.D. cardiomyopathy Hospitalists Office Visit 10/31/2018 [facility] Cucayaya Garcia, I25.5 Ischemic 4:22p Of [facility] GARNETT MECHANIC cardiomyopathy R94.39 Abnormal result of other cardiovascular function study I35.0 Nonrheumatic aortic (valve) stenosis I25.10 Athscl heart disease of [place] coronary artery w/o ang pctrs Z95.5 Presence of coronary angioplasty implant and graft Office Visit 10/31/2018 [facility] I25.5 Ischemic 1:54p Assoc,pc Moussallem, M.D. cardiomyopathy Hospitalists I10 Essential (primary) hypertension E78.5 Hyperlipidemia, unspecified R56.9 Unspecified convulsions Office Visit 10/30/2018 4:17p [facility] Taya Upton, R07.9 Chest pain, Of [employer] M.D. unspecified R55 Syncope and collapse I35.0 Nonrheumatic aortic (valve) stenosis I25.5 Ischemic cardiomyopathy I50.9 Heart failure, unspecified Z95.810 Presence of automatic (implantable) cardiac defibrillator Office Visit 10/29/2018 1:54p [facility] R79.89 Other specified Assoc,pc MD Perla abnormal Hospitalists findings of blood chemistry R07.9 Chest pain, unspecified Assessments Date Code Description Provider 04/02/2019 I47.2 Ventricular tachycardia Maycol Orourke M.D. 04/02/2019 I50.22 Chronic systolic (congestive) heart Maycol Orourke M.D. failure 04/02/2019 Z95.810 Presence of automatic (implantable) Maycol Orourke M.D. cardiac defibrillator 04/02/2019 I25.5 Ischemic cardiomyopathy Maycol Orourke M.D. 04/01/2019 S82.65xD Nondisplaced fracture of lateral Reed Reid MD malleolus of left fibula, subsequent encounter for closed fracture with routine healing 03/27/2019 R41.82 Altered mental status, unspecified Arminda Tahir, D.O. 03/27/2019 I50.22 Chronic systolic (congestive) heart Arminda Tahir D.O. failure 03/27/2019 S82.65xD Nondisplaced fracture of lateral Arminda Tahir, D.O. malleolus of left fibula, subsequent encounter for closed fracture with routine healing 03/27/2019 I47.2 Ventricular tachycardia Arminda Tahir, D.O. 03/27/2019 I25.10 Atherosclerotic heart disease of Arminda Haro D.O. [place] coronary artery without angina pectoris 03/27/2019 G40.909 Epilepsy, unspecified, not Arminda Tahir, D.O. intractable, without status epilepticus 03/21/2019 R41.82 Altered mental status, unspecified Rosangela Murray, SCOTT 03/21/2019 I50.22 Chronic systolic (congestive) heart Rosangela Murray, GARNETT MECHANIC failure 03/20/2019 R41.82 Altered mental status, unspecified Arminda Tahir, D.O. 03/20/2019 I50.22 Chronic systolic (congestive) heart Arminda Tahir, D.O. failure 03/20/2019 S82.65xD Nondisplaced fracture of lateral Arminda Tahir, D.O. malleolus of left fibula, subsequent encounter for closed fracture with routine healing 03/20/2019 I47.2 Ventricular tachycardia Arminda Tahir, D.O. 03/20/2019 I25.10 Atherosclerotic heart disease of Arminda Thomasr, D.O. [place] coronary artery without angina pectoris 03/15/2019 I50.9 Heart failure, unspecified Rosangela Murray, GARNETT MECHANIC 03/15/2019 R60.0 Localized edema Rosangela Murray, GARNETT MECHANIC 03/04/2019 S82.65xD Nondisplaced fracture of lateral Reed Reid MD malleolus of left fibula, subsequent encounter for closed fracture with routine healing 03/01/2019 Z95.810 Presence of automatic (implantable) Maycol Orourke M.D. cardiac defibrillator 03/01/2019 Z95.810 Presence of automatic (implantable) Maycol Orourke M.D. cardiac defibrillator 03/01/2019 Z95.810 Presence of automatic (implantable) Ica Pacer Schedule cardiac defibrillator 03/01/2019 I50.9 Heart failure, unspecified Maycol Orourke M.D. 03/01/2019 I47.2 Ventricular tachycardia Maycol Orourke M.D. 03/01/2019 I47.2 Ventricular tachycardia Ica Pacer Schedule 03/01/2019 I50.9 Heart failure, unspecified Ica Pacer Schedule 03/01/2019 I25.10 Atherosclerotic heart disease of Maycol Orourke M.D. [place] coronary artery without angina pectoris 03/01/2019 I25.5 Ischemic cardiomyopathy Maycol Orourke M.D. 03/01/2019 I50.9 Heart failure, unspecified Maycol Orourke M.D. 02/26/2019 I80.9 Phlebitis and thrombophlebitis of Arminda Haro, D.O. unspecified site 02/22/2019 S82.492A Other fracture of shaft of left Arminda Thomasr, D.O. fibula, initial encounter for closed fracture 02/22/2019 R55 Syncope and collapse Arminda Haro, D.O. 02/22/2019 I25.10 Atherosclerotic heart disease of Arminda Haro, D.O. [place] coronary artery without angina pectoris 02/22/2019 I50.20 Unspecified systolic (congestive) Arminda Tahir, D.O. heart failure 02/22/2019 I11.0 Hypertensive heart disease with heart Arminda Thomasr, D.O. failure 02/22/2019 G40.909 Epilepsy, unspecified, not Arminda Tahir, D.O. intractable, without status epilepticus 02/22/2019 I80.9 Phlebitis and thrombophlebitis of Arminda Haro, D.O. unspecified site 02/21/2019 R55 Syncope and collapse Angelica Rain PA-C 02/21/2019 S82.892A Other fracture of left lower leg, Angelica Rain PA-C initial encounter for closed fracture 02/21/2019 I50.9 Heart failure, unspecified Angelica Rain PA-C 02/20/2019 R55 Syncope and collapse Taya Upton M.D. 02/20/2019 I35.0 Nonrheumatic aortic (valve) stenosis Taya Upton M.D. 02/20/2019 S82.492A Other fracture of shaft of left NAKUL Toribio fibula, initial encounter for closed fracture 02/20/2019 I25.10 Atherosclerotic heart disease of NAKUL Toribio [place] coronary artery without angina pectoris 02/20/2019 I10 Essential (primary) hypertension NAKUL Toribio 02/20/2019 I47.9 Paroxysmal tachycardia, unspecified NAKUL Toribio 02/20/2019 G40.909 Epilepsy, unspecified, not NAKUL Toribio intractable, without status epilepticus 02/19/2019 R55 Syncope and collapse Akhil Cuevas M.D. 02/19/2019 R55 Syncope and collapse Maycol Orourke M.D. 02/19/2019 G40.909 Epilepsy, unspecified, not Akhil Cuevas M.D. intractable, without status epilepticus 02/19/2019 I35.0 Nonrheumatic aortic (valve) stenosis Maycol Orourke M.D. 02/19/2019 I25.5 Ischemic cardiomyopathy Maycol Orourke M.D. 02/19/2019 Z95.810 Presence of automatic (implantable) Maycol Orourke M.D. cardiac defibrillator 02/19/2019 S82.892A Other fracture of left lower leg, NAKUL Espitia initial encounter for closed fracture 02/19/2019 S82.492A Other fracture of shaft of left NAKUL Toribio fibula, initial encounter for closed fracture 02/19/2019 I47.9 Paroxysmal tachycardia, unspecified NAKUL Toribio 02/19/2019 I10 Essential (primary) hypertension NAKUL Toribio 02/19/2019 G40.909 Epilepsy, unspecified, not NAKUL Toribio intractable, without status epilepticus 02/18/2019 R55 Syncope and collapse Jose Hayes, N.P. 02/18/2019 G40.909 Epilepsy, unspecified, not Josekatelin Hayes, N.P. intractable, without status epilepticus 02/18/2019 R55 Syncope and collapse NAKUL Madden 02/04/2019 L21.8 Other seborrheic dermatitis Wong Hoffmann MD 02/04/2019 L20.84 Intrinsic (allergic) eczema Wong Hoffmann MD 02/04/2019 D22.5 Melanocytic nevi of trunk Wong Hoffmann MD 02/04/2019 D69.2 Other nonthrombocytopenic purpura Wong Hoffmann MD 02/04/2019 L82.1 Other seborrheic keratosis Wong Hoffmann MD 02/04/2019 L82.0 Inflamed seborrheic keratosis Wong Hoffmann MD 02/04/2019 Z78.9 Other specified health status Wong Hoffmann MD 01/21/2019 I25.5 Ischemic cardiomyopathy Maycol Orourke M.D. 01/21/2019 I25.5 Ischemic cardiomyopathy Remote Device Checks 01/21/2019 I50.9 Heart failure, unspecified Maycol Orourke M.D. 01/21/2019 I50.9 Heart failure, unspecified Remote Device Checks 01/21/2019 Z95.810 Presence of automatic (implantable) Maycol Orourke M.D. cardiac defibrillator 01/21/2019 Z95.810 Presence of automatic (implantable) Remote Device Checks cardiac defibrillator 01/21/2019 I47.2 Ventricular tachycardia Maycol Orourke M.D. 01/21/2019 I47.2 Ventricular tachycardia Remote Device Checks 11/09/2018 I25.5 Ischemic cardiomyopathy Maycol Orourke M.D. 11/09/2018 I35.0 Nonrheumatic aortic (valve) stenosis Maycol Orourke M.D. 11/09/2018 I25.10 Atherosclerotic heart disease of Maycol Orourke M.D. [place] coronary artery with 11/09/2018 I50.9 Heart failure, unspecified Maycol Orourke M.D. 11/01/2018 I25.5 Ischemic cardiomyopathy Cuca Garcia NP 11/01/2018 I35.0 Nonrheumatic aortic (valve) stenosis Cuca Garcia NP 11/01/2018 I25.10 Atherosclerotic heart disease of Cuca Garcia NP [place] coronary artery with 11/01/2018 I25.5 Ischemic cardiomyopathy Genaro Barrett M.D. 10/31/2018 I25.5 Ischemic cardiomyopathy Cuca Garcia NP 10/31/2018 R94.39 Abnormal result of other Cuca Garcia NP cardiovascular function study 10/31/2018 I35.0 Nonrheumatic aortic (valve) stenosis Cuca Garcia NP 10/31/2018 I25.10 Atherosclerotic heart disease of Cuca Garcia NP [place] coronary artery with 10/31/2018 Z95.5 Presence of coronary angioplasty Cuca Garcia NP implant and graft 10/31/2018 I25.5 Ischemic cardiomyopathy Genaro Barrett M.D. 10/31/2018 I10 Essential (primary) hypertension Genaro Barrett M.D. 10/31/2018 E78.5 Hyperlipidemia, unspecified Genaro Barrett M.D. 10/31/2018 R56.9 Unspecified convulsions Genaro Barrett M.D. 10/30/2018 R07.9 Chest pain, unspecified Shreyas Coffman M.D., [facility], [facility] 10/30/2018 R07.9 Chest pain, unspecified Taya Upton M.D. 10/30/2018 R55 Syncope and collapse Taya Upton M.D. 10/30/2018 I35.0 Nonrheumatic aortic (valve) stenosis Taya Upton M.D. 10/30/2018 I25.5 Ischemic cardiomyopathy Taya Upton M.D. 10/30/2018 I50.9 Heart failure, unspecified Taya Upton M.D. 10/30/2018 Z95.810 Presence of automatic (implantable) Taya Upton M.D. cardiac defibrillator 10/30/2018 I25.5 Ischemic cardiomyopathy Genaro Barrett M.D. 10/30/2018 I10 Essential (primary) hypertension Genaro Barrett M.D. 10/30/2018 R56.9 Unspecified convulsions Genaro Barrett M.D. 10/29/2018 I42.9 Cardiomyopathy, unspecified Maycol Orourke M.D. 10/29/2018 R79.89 Other specified abnormal findings of Christiana Duncan MD blood chemistry 10/29/2018 R07.9 Chest pain, unspecified Christiana Duncan MD 10/29/2018 Z95.810 Presence of automatic (implantable) Maycol Orourke M.D. cardiac defibrillator 10/29/2018 I42.9 Cardiomyopathy, unspecified Ica Pacer Schedule 10/29/2018 I47.2 Ventricular tachycardia Ica Pacer Schedule 10/29/2018 Z95.810 Presence of automatic (implantable) Ica Pacer Schedule cardiac defibrillator Plan of Treatment Future Appointment(s):06/05/2019 2:30 pm - Maycol Orourke M.D. at [facility]04/29/2019 1:45 pm - Reed Reid MD at [id number]/15/2019 3:00 pm - Wong Hoffmann MD at [facility] - Maycol Orourke M.D.I47.2 Ventricular tachycardiaNew Labs:BMP Basic Metabolic Panel (8), Scheduled: 04/16/19Follow up:2 monthsRecommendations: Increase Furosemide to 40 mg a dayI50.22 Chronic systolic (congestive) heart ygjcyahP62.810 Presence of automatic (implantable) cardiac gzfnhdtedeisfO29.5 Ischemic cardiomyopathy Functional Status Description No Information Available Mental Status Description No Information Available Referrals Description No Information Available
--- OUTSIDE RECORDS SUMMARY | 2019-04-03 19:55 | XMS REPORT | Continuity of Care Document ---
:1945 External Reference #:[id number] Author Name Reed Reid MD (transmitted by agent of provider Jaswinder Alberts) Address [address] [place] [id number] Care Team Providers Name Role Phone Milton Hall M.D. - Family Medicine Care Team Information Nuclear Technologist [phone] Maycol Orourke MD - Cardiovascular Care Team Information Nuclear Technologist Disease Problems Active Problems Provider Date Arteriosclerosis of autologous vein coronary Maycol Orourke M.D. Onset: artery bypass graft Chronic ischemic heart disease Macyol Orourke M.D. Onset: 05/10/2013 Aortic valve disorder [...] Former Cigarette Smoker Unknown Smoking Status Reviewed: 04/01/19 Former Cigarette Smoker ETOH Use Denies alcohol use Recreational Drug Use Denies Drug Use Tobacco Use Start: Unknown End: Patient is a former Unknown smoker Exercise Type/Frequency Exercises regularly 1/2 mile 3xwk Allergies, Adverse Reactions, Alerts Active Allergies Reaction Severity Comments Date Tegretol 03/01/2013 Sulfa Antibiotics 03/01/2013 Methoxsalen 08/30/2013 Medications Active Medications SIG Qnty Indications Ordering Date Provider Spironolactone 1/2 tablet by 48tabs Maycol Jcaobson 11/08/2018 25mg mouth monday, Brittany Orourke Tablets , monday, monday ( Not given [facility] as of 03/01/19) Lasix take 1 tablet on 36tabs R06.02 Tyra Cedillo, 05/18/2017 20mg Tablets monday, monday N.P. and monday ( Not Given at [facility] as of 03/01/19 ) Atorvastatin Calcium 1 by mouth every 90tabs Maycol Jacobson 02/17/2014 10mg day Brittany Orourke Tablets Lisinopril 1 by mouth every 90tabs Maycol Jacobson 01/20/2014 2.5mg Tablets day ( Not given Brittany Orourke at [facility] as of 03/01/19) Paroxetine HCL 1 po qd 90tabs Gallo Whitehead 02/20/2012 20mg Brittany Dee Tablets Phenobarbital take 1 by mouth 225tabs Teena Ling MD 02/08/2012 32.4mg every morning and Tablets 1.5 tablets by mouth at bedtime,code c Paliperidone ER 1 tablet po Unknown 6mg morning Tablets ER 24HR Daily Multivitamin 1 po daily Unknown Metoprolol Succinate 1 by mouth every Unknown ER day morning ( Med 25mg Tablets ER 24HR change 50 mg to 25 mg discharged [facility] [place]19[place] Levetiracetam 2 by mouth at Unknown 750mg bedtime Tablets Levetiracetam 1 by mouth Unknown 1000mg morning Tablets Lamotrigine take 1 by mouth Unknown 150mg Tablets evening Albuterol Sulfate HFA as needed Unknown 108(90Base) mcg/Act Aerosol Acetaminophen Extra 2 tabs by mouth Unknown Strength every 6 hours as 500mg Tablets needed for pain or fever Nitrofurantoin 1 by mouth twice Unknown Macrocrystal a day 100mg Capsules Ranitidine 150 Maximum 1 tablet po twice Unknown Strength daily 150mg Tablets Clopidogrel Bisulfate take one tablet 90tabs Maycol D. by mouth every Brand, M.D. 75mg Tablets day Lamotrigine take 1 tablet po Unknown 100mg Tablets morning Caltrate 600+D3 Soft 1 tabs twice Unknown daily Nitrostat one sl q5min up 25tabs Maycol D. 0.4mg Tablets to 3 doses as Brand, M.D. Sub needed Cholestyramine 1 packet bid 90Packs Unknown 4gm Packet Centrum Silver 1 po qd Unknown Tablets Medications Administered in Office Medication SIG Qnty Indications Ordering Provider Date Depomedrol 40MG Jess Parham M.D. 01/02/2017 Injection Depomedrol 40MG Jess Parham M.D. 01/02/2017 Injection Immunizations Description No Information Available Vital Signs Date Vital Result Comment 04/01/2019 1:46pm Height 62 inches 5'2" Weight 145.00 lb Heart Rate 74 /min BP Systolic 110 mmHg BP Diastolic 72 mmHg Respiratory Rate 12 /min Pain Level 2 BMI (Body Mass Index) 26.5 kg/m2 03/04/2019 1:49pm Height 62 inches 5'2" Weight 145.00 lb stated Heart Rate 72 /min BP Systolic 110 mmHg BP Diastolic 68 mmHg Respiratory Rate 13 /min Pain Level 0 BMI (Body Mass Index) 26.5 kg/m2 Results Test Acquired Date Facility Test Result H/L Range Note Laboratory test 02/18/2019 [facility] Troponin-I 0.03 ng/mL < 0.[address] (TnI) [place] [address] [phone] Basic Metabolic 10/29/2018 [facility] Sodium 139 mmol/L Normal 135-[address] [place] [address] [phone] Potassium 4.2 mmol/L Normal 3.5-5.0 Chloride 103 mmol/L Normal 101-111 Co2 Carbon Dioxide 28 mmol/L Normal 22-32 Anion Gap 8 mmol/L Normal 2-11 Glucose 101 mg/dL High 70-100 Blood Urea Nitrogen 11 mg/dL Normal 6-24 Creatinine 0.96 mg/dL High 0.51-0.95 BUN/Creatinine Ratio 11.5 Normal 8-20 Calcium 9.1 mg/dL Normal 8.6-10.3 Egfr Non- 56.8 >60 Egfr 68.7 >60 2 Laboratory test 10/29/2018 [facility] B-Type > 1300 High <= [address] Natriuretic pg/[place] [address] Peptide BNP [phone] Troponin-I (TnI) 0.07 ng/mL Critical high <0.04 3 1 Troponin-I testing on Plasma Separator Tubes (PST) has a known false positive rate of 0.20-0.40%. All positive troponins reflex immediately to secondary confirmatory testing. Using the [employer] DxI 800 Access Immunoassay systems, the 99th [...] TnIDx:0.07 Called to GERALD AGARWAL at: 15:03:24 by:[id number] Read back by:GERALD AGARWAL Troponin-I testing on Plasma Separator Tubes (PST) has a known false positive rate of 0.20-0.40%. All positive troponins reflex immediately to secondary confirmatory testing. Using the [employer] DxI 800 Access Immunoassay systems, the 99th percentile upper reference limit was demonstrated to be < 0.03 ng/mL. Procedures Date Code Description Status 03/04/2019 20773 Short Leg Cast Completed 03/01/2019 56233 Interrogation Implant Cardiovasc Monitor System Incl Completed Analysis Int 03/01/2019 56839 Interrogation Implant Cardiovasc Monitor System Incl Completed Analysis Int 03/01/2019 37787 Icd Eval With Inerative Adjustmt Dual Lead System Completed 03/01/2019 54733 Icd Eval With Inerative Adjustmt Dual Lead System Completed 02/19/2019 90072 Short Leg Cast Completed 02/04/2019 98675 Destruction Of Benign Lesions Any Method 1-14 lesions Completed 01/21/2019 78291 Icd Check Remote Up To 90 Days Single,Dual,Multiple Lead Completed 01/21/2019 32000 Icd Check Remote Up To 90 Days Single,Dual,Multiple Lead Completed 01/21/2019 07445 Icd Eval Sing,Dual,Multi Lead Remote Recpt Transm Tech Rev Completed Tech S 01/21/2019 92481 Icd Eval Sing,Dual,Multi Lead Remote Recpt Transm Tech Rev Completed Tech S 01/21/2019 98086 Interrogation Device Eval Remote Up To 30 Days Completed Analysis,Rev,RP 01/21/2019 97774 Interrogation Device Eval Remote Up To 30 Days Completed Analysis,Rev,RP 11/09/2018 27990 EKG Tracing & Interpretation Completed 10/30/2018 53696 ECHO Transthorasic Realtime 2D W Doppler & Color Flow Hosp Completed 10/30/2018 00186 Treadmill Interp/Report Only Completed 10/30/2018 49248 Stress Test Supervsn W/Out I/R Completed 10/29/2018 08067 Interrogation Implant Cardiovasc Monitor System Incl Completed Analysis Int 10/29/2018 51004 Interrogation Implant Cardiovasc Monitor System Incl Completed Analysis Int 10/29/2018 74434 Icd Eval With Inerative Adjustmt Dual Lead System Completed 10/29/2018 94147 Icd Eval With Inerative Adjustmt Dual Lead System Completed Medical Devices Description No Information Available Encounters Type Date Location Provider Dx Diagnosis Office Visit 03/21/2019 [facility] Rosangela Murray, SCOTT R41.82 Altered mental 9:00a status, unspecified I50.22 Chronic systolic (congestive) heart failure Office Visit 03/20/2019 9:00a [facility] Arminda Haro, R41.82 Altered mental D.O. status, unspecified I50.22 Chronic systolic (congestive) heart failure S82.65xD Nondisp fx of lateral malleolus of l fibula, 7thD I47.2 Ventricular tachycardia I25.10 Athscl heart disease of [place] coronary artery w/o ang pctrs Office Visit 03/15/2019 10:00a [facility] Rosangela AvalosPalma, I50.9 Heart failure, CONCRETE ANALYST unspecified R60.0 Localized edema Office Visit 03/04/2019 [facility] Reed Galarza S82.65xD Nondisp fx of 1:45p Orthopedics at [facility] lateral malleolus Rudolph of l fibula, 7thD Office Visit 03/01/2019 [facility] Maycol Jacobson Z95.810 Presence of 12:15p Of Arturo Orourke M.D. automatic (implantable) cardiac defibrillator I47.2 Ventricular tachycardia I25.10 Athscl heart disease of [place] coronary artery w/o ang pctrs I25.5 Ischemic cardiomyopathy I50.9 Heart failure, unspecified Office Visit 02/22/2019 9:00a [facility] Arminda Haro, S82.492A Oth fracture of D.O. shaft of left fibula, init for clos fx R55 Syncope and collapse I25.10 Athscl heart disease of [place] coronary artery w/o ang pctrs I50.20 Unspecified systolic (congestive) heart failure I11.0 Hypertensive heart disease with heart failure G40.909 Epilepsy, unsp, not intractable, without status epilepticus I80.9 Phlebitis and thrombophlebitis of unspecified site Office Visit 02/21/2019 11:55a [facility] Angelica R55 Syncope and Assoc,sravani Rain PA-C collapse Hospitalists S82.892A Oth fracture of left lower leg, init for clos fx I50.9 Heart failure, unspecified Office Visit 02/20/2019 9:52a [facility] Taya Upton, R55 Syncope and Of Arturo Soto collapse I35.0 Nonrheumatic aortic (valve) stenosis Office Visit 02/20/2019 [facility] Maxine S82.492A Oth fracture 11:54a Assoc,NAKUL Zamora of shaft of Hospitalists left fibula, init for clos fx I25.10 Athscl heart disease of [place] coronary artery w/o ang pctrs I10 Essential (primary) hypertension I47.9 Paroxysmal tachycardia, unspecified G40.909 Epilepsy, unsp, not intractable, without status epilepticus Office Visit 02/19/2019 1:32p [facility] Maycol Jacobson R55 Syncope and Of Arturo Orourke M.D. collapse I35.0 Nonrheumatic aortic (valve) stenosis I25.5 Ischemic cardiomyopathy Z95.810 Presence of automatic (implantable) cardiac defibrillator Office Visit 02/19/2019 12:57p [facility] Chelsi S82.892A Oth fracture at NAKUL Mehta of left lower leg, init for clos fx Office Visit 02/19/2019 11:54a [facility] Maxine S82.492A Oth fracture Assoc,sravani Anand, of shaft of Hospitalists PA left fibula, init for clos fx I47.9 Paroxysmal tachycardia, unspecified I10 Essential (primary) hypertension G40.909 Epilepsy, unsp, not intractable, without status epilepticus Office Visit 02/18/2019 11:54a [facility] Wilfred R55 Syncope and Assoc,NAKUL Martínez collapse Hospitalists Office Visit 02/04/2019 3:20p [facility] Wong Yentzer, L21.8 Other seborrheic MD dermatitis L20.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 cardiomyopathy Gun Tester I35.0 Nonrheumatic aortic (valve) stenosis I25.10 Athscl heart disease of [place] coronary artery w/o ang pctrs I50.9 Heart failure, unspecified Office Visit 11/01/2018 4:24p [facility] Cuca I25.5 Ischemic Cardiology SCOTT Garcia cardiomyopathy I35.0 Nonrheumatic aortic (valve) stenosis I25.10 Athscl heart disease of [place] coronary artery w/o ang pctrs Office Visit 11/01/2018 [facility] Genaro I25.5 Ischemic 1:55p Assoc,sravani Barrett M.D. cardiomyopathy Hospitalists Office Visit 10/31/2018 [facility] Cuca Radha, I25.5 Ischemic 4:22p Of [facility] CONCRETE ANALYST cardiomyopathy R94.39 Abnormal result of other cardiovascular function study I35.0 Nonrheumatic aortic (valve) stenosis I25.10 Athscl heart disease of [place] coronary artery w/o ang pctrs Z95.5 Presence of coronary angioplasty implant and graft Office Visit 10/31/2018 [facility] Genaro I25.5 Ischemic 1:54p Assoc,sravani Barrett M.D. cardiomyopathy Hospitalists I10 Essential (primary) hypertension E78.5 Hyperlipidemia, unspecified R56.9 Unspecified convulsions Office Visit 10/30/2018 4:17p [facility] Taya Trenton, R07.9 Chest pain, Of Arturo Soto unspecified R55 Syncope and collapse I35.0 Nonrheumatic aortic (valve) stenosis I25.5 Ischemic cardiomyopathy I50.9 Heart failure, unspecified Z95.810 Presence of automatic (implantable) cardiac defibrillator Office Visit 10/29/2018 1:54p [facility] Christiana R79.89 Other specified Assoc,sravani Duncan MD abnormal Hospitalists findings of blood chemistry R07.9 Chest pain, unspecified Assessments Date Code Description Provider 04/01/2019 S82.65xD Nondisplaced fracture of lateral Reed Reid MD malleolus of left fibula, subsequent encounter for closed fracture with routine healing 03/27/2019 R41.82 Altered mental status, unspecified Arminda Haro D.O. 03/27/2019 I50.22 Chronic systolic (congestive) heart Arminda Haro D.O. failure 03/27/2019 S82.65xD Nondisplaced fracture of lateral Arminda Haro D.O. malleolus of left fibula, subsequent encounter for closed fracture with routine healing 03/27/2019 I47.2 Ventricular tachycardia Arminda Haro D.O. 03/27/2019 I25.10 Atherosclerotic heart disease of Arminda Haro D.O. [place] coronary artery without angina pectoris 03/27/2019 G40.909 Epilepsy, unspecified, not Armindatiffanie Haro D.O. intractable, without status epilepticus 03/21/2019 R41.82 Altered mental status, unspecified Rosangela Murray, CONCRETE ANALYST 03/21/2019 I50.22 Chronic systolic (congestive) heart Rosangela Murray, CONCRETE ANALYST failure 03/20/2019 R41.82 Altered mental status, unspecified Raminda Tahir, D.O. 03/20/2019 I50.22 Chronic systolic (congestive) heart Arminda Tahir, D.O. failure 03/20/2019 S82.65xD Nondisplaced fracture of lateral Arminda Thomasr, D.O. malleolus of left fibula, subsequent encounter for closed fracture with routine healing 03/20/2019 I47.2 Ventricular tachycardia Arminda Thomasr, D.O. 03/20/2019 I25.10 Atherosclerotic heart disease of Arminda Haro, D.O. [place] coronary artery without angina pectoris 03/15/2019 I50.9 Heart failure, unspecified Rosangela Murray, CONCRETE ANALYST 03/15/2019 R60.0 Localized edema Rosangela Murray, CONCRETE ANALYST 03/04/2019 S82.65xD Nondisplaced fracture of lateral Reed [...] Atherosclerotic heart disease of Maycol Orourke M.D. [place] coronary artery without angina pectoris 03/01/2019 I25.5 Ischemic cardiomyopathy Maycol Orourke M.D. 03/01/2019 I50.9 Heart failure, unspecified Maycol Orourke M.D. 02/26/2019 I80.9 Phlebitis and thrombophlebitis of Arminda Tahir, D.O. unspecified site 02/22/2019 S82.492A Other fracture of shaft of left Arminda Tahir, D.O. fibula, initial encounter for closed fracture 02/22/2019 R55 Syncope and collapse Arminda Tahir, D.O. 02/22/2019 I25.10 Atherosclerotic heart disease of Arminda Tahir, D.O. [place] coronary artery without angina pectoris 02/22/2019 I50.20 Unspecified systolic (congestive) Arminda Tahir, D.O. heart failure 02/22/2019 I11.0 Hypertensive heart disease with heart Arminda Tahir, D.O. failure 02/22/2019 G40.909 Epilepsy, unspecified, not Arminda Tahir, D.O. intractable, without status epilepticus 02/22/2019 I80.9 Phlebitis and thrombophlebitis of Arminda Tahir, D.O. unspecified site 02/21/2019 R55 Syncope and [...] I25.10 Atherosclerotic heart disease of NAKUL Toribio [place] coronary artery without angina pectoris 02/20/2019 I10 Essential (primary) hypertension NAKUL Toribio 02/20/2019 I47.9 Paroxysmal tachycardia, unspecified NAKUL Toribio 02/20/2019 G40.909 Epilepsy, unspecified, not NAKUL Toribio intractable, without status epilepticus 02/19/2019 R55 Syncope and collapse Maycol Orourke M.D. 02/19/2019 I35.0 Nonrheumatic aortic (valve) stenosis Maycol [...] Hoffmann MD 02/04/2019 L20.84 Intrinsic (allergic) eczema oWng Hoffmann MD 02/04/2019 D22.5 Melanocytic nevi of [...] Atherosclerotic heart disease of Maycol Orourke M.D. [place] coronary artery with 11/09/2018 I50.9 Heart failure, unspecified Maycol Orourke M.D. 11/01/2018 I25.5 Ischemic cardiomyopathy [facility] Garcia NP 11/01/2018 I35.0 Nonrheumatic aortic (valve) stenosis [facility]uca CurielSCOTT martinez 11/01/2018 I25.10 Atherosclerotic heart disease of Cuca GarciaSCOTT [place] coronary artery with 11/01/2018 I25.5 Ischemic cardiomyopathy Genaro Barrett M.D. 10/31/2018 I25.5 Ischemic cardiomyopathy [facility] RadhaSCOTT 10/31/2018 R94.39 Abnormal result of other Cucayaya GarciaSCOTT cardiovascular function study 10/31/2018 I35.0 Nonrheumatic aortic (valve) stenosis Cuca GarciaSCOTT 10/31/2018 I25.10 Atherosclerotic heart disease of Cuca ThmichelleSCOTT [place] coronary artery with 10/31/2018 Z95.5 Presence of coronary angioplasty Cuca GarciaSCOTT implant and graft 10/31/2018 I25.5 Ischemic cardiomyopathy Genaro Barrett M.D. 10/31/2018 I10 Essential (primary) hypertension Genaro Barrett M.D. 10/31/2018 E78.5 Hyperlipidemia, unspecified Genaro Barrett M.D. 10/31/2018 R56.9 Unspecified convulsions Genaro Barrett M.D. 10/30/2018 R07.9 Chest pain, unspecified Shreyas Coffman M.D., [facility] 10/30/2018 R07.9 Chest pain, unspecified Taya Upton [...] Schedule cardiac defibrillator Plan of Treatment Future Appointment(s):04/29/2019 2:30 pm - Reed Reid MD at [facility] at [id number]/15/2019 3:00 pm - Wong Hoffmann MD at [facility] - Reed Reid, MDS82.65xD Nondisplaced fracture of lateral malleolus of left fibula, subsequent encounter for closed fracture with routine healingFollow up:Follow up: 4 weeks Functional Status Description No Information Available Mental Status Description No Information Available Referrals Description No Information Available
--- OUTSIDE RECORDS SUMMARY | 2019-04-03 19:55 | XMS REPORT | Continuity of Care Document ---
:1945 External Reference #:[id number] Author Name Merary Goodson Care Team Providers Name Role Phone Milton Hall M.D. 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 and monday Atorvastatin Calcium 1 by mouth every 90tabs Maycol D. 02/17/2014 10mg day Brittany Orourke Tablets Lisinopril 1 by mouth every 90tabs Maycol D. 01/20/2014 2.5mg Tablets day Brittany Orourke Metoprolol Succinate 1 by mouth every 90tabs Maycol D. 12/19/2013 ER day Brittany Orourke 50mg Tablets ER 24HR Keppra 3 tabs in am 2 540tabs Teena Ling MD 05/08/2012 500mg Tablets tabs in PM Paroxetine HCL 1 po qd 90tabs Gallo Whitehead 02/20/2012 20mg Brittany Dee Tablets Phenobarbital take 1 by mouth 225tabs Teena Ling MD 02/08/2012 32.4mg every morning and Tablets 1.5 tablets by mouth at bedtime,code c Nitrofurantoin 1 by mouth twice Unknown Macrocrystal a day 100mg Capsules Ranitidine 150 Maximum 1-2 tablets at Unknown Strength hour of sleep as 150mg Tablets directed Clopidogrel Bisulfate take one tablet 90tabs Maycol D. by mouth every Brittany Orourke 75mg Tablets day Lamotrigine take 1 tablet Unknown 50mg Tablets twice daily Dispers Caltrate 600+D3 Soft 1 tabs twice Unknown daily Nitrostat one sl q5min up 25tabs Maycol D. 0.4mg Tablets to 3 doses as Brittany Orourke Sub needed Cholestyramine 1 packet bid 90Packs Unknown 4gm Packet Invega 1 po qd Unknown 6mg Tablets ER 24HR Centrum Silver 1 po qd Unknown Tablets Medications Administered in Office Medication SIG Qnty Indications Ordering Provider Date Depomedrol 40MG Jess Parham M.D. 01/02/2017 Injection Depomedrol 40MG Jess Parham M.D. 01/02/2017 Injection Immunizations Description No Information Available Vital Signs Date Vital Result Comment 11/09/2018 12:12pm Height 62 inches 5'2" Weight 140.00 lb Heart Rate 60 /min BP Systolic Sitting 130 mmHg lue reg cuff BP Diastolic Sitting 80 mmHg lue reg cuff BP Systolic Standing 130 mmHg lue reg cuff BP Diastolic Standing 84 mmHg lue reg cuff Respiratory Rate 14 /min BMI (Body Mass Index) 25.6 kg/m2 Ejection Fraction 15-20% echo. 10/30/18 06/26/2018 1:14pm Height 62 inches 5'2" Weight 148.00 lb with shoes Heart Rate 60 /min BP Systolic Sitting 100 mmHg Lue, regular cuff BP Diastolic Sitting 65 mmHg Lue, regular cuff Respiratory Rate 16 /min BMI (Body Mass Index) 27.1 kg/m2 Results Test Acquired Date Facility Test Result H/L Range Note Laboratory test 02/18/2019 [facility] Troponin-I 0.03 ng/mL < 0.[address] (TnI) [place], [place] [id number] [phone] Basic Metabolic 10/29/2018 [facility] Sodium 139 mmol/L Normal 135-[address] [place] [address] [phone] Potassium 4.2 mmol/L Normal 3.5-5.0 Chloride 103 mmol/L Normal 101-111 Co2 Carbon Dioxide 28 mmol/L Normal 22-32 Anion Gap 8 mmol/L Normal 2-11 Glucose 101 mg/dL High 70-100 Blood Urea Nitrogen 11 mg/dL Normal 6-24 Creatinine 0.96 mg/dL High 0.51-0.95 BUN/Creatinine Ratio 11.5 Normal 8-20 Calcium 9.1 mg/dL Normal 8.6-10.3 Egfr Non- 56.8 >60 Egfr 68.7 >60 2 Laboratory test 10/29/2018 [facility] B-Type > 1300 High <= [address] Natriuretic pg/[place] [address] Peptide BNP [phone] Troponin-I (TnI) 0.07 ng/mL Critical high <0.04 3 1 Troponin-I testing on Plasma Separator Tubes (PST) has a known false positive rate of 0.20-0.40%. All positive troponins reflex immediately to secondary confirmatory testing. Using the [employer] DxI 800 Access Immunoassay systems, the 99th [...] TnIDx:0.07 Called to GERALD AGARWAL at: 15:03:24 by:[id number] Read back by:GERALD AGARWAL Troponin-I testing on Plasma Separator Tubes (PST) has a known false positive rate of 0.20-0.40%. All positive troponins reflex immediately to secondary confirmatory testing. Using the [employer] DxI 800 Access Immunoassay systems, the 99th percentile upper reference limit was demonstrated to be < 0.03 ng/mL. Procedures Date Code Description Status 02/04/2019 53460 Destruction Of Benign Lesions Any Method 1-14 lesions Completed 01/21/2019 81619 Interrogation Device Eval Remote Up To 30 Days Completed Analysis,Rev,RP 01/21/2019 46214 Interrogation Device Eval Remote Up To 30 Days Completed Analysis,Rev,RP 01/21/2019 58627 Icd Eval Sing,Dual,Multi Lead Remote Recpt Transm Tech Rev Completed Tech S 01/21/2019 59708 Icd Eval Sing,Dual,Multi Lead Remote Recpt Transm Tech Rev Completed Tech S 01/21/2019 46125 Icd Check Remote Up To 90 Days Single,Dual,Multiple Lead Completed 01/21/2019 03835 Icd Check Remote Up To 90 Days Single,Dual,Multiple Lead Completed 11/09/2018 81232 EKG Tracing & Interpretation Completed 10/30/2018 72157 Stress Test Supervsn W/Out I/R Completed 10/30/2018 25385 Treadmill Interp/Report Only Completed 10/30/2018 80516 ECHO Transthorasic Realtime 2D W Doppler & Color Flow Hosp Completed 10/29/2018 13467 Interrogation Implant Cardiovasc Monitor System Incl Completed Analysis Int 10/29/2018 23881 Interrogation Implant Cardiovasc Monitor System Incl Completed Analysis Int 10/29/2018 07371 Icd Eval With Inerative Adjustmt Dual Lead System Completed 10/29/2018 05045 Icd Eval With Inerative Adjustmt Dual Lead System Completed 09/03/2018 52501 Interrogation Device Eval Remote Up To [address] Completed Analysis,Rev,RP 09/03/2018 36180 Interrogation Device Eval Remote Up To [address] Completed Analysis,Rev,RP 09/03/2018 15268 Icd Eval Sing,Dual,Multi Lead Remote Recpt Transm Tech Rev Completed Tech S 09/03/2018 02012 Icd Eval Sing,Dual,Multi Lead Remote Recpt Transm Tech Rev Completed Tech S 09/03/2018 23957 Icd Check Remote Up To 90 Days Single,Dual,Multiple Lead Completed 09/03/2018 92902 Icd Check Remote Up To 90 Days Single,Dual,Multiple Lead Completed Medical Devices Description No Information Available Encounters Type Date Location Provider Dx Diagnosis Office Visit 02/04/2019 [facility] Dermatology Wong Hoffmann MD L21.8 Other seborrheic 3:20p dermatitis L20.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 cardiomyopathy [facility] I35.0 Nonrheumatic aortic (valve) stenosis I25.10 Athscl heart disease of [place] coronary artery w/o ang pctrs I50.9 Heart failure, unspecified Office Visit 11/01/2018 4:24p Rena Thurman I25.5 Ischemic Cardiology Thuman, [employer] DEV[employer] cardiomyopathy I35.0 Nonrheumatic aortic (valve) stenosis I25.10 Athscl heart disease of [place] coronary artery w/o ang pctrs Office Visit 11/01/2018 [facility] I25.5 Ischemic 1:55p Assocsravani M.D. cardiomyopathy Hospitalists Office Visit 10/31/2018 [facility] Cuca Thuman, I25.5 Ischemic 4:22p Of [facility] [employer] DEV[employer] cardiomyopathy R94.39 Abnormal result of other cardiovascular function study I35.0 Nonrheumatic aortic (valve) stenosis I25.10 Athscl heart disease of [place] coronary artery w/o ang pctrs Z95.5 Presence of coronary angioplasty implant and graft Office Visit 10/31/2018 [facility] I25.5 Ischemic 1:54p Assocsravani M.D. cardiomyopathy Hospitalists I10 Essential (primary) hypertension E78.5 Hyperlipidemia, unspecified R56.9 Unspecified convulsions Office Visit 10/30/2018 4:17p [facility] Taya Upton, R07.9 Chest pain, Of [facility] M.DDominic unspecified R55 Syncope and collapse I35.0 Nonrheumatic aortic (valve) stenosis I25.5 Ischemic cardiomyopathy I50.9 Heart failure, unspecified Z95.810 Presence of automatic (implantable) cardiac defibrillator Office Visit 10/29/2018 1:54p [facility] R79.89 Other specified Assoc,sravani Duncan MD abnormal Hospitalists findings of blood chemistry R07.9 Chest pain, unspecified Assessments Date Code Description Provider 02/04/2019 L21.8 Other seborrheic dermatitis Wong Hoffmann [...] 01/21/2019 Z95.810 Presence of automatic (implantable) Maycol Oroukre M.D. cardiac defibrillator 01/21/2019 Z95.810 Presence of automatic (implantable) Remote Device Checks cardiac defibrillator 01/21/2019 I47.2 Ventricular tachycardia Maycol Orourke M.D. 01/21/2019 I47.2 Ventricular tachycardia Remote Device Checks 11/09/2018 I25.5 Ischemic cardiomyopathy Maycol Orourke M.D. 11/09/2018 I35.0 Nonrheumatic aortic (valve) stenosis Maycol Orourke M.D. 11/09/2018 I25.10 Atherosclerotic heart disease of [place] Maycol Orourke M.D. coronary artery with 11/09/2018 I50.9 Heart failure, unspecified Maycol Orourke M.D. 11/01/2018 I25.5 Ischemic cardiomyopathy Cuca Garcia, SCOTT 11/01/2018 I35.0 Nonrheumatic aortic (valve) stenosis Cuca Garcia NP 11/01/2018 I25.10 Atherosclerotic heart disease of [place] [facility] coronary artery with 11/01/2018 I25.5 Ischemic cardiomyopathy Genaro Barrett M.D. 10/31/2018 I25.5 Ischemic cardiomyopathy Cuca Thuman, [employer] DEVELOPER 10/31/2018 R94.39 Abnormal result of other cardiovascular Cucayaya Garcia NP function study 10/31/2018 I35.0 Nonrheumatic aortic (valve) stenosis Cuca Garcia, [employer] DEVELOPER 10/31/2018 I25.10 Atherosclerotic heart disease of [place] [facility], [employer] DEVELOPER coronary artery with 10/31/2018 Z95.5 Presence of coronary angioplasty Cucayaya Garcia NP implant and graft 10/31/2018 I25.5 Ischemic cardiomyopathy Genaro Barrett M.D. 10/31/2018 I10 Essential (primary) hypertension Genaro Barrett M.D. 10/31/2018 E78.5 Hyperlipidemia, unspecified Genaro Barrett M.D. 10/31/2018 R56.9 Unspecified convulsions Genaro Barrett M.D. 10/30/2018 R07.9 Chest pain, unspecified Shreyas Coffman M.D., [facility], [facility] 10/30/2018 R07.9 Chest pain, unspecified Taya [...] automatic (implantable) Ica Pacer Schedule cardiac defibrillator 09/03/2018 Z95.810 Presence of automatic (implantable) Maycol Orourke M.D. cardiac defibrillator 09/03/2018 Z95.810 Presence of automatic (implantable) Remote Device Checks cardiac defibrillator 09/03/2018 I42.9 Cardiomyopathy, unspecified Maycol Orourke M.D. 09/03/2018 I42.9 Cardiomyopathy, unspecified Remote Device Checks Plan of Treatment Future Appointment(s):03/01/2019 12:15 pm - Maycol Orourke M.D. at [facility]03/01/2019 11:40 am - Ica Pacer Schedule at [facility]03/04/2019 1:45 pm - [facility] 3:00 pm - Wong Hoffmann MD at [facility]03/08/2019 10:30 am - Maycol Orourke M.D. at [facility]11/09/2018 - Maycol Orourke M.D.I25.5 Ischemic cardiomyopathyFollow up:4 rniwpvV51.0 Nonrheumatic aortic (valve) ahaisyawD19.10 Atherosclerotic heart disease of [place] coronary artery withI50.9 Heart failure, unspecified Functional Status Description No Information Available Mental Status Description No Information Available Referrals Description No Information Available
--- OUTSIDE RECORDS SUMMARY | 2019-04-03 19:55 | XMS REPORT | Continuity of Care Document ---
:1945 External Reference #:[id number] Author Name Maycol Orourke M.D. (transmitted by agent of provider Selina Archuleta) Address [address] [place] [id number] Care Team Providers Name Role Phone Milton Hall M.D. - Family Medicine Care Team Information Hyster Driver Maycol Orourke MD - Cardiovascular Care Team Information Hyster Driver Disease Problems Active Problems Provider Date Arteriosclerosis [...] Former Cigarette Smoker Unknown Smoking Status Reviewed: 03/01/19 Former Cigarette Smoker ETOH Use Denies alcohol [...] Tablets , monday, monday ( Not given [facility] as of 03/01/19) Lasix take 1 tablet on 36tabs R06.02 Tyra Cedillo, 05/18/2017 20mg Tablets monday, monday N.P. and monday ( Not Given at [facility] as of 03/01/19 ) Atorvastatin Calcium 1 by mouth every 90tabs Maycol Jacobson 02/17/2014 10mg day Brittany Orourke Tablets Lisinopril 1 by mouth every 90tabs Maycol Jacobson 01/20/2014 2.5mg Tablets day ( Not given Brittany Orourke at [facility] as of 03/01/19) Paroxetine HCL 1 po [...] change 50 mg to 25 mg discharged [facility] [place] Levetiracetam 2 by mouth at Unknown [...] Available Vital Signs Date Vital Result Comment 03/01/2019 12:03pm Height 62 inches 5'2" Heart Rate 76 /min BP Systolic Sitting 126 mmHg Lue reg cuff BP Diastolic Sitting 82 mmHg Lue reg cuff Respiratory Rate 13 /min Ejection Fraction 15-20% ECHO 10/30/2018 11/09/2018 12:12pm Height 62 inches 5'2" Weight 140.00 lb Heart Rate 60 /min BP Systolic Sitting 130 mmHg lue reg cuff BP Diastolic Sitting 80 mmHg lue reg cuff BP Systolic Standing 130 mmHg lue reg cuff BP Diastolic Standing 84 mmHg lue reg cuff Respiratory Rate 14 /min BMI (Body Mass Index) 25.6 kg/m2 Ejection Fraction 15-20% echo. 10/30/18 Results Test Acquired Date Facility Test Result H/L Range Note Laboratory test 02/18/2019 [facility] Troponin-I 0.03 ng/mL < 0.04 [address] (TnI) [place] [address] [phone] Basic Metabolic 10/29/2018 [facility] Sodium 139 mmol/L Normal 135-[address] [place] [address] [phone] Potassium 4.2 mmol/L Normal 3.5-5.0 Chloride 103 mmol/L Normal 101-111 Co2 Carbon Dioxide 28 mmol/L Normal 22-32 Anion Gap 8 mmol/L Normal 2-11 Glucose 101 mg/dL High 70-100 Blood Urea Nitrogen 11 mg/dL Normal 6-24 Creatinine 0.96 mg/dL High 0.51-0.95 BUN/Creatinine Ratio 11.5 Normal 8-20 Calcium 9.1 mg/dL Normal 8.6-10.3 Egfr Non- 56.8 >60 Egfr 68.7 >60 2 Laboratory test 10/29/2018 [facility] B-Type > 1300 High <= [address] Natriuretic pg/[place] [address] Peptide BNP [phone] Troponin-I (TnI) 0.07 ng/mL Critical high <0.04 3 1 Troponin-I testing on Plasma Separator Tubes (PST) has a known false positive rate of 0.20-0.40%. All positive troponins reflex immediately to secondary confirmatory testing. Using the [employer] DxI 800 Access Immunoassay systems, the 99th [...] TnIDx:0.07 Called to GERALD AGARWAL at: 15:03:24 by:[id number] Read back by:GERALD AGARWAL Troponin-I testing on Plasma Separator Tubes (PST) has a known false positive rate of 0.20-0.40%. All positive troponins reflex immediately to secondary confirmatory testing. Using the [employer] DxI 800 Access Immunoassay systems, the 99th percentile upper reference limit was demonstrated to be < 0.03 ng/mL. Procedures Date Code Description Status 03/01/2019 52840 Icd Eval With Inerative Adjustmt Dual Lead System Completed 02/04/2019 91673 Destruction Of Benign Lesions Any Method 1-14 lesions Completed 01/21/2019 59010 Interrogation Device Eval Remote Up To [address] Completed Analysis,Rev,RP 01/21/2019 01062 Interrogation Device Eval Remote Up To [address] Completed Analysis,Rev,RP 01/21/2019 42460 Icd Eval Sing,Dual,Multi Lead Remote Recpt Transm Tech Rev Completed Tech S 01/21/2019 58708 Icd Eval Sing,Dual,Multi Lead Remote Recpt Transm Tech Rev Completed Tech S 01/21/2019 35149 Icd Check Remote Up To 90 Days Single,Dual,Multiple Lead Completed 01/21/2019 62180 Icd Check Remote Up To 90 Days Single,Dual,Multiple Lead Completed 11/09/2018 15472 EKG Tracing & Interpretation Completed 10/30/2018 73794 Stress Test Supervsn W/Out I/R Completed 10/30/2018 28111 Treadmill Interp/Report Only Completed 10/30/2018 13140 ECHO Transthorasic Realtime 2D W Doppler & Color Flow Hosp Completed 10/29/2018 02990 Interrogation Implant Cardiovasc Monitor System Incl Completed Analysis Int 10/29/2018 90952 Interrogation Implant Cardiovasc Monitor System Incl Completed Analysis Int 10/29/2018 63060 Icd Eval With Inerative Adjustmt Dual Lead System Completed 10/29/2018 12386 Icd Eval With Inerative Adjustmt Dual Lead System Completed 09/03/2018 59446 Interrogation Device Eval Remote Up To 30 Days Completed Analysis,Rev,RP 09/03/2018 19911 Interrogation Device Eval Remote Up To 30 Days Completed Analysis,Rev,RP 09/03/2018 20704 Icd Eval Sing,Dual,Multi Lead Remote Recpt Transm Tech Rev Completed Tech S 09/03/2018 69793 Icd Eval Sing,Dual,Multi Lead Remote Recpt Transm Tech Rev Completed Tech S 09/03/2018 95229 Icd Check Remote Up To 90 Days Single,Dual,Multiple Lead Completed 09/03/2018 92454 Icd Check Remote Up To 90 Days Single,Dual,Multiple Lead Completed Medical Devices Description No Information Available Encounters Type Date Location Provider Dx Diagnosis Office Visit 02/04/2019 [facility] Dermatology Wong Hoffmann MD L21.8 Other seborrheic 3:20p dermatitis L20.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 cardiomyopathy [facility] I35.0 Nonrheumatic aortic (valve) stenosis I25.10 Athscl heart disease of [place] coronary artery w/o ang pctrs I50.9 Heart failure, unspecified Office Visit 11/01/2018 4:24p [facility] I25.5 Ischemic Cardiology Radha, SCOTT cardiomyopathy I35.0 Nonrheumatic aortic (valve) stenosis I25.10 Athscl heart disease of [place] coronary artery w/o ang pctrs [facility] 1:55p Asssravani lee M.D. cardiomyopathy Hospitalists Office Visit 10/31/2018 [facility] Cucayaya Garcia, I25.5 Ischemic 4:22p Of [facility] ZOOKEEPER cardiomyopathy R94.39 Abnormal result of other cardiovascular function study I35.0 Nonrheumatic aortic (valve) stenosis I25.10 Athscl heart disease of [place] coronary artery w/o ang pctrs Z95.5 Presence of coronary angioplasty implant and graft Office Visit 10/31/2018 [facility] I25.5 Ischemic 1:54p sravani Veras M.D. cardiomyopathy Hospitalists I10 Essential (primary) hypertension E78.5 Hyperlipidemia, unspecified R56.9 Unspecified convulsions Office Visit 10/30/2018 4:17p [facility] Taya Upton, R07.9 Chest pain, Of [facility] Brittany unspecified R55 Syncope and collapse I35.0 Nonrheumatic aortic (valve) stenosis I25.5 Ischemic cardiomyopathy I50.9 Heart failure, unspecified Z95.810 Presence of automatic (implantable) cardiac defibrillator Office Visit 10/29/2018 1:54p [facility] R79.89 Other specified Assoc,sravani Duncan MD abnormal Hospitalists findings of blood chemistry R07.9 Chest pain, unspecified Assessments Date Code Description Provider 03/01/2019 Z95.810 Presence of automatic (implantable) Maycol Orourke M.D. cardiac defibrillator 03/01/2019 Z95.810 Presence of automatic (implantable) Ica Pacer Schedule cardiac defibrillator 03/01/2019 I47.2 Ventricular tachycardia Maycol Orourke M.D. 03/01/2019 I47.2 Ventricular tachycardia Ica Pacer Schedule 03/01/2019 I25.10 Atherosclerotic heart disease of Maycol Orourke M.D. ambler coronary artery without angina pectoris 03/01/2019 I25.5 Ischemic cardiomyopathy Maycol Orourke M.D. 03/01/2019 I50.9 Heart failure, unspecified Maycol Orourke M.D. 02/26/2019 I80.9 Phlebitis and thrombophlebitis of Arminda Tahir, D.O. unspecified site 02/22/2019 I80.9 Phlebitis and thrombophlebitis of Arminda Tahir, D.O. unspecified site 02/22/2019 I25.10 Atherosclerotic heart disease of Arminda Tahir, D.O. ambler coronary artery without angina pectoris 02/22/2019 I10 Essential (primary) hypertension Arminda Tahir, D.O. 02/22/2019 G40.909 Epilepsy, unspecified, not Arminda Tahir, D.O. intractable, without status epilepticus 02/22/2019 R55 Syncope and collapse Arminda Tahir, D.O. 02/22/2019 S82.492A Other fracture of shaft of left Arminda Tahir, D.O. fibula, initial encounter for closed fracture 02/20/2019 S82.492A Other fracture of shaft of left NAKUL Toribio fibula, initial encounter for closed fracture 02/20/2019 I25.10 Atherosclerotic heart disease of NAKUL Toribio [place] coronary artery without angina pectoris 02/20/2019 I10 Essential (primary) hypertension NAKUL Toribio 02/20/2019 I47.9 Paroxysmal tachycardia, unspecified NAKUL Toribio 02/20/2019 G40.909 Epilepsy, unspecified, not NAKUL Toribio intractable, without status epilepticus 02/19/2019 S82.492A Other fracture of shaft of [...] Atherosclerotic heart disease of Maycol Orourke M.D. ambler coronary artery with 11/09/2018 I50.9 Heart failure, unspecified Maycol Orourke M.D. 11/01/2018 I25.5 Ischemic cardiomyopathy Cuca Garcia SCOTT 11/01/2018 I35.0 Nonrheumatic aortic (valve) stenosis Cuca GarciaSCOTT 11/01/2018 I25.10 Atherosclerotic heart disease of Cuca Garcia NP [place]bler coronary artery with 11/01/2018 I25.5 Ischemic cardiomyopathy Genaro Barrett M.D. 10/31/2018 I25.5 Ischemic cardiomyopathy Cuca Garcia NP 10/31/2018 R94.39 Abnormal result of other Cuca Garcia NP cardiovascular function study 10/31/2018 I35.0 Nonrheumatic aortic (valve) stenosis Cuca Garcia NP 10/31/2018 I25.10 Atherosclerotic heart disease of Cuca Garcia NP [place]bler coronary artery with 10/31/2018 Z95.5 Presence of coronary angioplasty Cuca Garcia NP implant and graft 10/31/2018 I25.5 Ischemic cardiomyopathy Genaro Barrett M.D. 10/31/2018 I10 Essential (primary) hypertension Genaro Barrett M.D. 10/31/2018 E78.5 Hyperlipidemia, unspecified Genaro Barrett M.D. 10/31/2018 R56.9 Unspecified convulsions Genaro Barrett M.D. 10/30/2018 R07.9 Chest pain, unspecified Taya Upton M.D. 10/30/2018 R07.9 Chest pain, unspecified Shreyas Coffman M.D., [facility], [facility] 10/30/2018 R55 Syncope and collapse Taya Upton [...] Remote Device Checks Plan of Treatment Future Appointment(s):04/02/2019 1:15 pm - Maycol Orourke M.D. at [facility]/04/2019 1:45 pm - Reed Reid MD at [id number]/15/2019 3:00 pm - Wong Hoffmann MD at [facility] [id number] /15/2019 - Maycol Orourke M.D.Z95.810 Presence of automatic (implantable) cardiac defibrillatorFollow up:1 sskzbA45.2 Ventricular hsaflwnchakQ53.10 Atherosclerotic heart disease of [place] coronary artery without angina dysphwpzT14.5 Ischemic kapwwmlnzdpcaqO74.9 Heart failure, unspecifiedRecommendations:Continue on same medications Will not restart Lasix or Lisinopril today Functional Status Description No Information Available Mental Status Description No Information Available Referrals Description No Information Available
--- OUTSIDE RECORDS SUMMARY | 2019-04-03 19:55 | XMS REPORT | Continuity of Care Document ---
:1945 External Reference #:[id number] Author Name Reed Reid MD (transmitted by agent of provider Jaswinder Alberts) Address [address] [place] [id number] Care Team Providers Name Role Phone Milton Hall M.D. - Family Medicine Care Team Information Car Mechanic [phone] Maycol Orourke MD - Cardiovascular Care Team Information Car Mechanic [phone] Disease Problems Active Problems Provider Date Arteriosclerosis [...] Former Cigarette Smoker Unknown Smoking Status Reviewed: 03/04/19 Former Cigarette Smoker ETOH Use Denies alcohol [...] Tablets , monday, monday ( Not given [facility] as of 03/01/19) Lasix take 1 tablet on 36tabs R06.02 Tyra Cedillo, 05/18/2017 20mg Tablets monday, monday N.P. and monday ( Not Given at [facility] as of 03/01/19 ) Atorvastatin Calcium 1 by mouth every 90tabs Maycol Jacobson 02/17/2014 10mg day Brittany Orourke Tablets Lisinopril 1 by mouth every 90tabs Maycol Jacobson 01/20/2014 2.5mg Tablets day ( Not given Brittany Orourke at [facility] as of 03/01/19) Paroxetine HCL 1 po [...] change 50 mg to 25 mg discharged [facility] [place] Levetiracetam 2 by mouth at Unknown [...] Available Vital Signs Date Vital Result Comment 03/04/2019 1:49pm Height 62 inches 5'2" Weight 145.00 lb stated Heart Rate 72 /min BP Systolic 110 mmHg BP Diastolic 68 mmHg Respiratory Rate 13 /min Pain Level 0 BMI (Body Mass Index) 26.5 kg/m2 03/01/2019 12:03pm Height 62 inches 5'2" Heart Rate 76 /min BP Systolic Sitting 126 mmHg Lue reg cuff BP Diastolic Sitting 82 mmHg Lue reg cuff Respiratory Rate 13 /min Ejection Fraction 15-20% ECHO 10/30/2018 Results Test Acquired Date Facility Test Result H/L Range Note Laboratory test 02/18/2019 [facility] Troponin-I 0.03 ng/mL < 0.[address] (TnI) [place] [address] [phone] Basic Metabolic 10/29/2018 [facility] Sodium 139 mmol/L Normal 135-[address] [place] [address] [phone] Potassium 4.2 mmol/L Normal 3.5-5.0 Chloride 103 mmol/L Normal 101-111 Co2 Carbon Dioxide 28 mmol/L Normal 22-32 Anion Gap 8 mmol/L Normal 2-11 Glucose 101 mg/dL High 70-100 Blood Urea Nitrogen 11 mg/dL Normal 6-24 Creatinine 0.96 mg/dL High 0.51-0.95 BUN/Creatinine Ratio 11.5 Normal 8-20 Calcium 9.1 mg/dL Normal 8.6-10.3 Egfr Non- 56.8 >60 Egfr 68.7 >60 2 Laboratory test 10/29/2018 [facility] B-Type > 1300 High <= [address] Natriuretic pg/[place] [address] Peptide BNP [phone] Troponin-I (TnI) 0.07 ng/mL Critical high <0.04 3 1 Troponin-I testing on Plasma Separator Tubes (PST) has a known false positive rate of 0.20-0.40%. All positive troponins reflex immediately to secondary confirmatory testing. Using the [facility] DxI 800 Access Immunoassay systems, the 99th [...] TnIDx:0.07 Called to GERALD AGARWAL at: 15:03:24 by:[id number] Read back by:GERALD AGARWAL Troponin-I testing on Plasma Separator Tubes (PST) has a known false positive rate of 0.20-0.40%. All positive troponins reflex immediately to secondary confirmatory testing. Using the [facility] DxI 800 Access Immunoassay systems, the 99th percentile upper reference limit was demonstrated to be < 0.03 ng/mL. Procedures Date Code Description Status 03/04/2019 13460 Short Leg Cast Completed 03/01/2019 67588 Icd Eval With Inerative Adjustmt Dual Lead System Completed 02/04/2019 77037 Destruction Of Benign Lesions Any Method 1-14 lesions Completed 01/21/2019 88112 Interrogation Device Eval Remote Up To 30 Days Completed Analysis,Rev,RP 01/21/2019 76610 Interrogation Device Eval Remote Up To [address] Completed Analysis,Rev,RP 01/21/2019 13335 Icd Eval Sing,Dual,Multi Lead Remote Recpt Transm Tech Rev Completed Tech S 01/21/2019 40553 Icd Eval Sing,Dual,Multi Lead Remote Recpt Transm Tech Rev Completed Tech S 01/21/2019 53579 Icd Check Remote Up To 90 Days Single,Dual,Multiple Lead Completed 01/21/2019 94385 Icd Check Remote Up To 90 Days Single,Dual,Multiple Lead Completed 11/09/2018 54612 EKG Tracing & Interpretation Completed 10/30/2018 50127 Stress Test Supervsn W/Out I/R Completed 10/30/2018 26050 Treadmill Interp/Report Only Completed 10/30/2018 14983 ECHO Transthorasic Realtime 2D W Doppler & Color Flow Hosp Completed 10/29/2018 33262 Interrogation Implant Cardiovasc Monitor System Incl Completed Analysis Int 10/29/2018 45919 Interrogation Implant Cardiovasc Monitor System Incl Completed Analysis Int 10/29/2018 74329 Icd Eval With Inerative Adjustmt Dual Lead System Completed 10/29/2018 81790 Icd Eval With Inerative Adjustmt Dual Lead System Completed 09/03/2018 40612 Interrogation Device Eval Remote Up To 30 Days Completed Analysis,Rev,RP 09/03/2018 36377 Interrogation Device Eval Remote Up To 30 Days Completed Analysis,Rev,RP 09/03/2018 04766 Icd Eval Sing,Dual,Multi Lead Remote Recpt Transm Tech Rev Completed Tech S 09/03/2018 64723 Icd Eval Sing,Dual,Multi Lead Remote Recpt Transm Tech Rev Completed Tech S 09/03/2018 96943 Icd Check Remote Up To 90 Days Single,Dual,Multiple Lead Completed 09/03/2018 81015 Icd Check Remote Up To 90 Days Single,Dual,Multiple Lead Completed Medical Devices Description No Information Available Encounters Type Date Location Provider Dx Diagnosis Office Visit 02/04/2019 [facility] Dermatology Wong Hoffmann MD L21.8 Other seborrheic 3:20p dermatitis L20.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 cardiomyopathy Power Bender Operator I35.0 Nonrheumatic aortic (valve) stenosis I25.10 [place] heart disease [place] coronary artery w/o ang pctrs I50.9 Heart failure, unspecified Office Visit 11/01/2018 4:24p [facility] I25.5 Ischemic Cardiology Moisésuman, LOAD BLOCKER cardiomyopathy I35.0 Nonrheumatic aortic (valve) stenosis I25.10 Athscl heart disease of [place] coronary artery w/o ang pctrs Office Visit 11/01/2018 [facility] I25.5 Ischemic 1:55p Assocsravani M.D. cardiomyopathy Hospitalists Office Visit 10/31/2018 [facility], I25.5 Ischemic 4:22p Of [facility] LOAD BLOCKER cardiomyopathy R94.39 Abnormal result of other cardiovascular function study I35.0 Nonrheumatic aortic (valve) stenosis I25.10 Athscl heart disease of [place] coronary artery w/o ang pctrs Z95.5 Presence of coronary angioplasty implant and graft Office Visit 10/31/2018 [facility] I25.5 Ischemic 1:54p Assocsravani M.D. cardiomyopathy Hospitalists I10 Essential (primary) hypertension E78.5 Hyperlipidemia, unspecified R56.9 Unspecified convulsions Office Visit 10/30/2018 4:17p [facility] Taya Upton, R07.9 Chest pain, Of Power Bender Operator M.D. unspecified R55 Syncope and collapse I35.0 Nonrheumatic aortic (valve) stenosis I25.5 Ischemic cardiomyopathy I50.9 Heart failure, unspecified Z95.810 Presence of automatic (implantable) cardiac defibrillator Office Visit 10/29/2018 1:54p [facility] Christiana R79.89 Other specified Assoc,sravani Duncan MD abnormal Hospitalists findings of blood chemistry R07.9 Chest pain, unspecified Assessments Date Code Description Provider 03/04/2019 S82.65xD Nondisplaced fracture of lateral Reed Geovanni Reid MD malleolus of left fibula, subsequent encounter for closed fracture with routine healing 03/01/2019 Z95.810 Presence of automatic (implantable) Maycol Orourke M.D. cardiac defibrillator 03/01/2019 Z95.810 Presence of automatic (implantable) Ica Pacer Schedule cardiac defibrillator 03/01/2019 I47.2 Ventricular tachycardia Maycol Orourke M.D. 03/01/2019 I47.2 Ventricular tachycardia Ica Pacer Schedule 03/01/2019 I25.10 Atherosclerotic heart disease of Maycol Orourke M.D. [place] coronary artery without angina pectoris 03/01/2019 I25.5 Ischemic cardiomyopathy Maycol Orourke M.D. 03/01/2019 I50.9 Heart failure, unspecified Maycol Orourke M.D. 02/26/2019 I80.9 Phlebitis and thrombophlebitis of Arminda Tahir, D.O. unspecified site 02/22/2019 I80.9 Phlebitis and thrombophlebitis of Arminda Tahir, D.O. unspecified site 02/22/2019 I25.10 Atherosclerotic heart disease of Arminda Tahir, D.O. [place] coronary artery without angina pectoris 02/22/2019 I10 [...] I25.10 Atherosclerotic heart disease of NAKUL Toribio [place] coronary artery without angina pectoris 02/20/2019 I10 Essential (primary) hypertension NAKUL Toribio 02/20/2019 I47.9 Paroxysmal tachycardia, unspecified NAKUL Toribio 02/20/2019 G40.909 Epilepsy, unspecified, not NAKUL Toribio intractable, without status epilepticus 02/19/2019 S82.492A Other fracture of shaft of left NAKUL Toribio fibula, initial encounter for closed fracture 02/19/2019 I47.9 Paroxysmal tachycardia, unspecified NAKUL Toribio 02/19/2019 I10 Essential (primary) hypertension NAKLU Toribio 02/19/2019 G40.909 Epilepsy, unspecified, not NAKUL [...] Atherosclerotic heart disease of Maycol Orourke M.D. [place] coronary artery with 11/09/2018 I50.9 Heart failure, unspecified Maycol Orourke M.D. 11/01/2018 I25.5 Ischemic cardiomyopathy Cuca GarciaSCOTT 11/01/2018 I35.0 Nonrheumatic aortic (valve) stenosis Cuca GarciaSCOTT 11/01/2018 I25.10 Atherosclerotic heart disease of Cuca Garcia LOAD BLOCKER [place] coronary artery with 11/01/2018 I25.5 Ischemic cardiomyopathy Genaro Barrett M.D. 10/31/2018 I25.5 Ischemic cardiomyopathy Cuca GarciaSCOTT 10/31/2018 R94.39 Abnormal result of other Cuca Garcia LOAD BLOCKER cardiovascular function study 10/31/2018 I35.0 Nonrheumatic aortic (valve) stenosis Cuca GarciaSCOTT 10/31/2018 I25.10 Atherosclerotic heart disease of Cuca Garcia LOAD BLOCKER [place] coronary artery with 10/31/2018 Z95.5 Presence of coronary angioplasty Cuca GarciaSCOTT implant and graft 10/31/2018 I25.5 Ischemic cardiomyopathy Genaro Barrett M.D. 10/31/2018 I10 Essential (primary) hypertension Genaro Barrett M.D. 10/31/2018 E78.5 Hyperlipidemia, julio cified Genaro Barrett M.D. 10/31/2018 R56.9 Unspecified convulsions Genaro Barrett M.D. 10/30/2018 R07.9 Chest pain, unspecified Taya Upton M.D. 10/30/2018 R07.9 Chest pain, unspecified Shreyas Coffman M.D., [facility] 10/30/2018 R55 Syncope and collapse Taya Upton [...] Remote Device Checks Plan of Treatment Future Appointment(s):04/01/2019 1:30 pm - Reed Reid MD at [facility] at [facility]04/02/2019 1:15 pm - Maycol Orourke M.D. at [facility] 3:00 pm - Wong Hoffmann MD at [facility] Cyputczcscp55/18/2019 - Reed Reid, MDS82.65xD Nondisplaced fracture of lateral malleolus of left fibula, subsequent encounter for closed fracture with routine healingFollow up:Follow up: 4 weeks with xrays Functional Status Description No Information Available Mental Status Description No Information Available Referrals Description No Information Available
--- NOTE | 2019-04-03 20:20 | ED ---
Altered Mental Status - HPI Summary HPI Summary: 74-year-old female with a significant past medical history of heart failure with reduced ejection fraction of 20% due to coronary artery disease, COPD, schizoaffective disorder, remote history of seizures who presents to the emergency department today with altered mental status and status post possible fall. Patient's son is at the bedside. History is difficult to obtain due to patient's mentation. The patient [facility] with increased confusion when compared to her baseline however she is always confused. Patient fractured left ankle approximately one and a half month ago which is followed by orthopedic doctor Jeanette and pt is currently in a cam boot. [facility] staff [facility] are concerned that she may have fallen she was found "kneeling/praying position" at her bedside. Son reports he thinks her mental confusion may be due to overdose of Keppra after reviewing her lab results. Review of systems is unable to be obtained due to patient's mentation. Family history and social history is noncontributory. - History Of Current Complaint Chief Complaint: EDAltMentalStatus Stated Complaint: AMS PER EMS Time Seen by Provider: 04/03/19 20:04 Hx Obtained From: Patient, Family/Lab Support Technician Hx From Patient Unobtainable Due To: Dementia Onset/Duration: Gradually Timing: Constant Severity Initially: Mild Severity Currently: Moderate Character: Confusion Aggravating Factor(s): Medication Change Associated Signs And Symptoms: Negative: Dizziness, Seizure, Nausea, Vomiting, Fever, Nuchal Rigity, Headache, Weakness - Allergies/Home Medications Allergies/Adverse Reactions: Allergies Allergy/AdvReac Type Severity Reaction Status Date / Time carbamazepine Allergy Unknown Unknown Verified 02/18/19 11:12 Reaction Details methoxyflurane Allergy Unknown Unknown Verified 02/18/19 11:12 Reaction Details Sulfa (Sulfonamide Allergy Unknown Unknown Verified 02/18/19 11:12 Antibiotics) Reaction Details Home Medications: Home Medications Acetaminophen [Acetaminophen Extra Strength] 1,000 mg PO Q6HR PRN MDD 4000mg [History Confirmed 04/03/19] Clopidogrel TAB* [Plavix TAB*] 75 mg PO QAM 04/03/19 [History Confirmed 04/03/19 ] Famotidine TAB* [Pepcid 20 MG TAB*] 20 mg PO QAM 04/03/19 [History Confirmed ] Furosemide TAB* [Lasix TAB*] 20 mg PO QAM 04/03/19 [History Confirmed 04/03/19] Metoprolol Succinate XL TAB* [Toprol XL TAB*] 25 mg PO QAM 04/03/19 [History Confirmed 04/03/19] PARoxetine HCL TAB* [Paxil TAB*] 20 mg PO DAILY 04/03/19 [History Confirmed ] Paliperidone ER TAB* [Invega ER TAB*] 6 mg PO QAM 04/03/19 [History Confirmed ] lamoTRIgine TAB(*) [LaMICtal TAB(*)] 150 mg PO BID 04/03/19 [History Confirmed 04/03/19] levETIRAcetam TAB* [Keppra TAB*] 1,000 mg PO BID 04/03/19 [History Confirmed ] levETIRAcetam TAB* [Keppra TAB*] 500 mg PO BEDTIME 04/03/19 [History Confirmed 04/03/19] PMH/Surg Hx/FS Hx/Imm Hx Endocrine/Hematology History: Reports: Hx Anticoagulant Therapy - [place] Denies: Hx Diabetes, Hx Thyroid Disease Cardiovascular History: Reports: Hx Angina - tightness, Hx Auto Implanted Cardiovert Defib, Hx Congestive Heart Failure - 2 CABG, Hx Coronary Artery Disease, Hx Hypercholesterolemia, Hx Hypertension - ON DAILY MEDS, Hx Myocardial Infarction, Hx Pacemaker/ICD - 12/2011, Hx Syncope, Hx Valvular Heart Disease, 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 Denies: Hx Peripheral Vascular Disease Respiratory History: Reports: Hx Chronic Obstructive Pulmonary Disease (COPD), Hx Pneumonia - 2009, Other Respiratory Problems/Disorders - PNEUMONIA 2009 GI History: Reports: Hx Gastroesophageal Reflux Disease, Hx Ulcer - ON DAILY MEDS Denies: Other GI Disorders Musculoskeletal History: Denies: Hx Arthritis, Hx Osteoporosis, Other Musculoskeletal History Sensory History: Reports: Hx Cataracts - FITO, Hx Contacts or Glasses - READING GLASSES, Hx Hearing Problem Denies: Hx Glaucoma, Hx Hearing Aid Opthamlomology History: Reports: Hx Cataracts - FITO, Hx Contacts or Glasses - READING GLASSES Denies: Hx Glaucoma Neurological History: Reports: Hx Seizures - LAST ONE 3 YRS AGO, Hx Transient Ischemic Attacks (TIA), Other Neuro Impairments/Disorders - EPILEPSY Denies: Hx Headaches Psychiatric History: Reports: Hx Anxiety - ON MEDS, Hx Depression - ON DAILY MEDS, Other Psychiatric Issues/Disorders - schizoaffective disorder - Cancer History Hx Chemotherapy: No Hx Radiation Therapy: No - Surgical History Surgery Procedure, Year, and Place: 1994 1999 CARDIAC BY-PASS 5 vessel bypass then 4 vessel bypass [facility] [facility]08/2012, [facility], [facility]; PACEMAKER/DEFIBRILATOR Hx Anesthesia Reactions: No - Immunization History Date of Tetanus Vaccine: Unk Date of Influenza Vaccine: Unk Infectious Disease History: No Infectious Disease History: Denies: Hx Hepatitis, Hx of Known/Suspected MRSA, Hx Shingles, Hx Tuberculosis, Traveled Outside the [place] in Last 30 Days - Family History Known Family History: Positive: Cardiac Disease - Mother: CHF. Mother and Father : [place], Hypertension - Mother, Diabetes - Mother and brother, Other - Sister: colon [place]. - Social History Alcohol Use: None Hx Substance Use: No Substance Use Type: Reports: None Hx Tobacco Use: Yes Smoking Status (MU): Former Smoker Type: Cigarettes Amount Used/How Often: 3-4 PACKS A DAY Have You Smoked in the Last Year: No Review of Systems Constitutional: Negative Eyes: Negative ENT: Negative Cardiovascular: Negative Respiratory: Negative Gastrointestinal: Negative Genitourinary: Negative Musculoskeletal: Negative Skin: Negative Neurological: Negative Psychological: Normal All Other Systems Reviewed And Are Negative: Yes Physical Exam Triage Information Reviewed: Yes Vital Signs On Initial Exam: Initial Vitals Temp Pulse Resp BP Pulse Ox 99.6 F 88 24 137/72 96 04/03/19 19:47 04/03/19 19:47 04/03/19 19:47 04/03/19 19:47 04/03/19 19:47 Vital Signs Reviewed: Yes Completion Of Physical Exam Limited Due To: Dementia Appearance: Positive: Well-Appearing, No Pain Distress, Well-Nourished Skin: Positive: Warm, Skin Color Reflects Adequate Perfusion Eyes: Positive: EOMI, AGUSTÍN ENT: Positive: Hearing grossly normal Respiratory/Lung Sounds: Positive: Clear to Auscultation, Breath Sounds Present , Decreased Breath Sounds Cardiovascular: Positive: RRR, S1, S2 Abdomen Description: Positive: Nontender, Soft Bowel Sounds: Positive: Present Musculoskeletal: Positive: Strength/ROM Intact Neurological: Positive: Sensory/Motor Intact, Facial Symmetry, Speech Normal. Negative: Alert, Oriented to Person Place, Time - Oriented to person however not place or time, Slurred Speech Psychiatric: Positive: Normal AVPU Assessment: Alert Procedures - Sedation Patient Received Moderate/Deep Sedation with Procedure: No Diagnostics - Vital Signs Vital Signs Temp Pulse Resp BP Pulse Ox 04/03/19 19:47 99.6 F 88 24 137/72 96 - Laboratory Result Diagrams: 04/03/19 22:10 04/03/19 21:09 Lab Statement: Any lab studies that have been ordered have been reviewed, and results considered in the medical decision making process. - Radiology chest x-ray reveals evidence of pulmonary congestion consistent with history of congestive heart failure with ejection fraction of 20%. Radiology Interpretation Completed By: ED Physician Summary of Radiographic Findings: Left ankle x-ray shows nondisplaced fracture of the fibula which is unchanged when compared to prior films. Altered Mental Statu Course/Dx - Course Course Of Treatment: Patient was evaluated in the emergency department. Vital signs noted. Laboratory studies show no evidence of leukocytosis or sinus infection. She is mildly anemic with an H&H of 10.8/33 however this is her baseline.no significant electrolyte derangements. Serial troponins resulted at 0.03. BNP is 1142 this is similar to her most recent visit March 20, 2019. Mild elevation in troponin is likely due to CHF. negative delta troponin is not suggestive for myocardial infarction.ankle x-ray reveals nondisplaced fracture of the distal fibula which is unchanged when compared to previous films. Brain CT shows no acute intracranial changes. Urinalysis negative for UTI. Patients changed mentation is likely due to intravascular hypovolemia and CHF. Her diuretics were recently changed by her bark spudder Dr. Orourke which began yesterday. She is to return home with close follow-up for treatment with [facility] There is no evidence of acute pathology requiring intervention or hospitalization at this time. - Diagnoses Differential Diagnosis/HQI/PQRI: Intracranial Bleed, Medication Reaction, Sepsis , Other - CHF, UTI Provider Diagnoses: CHF (congestive heart failure) - Provider Notifications Discussed Care Of Patient With: Natalie Ricci Discharge ED - Sign-Out/Discharge Documenting (check all that apply): Patient Departure - Discharge Plan Condition: Stable Disposition: GROUP HOME FACILITY Patient Education Materials: Heart Failure (ED) Referrals: Milton Hall MD [Primary Care Provider] - Maycol Orourke MD [Medical Doctor] - 1 Day Additional Instructions: She was seen in the emergency department today due to weakness and altered mental status. Laboratory studies were done which showed no evidence of infection including UTI, pneumonia or intracranial pathology. Her symptoms appeared to be due to an Exacerbation of her heart failure which can be treated on an outpatient basis with diuretics. Please follow-up with Dr. Orourke, her bark spudder for further evaluation and management of her symptoms tomorrow. Please return to the emergency department immediately if she develops any new or worsening symptoms. - Billing Disposition and Condition Condition: STABLE Disposition: Senior Care Facility
[2019-04-03 21:35] LABS: Troponin I 0.03 ng/mL (<0.03)
[2019-04-03 21:39] LABS: ALT 5 U/L (7-52); AST 13 U/L (13-39); Albumin 3.3 g/dL (3.2-5.2); Albumin/Globulin Ratio 1.2 (1-3); Alkaline Phosphatase 82 U/L (34-104); Anion Gap 11 mmol/L (2-11); Blood Urea Nitrogen 16 mg/dL (6-24); CO2 Carbon Dioxide 25 mmol/L (22-32); Calcium 8.6 mg/dL (8.6-10.3); Chloride 105 mmol/L (101-111); EGFR African American 74.8 (>60); EGFR Non-African American 61.8 (>60); Globulin 2.7 g/dL (2-4); Glucose 127 mg/dL (70-100); Potassium 3.2 mmol/L (3.5-5.0); Sodium 141 mmol/L (135-145)
[2019-04-03 22:17] LABS: ABS Basophils 0.1 10^3/ul (0-0.2); ABS Lymphocytes 0.6 10^3/ul (1.0-4.8); ABS Monocytes 0.9 10^3/ul (0-0.8); ABS Neutrophils 5.9 10^3/ul (1.5-7.7); Eosinophil % 0.5 %; Hematocrit 33 % (35-47); Hemoglobin 10.8 g/dL (12.0-16.0); Lymphocyte % 8.6 %; Mean Corpuscular HGB Conc 33 g/dL (31-36); Mean Corpuscular Hemoglobin 30 pg (27-31); Mean Corpuscular Volume 90 fL (80-97); Nucleated Red Blood Cells % 0.1; Platelet Count 232 10^3/uL (150-450); Red Blood Count 3.61 10^6 /uL (3.70-4.87); Red Cell Distribution Width 14 % (10-15); White Blood Count 7.6 10^3/uL (3.5-10.8)
[2019-04-03 22:24] LABS: INR 1.45 (0.82-1.09)
[2019-04-04 00:52] LABS: Urine Appearance Clear; Urine Bilirubin Negative (Negative); Urine Blood Negative (Negative); Urine Color Yellow; Urine Glucose Negative (Negative); Urine Ketones Negative (Negative); Urine Nitrite Negative (Negative); Urine Protein Negative (Negative); Urine Specific Gravity 1.017 (1.010-1.030); Urine Urobilinogen Negative (Negative)
[2019-04-04 01:29] LABS: Troponin I 0.03 ng/mL (<0.03)
[2019-04-04 02:58] VITALS: BP 108/58
== END 2019-04-04 02:40 ==
LOC: ED 19:45
DX: I50.9 Heart failure, unspecified (principal); I25.10 Atherosclerotic heart disease of native coronary artery without angina pectoris; J44.9 Chronic obstructive pulmonary disease, unspecified; E78.00 Pure hypercholesterolemia, unspecified; I10 Essential (primary) hypertension; F25.9 Schizoaffective disorder, unspecified; Z79.899 Other long term (current) drug therapy; Z79.01 Long term (current) use of anticoagulants; Z95.810 Presence of automatic (implantable) cardiac defibrillator; Z87.891 Personal history of nicotine dependence
CPT/HCPCS: 36415; 70450; 71045; 80053; 81003; 83605; 83880; 84484; 85025; 85610; 87040; 99282

== ENCOUNTER 2019-04-27 19:21 | Inpatient (IN) | payer MEDICARE ==
--- NOTE | 2019-04-27 19:40 | ED ---
Complex/Multi-Sys Presentation - HPI Summary HPI Summary: Patient is a 74 y/o F presenting to [facility] via EMS for a chief complaint of confusion and fatigue. Per EMS, patient has been increasingly fatigued and confused for the last 2-3 days. EMS also reports the patient has bilateral LE edema. Her PCP at [facility] has been changing her medications for a PMHx of schizo-affective disorder recently. PMHx is also significant for COPD, DM, and CHF. - History Of Current Complaint Chief Complaint: EDGeneral Hx Obtained From: EMS Onset/Duration: Sudden Onset, Lasting Days, Still Present Timing: Constant Severity Currently: Moderate Severity Initially: Moderate Associated Signs And Symptoms: Positive: Confusion, Edema - Bilateral LE, Other - Positive fatigue - Allergies/Home Medications Allergies/Adverse Reactions: Allergies Allergy/AdvReac Type Severity Reaction Status Date / Time carbamazepine Allergy Unknown Unknown Verified 02/18/19 11:12 Reaction Details methoxyflurane Allergy Unknown Unknown Verified 02/18/19 11:12 Reaction Details Sulfa (Sulfonamide Allergy Unknown Unknown Verified 02/18/19 11:12 Antibiotics) Reaction Details PMH/Surg Hx/FS Hx/Imm Hx Previously Healthy: Yes Endocrine/Hematology History: Reports: Hx Anticoagulant Therapy - Bril[place], Hx Diabetes Denies: Hx Thyroid Disease Cardiovascular History: Reports: Hx Angina - tightness, Hx Auto Implanted Cardiovert Defib, Hx Congestive Heart Failure - 2 CABG, Hx Coronary Artery Disease, Hx Hypercholesterolemia, Hx Hypertension - ON DAILY MEDS, Hx Myocardial Infarction, Hx Pacemaker/ICD - 12/2011, Hx Syncope, Hx Valvular Heart Disease, 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 Denies: Hx Peripheral Vascular Disease Respiratory History: Reports: Hx Chronic Obstructive Pulmonary Disease (COPD), Hx Pneumonia - 2009, Other Respiratory Problems/Disorders - PNEUMONIA 2009 GI History: Reports: Hx Gastroesophageal Reflux Disease, Hx Ulcer - ON DAILY MEDS Denies: Other GI Disorders Musculoskeletal History: Denies: Hx Arthritis, Hx Osteoporosis, Other Musculoskeletal History Sensory History: Reports: Hx Cataracts - FITO, Hx Contacts or Glasses - READING GLASSES, Hx Hearing Problem Denies: Hx Glaucoma, Hx Legally Blind, Hx Deafness, Hx Hearing Aid Opthamlomology History: Reports: Hx Cataracts - FITO, Hx Contacts or Glasses - READING GLASSES Denies: Hx Glaucoma, Hx Legally Blind EENT History: Denies: Hx Deafness Neurological History: Reports: Hx Seizures - LAST ONE 3 YRS AGO, Hx Transient Ischemic Attacks (TIA), Other Neuro Impairments/Disorders - EPILEPSY Denies: Hx Headaches Psychiatric History: Reports: Hx Anxiety - ON MEDS, Hx Depression - ON DAILY MEDS, Other Psychiatric Issues/Disorders - schizoaffective disorder - Cancer History Hx Chemotherapy: No Hx Radiation Therapy: No - Surgical History Surgical History: Yes Surgery Procedure, Year, and Place: 1994 1999 CARDIAC BY-PASS 5 vessel bypass then 4 vessel bypass [facility]08/2012, [facility], [facility]; PACEMAKER/DEFIBRILATOR Hx Anesthesia Reactions: No - Immunization History Date of Tetanus Vaccine: Unk Date of Influenza Vaccine: Unk Infectious Disease History: No Infectious Disease History: Denies: Hx Hepatitis, Hx of Known/Suspected MRSA, Hx Shingles, Hx Tuberculosis, Traveled Outside the in Last 30 Days - Family History Known Family History: Positive: Cardiac Disease - Mother: CHF. Mother and Father : OR, Hypertension - Mother, Diabetes - Mother and brother, Other - Sister: colon CA. - Social History Occupation: Disabled Lives: Assisted Living Alcohol Use: None Hx Substance Use: No Substance Use Type: Reports: None Hx Tobacco Use: Yes Smoking Status (MU): Former Smoker Type: Cigarettes Amount Used/How Often: 3-4 PACKS A DAY Have You Smoked in the Last Year: No Review of Systems Positive: Fatigue Positive: Edema - Bilateral LE Neurological: Other - Positive confusion All Other Systems Reviewed And Are Negative: Yes Physical Exam - Summary Physical Exam Summary: Appearance: Well-nourished, lying in bed comfortably, lethargic-appearing female , mild tachypneia noted, not conversant, but patient knows where she is and can answer simple questions. Skin: Warm, dry, no obvious rash Eyes: sclera anicteric, no conjunctival pallor ENT: mucous membranes moist, pharynx appears normal Neck: Supple, nontender Respiratory: No signs of respiratory distress, crackles in both bases of the lungs without signs of effusion or consolidation. Cardiovascular: Normal S1, S2. No murmurs. Normal distal pulses in tibial and radial bilaterally. Abdomen: Soft, nontender, normal active bowel sounds present Musculoskeletal: Normal, Strength/ROM Intact, fairly significant bilateral LE pitting edema. Neurological: A&Ox3, awake and alert, mentation is normal, speech is fluent and appropriate Psychiatric: affect is normal, does not appear anxious or depressed Triage Information Reviewed: Yes Vital Signs On Initial Exam: Initial Vitals Temp Pulse Resp BP Pulse Ox 97.9 F 65 32 103/64 93 04/27/19 19:22 04/27/19 19:22 04/27/19 19:22 04/27/19 19:22 04/27/19 19:22 Vital Signs Reviewed: Yes Procedures - Sedation Patient Received Moderate/Deep Sedation with Procedure: No Diagnostics - Vital Signs Vital Signs Temp Pulse Resp BP Pulse Ox 04/27/19 19:22 97.9 F 65 32 103/64 93 - Laboratory Result Diagrams: 04/27/19 20:50 04/27/19 20:50 Lab Statement: Any lab studies that have been ordered have been reviewed, and results considered in the medical decision making process. - Radiology Chest X-ray Radiology Interpretation Completed By: ED Physician Summary of Radiographic Findings: Chest X-ray impression: no acute process. Reviewed and interpreted by Dr. Alcala. - EKG 20:54 Cardiac Rate: Other Rate - 64 BPM EKG Rhythm: Sinus Rhythm - [address] Segment: Normal Ectopy: None Summary of EKG Findings: EKG at 20:54 shows atrial-paced complexes, 64 BPM, P waves, QRS complex, and T waves are within normal limits, T waves and intervals are normal, no ischemic changes. This is a normal EKG. Reviewed and interpreted by Dr. Alcala. Complex Multi-Symp Course/Dx Course Of Treatment: Patient is a 74 y/o F presenting to [facility] via EMS for a chief complaint of confusion and fatigue. Per EMS, patient has been increasingly fatigued and confused for the last 2-3 days. EMS also reports the patient has bilateral LE edema. Her PCP at [facility] has been changing her medications for a PMHx of schizo-affective disorder recently. PMHx is also significant for COPD, DM, and CHF. On exam, lethargic-appearing female, mild tachypneia noted, not conversant, but patient knows where she is and can answer simple questions, crackles in both bases of the lungs without signs of effusion or consolidation, fairly significant bilateral LE pitting edema. In the ED course, patient was given Lasix 40 mg IV. Laboratory abnormal findings: Hgb 10.2, Hct 32, RDW 17, absolute lymphs 0.5, BUN 44, creatinine 1.44, BUN/ Creatinine ratio 30.6, glucose 117, total bilirubin 1.30, troponin I 0.16, B- natriuretic peptide >1300, total protein 5.5, albumin 3.1, urine protein 1+, urine squamous epith cells present. EKG at 20:54 shows atrial-paced complexes, 64 BPM, P waves, QRS complex, and T waves are within normal limits, T waves and intervals are normal, no ischemic changes. This is a normal EKG. Chest X-ray impression: no acute process. At 21:48, Dr. Yvette Olivia agrees to admit the patient to [facility]. Patient will be admitted to [facility] with a diagnosis of congestive heart failure. - Diagnoses Provider Diagnoses: Congestive heart failure - Physician Notifications Discussed Care Of Patient With: Yvette Olivia - At 21:48, Dr. Olivia agrees to admit the patient to [facility]. Time Discussed With Above Provider: 21:48 Instructed by Provider To: Admit As Inpatient Discharge ED - Sign-Out/Discharge Documenting (check all that apply): Patient Departure - Admit - Discharge Plan Condition: Fair Disposition: ADMITTED TO [facility] - Billing Disposition and Condition Condition: FAIR Disposition: Admitted to [facility] - Attestation Statements Document Initiated by Taz: Yes Documenting Scribe: Aparna Linn Provider For Whom Taz is Documenting (Include Credential): Juan Miguel Alcala MD Scribe Attestation: Aparna Khan, scribed for Juan Miguel Alcala MD on 04/28/19 at 0046. Scribe Documentation Reviewed: Yes Provider Attestation: The documentation as recorded by the Aparna cedillo accurately reflects the service I personally performed and the decisions made by me, Juan Miguel Alcala MD Status of Scribe Document: Viewed
[2019-04-27] MEDS ORDERED: Furosemide IV* 10 MG/ML VIAL (40 MG) IV ONE (20:26)
[2019-04-27 20:48] LABS: Urine Appearance Cloudy; Urine Bilirubin Negative (Negative); Urine Blood Negative (Negative); Urine Color Amber; Urine Glucose Negative (Negative); Urine Ketones Negative (Negative); Urine Nitrite Negative (Negative); Urine Protein 1+(30 mg/dL) (Negative); Urine Specific Gravity 1.015 (1.010-1.030); Urine Urobilinogen Negative (Negative)
[2019-04-27 20:57] LABS: ABS Lymphocytes 0.5 10^3/ul (1.0-4.8); ABS Monocytes 0.6 10^3/ul (0-0.8); ABS Neutrophils 4.4 10^3/ul (1.5-7.7); Eosinophil % 0.2 %; Hematocrit 32 % (35-47); Hemoglobin 10.2 g/dL (12.0-16.0); Lymphocyte % 8.9 %; Mean Corpuscular HGB Conc 32 g/dL (31-36); Mean Corpuscular Hemoglobin 27 pg (27-31); Mean Corpuscular Volume 83 fL (80-97); Mean Platelet Volume 8.8 fL (7.4-10.4); Nucleated Red Blood Cells % 0.5; Platelet Count 185 10^3/uL (150-450); Red Blood Count 3.82 10^6 /uL (3.70-4.87); Red Cell Distribution Width 17 % (10-15); White Blood Count 5.5 10^3/uL (3.5-10.8)
[2019-04-27 21:12] LABS: Urine Bacteria Absent (Absent); Urine Red Blood Cell Trace(0-2/hpf) (Absent); Urine Squamous Epithelial Cell Present (Absent); Urine White Blood Cell Trace(0-5/hpf) (Absent)
[2019-04-27 21:13] LABS: ALT 8 U/L (7-52); AST 26 U/L (13-39); Albumin 3.1 g/dL (3.2-5.2); Albumin/Globulin Ratio 1.3 (1-3); Alkaline Phosphatase 92 U/L (34-104); Anion Gap 10 mmol/L (2-11); BUN/Creatinine Ratio 30.6 (8-20); Blood Urea Nitrogen 44 mg/dL (6-24); CO2 Carbon Dioxide 25 mmol/L (22-32); Calcium 8.6 mg/dL (8.6-10.3); Chloride 105 mmol/L (101-111); EGFR African American 42.9 (>60); EGFR Non-African American 35.5 (>60); Globulin 2.4 g/dL (2-4); Glucose 117 mg/dL (70-100); Potassium 3.6 mmol/L (3.5-5.0); Sodium 140 mmol/L (135-145); Total Protein 5.5 g/dL (6.4-8.9)
[2019-04-27 21:19] LABS: Troponin I 0.16 ng/mL (<0.03)
[2019-04-27] MEDS ORDERED: Nitroglycerin TAB 0.4 MG* 0.4 MG TAB SL PRN (22:35)
[2019-04-27] MEDS ORDERED: Albuterol HFA INHALER* 8 gm MDI INH PRN (22:35)
--- NOTE | 2019-04-27 22:54 | HP ---
History of Present Illness - History of Present Illness Reason for Visit: Lethargy and Hypoxia History of Present Illness: Temitope Chavez is a 74 y/o female with history of CAD s/p CABG, ischemic cardiomyopathy s/p pacer insertion (last EF 15-20% on 10/2018), moderate , Afib , schizoaffective disorder, seizure, hypertension, stroke, presented to hospital for lethargy and hypoxia. She resides in [facility], she was found to be lethargic and tachypneic with spO2 88% this morning, thus she was sent to hospital. Patient is a poor historian, she knows she is in [facility] right now, but unable to tell what happened. She stated she felt breathing better with O2, and denied cough or fever or pain. Based on [facility] medical support specialist record, she had 40mg lasix for 1 day last week due to swelling. She is on airconditioning engineer 20mg lasix. She was last admitted to our hospital in October 2018 for syncope which was thought to be related to her aortic stenosis. Also of note she has had a recent L foot fracture and is in a CAM boot, ER Course: In ED, she is saturating 94% on O2 3L, other VSS. Imaging was done that showed mild vascular congestion, and retrocardiac view with atelectasis vs possible infiltrate, EKG done with no acute signs of ischemia. Labs show mild elevation of Cr and elevated troponin BNP >1300, given persistent hypoxia after 40mg iv lasix was given, hospitalist were asked to evaluate. - Past Medical History Past Medical History: 1. CAD s/p CABG, on DAPT 2. Ischemic cardiomuyopathy with EF 15-20% in October 2018, s/p pacer insertion, on lasix 20mg daily 3. Moderate Aortic stenosis 4. Afib not on anticoag 5. schizoaffective disorder 6. Stroke 7. remote history of seizure - Past Surgical History Past Surgical History: CABG cardiac stents appendectomy Pacer insertion - Past Family History Past Family History: Unable to obtain. - Past Social History Past Social History: Ex-smoker, 3-4 packs per day for 61 years, no Etoh use. According to previous H&P in October, she has 3 children, her surrogate decision maker is her son, Cy chavez, number is [phone]. Medications: Home Medications Medication Instructions Recorded Confirmed Type Nitroglycerin TAB 0.4 MG* 0.4 mg SL Q5M PRN 05/03/17 04/27/19 History Mat/D3/Mag11/Zinc/Hadoop Consultant/Joel/Bor 1 tab PO BID 05/25/18 04/27/19 History [Caltrate 600+D Plus Tablet] Multivitamins/Minerals TAB* 1 tab PO QAM 05/25/18 04/27/19 History [Theragran/minerals TAB*] Atorvastatin* [Lipitor 10 MG*] 10 mg PO DAILY 10/29/18 04/27/19 History Albuterol HFA INHALER* [Ventolin 2 puff INH Q4H PRN 02/18/19 04/27/19 History HFA Inhaler*] Acetaminophen [Acetaminophen Extra 1,000 mg PO Q6HR PRN MDD 4000mg 04/03/1903/06 History Strength] Clopidogrel TAB* [Plavix TAB*] 75 mg PO QAM 04/03/19 04/27/19 History Famotidine TAB* [Pepcid 20 MG TAB*] 20 mg PO QAM 04/03/19 04/27/19 History Furosemide TAB* [Lasix TAB*] 20 mg PO QAM 04/03/19 04/27/19 History Metoprolol Succinate XL TAB* 25 mg PO QAM 04/03/19 04/27/19 History [Toprol XL TAB*] PARoxetine HCL TAB* [Paxil TAB*] 20 mg PO DAILY 04/03/19 04/27/19 History Paliperidone ER TAB* [Invega ER 6 mg PO QAM 04/03/19 04/27/19 History TAB*] lamoTRIgine TAB(*) [LaMICtal 100 mg PO BID 04/03/19 04/27/19 History TAB(*)] levETIRAcetam TAB* [Keppra TAB*] 750 mg PO BID 04/03/19 04/27/19 History Allergies/Adverse Reactions: Allergies Allergy/AdvReac Type Severity Reaction Status Date / Time carbamazepine Allergy Unknown Unknown Verified 02/18/19 11:12 Reaction Details methoxyflurane Allergy Unknown Unknown Verified 02/18/19 11:12 Reaction Details Sulfa (Sulfonamide Allergy Unknown Unknown Verified 02/18/19 11:12 Antibiotics) Reaction Details Review of Systems - Review of Systems Constitutional: Negative: Fever, Chills, Sweats, Weakness, Malaise, Other Eyes: Negative: Pain, Vision Change, Conjunctivae Inflammation, Eyelid Inflammation, Redness, Other ENT: Negative: Ear Pain, Ear Discharge, Nose Pain, Nose Discharge, Nose Congestion, Mouth Pain, Mouth Swelling, Throat Pain, Throat Swelling, Other Respiratory: Positive: Shortness of Breath. Negative: Cough, Dry, Hemoptysis, SOB with Excertion, Pleuritic Pain, Sputum, Wheezing Cardiovascular: Positive: Orthopnea. Negative: Chest Pain, Palpitations, Paroxysmal Noc. Dyspnea, Edema, Light Headedness, Other Gastrointestinal: Negative: Nausea, Vomiting, Abdominal Pain, Diarrhea, Constipation, Melena, Hematochezia, Other Genitourinary: Negative: Dysuria, Frequency, Incontinence, Hematuria, Retention , Other Musculoskeletal: Negative: Neck Pain, Shoulder Pain, Arm Pain, Back Pain, Hand Pain, Leg Pain, Foot Pain, Other Skin: Negative: Rash, Lesions, Tanvir, Bruising, Other Neurological: Positive: Confusion. Negative: Weakness, Numbness, Incoordination , Change in Speech, Seizures, Other Exam Vital Signs: Vital Signs (72 hours) 04/27/19 19:22 Temperature 97.9 F Pulse Rate 65 Respiratory 32 Rate Blood Pressure 103/64 (mmHg) O2 Sat by Pulse 93 Oximetry Exam: Appearance: Lethargic, not in acute distress Eyes: sclera anicteric, no conjunctival pallor Respiratory: bilateral crackles in basal lungs on auscultation Cardiovascular: Normal S1, S2. No murmurs; JVP elevated to ear Abdomen: distended, but soft, non tender, BS+ Extremity: bilateral pitting edema up to thigh, cold extremities, distal pulse present left leg in cast, old laceration camryn seen on left knee, no calf tenderness Neurological: lethargic but arousable, oriented to place, but not time and person, able to converse but keep asking same questions. Psychiatric: affect is normal Result Diagrams: 04/27/19 20:50 04/27/19 20:50 Additional Lab and Data: Trop 0.16 BNP>1300 total jessica 1.3 Diagnostic Imaging: CXR: cardiomegaly, congestion, can't rule out retrocardiac opacities EKG Data: EKG: atrial paced complex, QTc prolonged at 653 Assessment/Plan - Assessment/Plan Assessment: Temitope Chavez is a 74 y/o female with history of CAD s/p CABG, ischemic cardiomyopathy s/p pacer insertion (last EF 15-20% on 10/2018), moderate , Afib , schizoaffective disorder, seizure, Hypertension, stroke, presented to hospital for lethargy and hypoxia. On physical examination, she is volume overloaded with elevated JVP, peripheral swelling, and lung crackles; blood tests showing elevated trop with no significant ischemic changes in EKG, BNP> 1300; CXR showing cardiomegaly with congestion. Her hypoxia is likely due to her CHF exacerbation, other differential includes community acquired pneumonia, Pulmonary embolism. She does have hazy retrocardiac space in CXR which could represent infection vs atelectasis, but her overall picture is more volume overload at this moment, no fever or leukocytosis, I will not cover with abx for now. She also has high risk for PE with her recent left ankle fracture and immobilization, but again it's more volume overload picture at this moment thus we will not jump to CTPA. If her hypoxia is not improving with diuretics, consider to cover with abx and do CTPA to rule out PE. Plan: 1. Hypoxia likely due to CHF exacerbation in the setting of HFrEF (EF 15-20%) - IV lasix 40mg daily for now with K replacement - strict I/O and daily weight - recheck electrolytes tomorrow - continue metoprolol, consider adding ACEI, spironolactone if bp tolerates - if hypoxia not improving with diuretics, consider CTPA to rule out PE, and abx for coverage 2. Lethargy - not sure baseline mental status, collateral history for baseline status will be helpful - urine doesn't look infected as well - could be related to acute illness 3. Elevated trop in the setting of CAD s/p CABG - EKG no new ischemic changes - to trend trop - continue DAPT 4. Qtc prolongation - repeat electrolytes including Mg - repeat ekg tomorrow to see resolution 5. Seizure d/o-Continue home meds 6. Schizoaffective- Continue home meds 7. ELROY-Possibly mild cardiorenal in setting of low effective circulating volume 8. Afib - currently rate controlled 9. DVT prophylaxis - Sc lovenox 40mg 10. Code Status-Full, MOLST reviewed, pt AOx1 Attestation Attending/Supervising Physician Comment: Agree with resident plan and note of which I participated in and supervised. Essentially 74F PMH HFrEF with ICM and EF 15% s/p ICD, AFib, Seizure d/o, s/p CVA and schizoaffectiv with seems like residual dementia, HTN who presented from [facility] with acute hypoxic resp failure, ELROY, elevated troponin, -Seems most c/w volume overload, will diurese as pressure allow, place on tele strict I/O -Can't r/o retrocardiac opacity though no WBC fevers, could add abx if clinical conidition changes, furthermore she is recently imbolized from fall and fracture and PE is a concern though clear signs of volume overload seems reasonable to treat first for CHF. -Trend troponin, likely demand
[2019-04-28] MEDS: Enoxaparin(*) 40 MG/0.4 ML SYR SUBCUT SCH ×2 (01:49→21:31)
[2019-04-28 03:32] LABS: Troponin I 0.12 ng/mL (<0.03)
[2019-04-28] MEDS: Furosemide IV* 10 MG/ML VIAL (40 MG) IV SCH (08:34)
[2019-04-28 08:48] LABS: ABS Basophils 0.2 10^3/ul (0-0.2); ABS Lymphocytes 0.5 10^3/ul (1.0-4.8); ABS Monocytes 0.4 10^3/ul (0-0.8); ABS Neutrophils 3.8 10^3/ul (1.5-7.7); Eosinophil % 0.3 %; Hematocrit 32 % (35-47); Hemoglobin 10.1 g/dL (12.0-16.0); Lymphocyte % 10.7 %; Mean Corpuscular HGB Conc 31 g/dL (31-36); Mean Corpuscular Hemoglobin 26 pg (27-31); Mean Corpuscular Volume 84 fL (80-97); Mean Platelet Volume 8.8 fL (7.4-10.4); Nucleated Red Blood Cells % 0.9; Platelet Count 174 10^3/uL (150-450); Red Blood Count 3.84 10^6 /uL (3.70-4.87); Red Cell Distribution Width 18 % (10-15); White Blood Count 4.9 10^3/uL (3.5-10.8)
[2019-04-28] MEDS ORDERED: levETIRAcetam TAB* 500 MG PO SCH (09:00)
[2019-04-28] MEDS ORDERED: Paliperidone ER TAB* 6 MG TAB.ER PO SCH (09:00)
[2019-04-28 09:08] LABS: Albumin 2.9 g/dL (3.2-5.2); Albumin/Globulin Ratio 1.3 (1-3); BUN/Creatinine Ratio 31.9 (8-20); Calcium 8.3 mg/dL (8.6-10.3); EGFR African American 45.1 (>60); EGFR Non-African American 37.3 (>60); Globulin 2.2 g/dL (2-4); Magnesium 2.1 mg/dL (1.9-2.7); Potassium 3.5 mmol/L (3.5-5.0); Total Bilirubin 1.2 mg/dL (0.2-1.0); Total Protein 5.1 g/dL (6.4-8.9)
[2019-04-28] MEDS ORDERED: Haloperidol INJ IV/IM* 5 MG/ML AMP IM ONE (09:16)
[2019-04-28] MEDS: KCL 20 MEQ/100 ML IVPREMIX* 20 MEQ/100 ML BAG IV SCH ×2 (10:48→13:43)
--- NOTE | 2019-04-28 11:16 | PN ---
Subjective Date of Service: 04/28/19 Interval History: Admitted late last night for lethargy, AMS, and likely HF exacerbation. Still altered and intermittently combative this AM. Got haldol IM (holding home antipsychotic) to enable further investigations - pending NCHCT, ABG, EKG. Unknown if responded well to diuresis, as UOP not able to be measured. Will initiate Ladd. Neuro consult added given recent history of changes in AEDs and family noting intermitted AMS and slurred speech throughout that time, over the last month or so. QTc calculation by hand is 436. Objective Active Medications: Albuterol (Ventolin Hfa Inhaler*) 2 puff INH Q4H PRN PRN Reason: SOB/WHEEZING Atorvastatin Calcium (Lipitor*) 10 mg PO DAILY [facility] Clopidogrel Bisulfate (Plavix Tab*) 75 mg PO QAM [facility] Enoxaparin Sodium (Lovenox(*)) 40 mg SUBCUT BEDTIME [facility] Last Admin: 04/28/19 01:49 Dose: 40 mg Famotidine (Pepcid Tab*) 20 mg PO QAM [facility] Furosemide (Lasix Iv*) 40 mg IV DAILY [facility] Last Admin: 04/28/19 08:34 Dose: 40 mg Potassium Chloride (Potassium Chloride 20 Meq/100 Ml Ivpremix*) 20 meq in 100 mls @ 50 mls/hr IV Q2H [facility] Stop: 04/28/19 13:59 Last Admin: 04/28/19 10:48 Dose: 50 mls/hr Lamotrigine (Lamictal Tab(*)) 100 mg PO BID [facility] Levetiracetam (Keppra Tab*) 750 mg PO BID [facility] Metoprolol Succinate (Toprol Xl Tab*) 25 mg PO QAM [facility] Multivitamins/Minerals (Theragran/Minerals Tab*) 1 tab PO QAM [facility] Nitroglycerin (Nitroglycerin Tab 0.4 Mg*) 0.4 mg SL Q5M PRN PRN Reason: PAIN - CHEST Paliperidone (Invega Er Tab*) 6 mg PO QAM KENJI Paroxetine HCl (Paxil Tab*) 20 mg PO DAILY [facility] Potassium Chloride (Klor Con Er Tab*) 20 meq PO BID [facility] Stop: 05/01/19 08:59 Vital Signs - 8 hr 04/28/19 03:15 Temperature 97.2 F Pulse Rate 62 Respiratory 14 Rate Blood Pressure 103/67 (mmHg) O2 Sat by Pulse 100 Oximetry Oxygen Devices in Use Now: Nasal Cannula Appearance: sleeping, no acute distress or increased WOB Eyes: No Scleral Icterus Ears/Nose/Mouth/Throat: Clear Oropharnyx, Mucous Membranes Moist Neck: NL Appearance and Movements; NL JVP, Trachea Midline Respiratory: - - crackles at bases (auscultated laterally) Cardiovascular: NL Sounds; No Murmurs; No JVD, RRR Extremities: - - 2+ edema to knees Result Diagrams: 04/28/19 08:37 04/28/19 12:36 Additional Lab and Data: Trop 0.16 BNP>1300 total jessica 1.3 Microbiology and Other Data: Microbiology 04/27/19 23:24 Nasal Screen MRSA (PCR) - Final Nasal Mrsa Not Detected Diagnostic Imaging: CXR: cardiomegaly, congestion, can't rule out retrocardiac opacities EKG Data: EKG: atrial paced complex, QTc prolonged at 653 Assess/Plan/Problems-Billing Assessment: 74W with schizoaffective disorder, CAD/MIs s/p CABG, HFrEF 15-20%, afib s/p PPM , mod aortic stenosis, COPD, seizure disorders, CVA, send from [facility] for lethargy, tachypnea, and hypoxia. Being treated for HF exacerbation, no clear evidence for infection. Also Neuro work up for recent history of AMS. - Patient Problems (1) Altered mental status Comment: Etiology unclear could be TIAs vs seizures vs medication adverse effect. No hypercarbia on ABG. Hypoxia significantly improved but no improvment in mentation. - pending NCHCT - appreciate Neuro consult; pending ammonia and seizure med levels (2) Chronic systolic (congestive) heart failure Comment: Last EF 15-20%. Presenting with tachypnea and hypoxia. Found volume overloaded by exam and CXR. - cont furosemide IV - cont home beta-clarke - not on KENJI/ARB given history of low BP and syncope (3) Seizure disorder Comment: - neurology following; thank you for recommendations - AEDs per Neuro - no need for EEG at this time, per neuro - f/u lamictal, keppra levels (4) Schizoaffective disorder Comment: -continue home paliperidone, paroxitine - if holding PO meds, can give haldol IM as needed and monitor QTc closely, currently machine reading of QTc appears falsely elevated and hand calculation reveals 436 (5) CAD (coronary artery disease) Comment: -continue statin, Plavix (6) COPD (chronic obstructive pulmonary disease) Comment: -not in exacerbation -continue home albuterol prn (7) H/O: CVA (cerebrovascular accident) Comment: -continue clopidogrel, statin (8) DVT prophylaxis Comment: -lovenox
[2019-04-28] MEDS: Atorvastatin* 10 MG TAB PO SCH (11:28)
[2019-04-28] MEDS: Clopidogrel TAB* 75 MG PO SCH (11:28)
[2019-04-28] MEDS: Famotidine TAB* 20 MG PO SCH (11:28)
[2019-04-28] MEDS: lamoTRIgine TAB(*) 100 MG PO SCH ×2 (11:28→21:35)
[2019-04-28] MEDS: Metoprolol Succinate XL TAB* 25 MG PO SCH (11:28)
[2019-04-28] MEDS: Multivitamins/Minerals TAB PO SCH (11:29)
[2019-04-28] MEDS: Potassium Chlor TAB* 20 MEQ TAB.ER PO SCH ×2 (11:29→21:35)
[2019-04-28] MEDS: PARoxetine HCL TAB* 20 MG PO SCH (11:29)
[2019-04-28] MEDS ORDERED: Furosemide IV* 10 MG/ML VIAL (40 MG) IV SCH (12:00)
[2019-04-28 12:58] LABS: BUN/Creatinine Ratio 31.1 (8-20); Calcium 8.4 mg/dL (8.6-10.3); EGFR African American 46.3 (>60); EGFR Non-African American 38.2 (>60); Potassium 3.4 mmol/L (3.5-5.0)
[2019-04-28] MEDS: levETIRAcetam IV* 750 MG in NS 0.9% 100 ML* 100 ML IVPB SCH (19:43)
--- NOTE | 2019-04-28 21:58 | CONS ---
NEUROLOGY CONSULTATION NOTE: DATE OF CONSULT: 04/28/19 CONSULTING PROVIDER: Dr. Tabares. REASON FOR CONSULT: Confusion. CHIEF COMPLAINT: Lethargic, and would not provide any history. The history was obtained by the patient's son, Cy, via telephone. HISTORY OF PRESENT ILLNESS: Ms. 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 The patient is followed up by Dr. Ling at the [facility]. She was last evaluated by Dr. Ling by a phone consultation last March 2019. The patient was weaned off phenobarbital, which took approximately 1 year. She was started on lamotrigine and kept on levetiracetam. Currently the patient is taking lamotrigine 100 mg twice a day and levetiracetam 750 mg twice a day. Of note, the patient was on levetiracetam 3000 mg daily before 02/21/19. Her last documented seizure was approximately 3-4 years ago (according to Cy). According to Dr. Ling's note , the patient's last seizure was in 2014. The patient was admitted to [facility] for rehabilitation after an ankle fracture, 02/21/19. According to Cy, the patient went downhill since then. The patient had intermittent confusion, lethargy, waxing and waning delirium, minimally conversive, and was just sitting in a wheelchair throughout the day with minimal activity. Over the last 6 weeks, she has developed severe confusion. She has trouble recognizing family. Cy sees her on a daily basis and sometimes she is able to talk to him, oriented herself to date, time, and president, but was slowly losing her ability to communicate. She has not been eating or drinking well for the past 3 weeks. She has had multiple medication adjustments of her CHF medications, but no recent adjustment of the seizure medications. Cy stated that sometimes the staff would miss her lamotrigine dose but he would come in that day to make sure she takes it. There has been no reported seizure activity. Cy stated that her seizures typically consist of staring spells. I reviewed Dr. Ling's note from October 2017 when the patient was last seen in the clinic. According to Dr. Ling, the patient had petit mal and grand mal convulsions. Her last petit mal was in 2014. It is unclear when she actually had convulsive seizures. The patient had been on prior AED therapy that includes phenobarbital and phenytoin, carbamazepine, valproic acid for which she had to be weaned off of because of hyperammonemia, levetiracetam, and now lamotrigine. She had been on levetiracetam since 2008. The patient was seen by Dr. Akhil Cuevas and Valentin Hayes for loss of consciousness episode that took place in February 2018. The etiology of the syncope was unclear. Cardiology workup was recommended. The patient presented to [facility] on 04/27/19 with symptoms of lethargy, tachypnea, and she was found hypoxic with saturation in the high 80s, low 90s. She was sent from [facility] for further evaluation. She received Lasix in the ED. She still has left foot fracture and is wearing a boot in that limb. Overnight, the patient became aggressive and agitated. According to the bedside nurse, the patient was winding and trying to bite nurses. She received Haldol 2 hours before my evaluation/examination. The patient is lethargic, minimally responsive, only to pain, and is a poor historian due to her lethargy post Haldol. Note that the patient's levetiracetam level at [facility] was reported to be in the 70s; therefore, the patient was instructed to wean off the levetiracetam by Dr. Ling. We are waiting for levels. The patient was started on Paliperidone around the end of March. PAST MEDICAL HISTORY: 1. Congestive heart failure with ejection fraction of 20%. 2. Epilepsy, history of V-tach. 3. COPD. 4. Hypertension. 5. Pacemaker placement. 6. Coronary artery disease. 7. Previous history of UTI. 8. Left ankle fracture. 9. Schizoaffective disorder. PAST SURGICAL HISTORY: 1. CABG. 2. Appendectomy. 3. Cardiac catheterization. 4. AICD, pacemaker placement. MEDICATIONS: Home Medications: 1. Levetiracetam 750 mg twice daily. 2. Nitroglycerin tablet 0.4 mg sublingual every 5 minutes p.r.n. 3. Multivitamins. 4. Atorvastatin 10 mg p.o. daily. 5. Albuterol 2 puffs inhaled every 4 hours. 6. Paroxetine 20 mg p.o. daily. 7. Paliperidone 6 mg p.o. in the morning. 8. Metoprolol succinate 25 mg in the morning. 9. Lamotrigine 100 mg p.o. b.i.d. 10. Furosemide 20 mg p.o. in the morning. 11. Levetiracetam 750 mg p.o. b.i.d. 12. Famotidine 20 mg p.o. in the morning. 13. Clopidogrel 75 mg p.o. in the morning. 14. Acetaminophen 1000 mg p.o ALLERGIES: 1. TEGRETOL. 2. SULFA ANTIBIOTICS. 3. METHOXYFLURANE. FAMILY HISTORY: No family history of stroke or seizures. SOCIAL HISTORY: She is a former smoker, does not drink alcohol. She lives in [facility]. Her family is planning to hopefully transfer her to [facility] to [facility]. REVIEW OF SYSTEMS: Review of systems was unable to be obtained as the patient is sleeping after Haldol use and does not participate with the examiner due to her alteration in mental status. PHYSICAL EXAM: Vitals: Temperature of 97.5, pulse of 69, respiratory rate of 20, oxygen saturation 99, blood pressure 109/56. General: Young-appearing frail female who is sleeping and minimally conscious. Hemodynamically she is stable. Head: Atraumatic, normocephalic without any obvious abnormality. Neck is supple and symmetrical with no carotid bruits. Cardiovascular: Regular rate and rhythm that is paced. Diminished lung sounds bilaterally with no wheezing. Extremities: She has a boot on the left leg. Otherwise, no hammertoes or high arches. Skin: No skin lesions or lacerations. She has dry ulceration on the dorsum of the second digit. Psych: Not applicable. Neurological Examination: The patient is nearly obtunded and does not respond to any verbal command. She does not respond to name calling. She is slightly mourning. She is moving spontaneously mostly on the right. She has pupils that are 3 mm bilaterally and sluggishly reactive to 2 mm bilaterally. Corneal reflexes are intact. The nasal stimulation, there was no significant response. No facial asymmetry. Tongue appears symmetric when her jaw is open. Gag is intact. The patient is moving spontaneously, right more than left. However, with distal noxious stimuli, she is moving all 4 extremities symmetrically. She responds to pain. Sensation, coordination were unable to be assessed. Reflexes 1+ symmetrically bilaterally in upper extremities, diminished and absent on the lower extremities. Mute plantar responses. Gait was not assessed as the patient is unable to participate. DIAGNOSTIC STUDIES/LAB DATA: CT head without contrast was completed on that showed no acute intracranial abnormality. Recent EKG showed QTc prolongation. LABORATORY DATA: WBC of 4.9, hemoglobin of 10, hematocrit of 32, platelet count 174. The pH 7.43, pO2 of 123. Sodium of 143, potassium of 3.4. Creatinine 1.35. BUN and creatinine ratio is 31. Ammonia of 77. Urine unremarkable. B12 was not obtained. ASSESSMENT: Ms. 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 Her mental status has significantly changed over the past 6 weeks, according to her son, Cy. The patient's neurological examination is limited due to the recent use of Haldol therapy as she became agitated and had hyperactive delirium overnight. 1. Acute encephalopathy of unclear etiology: multifactorial. This can be related to hypoxic encephalopathy in the setting of low oxygen saturation prior to admission, metabolic encephalopathy in the setting of hyperammonemia and ELROY , or toxic encephalopathy related to antipsychotic therapy. 2. Seizure disorder. Stable without any breakthrough seizures in at least 4 years. She has had reduction in her seizure medications over the last few weeks , especially decreasing levetiracetam from 3000 mg daily to current therapy of 1500 mg daily. The decrease was due to significantly supratherapeutic levels of levetiracetam according to Cy. We have to evaluate for possible nonconvulsive status epilepticus or partial seizures with current postictal state. She did respond to noxious stimuli and she was aggressive earlier on today, so nonconvulsive status epilepticus is unlikely. I do not suspect a stroke in this case as the patient does not have any clear neurologic symptoms and has progressively had cognitive deterioration over the last few months. RECOMMENDATIONS: Please note that the patient is on paliperidone for presumed schizoaffective disorder. Please be careful with Haldol use in the setting of ongoing antipsychotic therapy and prolonged QTc. Neuro checks every 2 hours for the next 24 hours. Obtain an EEG to evaluate for nonconvulsive status epilepticus. Since she was responding earlier today, the EEG can wait to be done tomorrow morning. Minimize the use of antipsychotic therapy, so her neurological examination is not confounded by medications. Minimize the use of anticholinergic or benzodiazepine therapies. Convert levetiracetam from p.o. to 750 mg twice daily IV. She will need an NG tube if she does not get better, so she can receive lamotrigine. Please make sure she is not off lamotrigine for more than 3 days. I have deferred the treatment for ELROY and hyperammonemia to the primary team. Consider supplementing with thiamine therapy since her diet has been poor over the last few weeks. Consult PT and OT to evaluate and treat. She has no signs of [employer] infection but if she develops any leukocytosis or fevers, we may have to consider doing a lumbar puncture to evaluate for chronic meningoencephalitis. Dr. Romero will be covering the neurology service starting tomorrow. I will sign out the case to him. In the meantime, please contact me for any questions or concerns. [id number]/[facility] #: [id number]
[2019-04-29] MEDS: levETIRAcetam IV* 750 MG in NS 0.9% 100 ML* 100 ML IVPB SCH (05:48)
[2019-04-29 06:06] LABS: Hematocrit 33 % (35-47); Hemoglobin 10.3 g/dL (12.0-16.0); Mean Corpuscular HGB Conc 32 g/dL (31-36); Mean Corpuscular Hemoglobin 26 pg (27-31); Mean Corpuscular Volume 83 fL (80-97); Mean Platelet Volume 8.8 fL (7.4-10.4); Platelet Count 196 10^3/uL (150-450); Red Cell Distribution Width 18 % (10-15); White Blood Count 6.4 10^3/uL (3.5-10.8)
[2019-04-29 06:22] LABS: BUN/Creatinine Ratio 32.5 (8-20); Calcium 8.3 mg/dL (8.6-10.3); EGFR African American 54.6 (>60); EGFR Non-African American 45.1 (>60); Magnesium 2.1 mg/dL (1.9-2.7); Potassium 3.8 mmol/L (3.5-5.0)
[2019-04-29] MEDS ORDERED: Potassium Chlor TAB* 20 MEQ TAB.ER PO ONE (07:06)
--- NOTE | 2019-04-29 07:10 | PN ---
Subjective Date of Service: 04/29/19 Interval History: No acute events overnight. Pt became much more alert than during the day, was able to tolerate some food and her oral medications. Pending EEG today and further neuro recs. Renal function continues to improve with IV diuretics. Still requiring 4 L NC. Pt offers no complaints. Objective Active Medications: Albuterol (Ventolin Hfa Inhaler*) 2 puff INH Q4H PRN PRN Reason: SOB/WHEEZING Atorvastatin Calcium (Lipitor*) 10 mg PO DAILY [facility] Last Admin: 04/28/19 11:28 Dose: Not Given Clopidogrel Bisulfate (Plavix Tab*) 75 mg PO QAM [facility] Last Admin: 04/28/19 11:28 Dose: Not Given Enoxaparin Sodium (Lovenox(*)) 40 mg SUBCUT BEDTIME [facility] Last Admin: 04/28/19 21:31 Dose: 40 mg Famotidine (Pepcid Tab*) [facility] Last Admin: 04/28/19 11:28 Dose: Not Given Furosemide (Lasix Iv*) 40 mg IV DAILY [facility] Last Admin: 04/28/19 08:34 Dose: 40 mg Haloperidol Lactate (Haldol Inj Iv/Im*) 3 mg IM Q6H PRN PRN Reason: AGITATION Levetiracetam 750 mg/ Sodium (Chloride) 107.5 mls @ 460 mls/hr IVPB Q12H [facility] Last Admin: 04/29/19 05:48 Dose: 460 mls/hr Lamotrigine (Lamictal Tab(*)) 100 mg PO BID [facility] Last Admin: 04/28/19 21:35 Dose: 100 mg Metoprolol Succinate (Toprol Xl Tab*) [facility] Last Admin: 04/28/19 11:28 Dose: Not Given Multivitamins/Minerals (Theragran/Minerals Tab*) 1 tab PO [facility] Last Admin: 04/28/19 11:29 Dose: Not Given Nitroglycerin (Nitroglycerin Tab 0.4 Mg*) 0.4 mg SL Q5M PRN PRN Reason: PAIN - CHEST Paroxetine HCl (Paxil Tab*) 20 mg PO DAILY [facility] Last Admin: 04/28/19 11:29 Dose: Not Given Potassium Chloride (Klor Con Er Tab*) 20 meq PO BID [facility] Stop: 05/01/19 08:59 Last Admin: 04/28/19 21:35 Dose: 20 meq Vital Signs - 8 hr 04/28/19 23:24 Temperature 97.5 F Pulse Rate 71 Respiratory 16 Rate Blood Pressure 115/54 (mmHg) O2 Sat by Pulse 96 Oximetry Oxygen Devices in Use Now: Nasal Cannula Appearance: frail appearing, minimally interactive Eyes: No Scleral Icterus Ears/Nose/Mouth/Throat: Clear Oropharnyx, Mucous Membranes Moist Neck: NL Appearance and Movements; NL JVP, Trachea Midline Respiratory: Clear to Auscultation - anteriorly Cardiovascular: NL Sounds; No Murmurs; No JVD, RRR Abdominal: NL Sounds; No Tenderness; No Distention, No Hepatosplenomegaly Extremities: - - 1+ edema to knees with some wrinkling Result Diagrams: 04/29/19 05:52 04/29/19 05:52 Assess/Plan/Problems-Billing Assessment: 74W with schizoaffective disorder, CAD/MIs s/p CABG, HFrEF 15-20%, afib s/p PPM , mod aortic stenosis, COPD, seizure disorders, CVA, send from [facility] for lethargy, tachypnea, and hypoxia. Being treated for HF exacerbation, no clear evidence for infection. Also Neuro work up for recent history of AMS. - Patient Problems (1) Altered mental status Comment: Etiology unclear could be TIAs vs seizures vs medication adverse effect. No hypercarbia on ABG. Head CT unremarkable. Ammonia level elevated. - appreciate Neuro consult; pending EEG and AED serum levels (2) Chronic systolic (congestive) heart failure Comment: Last EF 15-20%. Presenting with tachypnea and hypoxia. Found volume overloaded by exam and CXR. - cont furosemide 40mg IV - cont home beta-clarke - not on KENJI/ARB given history of low BP and syncope (3) Seizure disorder Comment: - neurology following; thank you for recommendations - AEDs per Neuro - pending EEG - f/u lamictal, keppra levels (4) Schizoaffective disorder Comment: - hold home paliperidone in case it is contributing to her AMS - cont home paroxitine - if holding PO meds, can give haldol IM as needed and monitor QTc closely, currently machine reading of QTc appears falsely elevated and hand calculation reveals 436 (5) CAD (coronary artery disease) Comment: -continue statin, Plavix (6) COPD (chronic obstructive pulmonary disease) Comment: -not in exacerbation -continue home albuterol prn (7) H/O: CVA (cerebrovascular accident) Comment: -continue clopidogrel, statin (8) DVT prophylaxis Comment: -lovenox
[2019-04-29] MEDS: Metoprolol Succinate XL TAB* 25 MG PO SCH (09:17)
[2019-04-29] MEDS: Famotidine TAB* 20 MG PO SCH (09:17)
[2019-04-29] MEDS: Clopidogrel TAB* 75 MG PO SCH (09:17)
[2019-04-29] MEDS: Furosemide IV* 10 MG/ML VIAL (40 MG) IV SCH (09:18)
[2019-04-29] MEDS: Potassium Chlor TAB* 20 MEQ TAB.ER PO SCH (09:18)
[2019-04-29] MEDS: PARoxetine HCL TAB* 20 MG PO SCH (09:18)
[2019-04-29] MEDS: lamoTRIgine TAB(*) 100 MG PO SCH ×2 (09:18→20:36)
[2019-04-29] MEDS: Atorvastatin* 10 MG TAB PO SCH (10:21)
[2019-04-29] MEDS: Multivitamins/Minerals TAB PO SCH (10:21)
--- NOTE | 2019-04-29 17:34 | EEG ---
ELECTROENCEPHALOGRAPHY: DATE OF STUDY: - ROOM #449 DATE OF DICTATION: 04/29/19 PATIENT OF: Dr. Enriquez. CLINICAL PROBLEM: This is a 74-year-old woman being evaluated for lethargy, confusion, delirium. The patient has a known seizure disorder typically consisting of staring spells. MEDICATIONS: Include: 1. Lamotrigine. 2. Metoprolol. 3. Paroxetine. 4. Keppra. 5. Enoxaparin. 6. Nitro. 7. Ventolin. 8. Haldol. 9. Potassium. 10. Atorvastatin. 11. Famotidine. 12. Furosemide. REPORT: With the patient awake, background cerebral activity consists of moderate amplitude 7 to 8 Hz rhythm with some slower theta range frequencies. No epileptiform potentials, focal abnormalities, or major asymmetries of background are noted. No activation procedures are performed. The patient never falls asleep. CLINICAL IMPRESSION: This awake EEG is abnormal because of mild slowing of background, but no epileptiform potentials were noted. This slowing is nonspecific and may be secondary to either the medications the patient is consuming or due to an underlying encephalopathy. [id number]/[facility] #: [id number] MTDD
[2019-04-29] MEDS: levETIRAcetam TAB* 500 MG PO SCH (20:37)
[2019-04-29] MEDS: Enoxaparin(*) 40 MG/0.4 ML SYR SUBCUT SCH (23:01)
[2019-04-29] MEDS: Potassium Chloride* LIQUID 20 MEQ/15 ML UDC PO SCH (23:01)
[2019-04-30 07:09] LABS: BUN/Creatinine Ratio 30.5 (8-20); Calcium 8.5 mg/dL (8.6-10.3); EGFR African American 61.8 (>60); EGFR Non-African American 51.1 (>60); Magnesium 2.1 mg/dL (1.9-2.7); Potassium 3.7 mmol/L (3.5-5.0)
[2019-04-30] MEDS: Haloperidol INJ IV/IM* 5 MG/ML AMP IM PRN ×2 (07:28→15:20)
--- NOTE | 2019-04-30 09:08 | PN ---
Subjective Date of Service: 04/30/19 Interval History: No acute events overnight. Pending Neuro recs. Patient is without complains on interview, but is still not very responsive and intermittently sleeping. Son reports this has been her baseline since around February, and that she was previously independent and could use the [employer] buses by herself. Son and patient's sweat band sewer report that her mental status has been tenuous around times when her AEDs are titrated or changed. She recently has a [facility] level in the 80s, and is following with a Neurologist at [place]. Objective Active Medications: Albuterol (Ventolin Hfa Inhaler*) 2 puff INH Q4H PRN PRN Reason: SOB/WHEEZING Atorvastatin Calcium (Lipitor*) 10 mg PO DAILY [facility] Last Admin: 04/30/19 10:27 Dose: 10 mg Clopidogrel Bisulfate (Plavix Tab*) 75 mg PO QAM [facility] Last Admin: 04/30/19 10:26 Dose: 75 mg Enoxaparin Sodium (Lovenox(*)) 40 mg SUBCUT BEDTIME [facility] Last Admin: 04/29/19 23:01 Dose: 40 mg Haloperidol Lactate (Haldol Inj Iv/Im*) 3 mg IM Q6H PRN PRN Reason: AGITATION Last Admin: 04/30/19 15:20 Dose: 3 mg Lactulose (Lactulose*) 15 ml PO BID [facility] Stop: 05/02/19 09:01 Lamotrigine (Lamictal Tab(*)) 100 mg PO BID [facility] Last Admin: 04/30/19 10:25 Dose: 100 mg Levetiracetam (Keppra Tab*) 750 mg PO BID [facility] Last Admin: 04/30/19 10:25 Dose: 750 mg Metoprolol Succinate (Toprol Xl Tab*) 25 mg PO QAM [facility] Last Admin: 04/30/19 10:27 Dose: 25 mg Multivitamins/Minerals (Theragran/Minerals Tab*) [facility] Last Admin: 04/30/19 10:26 Dose: 1 tab Nitroglycerin (Nitroglycerin Tab 0.4 Mg*) 0.4 mg SL Q5M PRN PRN Reason: PAIN - CHEST Paroxetine HCl (Paxil Tab*) 20 mg PO DAILY [facility] Last Admin: 04/30/19 10:25 Dose: 20 mg Torsemide (Demadex*) 20 mg PO DAILY [facility] Last Admin: 04/30/19 10:27 Dose: 20 mg Vital Signs - 8 hr 04/30/19 03:34 Temperature 97.9 F Pulse Rate 69 Respiratory 18 Rate Blood Pressure 102/50 (mmHg) O2 Sat by Pulse 95 Oximetry Oxygen Devices in Use Now: Nasal Cannula Appearance: chronically ill appearing woman, not in acute distress, mostly sleeping on exam Eyes: No Scleral Icterus Ears/Nose/Mouth/Throat: Clear Oropharnyx, Mucous Membranes Moist Neck: NL Appearance and Movements; NL JVP, Trachea Midline Respiratory: - - bibasilar crackles heard laterally Cardiovascular: NL Sounds; No Murmurs; No JVD, RRR Abdominal: NL Sounds; No Tenderness; No Distention, No Hepatosplenomegaly Extremities: - - 1+ edema over UEs, 1-2+ over LEs, slightly worse on L (pt noted to be dependent on this side) Neurological: - - can name son, one-word responses to questions, can move 4 extremities on command but approx 2/5 strength Result Diagrams: 04/29/19 05:52 04/30/19 06:34 Additional Lab and Data: Trop 0.16 BNP>1300 total jessica 1.3 Assess/Plan/Problems-Billing Assessment: 74W with schizoaffective disorder, CAD/MIs s/p CABG, HFrEF 15-20%, afib s/p PPM , mod aortic stenosis, COPD, seizure disorders, CVA, send from [facility] for lethargy, tachypnea, and hypoxia. Being treated for HF exacerbation, no clear evidence for infection. Also Neuro work up for recent history of AMS. - Patient Problems (1) Altered mental status Comment: Etiology unclear, but son reports h/o AMS with AED titration and elevated levels. No hypercarbia on ABG. Head CT unremarkable. Ammonia level elevated, but without e/o hepatic disease, GIB. Other cause could be from diuretics. - appreciate Neuro consult; pending AED serum levels (2) Chronic systolic (congestive) heart failure Comment: Last EF 15-20%. Presenting with tachypnea and hypoxia. Found volume overloaded by exam and CXR. - switch to oral diuretics - torsemide 20mg PO daily - cont home beta-clarke - not on KENJI/ARB given history of low BP and syncope - pending TTE (3) Seizure disorder Comment: - neurology following; thank you for recommendations - AEDs per Neuro - f/u lamictal, keppra levels (4) Schizoaffective disorder Comment: - hold home paliperidone in case it is contributing to her AMS (started 2018) - cont home paroxitine - if holding PO meds, can give haldol IM as needed and monitor QTc closely, currently machine reading of QTc appears falsely elevated and hand calculation reveals 436 (5) CAD (coronary artery disease) Comment: -continue statin, Plavix (6) COPD (chronic obstructive pulmonary disease) Comment: -not in exacerbation -continue home albuterol prn (7) H/O: CVA (cerebrovascular accident) Comment: -continue clopidogrel, statin (8) DVT prophylaxis Comment: -lovenox
[2019-04-30] MEDS ORDERED: Torsemide TAB* 20 MG PO SCH (10:00)
[2019-04-30] MEDS: lamoTRIgine TAB(*) 100 MG PO SCH ×2 (10:25→21:59)
[2019-04-30] MEDS: levETIRAcetam TAB* 500 MG PO SCH (10:25)
[2019-04-30] MEDS: PARoxetine HCL TAB* 20 MG PO SCH (10:25)
[2019-04-30] MEDS: Clopidogrel TAB* 75 MG PO SCH (10:26)
[2019-04-30] MEDS: Multivitamins/Minerals TAB PO SCH (10:26)
[2019-04-30] MEDS: Atorvastatin* 10 MG TAB PO SCH (10:27)
[2019-04-30] MEDS: Metoprolol Succinate XL TAB* 25 MG PO SCH (10:27)
[2019-04-30] MEDS: Famotidine TAB* 20 MG PO SCH (10:27)
[2019-04-30] MEDS: Potassium Chloride* LIQUID 20 MEQ/15 ML UDC PO SCH (10:28)
[2019-04-30] MEDS: Furosemide IV* 10 MG/ML VIAL (40 MG) IV SCH (10:40)
[2019-04-30] MEDS ORDERED: Furosemide IV* 10 MG/ML VIAL (40 MG) IV ONE (12:00)
[2019-04-30] MEDS ORDERED: Lactulose 300 ML for PR* 10 GM/15 ML BTL PR ONE (18:54)
[2019-04-30] MEDS ORDERED: Lorazepam PYXIS KEY PRN (18:54)
[2019-04-30] MEDS ORDERED: LORazepam INJ* 2 MG/ML 1 ML VIAL IV PUSH ONE (19:30)
[2019-04-30] MEDS: levETIRAcetam IV* 750 MG in NS 0.9% 100 ML* 100 ML IVPB SCH (21:33)
[2019-04-30] MEDS: Lactulose* 15 ML UDC PO SCH (21:58)
[2019-04-30] MEDS: Enoxaparin(*) 40 MG/0.4 ML SYR SUBCUT SCH (23:00)
--- NOTE | 2019-05-01 00:09 | PN ---
Hospitalist Progress Note Date of Service: 05/01/19 Cross Cover Note Subjective 74F PMH schizoaffective disorder, CAD/MIs s/p CABG, HFrEF 15-20%, afib s/p PPM, mod aortic stenosis, COPD, seizure disorders, CVA, send from [facility] for lethargy, tachypnea, and hypoxia. Being treated for HF exacerbation, no clear evidence for infection. Also Neuro work up for recent history of AMS. Overnight pt appeared to have a witnessed tonic clonic seizure with UE shaking and eyes rolling back in head, no bladder or bowel lasting a <60 secs,a nd during the event had a run of sustained VT vs torsades on the monitor, she has and ICD in place and likely defibrillated herself, on exam pt is postictal with CN intact, moving all 4 limbs, opening eyes to voice command and withdrawing to pain, with no residual focal neuro defecitis VSS stable post event Prolactin level and stat labs ordered: [place] for elevated prolactin, mildly elevated LA and mildly elevated trop, repeat EKG stable Objective: VSS Normotensive, afebrile, satting well on baseline O2 On Exam: Frail elderly woman, appers post ictal with waining sensorium RR 24, somewhat Carl-Moneral appearing but CTABL in ant canchola RRR 3/6 ADAM Belly soft NT ND CN2-12 intact, withdraws all 4 limbs to touch and sensation, opens eyes to voice and name No edema GCS 11 E-Verbal response, 3, Verbal-best 3 inappropriate, Motor, best-localizes pain 5-11 A/P It appears she has had a seizure and briefly went into torsades with spont resolution vs ICD Defib, she has normal mag from this AM and last dose Haldol was 3 PM, QTC is 473, though on prior EKG has been quite a bit longer, its possible brief hypoxia in setting of seizure triggered her event, though nonetheless will check labs and replete mag out of abundence of precaution. She is hemodynamically stable and able to safely maintain her airway with active gag and GCS E3, V3, M5, total 11 in post ictal state and no indication for intubation unless <8. She did not need ativan, I did remove her PRN Haldol given appearance of torsades, and could favor ativan for future combative episodes
[2019-05-01] MEDS ORDERED: Magnesium Sulfate 2 GM IV* 2 GM/50 ML BAG IVPB ONE (00:27)
[2019-05-01] MEDS ORDERED: Lorazepam PYXIS KEY PRN (00:28)
--- NOTE | 2019-05-01 00:51 | PN ---
PROGRESS NOTE: DATE OF VISIT: 04/30/19 PATIENT OF: Dr. Tabares. HISTORY: This is a 74-year-old woman I am seeing in neurological followup for her altered mental status. She was seen initially by Dr. Enriquez two days ago with significant confusion and obtundation and has been much better coming off some of her medications as outlined by Dr. Enriquez. Of note, she has severe epilepsy from childhood which is the generalized epilepsy, but without recent seizures. She has been taken off of most recently her Keppra and has been reduced. With levels of Keppra and lamotrigine pending, her Lamictal level is 100 mg b.i.d., Keppra level is 750 twice a day. She has a had a past history of hyperammonemia. PHYSICAL EXAMINATION: On exam, she was alert, she knew her name, she knew her son's name. She was confused and rambling. Apparently, she was agitated at night and saying help me. On exam, temperature 98.9, pulse 102, respirations 19, blood pressure 111/64. She moves all extremities with power, but did not fully cooperate with exam. There is no focality to her cranial nerves. DIAGNOSTIC STUDIES/LAB DATA: Her EEG showed some slowing. Her CT was as reported by Dr. Enriquez. Her ammonia level was 77. She has had elevated ammonia in the past. Vitamin B levels were normal. There is no thyroid done. UA was negative. Temitope is significantly better than when she came in. If this still represents a change from her baseline, it would be not unreasonable to have a trial of lactulose since she is still going to be in the hospital to see if this is helping. It does not appear that seizures are causing her ongoing confusion with an EEG that did not show any subclinical seizures. Further adjustment of her anticonvulsants should come in nonacute setting through Dr. Ling, who is her neurologist. Thank you for sharing her case. I discussed this with Dr. Tabares. [id number]/[facility] #: [id number] [facility]
[2019-05-01 01:11] LABS: Albumin 2.9 g/dL (3.2-5.2); Anion Gap 13 mmol/L (2-11); CO2 Carbon Dioxide 21 mmol/L (22-32); Calcium 8.3 mg/dL (8.6-10.3); Chloride 111 mmol/L (101-111); Potassium 4.2 mmol/L (3.5-5.0); Sodium 145 mmol/L (135-145)
[2019-05-01 01:17] LABS: ALT 6 U/L (7-52); AST 23 U/L (13-39); Albumin/Globulin Ratio 1.2 (1-3); Alkaline Phosphatase 92 U/L (34-104); BUN/Creatinine Ratio 29.2 (8-20); Blood Urea Nitrogen 35 mg/dL (6-24); EGFR Non-African American 43.8 (>60); Globulin 2.4 g/dL (2-4); Glucose 154 mg/dL (70-100); Total Protein 5.3 g/dL (6.4-8.9)
[2019-05-01 01:42] LABS: Troponin I 0.08 ng/mL (<0.03)
[2019-05-01] MEDS: LORazepam INJ* 2 MG/ML 1 ML VIAL IV PUSH PRN ×2 (02:16→09:23)
[2019-05-01] MEDS: levETIRAcetam IV* 750 MG in NS 0.9% 100 ML* 100 ML IVPB SCH ×2 (09:21→21:09)
[2019-05-01] MEDS: Clopidogrel TAB* 75 MG PO SCH (09:22)
[2019-05-01] MEDS: Metoprolol Succinate XL TAB* 25 MG PO SCH (09:22)
[2019-05-01] MEDS: lamoTRIgine TAB(*) 100 MG PO SCH ×3 (09:22→21:10)
[2019-05-01] MEDS: PARoxetine HCL TAB* 20 MG PO SCH (09:22)
[2019-05-01] MEDS: Lactulose* 15 ML UDC PO SCH (09:41)
[2019-05-01] MEDS ORDERED: Amiodarone 150 MG IVPREMIX* 150 MG/100 ML BAG IV ONE (10:26)
[2019-05-01] MEDS ORDERED: Amiodarone 360 MG IVPREMIX* 360 MG/200 ML BAG IV ONE (10:31)
--- NOTE | 2019-05-01 10:50 | PN ---
Subjective Date of Service: 05/01/19 Interval History: Overnight had possible seizure - self-resolved. Tachycardia from seizure was, per Cardiology, incorrectly read by ICD as VT and defibrillated. Pt still with poor mental status - intermittently combative with RNs. On my interview, back to lethargic, with one-word responses to questions. Oriented only to self. Falls asleep quickly. Objective Active Medications: Albuterol (Ventolin Hfa Inhaler*) 2 puff INH Q4H PRN PRN Reason: SOB/WHEEZING Clopidogrel Bisulfate (Plavix Tab*) 75 [facility] Last Admin: 05/01/19 09:22 Dose: 75 mg Enoxaparin Sodium (Lovenox(*)) 40 mg SUBCUT BEDTIME [facility] Last Admin: 04/30/19 23:00 Dose: 40 mg Levetiracetam 750 mg/ Sodium (Chloride) 107.5 mls @ 460 mls/hr IVPB Q12H [facility] Last Admin: 05/01/19 09:21 Dose: 460 mls/hr Amiodarone HCl (Nexterone 360 Mg/200 Ml Ivpremix*) 360 mg in 200 mls @ 33.333 mls/hr IV ONCE ONE Stop: 05/01/19 16:30 Lamotrigine (Lamictal Tab(*)) 100 mg PO BID [facility] Last Admin: 05/01/19 10:14 Dose: Not Given Lorazepam (Ativan Inj*) 1 mg IV PUSH Q2H PRN PRN Reason: ANXIETY Last Admin: 05/01/19 09:23 Dose: 1 mg Metoprolol Succinate (Toprol Xl Tab*) 25 mg PO [facility] Last Admin: 05/01/19 09:22 Dose: 25 mg Miscellaneous (Ativan Pyxis [place]) 1 ea N/A .ATIVAN IV MENCHACA PRN PRN Reason: PYXIS MENCHACA Paroxetine HCl (Paxil Tab*) 20 mg PO DAILY [facility] Last Admin: 05/01/19 09:22 Dose: 20 mg Vital Signs - 8 hr 05/01/19 05/01/19 05/01/19 03:56 03:58 09:12 Temperature 97.5 F 98.3 F Pulse Rate 100 103 Respiratory 18 18 20 Rate Blood Pressure 115/65 118/68 (mmHg) O2 Sat by Pulse 100 100 Oximetry 05/01/19 09:23 Temperature Pulse Rate Respiratory 23 Rate Blood Pressure (mmHg) O2 Sat by Pulse Oximetry Oxygen Devices in Use Now: Nasal Cannula Appearance: chronically ill appearing woman in no acute distress, without increased WOB Eyes: No Scleral Icterus Ears/Nose/Mouth/Throat: Clear Oropharnyx, Mucous Membranes Moist Neck: NL Appearance and Movements; NL JVP, Trachea Midline Respiratory: - - bibasilar crackles Cardiovascular: - - irreg irreg, tachy Abdominal: NL Sounds; No Tenderness; No Distention, No Hepatosplenomegaly Extremities: - - 1+ in UEs, 2+ to knees in LEs Neurological: - - AOx1 - self; moves 4 extrmities on command Result Diagrams: 05/01/19 16:52 05/01/19 11:28 Assess/Plan/Problems-Billing Assessment: 74W with schizoaffective disorder, CAD/MIs s/p CABG, HFrEF 15-20%, afib s/p PPM , mod aortic stenosis, COPD, seizure disorders, CVA, send from [facility] for lethargy, tachypnea, and hypoxia. Being treated for HF exacerbation, no clear evidence for infection. Also Neuro work up for recent history of AMS. - Patient Problems (1) Atrial fibrillation Comment: - cardiology started amio drip and recommended ICU transfer (2) Altered mental status Comment: Etiology unclear, but son reports h/o AMS with AED titration and elevated levels (follows with Dr. Ling). No hypercarbia on ABG. Head CT unremarkable. Ammonia level elevated, but without e/o hepatic disease, GIB. Other cause could be from diuretics. - appreciate Neuro consult; pending AED serum levels (3) Chronic systolic (congestive) heart failure Comment: Last EF 15-20%. Presenting with tachypnea and hypoxia. Found volume overloaded by exam and CXR. - TTE pending from this AM - cardiology following - appreciate recs - cont home beta-clarke - not on KENJI/ARB given history of low BP and syncope (4) Seizure disorder Comment: - neurology following; thank you for recommendations - AEDs per Neuro - f/u lamictal, keppra levels (5) Schizoaffective disorder Comment: - hold home paliperidone in case it is contributing to her AMS (started 2018) - cont home paroxitine - if holding PO meds, can give haldol IM as needed and monitor QTc closely, currently machine reading of QTc appears falsely elevated and hand calculation reveals 436 (6) CAD (coronary artery disease) Comment: -continue statin, Plavix (7) COPD (chronic obstructive pulmonary disease) Comment: -not in exacerbation -continue home albuterol prn (8) H/O: CVA (cerebrovascular accident) Comment: -continue clopidogrel, statin (9) DVT prophylaxis Comment: -lovenox
--- NOTE | 2019-05-01 11:44 | ECHO ---
*[facility]* [place] [address] Fax #: [phone] Transthoracic Echocardiogram Patient: Temitope Potter : 1945 Study Date: 05/01/2019 Age: 74 Gender: F HR: 104 bpm Height: 66 in /167.6 cm BSA: 1.89 m^2 Weight: 175.6 lb /79.8 kg BMI: 28.4 kg/m^2 *Manager Software: Mara Johnson *Referring Physician: * Deyanira Tabares *Reading Physician: * Roberto Gama MD Indications: Congestive Heart Failure. History: Atrial fibrillation. Congestive heart failure. Aortic stenosis. Mitral regurgitation. PMH: Cardiomyopathy. Labs, prior tests, procedures, and surgery: Coronary artery bypass grafting. Conclusions Summary: - Left ventricle: The cavity size is dilated. Wall thickness is below normal limits. Systolic function is severely reduced. The estimated ejection fraction is <10%. Systolic function is similar but slightly worse from the study of October 2018. Cannot exclude an apical thrombus. - Right ventricle: The cavity size is moderately dilated. Wall thickness is normal. Systolic function is moderately reduced. - Left atrium: The atrium is severely dilated. - Right atrium: The atrium is dilated. - Mitral valve: There is moderate regurgitation. - Aortic valve: The valve is bicuspid. The leaflets are severely calcified. The findings are consistent with severe stenosis. Stenosis severity has increased in comparison with the study of October 2018. - Tricuspid valve: There is moderate-severe regurgitation. - Pulmonary arteries: Systolic pressure is moderately increased, estimated to be 50 mm Hg. Pulmonary artery pressure has decreased from the study of October 2018. Study data: Transthoracic echocardiogram. Procedure: Transthoracic echocardiography was performed. Image quality was good. Complete 2D, spectral Doppler, and color flow Doppler. Location: Bedside. Patient status: Inpatient. Patient room number: 449-1. Comparison is made to the study of October 2018. Rhythm: Atrial fibrillation. Findings Left ventricle: The cavity size is dilated. Wall thickness is below normal limits. Systolic function is severely reduced. The estimated ejection fraction is <10%. Systolic function is similar but slightly worse from the study of October 2018. Cannot exclude an apical thrombus. Regional wall motion abnormalities: Dyskinesis of the mid anterior, mid anteroseptal, basal-mid inferoseptal, and apical septal myocardium; akinesis of the basal anteroseptal, basal-mid inferior, mid anterolateral, and apical lateral myocardium; severe hypokinesis of the basal and apical anterior, apical inferior, and apical myocardium; hypokinesis of the mid inferolateral myocardium; mild hypokinesis of the basal inferolateral and basal anterolateral myocardium. Left ventricular diastolic function parameters are indeterminate. Right ventricle: The cavity size is moderately dilated. Wall thickness is normal. Pacer wire noted in the right ventricle. Systolic function is moderately reduced. Systolic pressure is increased. Left atrium: The atrium is severely dilated. Right atrium: The atrium is dilated. Pacer wire noted in right atrium. Atrial septum: No defect or patent foramen ovale is identified. Mitral valve: The leaflets are normal thickness. There is no evidence of stenosis. There is moderate regurgitation. Aortic valve: The valve is bicuspid. The leaflets are severely calcified. The findings are consistent with severe stenosis. Stenosis severity has increased in comparison with the study of October 2018. There is no significant regurgitation. Tricuspid valve: The leaflets are normal thickness. There is no evidence of stenosis. There is moderate-severe regurgitation. Hepatic hussein flow reversal is present Pulmonic valve: The valve is structurally normal. There is no evidence of stenosis. There is trace regurgitation. Aorta: The aortic root appears normal. The aortic arch appears normal. Pericardium: There is no significant pericardial effusion. Pulmonary arteries: Systolic pressure is moderately increased, estimated to be 50 mm Hg. Pulmonary artery pressure has decreased from the study of October 2018. Systemic veins: Inferior vena cava: The vessel is normal in size. There is (< 50%) respiratory change in the IVC dimension. Pulmonary veins: The Pulmonary veins appear normal. Measurements Left ventricle Value Ref Aortic valve Value Ref ISABELL, LAX (H) 5.8 cm 3.8 - 5.2 Peak v, S 2.42 m/sec ----- ESD, LAX (H) 5.6 cm 2.2 - 3.5 VTI, S 54.0 cm ----- FS, LAX (L) 4 % Mean grad, S 16.0 mm Hg ----- PW, ED, LAX 0.8 cm 0.6 - 0.9 Peak grad, S 23.0 mm Hg ----- FS (L) 4 % LEIDA, VTI 0.79 cm^2 ----- Mid-wall FS 3 % LEIDA, Vmax 0.88 cm^2 ----- PW, ED 0.8 cm 0.6 - 0.9 PW/ID, ED 0.14 Mitral valve Value Ref E', lat harinder, TDI 11.6 cm/sec >=10.0 Peak E 1 m/sec ----- E/e', lat harinder, 9 Peak A 0.01 m/sec --- -- TDI Decel time 201 ms ----- E', med harinder, TDI (L) 5.1 cm/sec >=7.0 Peak grad, D 4.0 mm Hg ----- E/e', med harinder, 20 Peak E/A ratio 142.9 --- -- TDI ERO, PISA 0.11 cm^2 ----- E', avg, TDI 8.4 cm/sec MR vol, PISA 15 ml --- -- E/e', avg, TDI 12 <=14 MR fraction, PISA 29 % ----- LVOT Value Ref Pulmonic valve Value Ref Diam, S 2.00 cm Peak v, S 0.58 m/sec ----- Area 3.1 cm^2 Peak grad, S 1.0 mm Hg ----- Peak acosta, S 0.68 m/sec Mean grad, S 1 mm Hg Tricuspid valve Value Ref SV 37 ml TR peak v 2.54 m/sec <=2.8 Peak RV-RA grad, S 26 mm Hg ----- Ventricular septum Value Ref Max TR acosta 3.11 m/sec ----- IVS, ED 0.9 cm 0.6 - 0.9 Aortic root Value Ref Right ventricle Value Ref Root diam 3.3 cm <4.1 ISABELL, LAX 3.5 cm ISAEBLL minor ax, A4C (H) 5.0 cm 1.9 - 3.5 Ascending aorta Value Ref mid AAo AP diam, S 4.0 cm ----- Left atrium Value Ref Aortic arch Value Ref AP dim, ES (H) 4.10 cm 2.70 - Arch diam 2.4 cm ----- 3.80 ML dim, A4C 4.4 cm Decending aorta Value Ref SI dim, A4C 7.5 cm Miguel peak acosta 0.37 m/sec ----- Vol/bsa, ES, 1-p (H) 48 ml/m^2 11 - 40 A4C Inferior vena cava Value Ref Vol/bsa, ES, A/L (H) 60 ml/m^2 16 - 34 Diam 2.6 cm ----- Right atrium Value Ref SI dim, ES (H) 6.1 cm 3.4 - 5.3 ML dim, ES, A4C 4.3 cm 2.6 - 4.4 SI dim, ES, A4C (H) 6.1 cm 3.4 - 5.3 Legend: (L) and (H) camryn values outside specified reference range. Prepared and electronically signed by Roberto Gama MD 05/01/2019 11:44
[2019-05-01 11:48] LABS: INR 1.66 (0.82-1.09)
[2019-05-01] MEDS: Digoxin IV* 0.5 MG/2 ML AMP (0.25 MG/ML) IV SLOW PU SCH ×2 (11:55→19:19)
[2019-05-01 12:02] LABS: C Reactive Protein 84.15 mg/L (<8.01); Magnesium 2.6 mg/dL (1.9-2.7)
--- NOTE | 2019-05-01 12:59 | CONS ---
AMENDED REPORT NOW INCLUDES DESIGNATED COSIGNER CONSULTATION REPORT: DATE OF CONSULT: 05/01/19 ATTENDING PHYSICIAN: Dr. Roberto Gama, Cardiology.* (DICTATED BY CUCA GARCIA NP) PRIMARY RESEARCH GENETICIST: Historically, Dr. Maycol Orourke. REASON FOR CONSULT: Device output for VT, troponin elevation, history of aortic stenosis and coronary disease. HISTORY OF PRESENT ILLNESS: This is a 74-year-old female patient who follows Dr. Maycol Orourke of our practice due to a notable history of coronary artery disease with prior bypass and subsequent stenting to [place] circumflex and obtuse marginal with PTCA to saphenous vein graft to right coronary artery in 2013, VT with prior VT ablation in 2013 with pacemaker/defibrillator in situ, ischemic cardiomyopathy with severe LV dysfunction, probable low-flow, low- gradient . The patient presented to [facility] on 04/27/19 according to the medical records with complaints of lethargy, hypoxia, oxygen level was 88%. She was admitted to [address] [place] [address] where she has been monitored on telemetry. She has had troponin elevation noted on her chemistry. Troponin peaked at presentation at 0.16. Last troponin level this morning at midnight was 0.8. Last evening on telemetry around 11:40 p.m. on 04/30/19, she went into atrial tachycardia. She received 6 rounds of ATP with subsequent device output for VT. It appears that VT was induced by her pacemaker. Device was further interrogated and it was noted on 04/26/19 prior to presenting to [facility] she had an episode of ventricular tachycardia not related to atrial tachycardia with successful device output. Given inappropriate device output, we have been asked to see the patient in consultation. At this current time, she is responsive to stimulation, she is nonverbal. Please note that this is a new neurologic finding since her prior admission in February of 2019. It is possible that this is related to a postictal state. During the time period of her inappropriate device output, I am told that she was actively having a seizure. Neurology has been consulted and has been evaluating the patient. She had a CT on 04/28/19. Per Radiology report, there was no acute intracranial process evident. She is hemodynamically stable at this current time. She has developed atrial fibrillation, thus the patient is to be transferred to the ICU where we will give her 150 mg of IV amio followed by mg per minute for 6 hours, then 0.5 mg per minute thereafter. In the past when she had VT during her October of 2018 admit with troponin elevation, she was risk stratified with a Lexiscan nuclear stress test. Per report, there was reported small area of reversible change involving the anterior wall, LVEF at that time was 13%, global hypokinesis was noted. In the past, she has suffered from syncope. It was felt that etiology of syncope was multifactorial given volume contraction and possible low-flow, low- gradient aortic stenosis. She was supposed to follow up with outpatient repeat echo to evaluate aortic valve; however, has not done so because she has been residing at a rehabilitation facility. I have asked the primary team to discontinue nitrate therapy and avoid afterload reduction. Unfortunately, due to the patient's current neurologic state, I am not able to obtain further information in regards to history of present illness. Last echocardiogram according to our medical records was 10/29/18; per report LVEF 15% to 20%. Ygsdrxvx-[id number] right ventricular systolic dysfunction, moderate mitral regurgitation, moderate aortic stenosis with mild aortic regurgitation, mean systolic gradient 10. The valve area by the velocity time was 1.09 cm squared. The valve area by peak velocity was 0.87 cm squared. There was [id number] tricuspid insufficiency. Right ventricular systolic pressure was 68. Last ischemic evaluation as mentioned before via nuclear stress test on . PAST MEDICAL HISTORY: 1. Coronary artery disease. 2. Probable low-flow, low-gradient severe aortic stenosis. 3. VT with prior VT ablation in 2013. 4. Permanent pacemaker/defibrillator in situ. 5. Ischemic cardiomyopathy. 6. Severe pulmonary hypertension. 7. Fkjkijno-po-nyoktg tricuspid insufficiency. 8. Moderate mitral regurgitation. 9. Seizure disorder. 10. Hypertension. 11. COPD. 12. Hyperlipidemia. 13. Schizophrenia. PAST SURGICAL HISTORY: Includes: 1. CABG in 2013. 2. Stenting to left circumflex and obtuse marginal. 3. Pacemaker/defibrillator in 2013. 4. VT ablation in 2013. HOME MEDICATIONS: Per admission med rec. ALLERGIES: Listed include: 1. SULFA. 2. METHOXYFLURANE. 3. TEGRETOL. FAMILY HISTORY: Noncontributory. SOCIAL HISTORY: The patient is , lives at home alone, although her son dispenses her medications. She historically ambulated independently prior to her ankle fracture in February of 2019 as a result of her syncopal episode. She is a former tobacco user, quit 14 years ago. Denies alcohol or drug use. Was residing at a rehab center prior to presenting this admit. REVIEW OF SYSTEMS: Unfortunately, I am unable to adequately assess review of systems due to the patient's current neurologic state. Please refer to above- mentioned HPI for further information. PHYSICAL EXAM: Temperature is 98.3, pulse 103, respirations 20, oxygenation 100 % on 4 L nasal cannula, blood pressure 118/68. General: The patient is lying in bed with seizure pads noted on bed railings. She is nonverbal. She responds to name and physical stimulation. She is not alert or oriented. HEENT : Head is atraumatic, normocephalic. Oral mucosa is moist. Tongue is midline. Pupils are 2 mm, restricting to 1 mm. Neck: Supple. Trachea midline. No JVD. No carotid bruits. Cardiac: Tachycardic. S1, S2. Irregular rate and rhythm. There is a grade 3/6 early systolic aortic valve murmur. There is a grade 2/5 diastolic mitral murmur. Positive gallop. No rub. Lungs: Auscultated anteriorly. Positive rales noted throughout. Respirations are nonlabored. /GI: The patient does grimace with palpation of abdomen. Bowel sounds normoactive x4. No hepatomegaly to palpation. Extremities: There is an abrasion noted on right knee. Otherwise, no edema noted. No jaundice. No pallor. Peripheral Vascular: 3+ brachial and dorsalis pedis pulse palpated bilaterally and symmetrically. DIAGNOSTIC STUDIES/LAB DATA: Blood work reviewed. White count 6.4, hemoglobin 10.3, hematocrit 33, platelets 196. Sodium 145, potassium 4.2, creatinine 1.2, BUN 35, lactic acid 2.5, glucose 154. Total bilirubin 1.4. Troponin #3 0.08. Ammonia level on 04/28/19 was elevated at 77. BNP greater than 1300. Urine culture did not have any growth. Nasal screen was negative for MRSA. ECG from 05/01/19 reviewed; AFib, rate 91 with flattened T-wave noted in V5, V6 consistent with prior ECG. No ST segment elevation or depression appreciated. Echocardiogram pending. ASSESSMENT AND PLAN: 1. Ventricular tachycardia with appropriate device output on 04/26/19 with troponinemia. The patient has a history of ventricular tachycardia with prior ventricular tachycardia ablation in 2013 with subsequent pacemaker/ defibrillator placement. In October of 2018, she had a 20-beat count of monomorphic ventricular tachycardia, with complaints of syncope. At that time, she was risk stratified with a Lexiscan nuclear stress test. There was reported small territory of reversible ischemia in the anterior wall. Medical therapy was recommended at that time. LVEF 13%. ECG does not reveal acute ST segment abnormalities. Ultimately, we would recommend left and right heart catheterization given concern for low-flow, low-gradient aortic stenosis in addition to coronary artery disease being a probability for recurrent ventricular tachycardia. Last evening, she had a witnessed seizure with associated atrial tachycardia. Her device attempted to pace her out of atrial tachycardia and she ended up developing pacer-related ventricular tachycardia and had inappropriate device output. Given she has now developed atrial fibrillation, we recommend transferring the patient to ICU. I have ordered 150 mg IV bolus of amiodarone followed by mg per minute for 6 hours and 0.5 mg per minute thereafter. Recommend keeping K greater than 4, mag greater than 2. Ultimately, the patient would benefit from transfer to cardiac tertiary care center for evaluation of ventricular tachycardia; low-flow, low-gradient aortic stenosis; and probable left and right heart catheterization. Please note that her neurologic status would need to be addressed prior to even considering an evaluation. She appears to be in a postictal state at this current time. She had a negative CT head on 04/28/19. Dr. Romero, Neurology has been following the patient. Primary team has been notified. We will await echocardiogram and follow the patient closely. Please avoid nitrate therapy and afterload reduction agents given probable low-flow, low-gradient aortic stenosis. We would also avoid hypotension. The patient is in guarded condition. 2. History of seizure disorder, with witnessed seizure on 04/30/19. She recently had Keppra reduced and follows Neurology in [place]. Dr. Romero is following the patient and managing. 3. History of coronary artery disease with prior bypass and subsequent stenting. The patient is on clopidogrel therapy. Troponin peaked at presentation. Echocardiogram pending. Continue metoprolol therapy. Not clear as to why the patient is not statin therapy, but we would recommend statin therapy for secondary prevention. She would benefit from eventual left and right heart catheterization given above #1. 4. Newly diagnosed paroxysmal atrial fibrillation. CHADS-VASc greater than 2. Currently on DVT prophylaxis dose of Lovenox. We would recommend cardiac dose of Lovenox if able. She is currently in atrial fibrillation with controlled ventricular rate. We will initiate IV amiodarone therapy given concern for recurrent inappropriate device output. Her rates are currently controlled on metoprolol 25 mg a day. 5. Probable low-flow, low-gradient aortic stenosis; echo pending. We will discontinue nitrate therapy. Avoid volume contraction. Avoid afterload reduction. 6. Disposition: Pending course. The patient's condition is guarded. She is listed as a full code. Dr. Gama has personally seen and examined the patient and agrees with the above assessment and plan. Please do not hesitate to contact our practice. We will follow the patient closely. CUCA GARCIA NP [id number]/[facility] #: [id number] Originally Esigned by Cuca Garcia NP 05/01/19 1319 Patient seen and examined on 05.01.19 and reviewed with Ms. Garcia and hospitalists. Prognosis extremely guarded given underlying severe cardiovascular lesions and comorbidities. POA and family agreed to DNR and conservative medical management which is appropriate in my opinion. Will continue amiodarone and gentle diuresis; consider palliative care. Stan Gama MD 05.02.19 3;55 pm MTDD
[2019-05-01] MEDS ORDERED: NS 0.9% 250 ML* 250 ML IV ONE (14:16)
--- NOTE | 2019-05-01 14:21 | PN ---
Date of Service: 05/01/19 Critical Care Services: Patient transferred from [address] [place] [address] for arrhythmia and change in mental status. Overnight, patient had what appeared to be increased HR and change in rhythm. At approximately 11:40pm last night patient's AICD fired inappropriately during seizure like activity which produced an atrial tachycardia, then afib. It should be noted that patient also had VT at some point while she was still at [facility] which was noted on her interrogation by [employer]. Patient was persistently confused after these events last night and this morning and required IV ativan. Per cardiology, patient was placed on amio bolus and drip to control arrhythmia and rate, and then was transferred to ICU. Patient remains obtunded and unable to provide any information, son is at bedside for pertinent history. Vital Signs: Temp Pulse Resp BP SpO2 FiO2 97.9 F 79 16 112/71 98 05/01/19 11:00 05/01/19 13:30 05/01/19 13:30 05/01/19 13:30 05/01/19 13:30 Physical Exam: Gen: Lethargic, pale, ill-appearing HEENT: PERRLA, non-icteric sclera Lungs: Scattered rhonchi, mildly sonorous respirations Cardiac: +S1S2, grade III/ systolic murmur noted, rate irregular, 70s Abdomen: +BS, benign, soft Extremities: non-pitting bilateral LE edema +2, UE +1, scabbing left knee, multiple scabbed areas left upper arm/biceps. No erythema or drainage. No clubbing or cyanosis Neuro: Non-responsive, non-verbal, intact gag, GCS=6 Fluid Balance (Past 24 Hours): I= 620 O= 180 Net +440 Intake & Output 04/29/19 04/30/19 05/01/19 05/02/19 06:59 06:59 06:59 06:59 Intake Total 559 480 620 0 Output Total 1550 150 180 0 Balance -991 330 440 0 Weight 181 lb 8 oz 176 lb 9.6 oz 177 lb 1.6 oz Intake: IV Fluids 30 ABX - LEVAQUIN 30 IVPB 529 260 ABX - LEVAQUIN 100 Levetraetam 210 Magnesium 50 kcl 213 ns 216 Oral 0 480 360 0 Output: Urine 150 0 Ladd 1550 0 Straight Cath 180 Other: Estimated Void Medium Medium Date of Last Bowel 1/13/20 Movement # Bowel Movements 1 Estimated Stool Amount Small Small Small # Voids 2 1 1 Labs: Laboratory Results - last 24 hr 05/01/19 05/01/19 05/01/19 00:48 00:48 00:48 INR (Anticoag Therapy) Sodium 145 Potassium 4.2 Chloride 111 Carbon Dioxide 21 L Anion Gap 13 H BUN 35 H Creatinine 1.20 H Est GFR ( Amer) 53.0 Est GFR (Non-Af Amer) 43.8 BUN/Creatinine Ratio 29.2 H Glucose 154 H Lactic Acid 2.5 H* Calcium 8.3 L Magnesium 2.0 Total Bilirubin 1.40 H AST 23 ALT 6 L Alkaline Phosphatase 92 Troponin I 0.08 H* C-Reactive Protein Total Protein 5.3 L Albumin 2.9 L Globulin 2.4 Albumin/Globulin Ratio 1.2 Prolactin 82.7 H 05/01/19 05/01/19 05/01/19 11:28 11:28 11:28 INR (Anticoag Therapy) 1.66 H Sodium Potassium Chloride Carbon Dioxide Anion Gap BUN Creatinine Est GFR ( Amer) Est GFR (Non-Af Amer) BUN/Creatinine Ratio Glucose Lactic Acid 1.7 Calcium Magnesium 2.6 Total Bilirubin AST ALT Alkaline Phosphatase Troponin I C-Reactive Protein 84.15 H Total Protein Albumin Globulin Albumin/Globulin Ratio Prolactin Studies: CT/CTA Summary: CTA HEAD: INTRACRANIAL CIRCULATION: There is no aneurysm, vascular malformation, occlusion , or stenosis of the visualized intracranial circulation. The anterior communicating artery complex is clear. Bilateral posterior communicating arteries are identified. VENOUS CIRCULATION: The venous system is unremarkable. PERFUSION: There is no obvious parenchymal perfusion deficit. HEMORRHAGE/INFARCT: There is no hemorrhage or acute infarct. MASSES/SHIFT: There is no mass or shift. EXTRA-AXIAL SPACES: There are no extra-axial fluid collections. SULCI AND VENTRICLES: The sulci and ventricles are normal in size and position for the patient's stated age. CEREBRUM: There is hypoattenuation of the periventricular and subcortical white matter. BRAINSTEM: There are no focal parenchymal abnormalities. CEREBELLUM: There are no focal parenchymal abnormalities. PARANASAL SINUSES: The paranasal sinuses are clear. ORBITS: The orbits are unremarkable. BONES AND SOFT TISSUE: No bone or soft tissue abnormalities are noted. OTHER: None IMPRESSION: 1. LARGE BILATERAL PULMONARY EMBOLI. 2. ATHEROSCLEROSIS. 3. NO HEMODYNAMICALLY SIGNIFICANT INTERNAL CAROTID ARTERY STENOSIS BY NASCET CRITERIA. 4. NO ANEURYSM, VASCULAR MALFORMATION, OCCLUSION, OR STENOSIS OF THE VISUALIZED INTRACRANIAL CIRCULATION.. 5. CHRONIC SMALL VESSEL ISCHEMIC CHANGE. 6. EMPHYSEMA. 7. PRELIMINARY FINDINGS WERE DISCUSSED WITH CAREY FARRELL AT APPROXIMATELY 2:55 PM ON MAY 01, 2019. Transthoracic Echocardiogram Patient: Temitope Potter : 1945 Study Date: 05/01/2019 Age: 74 Gender: F HR: 104 bpm Height: 66 in /167.6 cm BSA: 1.89 m^2 Weight: 175.6 lb /79.8 kg BMI: 28.4 kg/m^2 *Heel Stiffener: Mara Johnson *Referring Physician: * Deyanira Tabares *Reading Physician: * Roberto Gama MD Indications: Congestive Heart Failure. History: Atrial fibrillation. Congestive heart failure. Aortic stenosis. Mitral regurgitation. PMH: Cardiomyopathy. Labs, prior tests, procedures, and surgery: Coronary artery bypass grafting. Conclusions Summary: - Left ventricle: The cavity size is dilated. Wall thickness is below normal limits. Systolic function is severely reduced. The estimated ejection fraction is <10%. Systolic function is similar but slightly worse from the study of October 2018. Cannot exclude an apical thrombus. - Right ventricle: The cavity size is moderately dilated. Wall thickness is normal. Systolic function is moderately reduced. - Left atrium: The atrium is severely dilated. - Right atrium: The atrium is dilated. - Mitral valve: There is moderate regurgitation. - Aortic valve: The valve is bicuspid. The leaflets are severely calcified. The findings are consistent with severe stenosis. Stenosis severity has increased in comparison with the study of October 2018 Nutrition: Heart healthy diet Impression: This is a 74 year old female with history of ischemic cardiomyopathy, seizures, HTN, schizoaffective disorder, CAD, and CVA that presented to the ED on 2019 with complaints of lethargy and shortness of breath, upgraded to ICU for tachy arrhythmia, breakthrough seizure and reduced LOC. Diagnoses: 1. New onset Atrial Fibrillation 2. Encephalopathy, etiology unclear 3. New Bilateral PEs 4. Ischemic Cardiomyopathy with EF <10% 5. Seizure Disorder with Breakthrough 6. Critical Aortic Stenosis 7. Hx of VT 8. Schizoaffective Disorder 9. CAD 10. COPD 11. Hx of CVA Plan: Neuro - Remains encephalopathic but maintaining airway - CT/CTA with no new infarct and no LVO - EEG with no new seizure activity - Dr. Romero will reach out to Dr. Culver regarding adjustment to AEDs - Seizure precautions - Neuro checks Q2h CV - Continue amiodarone @1mg per protocol for 6 hours, decrease to 0.5mg thereafter, currently rate controlled afib, no further ectopy - ECHO shows now critical , possible apical thrombus and EF of <10% Pulmonary - New bilateral PEs noted on CT today - Initiating heparin gtt - Continue oxymask, sats adequate >95% GI - Bowel regimen Renal - Creat slightly elevated from last admission - Gentle bolus of 250ml NS and maintenance hydration post CTA @75ml/hr x4 hours in light of critical Musculoskeletal - T&P Q2h, monitor for skin breakdown Endocrine - No issues ID - Does not appear to have aspirated during seizure, no fevers, initial LA elevated now normal Heme - H&H stable DVT Prophy - SCDs and heparin gtt Code Status: DNR discussed with son Cy POA/HCP, will adjust MOLST Dispo: ICU, guarded Critical Care Time: 65 minutes
[2019-05-01] MEDS ORDERED: Iodixanol* (CONTRAST) 320 MG/ML 100 ML SDV IV ONE (14:43)
[2019-05-01] MEDS ORDERED: NS 0.9% 500 ML* 500 ML IV SCH (15:00)
--- NOTE | 2019-05-01 15:22 | CONS ---
CONSULTATION REPORT: DATE OF CONSULT: 05/01/19 ATTENDING ORTHOPEDIC PROVIDER: Dr. Reed Reid. CHIEF COMPLAINT: Missed outpatient appointment for left lateral malleolus fracture. HISTORY OF PRESENT ILLNESS: The patient is a 74-year-old female. She is currently in ICU with atrial fibrillation, altered mental status, CHF, status post seizure, schizoaffective disorder. She was quite sedated today and unable to interact with me during the appointment, though she does pull away from exam. PAST MEDICAL HISTORY: CAD, CABG, ischemic cardiomyopathy with ejection fraction of 15% to 20%, moderate aortic stenosis, AFib, schizoaffective disorder , stroke, history of seizures. PAST SURGICAL HISTORY: CABG, cardiac stents, appendectomy, pacer insertion. FAMILY HISTORY: Unable to obtain. SOCIAL HISTORY: The patient is an ex-smoker. She smoked 2 to 4 packs a day for 61 years. No alcohol use. REVIEW OF SYSTEMS: Unable to obtain. PHYSICAL EXAM: No acute distress. The patient is sedated, does not interact with me today. Her left ankle skin envelope is intact. She pulls away from exam without any obvious areas of point tenderness. Foot is warm and cap refill less than tow seconds. ASSESSMENT: Nondisplaced spiral fracture of the left distal fibula with progression of callus formation with fracture line still apparent. PLAN: The patient can be weightbearing as tolerated in the postop boot. She should follow up with Dr. Reid when out of the hospital. NAKUL WARE [id number]/[facility] #: [id number] [facility]
[2019-05-01] MEDS ORDERED: Heparin DRIP 25,000 UNITS(*) 25,000 UNITS/500 ML BAG IV SCH (17:00)
[2019-05-01 17:09] LABS: ABS Lymphocytes 0.4 10^3/ul (1.0-4.8); ABS Monocytes 0.8 10^3/ul (0-0.8); ABS Neutrophils 5.8 10^3/ul (1.5-7.7); ABS Nucleated RBC 0.1 10^3/ul; Hematocrit 34 % (35-47); Hemoglobin 10.6 g/dL (12.0-16.0); Lymphocyte % 5.5 %; Mean Corpuscular HGB Conc 31 g/dL (31-36); Mean Corpuscular Hemoglobin 26 pg (27-31); Mean Corpuscular Volume 85 fL (80-97); Mean Platelet Volume 9.6 fL (7.4-10.4); Platelet Count 232 10^3/uL (150-450); Red Blood Count 4.03 10^6 /uL (3.70-4.87); Red Cell Distribution Width 18 % (10-15); White Blood Count 7.1 10^3/uL (3.5-10.8)
[2019-05-01 17:20] LABS: EGFR African American 48.3 (>60); EGFR Non-African American 39.9 (>60)
[2019-05-01] MEDS ORDERED: Digoxin IV* 0.5 MG/2 ML AMP (0.25 MG/ML) IV SLOW PU ONE (18:00)
[2019-05-01] MEDS ORDERED: Heparin VIAL(*) 5000 UNITS/ML VIAL (FIVE THOUSAND) IV SCH (18:00)
[2019-05-01] MEDS: Amiodarone 360 MG IVPREMIX* 360 MG/200 ML BAG IV SCH (19:30)
[2019-05-01] MEDS ORDERED: Acetaminophen TAB* 325 MG PO PRN (21:56)
[2019-05-01] MEDS ORDERED: Morphine INJ* 2 MG/ML 1 ML SYRINGE (TWO MG - NEW SYRINGE VERSION) IV PRN (21:56)
--- NOTE | 2019-05-02 05:03 | EEG ---
ELECTROENCEPHALOGRAPHY: DATE OF STUDY: - ROOM #ICU-02 DATE OF DICTATION: 05/01/19 PATIENT OF: Osiris Jalloh NP CLINICAL PROBLEM: This is a 74-year-old woman with longstanding history of seizures being evaluated for acute change in mental status without any seizure immediately preceding this. She did have a seizure last night. MEDICATIONS: Include: 1. Digoxin. 2. Keppra. 3. Lovenox. 4. Famotidine. 5. Plavix. 6. Metoprolol. 7. Paxil. 8. Amiodarone. 9. 1 mg of Ativan roughly 5 hours prior to this EEG. REPORT: With the patient obtunded, background cerebral activity consisted of diffuse irregular delta and theta activity of moderate amplitude with some admixed alpha range frequencies. No clearcut epileptiform potentials or focal abnormalities are noted. CLINICAL IMPRESSION: This EEG is consistent with a generalized encephalopathy, but shows no subclinical seizures or clear epileptiform potentials. [id number]/[facility] #: [id number] [facility]
--- NOTE | 2019-05-02 06:28 | PN ---
PROGRESS NOTE: DATE OF VISIT: 05/01/19 PATIENT OF: Osiris Gonzalesfield Shubham NP HISTORY: This is a neurological followup on this 74-year-old woman who is encephalopathic. This morning at about 9, according to Dr. Tabares, she was in her usual encephalopathic state saying a few words and having some comprehension. At roughly 9:30 or so, she became agitated, got 1 mg of Ativan and then became severely obtunded. I was called in the afternoon with this change in her condition. I recommended a CT and since she had been transferred to the ICU because of rapid AFib, I recommended getting a CTA to make sure that there was no clot in her basilar artery circulation. I also obtained an EEG. She also of note had a single brief seizure last night but had a fast ventricular response to that. The pacemaker kicked in and perhaps secondary to that pediatrics teacher thought she went into a brief line of V-tach. She also had received one dose of lactulose yesterday evening and her mental status at this point was not changed. MEDICATIONS: 1. Paxil 20 mg daily. 2. Ativan as needed. 3. Metoprolol 25 mg in the morning. 4. Keppra 750 twice a day. 5. Lamictal 100 twice a day. 6. Plavix 75 in the morning. 7. Amiodarone. 8. Heparin drip. PHYSICAL EXAMINATION: Temperature 98.6, pulse 69, respiratory rate 17, blood pressure 122/80. She was comatose without eyes open. She moves extremities ___ __ to noxious stimuli. Pupils are 2 mm and reactive. She had reactive facies. She breathes well. Chest: Clear. Cardiovascular: Irregular rate and rhythm. Abdomen was soft. DIAGNOSTIC STUDIES/LAB DATA: Her EEG showed generalized slowing but did not show any seizure activity this afternoon when she was in coma. Her CTA showed no significant intracranial disease but did have small vessel ischemic disease. She has had on her CTA, large bilateral pulmonary emboli. Her CT scan showed no acute stroke. CBC had a hematocrit of 34, otherwise unremarkable. PTT was at 530. INR 1.66. Prolactin level at midnight on 05/01/19 1248 was 82. Total bili is 1.4. I had obtained CT and CTA to make sure there was no ENERGY SPECIALIST bleed and make sure that there was no basilar artery infarct and neither of these were present. Her EEG likewise did not show any subclinical seizures. It is possible that she has a generalized progressive encephalopathy and systemic problem such as her large pulmonary emboli could be causing enough metabolic dysfunction to cause care. While acute workup is going on, I discussed with the son the detail that we will be getting a CTA with the issue of possible clot retrieval. He wanted the testing done but was not sure whether he want such aggressive intervention given his mother's multiple medical problems. I have also spoken to Dr. Ling about the clinical change for the worse as all the details described and thus especially given that she had a V-tach in apparent response to seizure what to do with seizure management. Her recommendation is to increase Lamictal at bedtime by 25 mg and then after a week to go up to 50 mg, so I am putting this into effect. The son knows the overall gravity of the situation, he is working with the hospitalist as well. Thank you for sharing her case. [id number]/[facility] #: [id number] ROLF
[2019-05-02 06:44] LABS: BUN/Creatinine Ratio 29.6 (8-20); EGFR African American 55.7 (>60); Potassium 3.9 mmol/L (3.5-5.0)
[2019-05-02] MEDS: Amiodarone 360 MG IVPREMIX* 360 MG/200 ML BAG IV SCH (06:52)
[2019-05-02 07:14] LABS: ABS Lymphocytes 0.6 10^3/ul (1.0-4.8); ABS Neutrophils 7.4 10^3/ul (1.5-7.7); ABS Nucleated RBC 0.1 10^3/ul; Eosinophil % 0.1 %; Hematocrit 35 % (35-47); Lymphocyte % 6.1 %; Mean Corpuscular HGB Conc 31 g/dL (31-36); Mean Corpuscular Hemoglobin 26 pg (27-31); Mean Corpuscular Volume 84 fL (80-97); Nucleated Red Blood Cells % 0.7; Platelet Count 242 10^3/uL (150-450); Red Cell Distribution Width 19 % (10-15)
[2019-05-02] MEDS: levETIRAcetam IV* 750 MG in NS 0.9% 100 ML* 100 ML IVPB SCH ×2 (08:40→21:33)
[2019-05-02] MEDS: Metoprolol Succinate XL TAB* 25 MG PO SCH (09:50)
[2019-05-02] MEDS: PARoxetine HCL TAB* 20 MG PO SCH (09:50)
[2019-05-02] MEDS: Clopidogrel TAB* 75 MG PO SCH (09:50)
[2019-05-02] MEDS: lamoTRIgine TAB(*) 25 MG PO SCH ×2 (09:50→21:34)
[2019-05-02] MEDS: lamoTRIgine TAB(*) 100 MG PO SCH ×2 (09:50→21:33)
[2019-05-02 11:54] LABS: Urine Appearance Cloudy; Urine Bilirubin Negative (Negative); Urine Blood 2+ (Negative); Urine Color Amber; Urine Glucose Negative (Negative); Urine Ketones Negative (Negative); Urine Nitrite Negative (Negative); Urine Protein 1+(30 mg/dL) (Negative); Urine Specific Gravity 1.032 (1.010-1.030); Urine Urobilinogen Negative (Negative)
[2019-05-02 11:57] LABS: Urine Bacteria 1+ (Absent); Urine Red Blood Cell 1+(3-5/hpf) (Absent); Urine White Blood Cell 3+(>20/hpf) (Absent)
[2019-05-02] MEDS ORDERED: LORazepam INJ* 2 MG/ML 1 ML VIAL ONE (14:08)
[2019-05-02] MEDS ORDERED: Furosemide IV* 10 MG/ML 2 ML VIAL (20 MG) IV ONE (15:26)
[2019-05-02] MEDS ORDERED: KCL 10 MEQ/50 ML IVPREMIX* 10 MEQ/50 ML BAG IV ONE (15:31)
[2019-05-02] MEDS ORDERED: Morphine 4 MG/ML VIAL (1 ml) 4 MG/ML VIAL IV PRN (18:29)
[2019-05-02] MEDS ORDERED: Morphine INJ* 2 MG/ML 1 ML SYRINGE (TWO MG - NEW SYRINGE VERSION) IV PRN (18:40)
--- NOTE | 2019-05-02 18:56 | PN ---
Date of Service: 05/02/19 Critical Care Services: Patient seen and examined. Family at bedside. HR has converted to RSR, and is rate is controlled. Her respiratory status is declining with increased work of breathing today. She is still encephalopathic and mostly lethargic, but responding to family and interacting with nursing staff. She requires frequent reorientation when she is mildly agitated. Swallow eval ordered as she has been unable to take any PO meds or nutrition. Amio drip has completed, PTT has been elevated. Overall, she does appear to be in more distress although she is more awake today. Vital Signs: Temp Pulse Resp BP SpO2 FiO2 98.0 F 85 39 134/87 96 05/02/19 16:00 05/02/19 18:00 05/02/19 18:00 05/02/19 18:00 05/02/19 18:00 Physical Exam: Gen: lethargic, mild/moderate distress HEENT: PERRLA, non icteric sclera Lungs: crackles bilaterally, course throughout, tachypneic with increased WOB Cardiac: +S1S2, rate controlled, RSR, intermittent pacing, 3/6 murmur Abdomen: Benign, +BS, non tender Extremities: Pitting edema to the knees, various mottling and scabbing to bilateral upper extremities Neuro: lethargic, difficulty following commands Fluid Balance (Past 24 Hours): I= O= Net Intake & Output 04/30/19 05/01/19 05/02/19 05/03/19 06:59 06:59 06:59 06:59 Intake Total 877 855 9775.5 561 Output Total 150 180 0 975 Balance 267 395 5088.5 -414 Weight 176 lb 9.6 oz 177 lb 1.6 oz 180 lb Intake: IV Fluids 552 ns 552 IVPB 260 110 112 Levetraetam 210 110 112 Magnesium 50 Medicated IV 673.5 449 CC - Amiodarone 464 200 Heparin 209.5 249 Oral 480 360 0 Output: Urine 150 0 0 0 Ladd 0 975 Straight Cath 180 Other: Estimated Void Medium Medium Large Medium Date of Last Bowel 04/29/19 Movement # Bowel Movements 1 Estimated Stool Amount Small Small # Voids 2 1 1 Labs: Laboratory Results - last 24 hr 04/28/19 05/02/19 05/02/19 08:37 00:14 03:08 WBC 9.0 RBC 4.20 Hgb 11.0 L Hct 35 MCV 84 MCH 26 L MCHC 31 RDW 19 H Plt Count 242 MPV 9.0 Neut % (Auto) 82.7 Lymph % (Auto) 6.1 [place] % (Auto) 10.7 Eos % (Auto) 0.1 Baso % (Auto) 0.4 Absolute Neuts (auto) 7.4 Absolute Lymphs (auto) 0.6 L Absolute Monos (auto) 1.0 H Absolute Eos (auto) 0.0 Absolute Basos (auto) 0.0 Absolute Nucleated RBC 0.1 Nucleated RBC % 0.7 APTT 153.9 H* Sodium Potassium Chloride Carbon Dioxide Anion Gap BUN Creatinine Est GFR ( Amer) Est GFR (Non-Af Amer) BUN/Creatinine Ratio Glucose Calcium Urine Color Urine Appearance Urine pH Ur Specific [place] Urine Protein Urine Ketones Urine Blood Urine Nitrate Urine Bilirubin Urine Urobilinogen Ur Leukocyte Esterase Urine WBC (Auto) Urine RBC (Auto) Urine Bacteria Hyaline Casts Urine Glucose Levetiracetam 72.0 H 05/02/19 05/02/19 05/02/19 03:08 03:08 05:30 WBC RBC Hgb Hct MCV MCH MCHC RDW Plt Count MPV Neut % (Auto) Lymph % (Auto) [place] % (Auto) Eos % (Auto) Baso % (Auto) Absolute Neuts (auto) Absolute Lymphs (auto) Absolute Monos (auto) Absolute Eos (auto) Absolute Basos (auto) Absolute Nucleated RBC Nucleated RBC % APTT >240.0 H* 137.2 H* Sodium 146 H Potassium 3.9 Chloride 113 H Carbon Dioxide 25 Anion Gap 8 BUN 34 H Creatinine 1.15 H Est GFR ( Amer) 55.7 Est GFR (Non-Af Amer) 46.0 BUN/Creatinine Ratio 29.6 H Glucose 147 H Calcium 8.0 L Urine Color Urine Appearance Urine pH Ur Specific [place] Urine Protein Urine Ketones Urine Blood Urine Nitrate Urine Bilirubin Urine Urobilinogen Ur Leukocyte Esterase Urine WBC (Auto) Urine RBC (Auto) Urine Bacteria Hyaline Casts Urine Glucose Levetiracetam 05/02/19 05/02/19 10:49 14:34 WBC RBC Hgb Hct MCV MCH MCHC RDW Plt Count MPV Neut % (Auto) Lymph % (Auto) [place] % (Auto) Eos % (Auto) Baso % (Auto) Absolute Neuts (auto) Absolute Lymphs (auto) Absolute Monos (auto) Absolute Eos (auto) Absolute Basos (auto) Absolute Nucleated RBC Nucleated RBC % APTT 155.3 H* Sodium Potassium Chloride Carbon Dioxide Anion Gap BUN Creatinine Est GFR ( Amer) Est GFR (Non-Af Amer) BUN/Creatinine Ratio Glucose Calcium Urine Color [place] Urine Appearance Cloudy Urine pH 5.0 Ur Specific [place] 1.032 H Urine Protein 1+(30 mg/dl) A Urine Ketones Negative Urine Blood 2+ A Urine Nitrate Negative Urine Bilirubin Negative Urine Urobilinogen Negative Ur Leukocyte Esterase 3+ A Urine WBC (Auto) 3+(>20/hpf) A Urine RBC (Auto) 1+(3-5/hpf) A Urine Bacteria 1+ A Hyaline Casts Present A Urine Glucose Negative Levetiracetam Studies: *[facility]* [place] [address] Fax #: [phone] Transthoracic Echocardiogram Patient: Temitope Potter : 1945 Study Date: 05/01/2019 Age: 74 Gender: F HR: 104 bpm Height: 66 in /167.6 cm BSA: 1.89 m^2 Weight: 175.6 lb /79.8 kg BMI: 28.4 kg/m^2 *Drapery Cutter Machine: * Mara Horowitz *Referring Physician: * Deyanira Tabares *Reading Physician: * Roberto Gama MD Indications: Congestive Heart Failure. History: Atrial fibrillation. Congestive heart failure. Aortic stenosis. Mitral regurgitation. PMH: Cardiomyopathy. Labs, prior tests, procedures, and surgery: Coronary artery bypass grafting. Conclusions Summary: - Left ventricle: The cavity size is dilated. Wall thickness is below normal limits. Systolic function is severely reduced. The estimated ejection fraction is <10%. Systolic function is similar but slightly worse from the study of October 2018. Cannot exclude an apical thrombus. - Right ventricle: The cavity size is moderately dilated. Wall thickness is normal. Systolic function is moderately reduced. - Left atrium: The atrium is severely dilated. - Right atrium: The atrium is dilated. - Mitral valve: There is moderate regurgitation. - Aortic valve: The valve is bicuspid. The leaflets are severely calcified. The findings are consistent with severe stenosis. Stenosis severity has increased in comparison with the study of 11/02 Nutrition: NPO, failed swallow Impression: This is a 74 year old female with history of ischemic cardiomyopathy, seizures, HTN, schizoaffective disorder, CAD, and CVA that presented to the ED on 2019 with complaints of lethargy and shortness of breath, upgraded to ICU for tachy arrhythmia, breakthrough seizure and reduced LOC. Diagnoses: 1. New onset Atrial Fibrillation 2. Encephalopathy, etiology unclear 3. New Bilateral PEs 4. Ischemic Cardiomyopathy with EF <10% 5. Seizure Disorder with Breakthrough 6. Critical Aortic Stenosis 7. Hx of VT 8. Schizoaffective Disorder 9. CAD 10. COPD 11. Hx of CVA Plan: Neuro - Remains encephalopathic but maintaining airway - CT/CTA with no new infarct and no LVO - EEG with no new seizure activity - Dr. Romero following, lamotragine dose adjusted however, unable to take PO meds - On keppra IV CV - Converted to sinus, now off amiodarone drip - Not able to take PO meds at this time 2/2 encephalopathy - ECHO with critical , possible apical thrombus and EF of <10% - Crackles bilaterally and fluid overloaded today, gentle diuresis with lasix 20mg IV - Lengthy discussion with family about goals of care, opting for comfort and they wish for defib to be turned off. Will place magnet for the night and contact [employer] in AM to reprogram device Pulmonary - Bilateral submassive PEs noted on CT - Increasing tachypnea and distress today, although maintain saturations, combination of PEs and heart failure/fluid overload - Heparin gtt was initiated, PTT supratherapeutic, however, family is opting for comfort, drip is currently off - Continue oxymask, sats adequate >95% GI - Patient remains NPO, as she has failed swallow evaluation today - Clarified goals with family, they do not wish for artificial means of feeding Renal - Creat stable/improved Musculoskeletal - T&P Q2h, monitor for skin breakdown Endocrine - No issues ID - No fevers or white count Heme - H&H stable DVT Prophy - SCDs Code Status: DNR discussed with son Cy MAGALLANES/HCP, MOLST changed per his request. Dispo: Per above, had family meeting with patient's son, daughters and daughter in law. Patient does appear to be failing. Her prognosis remains very poor given her cardiac status and recent events. They have agreed that given the severity of their mother's heart failure, recent arrhythmias, new submassive PEs, breakthrough seizures, encephalopathic state and inability to swallow, they are opting for comfort measures only. I have ordered morphine, ativan and atropine. A magnet has been placed on her AICD to prevent firing. I have discussed this with Dr. Gama who will contact device knitted cloth examiner in the morning and reprogram her device. Will also consult Dr. Humphrey of Palliative care in the morning. Critical Care Time: 60 minutes
[2019-05-02] MEDS ORDERED: LORazepam INJ* 2 MG/ML 1 ML VIAL IV PUSH PRN (19:07)
[2019-05-02] MEDS ORDERED: Lorazepam PYXIS KEY PRN (19:07)
[2019-05-02] MEDS: LORazepam INJ* 2 MG/ML 1 ML VIAL IV PUSH PRN (19:11)
[2019-05-02 19:35] LABS: Lamotrigine 10.6 mcg/mL (2.5 - 15.0)
[2019-05-02] MEDS: Morphine INJ* 2 MG/ML 1 ML SYRINGE (TWO MG - NEW SYRINGE VERSION) IV PRN ×2 (22:26→22:49)
[2019-05-03] MEDS: Morphine INJ* 2 MG/ML 1 ML SYRINGE (TWO MG - NEW SYRINGE VERSION) IV PRN ×4 (01:06→08:37)
[2019-05-03] MEDS: Atropine 1% (ORAL/SL)* 15 ML BTL SL PRN ×2 (01:11→08:43)
--- NOTE | 2019-05-03 03:54 | PN ---
NEUROLOGICAL PROGRESS NOTE: DATE OF VISIT: 05/02/19 HISTORY: She has had no further seizure since yesterday and is more awake than yesterday, but back to when I had initially seen her. She mumbles, is confused , says some words, can follow some simple commands. She moves all extremities with power, but is diffusely weak. Her CBC was unremarkable today. Her PTT was 155 recently, and they are adjusting her heparin. Her BMP today had creatinine of 1.15, sodium of 146. PHYSICAL EXAMINATION: Her exam is as above. She has been afebrile. Blood pressure 133/78, pulse 75, respirations 23, temperature 98.4. IMPRESSION AND PLAN: I spoke to Dr. Ling yesterday and discussed with her that she has had a seizure and the seizure caused her to go into an arrhythmia that led into a brief run of V-tach. I also discussed that she is having AFib and her pulmonary embolism and is being treated for that. She did not want her to go any higher than 250 mg of Lamictal, which is what she had been on according to her notes until we increased the Lamictal to that at this point, but she is not getting p.o. because she is not swallowing well and a swallow evaluation is pending. Depending on how long she goes without the Lamictal, please contact us if it is more than the next day or so, because if it gets restarted, we may need to go slower and I would want to know the point she can get restarted. Dr. Ling had no other recommendations and at this point, she is clinically stable and I would leave her anticonvulsants as is. When speaking to Dr. Ling, her encephalopathy has been in the past several months at least and it has been a significant encephalopathy. It is unclear to me at her best how much worse she is than her new baseline. Clearly, there has been fluctuations with that. Thank you for sharing her case. [id number]/[facility] #: [id number] ROLF
[2019-05-03] MEDS: levETIRAcetam IV* 750 MG in NS 0.9% 100 ML* 100 ML IVPB SCH (08:37)
[2019-05-03] MEDS: lamoTRIgine TAB(*) 100 MG PO SCH (08:37)
[2019-05-03] MEDS: Clopidogrel TAB* 75 MG PO SCH (08:37)
[2019-05-03] MEDS: lamoTRIgine TAB(*) 25 MG PO SCH (08:38)
[2019-05-03] MEDS: Metoprolol Succinate XL TAB* 25 MG PO SCH (08:38)
[2019-05-03 09:16] VITALS: BP 119/73
[2019-05-03] MEDS: LORazepam INJ* 2 MG/ML 1 ML VIAL IV PUSH PRN (09:21)
[2019-05-03] MEDS ORDERED: LORazepam INJ* 2 MG/ML 1 ML VIAL IV PUSH PRN (10:51)
[2019-05-03] MEDS ORDERED: Lorazepam PYXIS KEY PRN (10:51)
[2019-05-03] MEDS ORDERED: Morphine PCA ADULT* 5 MG/ML 30 ML PCA SCH ×2 (11:00→13:39)
[2019-05-03] MEDS ORDERED: Morphine 4 MG/ML VIAL (1 ml) 4 MG/ML VIAL IV ONE (14:22)
[2019-05-03] MEDS ORDERED: Morphine INJ* 4 MG/ML 1 ML SYRINGE (NEW SYRINGE VERSION) ONE (14:23)
[2019-05-03] MEDS ORDERED: Morphine INJ* 4 MG/ML 1 ML SYRINGE (NEW SYRINGE VERSION) IV ONE (15:00)
--- NOTE | 2019-05-03 15:06 | PN ---
Progress Note - Progress Note Date of Service: 05/03/19 Note: note: Called to bedside several times today, patient in increasing distress. Decision to place on morphine pump this AM with good effect. Titrated to alleviate symptoms. Family at bedside and agreeable to plan. Called back into room @ 1458 by RN for signs of apnea. Patient examined, no pupillary response, no respirations or heart sounds. Time of 1458. Electronic certificate # [id number]
--- NOTE | 2019-05-03 17:55 | DS ---
Patient admitted on 04/27/19 for lethargy and hypoxia. She was residing at SNF after completing rehab for a fractured ankle. PMH includes CAD, ischemic cardiomyopathy s/p pacemaker now with reduced EF, aortic stenosis and afib not on anticoagulation, and seizures. She was found to have ventricular tachycardia , worsening EF, bilateral pulmonary embolism and was started on heparin gtt. She was also found to have a supratherapeutic keppra level. She was encephalopathic and mental status did not significantly improve throughout her hospital stay. She failed her swallow evaluation and family declined a PEG tube. They ultimately decided to make her comfort care on 05/02/19. She was started on comfort medications. She passed on 05/03/19 @ 1458 with her family at her bedside.
== END 2019-05-03 14:08 | disposition expired | DRG 70 ==
LOC: ED 19:21 → MEDTELE 22:30 → ICU 05-01 11:12
PROVIDERS: ADMIT Internal Medicine; ATTEND Internal Medicine Critical Care Medicine
PROC: 4A00X4Z Measurement of Central Nervous Electrical Activity, External Approach (ICD-10-PCS; principal; 2019-05-01)
DX: G93.40 Encephalopathy, unspecified (principal); J96.01 Acute respiratory failure with hypoxia; I26.99 Other pulmonary embolism without acute cor pulmonale; I47.2 Ventricular tachycardia; N17.9 Acute kidney failure, unspecified; I50.22 Chronic systolic (congestive) heart failure; I25.10 Atherosclerotic heart disease of native coronary artery without angina pectoris; I25.5 Ischemic cardiomyopathy; I35.0 Nonrheumatic aortic (valve) stenosis; I48.91 Unspecified atrial fibrillation; Z51.5 Encounter for palliative care; Z66 Do not resuscitate; F25.9 Schizoaffective disorder, unspecified; I11.0 Hypertensive heart disease with heart failure; R94.31 Abnormal electrocardiogram [ECG] [EKG]; G40.909 Epilepsy, unspecified, not intractable, without status epilepticus; R79.89 Other specified abnormal findings of blood chemistry; E11.9 Type 2 diabetes mellitus without complications; E78.00 Pure hypercholesterolemia, unspecified; H91.90 Unspecified hearing loss, unspecified ear; K21.9 Gastro-esophageal reflux disease without esophagitis; F41.9 Anxiety disorder, unspecified; F32.9 Major depressive disorder, single episode, unspecified; J44.9 Chronic obstructive pulmonary disease, unspecified; I27.20 Pulmonary hypertension, unspecified; E78.5 Hyperlipidemia, unspecified; R40.2354 Coma scale, best motor response, localizes pain, 24 hours or more after hospital admission; R40.2134 Coma scale, eyes open, to sound, 24 hours or more after hospital admission; R40.2234 Coma scale, best verbal response, inappropriate words, 24 hours or more after hospital admission; Z86.73 Personal history of transient ischemic attack (TIA), and cerebral infarction without residual deficits; Z95.1 Presence of aortocoronary bypass graft; Z95.5 Presence of coronary angioplasty implant and graft; Z87.891 Personal history of nicotine dependence; Z88.2 Allergy status to sulfonamides; Z88.8 Allergy status to other drugs, medicaments and biological substances; I25.2 Old myocardial infarction; Z95.0 Presence of cardiac pacemaker; Z79.899 Other long term (current) drug therapy
CPT/HCPCS: 36415; 36600; 70450; 70496; 70498; 71046; 80048; 80053; 80175; 80177; 81003; 81015; 82140; 82565; 82607; 82803; 83605; 83735; 83880; 84146; 84484; 84520; 85025; 85027; 85610; 85730; 86140; 87077; 87086; 87186; 87641; 87899; 93005; 93306; 94667; 95816; 95822; 96374; 99285; A9270-GY; J0282; J1160; J1630; J1644; J1650; J1940; J2060; J2270; J3475; J3480; Q9967